=== PATIENT | female | born 1955 | race Caucasian/White ===

== ENCOUNTER 2017-10-05 23:34 | Emergency (ER) | payer MEDICARE ==
[~2017-10-05] VITALS: Ht 157.5 cm; Wt 49.9 kg
[2017-10-06 00:02] LABS: BASOPHILS ABSOLUTE AUTO 0.03 K/mm3 (0.00-0.23); BASOPHILS PERCENT AUTO 0 % (0-2); EOSINOPHILS ABSOLUTE AUTO 0.01 K/mm3 (0.00-0.68); EOSINOPHILS PERCENT AUTO 0 % (0-6); Hematocrit 43.6 % (33.0-51.0); Hemoglobin 14.2 g/dL (11.5-16.0); IMMATURE GRAN ABSOLUTE AUTO 0.04 K/mm3 (0.00-0.10); IMMATURE GRAN PERCENT AUTO 0 % (0-1); LYMPHOCYTES ABSOLUTE AUTO 1.43 K/mm3 (0.84-5.20); LYMPHOCYTES PERCENT AUTO 10 % (21-46); MONOCYTES ABSOLUTE AUTO 0.88 K/mm3 (0.16-1.47); MONOCYTES PERCENT AUTO 6 % (4-13); Mean Corpuscular HGB 29.3 pg (26.0-34.0); Mean Corpuscular HGB Conc 32.6 g/dL (31.5-36.5); Mean Corpuscular Volume 90 fL (80-100); Mean Platelet Volume 14.2 fL (9.1-12.4); NEUTROPHILS ABSOLUTE AUTO 12.51 K/mm3 (1.96-9.15); NEUTROPHILS PERCENT AUTO 84 % (41-73); Platelet Count 207 K/mm3 (150-400); RDW Standard Deviation 42.6 fL (35.1-46.3); Red Blood Cell Count 4.84 M/mm3 (3.80-5.20)
[2017-10-06 00:14] LABS: Alanine Aminotransfer (ALT/SGP 50 U/L (12-78); Albumin, Blood 3.8 g/dL (3.4-5.0); Albumin/Globulin Ratio 0.9 (0.8-1.8); Alk Phos 125 U/L (50-136); Anion Gap 15 mmol/L (6-16); Aspartate Aminotrans (AST/SGOT 76 U/L (12-37); Bilirubin, Total 0.4 mg/dL (0.1-1.0); Blood Urea Nitrogen 11 mg/dL (8-24); Bun/Creatinine Ratio 21.6 (12.0-20.0); CO2, Blood 20 mmol/L (21-32); Calcium, Blood 9.4 mg/dL (8.5-10.1); Chloride, Blood 107 mmol/L (98-108); Creatinine, Blood 0.51 mg/dL (0.40-1.00); Globulin, Blood 4.4 g/dL (2.2-4.0); Glomerular Filtration Rate >60 (60-); Glucose, Blood 95 mg/dL (70-99); Potassium, Blood 3.7 mmol/L (3.5-5.5); Sodium, Blood 142 mmol/L (136-145); Total Protein, Blood 8.2 g/dL (6.4-8.2)
[2017-10-06] MEDS ORDERED: Bactrim Ds Tab1 EACH PO (11:27)
[2017-10-06] MEDS ORDERED: Colace100 MG PO (11:27)
[2017-10-06] MEDS ORDERED: GLYCPS PR (11:27)
== END 2017-10-06 02:25 | disposition home or self-care (01) ==
LOC: ER 23:34
PROVIDERS: Emergency Medicine
DX: K59.00 Constipation, unspecified (principal)
CPT/HCPCS: 80053; 83690; 85025; 99283

== ENCOUNTER 2017-10-06 08:02 | Emergency (ER) | payer MEDICARE ==
[~2017-10-06] VITALS: Ht 152.4 cm; Wt 59.0 kg
[2017-10-06 10:22] LABS: Source, Urine Clean Catch
[2017-10-06 10:26] LABS: Bilirubin, Urine Neg (Neg); Blood, Urine 4+ (Neg); Glucose Qualitative, Urine 2+ (Neg); Ketones, Urine 4+ (Neg); Leukocyte Esterase, Urine 3+ (Neg); Nitrite, Urine Neg (Neg); Protein, Urine 2+ (Neg); Urobilinogen, Urine NORM (Normal)
[2017-10-06 10:37] LABS: Appearance, Urine Hazy (Clear); Color, Urine Yellow (P-Yellow)
[2017-10-06 10:39] LABS: Bacteria Mod /hpf; Mucus Light (0-Heavy); Squamous Epithelial Cells Mod /hpf (Few)
[2017-10-06] MEDS ORDERED: Colace100 MG PO (11:27)
[2017-10-06] MEDS ORDERED: Bactrim Ds Tab1 EACH PO (11:27)
[2017-10-06] MEDS ORDERED: GLYCPS PR (11:27)
== END 2017-10-06 11:48 | disposition home or self-care (01) ==
LOC: ER 08:02
PROVIDERS: Emergency Medicine
DX: K59.00 Constipation, unspecified (principal); N39.0 Urinary tract infection, site not specified; E86.0 Dehydration
CPT/HCPCS: 74018; 81001; 87077; 87086; 87186; 99283

== ENCOUNTER 2017-12-01 05:59 | Inpatient (IN) | payer MEDICARE ==
[~2017-12-01] VITALS: Ht 147.3 cm; Wt 39.3 kg
[~2017-12-01 05:59] MED LIST: Bactrim Ds Tab1 EACH PO; Colace100 MG PO; GLYCPS PR
[2017-12-01] MEDS ORDERED: Ventolin5 MG/1 ML INH (06:21)
[2017-12-01 06:28] LABS: BASOPHILS ABSOLUTE AUTO 0.06 K/mm3 (0.00-0.23); BASOPHILS PERCENT AUTO 0 % (0-2); EOSINOPHILS ABSOLUTE AUTO 1.19 K/mm3 (0.00-0.68); EOSINOPHILS PERCENT AUTO 9 % (0-6); Hematocrit 44.1 % (33.0-51.0); Hemoglobin 14.1 g/dL (11.5-16.0); IMMATURE GRAN ABSOLUTE AUTO 0.03 K/mm3 (0.00-0.10); IMMATURE GRAN PERCENT AUTO 0 % (0-1); LYMPHOCYTES ABSOLUTE AUTO 4.85 K/mm3 (0.84-5.20); LYMPHOCYTES PERCENT AUTO 36 % (21-46); MONOCYTES ABSOLUTE AUTO 0.67 K/mm3 (0.16-1.47); MONOCYTES PERCENT AUTO 5 % (4-13); Mean Corpuscular HGB 28.5 pg (26.0-34.0); Mean Corpuscular Volume 89 fL (80-100); NEUTROPHILS ABSOLUTE AUTO 6.64 K/mm3 (1.96-9.15); NEUTROPHILS PERCENT AUTO 49 % (41-73); Platelet Count 190 K/mm3 (150-400); RDW Coefficient Variation 13.1 % (11.7-14.2); RDW Standard Deviation 43.1 fL (35.1-46.3); Red Blood Cell Count 4.94 M/mm3 (3.80-5.20); White Blood Cell Count 13.44 K/mm3 (4.00-11.30)
[2017-12-01 06:37] LABS: Anion Gap 8 mmol/L (6-16); Blood Urea Nitrogen 10 mg/dL (8-24); CO2, Blood 27 mmol/L (21-32); Calcium, Blood 8.5 mg/dL (8.5-10.1); Chloride, Blood 109 mmol/L (98-108); Creatinine, Blood 0.53 mg/dL (0.40-1.00); Glomerular Filtration Rate >60 (60-); Glucose, Blood 102 mg/dL (70-99); Potassium, Blood 3.3 mmol/L (3.5-5.5); Sodium, Blood 144 mmol/L (136-145)
[2017-12-01 06:39] LABS: Mean Platelet Volume 13.5 fL (9.1-12.4)
[2017-12-01 07:57] LABS: Troponin I <0.015 ng/mL (0.000-0.040)
[2017-12-02 04:58] LABS: BASOPHILS ABSOLUTE AUTO 0.02 K/mm3 (0.00-0.23); BASOPHILS PERCENT AUTO 0 % (0-2); EOSINOPHILS ABSOLUTE AUTO 0.01 K/mm3 (0.00-0.68); EOSINOPHILS PERCENT AUTO 0 % (0-6); Hematocrit 34.2 % (33.0-51.0); Hemoglobin 10.9 g/dL (11.5-16.0); IMMATURE GRAN ABSOLUTE AUTO 0.14 K/mm3 (0.00-0.10); IMMATURE GRAN PERCENT AUTO 1 % (0-1); LYMPHOCYTES ABSOLUTE AUTO 1.36 K/mm3 (0.84-5.20); LYMPHOCYTES PERCENT AUTO 6 % (21-46); MONOCYTES ABSOLUTE AUTO 0.47 K/mm3 (0.16-1.47); MONOCYTES PERCENT AUTO 2 % (4-13); Mean Corpuscular HGB 28.6 pg (26.0-34.0); Mean Corpuscular HGB Conc 31.9 g/dL (31.5-36.5); Mean Corpuscular Volume 90 fL (80-100); NEUTROPHILS ABSOLUTE AUTO 19.17 K/mm3 (1.96-9.15); NEUTROPHILS PERCENT AUTO 91 % (41-73); Platelet Count 158 K/mm3 (150-400); RDW Coefficient Variation 13.2 % (11.7-14.2); RDW Standard Deviation 43.8 fL (35.1-46.3); Red Blood Cell Count 3.81 M/mm3 (3.80-5.20); White Blood Cell Count 21.17 K/mm3 (4.00-11.30)
[2017-12-02 05:01] LABS: Mean Platelet Volume 14.2 fL (9.1-12.4)
[2017-12-02 05:25] LABS: Anion Gap 11 mmol/L (6-16); Blood Urea Nitrogen 6 mg/dL (8-24); Bun/Creatinine Ratio 13.8 (12.0-20.0); CO2, Blood 24 mmol/L (21-32); Calcium, Blood 8.2 mg/dL (8.5-10.1); Chloride, Blood 111 mmol/L (98-108); Creatinine, Blood 0.44 mg/dL (0.40-1.00); Glomerular Filtration Rate >60 (60-); Glucose, Blood 141 mg/dL (70-99); Sodium, Blood 146 mmol/L (136-145)
[2017-12-02 10:08] LABS: Source, Urine Clean Catch
[2017-12-02 10:15] LABS: Bilirubin, Urine Neg (Neg); Blood, Urine Neg (Neg); Glucose Qualitative, Urine Neg (Neg); Ketones, Urine Neg (Neg); Leukocyte Esterase, Urine Neg (Neg); Nitrite, Urine Neg (Neg); Protein, Urine Neg (Neg); Urobilinogen, Urine NORM (Normal)
[2017-12-02 10:19] LABS: Appearance, Urine Clear (Clear); Color, Urine Yellow (P-Yellow)
[2017-12-02 10:43] LABS: U Amphetamine Screen Not Detected; U Barbituate Screen Not Detected; U Benzodiazapine Screen Not Detected; U Buprenorphine Screen Not Detected; U Cannabinoids Screen Not Detected; U Cocaine Screen Not Detected; U Methadone Screen Not Detected; U Methamphetamine Screen Not Detected; U Opiates Screen Not Detected; U Oxycodone Screen Not Detected; U Phencyclidine Screen Not Detected; U Propoxyphene Screen Not Detected
[2017-12-03 04:59] LABS: Hematocrit 34.3 % (33.0-51.0); Hemoglobin 10.8 g/dL (11.5-16.0); Mean Corpuscular HGB 28.1 pg (26.0-34.0); Mean Corpuscular HGB Conc 31.5 g/dL (31.5-36.5); Mean Corpuscular Volume 89 fL (80-100); Platelet Count 157 K/mm3 (150-400); RDW Coefficient Variation 13.9 % (11.7-14.2); RDW Standard Deviation 45.5 fL (35.1-46.3); Red Blood Cell Count 3.84 M/mm3 (3.80-5.20); White Blood Cell Count 29.79 K/mm3 (4.00-11.30)
[2017-12-03 05:05] LABS: Mean Platelet Volume 14.4 fL (9.1-12.4)
[2017-12-03 05:23] LABS: Albumin, Blood 2.6 g/dL (3.4-5.0); Anion Gap 8 mmol/L (6-16); Blood Urea Nitrogen 14 mg/dL (8-24); CO2, Blood 25 mmol/L (21-32); Calcium, Blood 8.3 mg/dL (8.5-10.1); Chloride, Blood 110 mmol/L (98-108); Creatinine, Blood 0.44 mg/dL (0.40-1.00); Glomerular Filtration Rate >60 (60-); Glucose, Blood 139 mg/dL (70-99); Phosphorus, Blood 2.3 mg/dL (2.5-4.9); Sodium, Blood 143 mmol/L (136-145)
[2017-12-03 15:25] LABS: Percent Saturation 30.1 % (15.0-50.0)
[2017-12-04 04:31] LABS: BASOPHILS ABSOLUTE AUTO 0.03 K/mm3 (0.00-0.23); BASOPHILS PERCENT AUTO 0 % (0-2); EOSINOPHILS PERCENT AUTO 0 % (0-6); Hematocrit 33.8 % (33.0-51.0); Hemoglobin 10.7 g/dL (11.5-16.0); IMMATURE GRAN ABSOLUTE AUTO 0.28 K/mm3 (0.00-0.10); IMMATURE GRAN PERCENT AUTO 1 % (0-1); LYMPHOCYTES ABSOLUTE AUTO 1.11 K/mm3 (0.84-5.20); LYMPHOCYTES PERCENT AUTO 5 % (21-46); MONOCYTES ABSOLUTE AUTO 0.47 K/mm3 (0.16-1.47); MONOCYTES PERCENT AUTO 2 % (4-13); Mean Corpuscular HGB 28.6 pg (26.0-34.0); Mean Corpuscular HGB Conc 31.7 g/dL (31.5-36.5); Mean Corpuscular Volume 90 fL (80-100); Mean Platelet Volume 14.2 fL (9.1-12.4); NEUTROPHILS PERCENT AUTO 91 % (41-73); Platelet Count 148 K/mm3 (150-400); RDW Standard Deviation 46.3 fL (35.1-46.3); Red Blood Cell Count 3.74 M/mm3 (3.80-5.20); White Blood Cell Count 20.89 K/mm3 (4.00-11.30)
[2017-12-04 04:52] LABS: Anion Gap 6 mmol/L (6-16); Blood Urea Nitrogen 13 mg/dL (8-24); Bun/Creatinine Ratio 31.7 (12.0-20.0); CO2, Blood 26 mmol/L (21-32); Calcium, Blood 8.2 mg/dL (8.5-10.1); Chloride, Blood 109 mmol/L (98-108); Creatinine, Blood 0.41 mg/dL (0.40-1.00); Glomerular Filtration Rate >60 (60-); Glucose, Blood 139 mg/dL (70-99); Potassium, Blood 3.9 mmol/L (3.5-5.5); Sodium, Blood 141 mmol/L (136-145)
[2017-12-04] MEDS ORDERED: ACET325S PO (15:19)
[2017-12-04] MEDS ORDERED: FOLI1 PO (15:22)
[2017-12-04] MEDS ORDERED: PRED20 PO (15:24)
[2017-12-04] MEDS ORDERED: ALBU90OI INH (15:25)
[2017-12-04] MEDS ORDERED: AZIT500 PO (15:26)
[2017-12-04] MEDS ORDERED: DULERA 100 MCG/13 GM INH (15:27)
== END 2017-12-04 15:50 | disposition home or self-care (01) | DRG 191 ==
LOC: ER 05:59 → MEDS 09:06
PROVIDERS: Emergency Medicine; Family Medicine; Internal Medicine
DX: J44.0 Chronic obstructive pulmonary disease with (acute) lower respiratory infection (principal); J45.901 Unspecified asthma with (acute) exacerbation; E87.2 Acidosis; R65.10 Systemic inflammatory response syndrome (SIRS) of non-infectious origin without acute organ dysfunction; J98.11 Atelectasis; J44.1 Chronic obstructive pulmonary disease with (acute) exacerbation; D52.9 Folate deficiency anemia, unspecified; J20.9 Acute bronchitis, unspecified; E87.6 Hypokalemia; R01.1 Cardiac murmur, unspecified; D72.829 Elevated white blood cell count, unspecified; Z79.899 Other long term (current) drug therapy; Z95.1 Presence of aortocoronary bypass graft
CPT/HCPCS: 36415; 71046; 71260; 80048; 80069; 81003; 82607; 82728; 82746; 82947; 83540; 83550; 83605; 83735; 83880; 84145; 84484; 85025; 85027; 85379; 87040; 87070; 87205; 93005; 93010; 93306; 94640; 94760; 96361; 96374; 96375; 99285-25; J0456; J0696; J1650; J2930; J3370; J3480; J7030; J7050; J7120; Q9967

== ENCOUNTER 2017-12-26 03:09 | Emergency (ER) | payer MEDICARE ==
[~2017-12-26] VITALS: Ht 152.4 cm; Wt 49.9 kg
[~2017-12-26 03:09] MED LIST changes: +ACET325S PO; +ALBU90OI INH; +AZIT500 PO; +DULERA 100 MCG/13 GM INH; +FOLI1 PO; +PRED20 PO; +Ventolin5 MG/1 ML INH
[2017-12-26 03:28] LABS: BASOPHILS ABSOLUTE AUTO 0.07 K/mm3 (0.00-0.23); BASOPHILS PERCENT AUTO 1 % (0-2); EOSINOPHILS ABSOLUTE AUTO 1.26 K/mm3 (0.00-0.68); EOSINOPHILS PERCENT AUTO 13 % (0-6); Hematocrit 41.5 % (33.0-51.0); IMMATURE GRAN ABSOLUTE AUTO 0.01 K/mm3 (0.00-0.10); IMMATURE GRAN PERCENT AUTO 0 % (0-1); LYMPHOCYTES ABSOLUTE AUTO 3.54 K/mm3 (0.84-5.20); LYMPHOCYTES PERCENT AUTO 35 % (21-46); MONOCYTES ABSOLUTE AUTO 0.74 K/mm3 (0.16-1.47); MONOCYTES PERCENT AUTO 7 % (4-13); Mean Corpuscular HGB 27.9 pg (26.0-34.0); Mean Corpuscular HGB Conc 31.3 g/dL (31.5-36.5); Mean Corpuscular Volume 89 fL (80-100); NEUTROPHILS ABSOLUTE AUTO 4.39 K/mm3 (1.96-9.15); NEUTROPHILS PERCENT AUTO 44 % (41-73); Platelet Count 183 K/mm3 (150-400); RDW Coefficient Variation 14.1 % (11.7-14.2); RDW Standard Deviation 45.5 fL (35.1-46.3); Red Blood Cell Count 4.66 M/mm3 (3.80-5.20); White Blood Cell Count 10.01 K/mm3 (4.00-11.30)
[2017-12-26 03:46] LABS: Alanine Aminotransfer (ALT/SGP 25 U/L (12-78); Albumin, Blood 3.8 g/dL (3.4-5.0); Alk Phos 107 U/L (50-136); Anion Gap 9 mmol/L (6-16); Aspartate Aminotrans (AST/SGOT 35 U/L (12-37); Bilirubin, Total 0.6 mg/dL (0.1-1.0); Blood Urea Nitrogen 18 mg/dL (8-24); Bun/Creatinine Ratio 31.3 (12.0-20.0); CO2, Blood 25 mmol/L (21-32); Calcium, Blood 8.9 mg/dL (8.5-10.1); Chloride, Blood 109 mmol/L (98-108); Creatinine, Blood 0.58 mg/dL (0.40-1.00); Glomerular Filtration Rate >60 (60-); Glucose, Blood 92 mg/dL (70-99); Potassium, Blood 3.2 mmol/L (3.5-5.5); Sodium, Blood 143 mmol/L (136-145); Total Protein, Blood 7.8 g/dL (6.4-8.2); Troponin I <0.015 ng/mL (0.000-0.040)
[2017-12-26] MEDS ORDERED: Prednisone20 MG PO (05:10)
== END 2017-12-26 05:23 | disposition home or self-care (01) ==
LOC: ER 03:09
PROVIDERS: Emergency Medicine
DX: R06.02 Shortness of breath (principal); J45.909 Unspecified asthma, uncomplicated; Z79.899 Other long term (current) drug therapy; Z79.51 Long term (current) use of inhaled steroids; Z79.52 Long term (current) use of systemic steroids
CPT/HCPCS: 36415; 71045; 80053; 84484; 85025; 93005; 93010; 94644; 96374; 99285-25; J2930

== ENCOUNTER 2018-01-02 06:26 | Emergency (ER) | payer MEDICARE ==
[~2018-01-02] VITALS: Ht 152.4 cm; Wt 45.4 kg
[~2018-01-02 06:26] MED LIST changes: +Prednisone20 MG PO
[2018-01-02 06:50] LABS: BASOPHILS ABSOLUTE AUTO 0.06 K/mm3 (0.00-0.23); BASOPHILS PERCENT AUTO 1 % (0-2); EOSINOPHILS ABSOLUTE AUTO 0.76 K/mm3 (0.00-0.68); EOSINOPHILS PERCENT AUTO 7 % (0-6); Hematocrit 43.1 % (33.0-51.0); IMMATURE GRAN ABSOLUTE AUTO 0.02 K/mm3 (0.00-0.10); IMMATURE GRAN PERCENT AUTO 0 % (0-1); LYMPHOCYTES ABSOLUTE AUTO 2.45 K/mm3 (0.84-5.20); LYMPHOCYTES PERCENT AUTO 22 % (21-46); MONOCYTES ABSOLUTE AUTO 0.72 K/mm3 (0.16-1.47); MONOCYTES PERCENT AUTO 7 % (4-13); Mean Corpuscular HGB 28.2 pg (26.0-34.0); Mean Corpuscular HGB Conc 32.5 g/dL (31.5-36.5); Mean Corpuscular Volume 87 fL (80-100); NEUTROPHILS ABSOLUTE AUTO 7.09 K/mm3 (1.96-9.15); NEUTROPHILS PERCENT AUTO 64 % (41-73); Platelet Count 198 K/mm3 (150-400); RDW Coefficient Variation 14.1 % (11.7-14.2); RDW Standard Deviation 44.7 fL (35.1-46.3); Red Blood Cell Count 4.96 M/mm3 (3.80-5.20)
[2018-01-02 06:53] LABS: Mean Platelet Volume 13.6 fL (9.1-12.4)
[2018-01-02 07:00] LABS: Anion Gap 9 mmol/L (6-16); Blood Urea Nitrogen 14 mg/dL (8-24); Bun/Creatinine Ratio 31.2 (12.0-20.0); CO2, Blood 28 mmol/L (21-32); Calcium, Blood 8.8 mg/dL (8.5-10.1); Chloride, Blood 108 mmol/L (98-108); Creatinine, Blood 0.45 mg/dL (0.40-1.00); Glomerular Filtration Rate >60 (60-); Glucose, Blood 110 mg/dL (70-99); Sodium, Blood 145 mmol/L (136-145)
[2018-01-02] MEDS ORDERED: COMBIVENT RESPIM4 GM INH (07:54)
[2018-01-02] MEDS ORDERED: Prednisone20 MG PO (07:54)
== END 2018-01-02 08:05 | disposition home or self-care (01) ==
LOC: ER 06:26
PROVIDERS: Emergency Medicine
DX: J44.1 Chronic obstructive pulmonary disease with (acute) exacerbation (principal); Z79.51 Long term (current) use of inhaled steroids
CPT/HCPCS: 36415; 71045; 80048; 85025; 94640; 94644; 96365; 96375; 99285-25; J2930; J3475; J7030

== ENCOUNTER 2018-01-19 03:44 | Emergency (ER) | payer MEDICARE ==
[~2018-01-19] VITALS: Ht 139.7 cm; Wt 45.4 kg
[~2018-01-19 03:44] MED LIST changes: +COMBIVENT RESPIM4 GM INH
[2018-01-19 04:11] LABS: BASOPHILS ABSOLUTE AUTO 0.06 K/mm3 (0.00-0.23); BASOPHILS PERCENT AUTO 0 % (0-2); EOSINOPHILS ABSOLUTE AUTO 1.27 K/mm3 (0.00-0.68); EOSINOPHILS PERCENT AUTO 9 % (0-6); Hematocrit 44.8 % (33.0-51.0); Hemoglobin 14.2 g/dL (11.5-16.0); IMMATURE GRAN ABSOLUTE AUTO 0.02 K/mm3 (0.00-0.10); IMMATURE GRAN PERCENT AUTO 0 % (0-1); LYMPHOCYTES ABSOLUTE AUTO 2.64 K/mm3 (0.84-5.20); LYMPHOCYTES PERCENT AUTO 19 % (21-46); MONOCYTES ABSOLUTE AUTO 0.87 K/mm3 (0.16-1.47); MONOCYTES PERCENT AUTO 6 % (4-13); Mean Corpuscular HGB 28.5 pg (26.0-34.0); Mean Corpuscular HGB Conc 31.7 g/dL (31.5-36.5); Mean Corpuscular Volume 90 fL (80-100); Mean Platelet Volume 12.8 fL (9.1-12.4); NEUTROPHILS ABSOLUTE AUTO 9.03 K/mm3 (1.96-9.15); NEUTROPHILS PERCENT AUTO 65 % (41-73); Platelet Count 215 K/mm3 (150-400); RDW Coefficient Variation 13.8 % (11.7-14.2); RDW Standard Deviation 45.3 fL (35.1-46.3); Red Blood Cell Count 4.99 M/mm3 (3.80-5.20); White Blood Cell Count 13.89 K/mm3 (4.00-11.30)
[2018-01-19 04:31] LABS: Alanine Aminotransfer (ALT/SGP 16 U/L (12-78); Albumin, Blood 3.2 g/dL (3.4-5.0); Albumin/Globulin Ratio 0.7 (0.8-1.8); Alk Phos 111 U/L (50-136); Anion Gap 7 mmol/L (6-16); Aspartate Aminotrans (AST/SGOT 23 U/L (12-37); Bilirubin, Total 0.6 mg/dL (0.1-1.0); Blood Urea Nitrogen 10 mg/dL (8-24); Bun/Creatinine Ratio 19.3 (12.0-20.0); CO2, Blood 27 mmol/L (21-32); Chloride, Blood 105 mmol/L (98-108); Creatinine, Blood 0.52 mg/dL (0.40-1.00); Globulin, Blood 4.3 g/dL (2.2-4.0); Glomerular Filtration Rate >60 (60-); Glucose, Blood 103 mg/dL (70-99); Potassium, Blood 3.7 mmol/L (3.5-5.5); Sodium, Blood 139 mmol/L (136-145); Total Protein, Blood 7.5 g/dL (6.4-8.2); Troponin I <0.015 ng/mL (0.000-0.040)
[2018-01-19] MEDS ORDERED: Zithromax250 MG PO (05:21)
[2018-01-19] MEDS ORDERED: Prednisone20 MG PO (05:21)
== END 2018-01-19 05:59 | disposition home or self-care (01) ==
LOC: ER 03:44
PROVIDERS: Emergency Medicine
DX: J45.901 Unspecified asthma with (acute) exacerbation (principal); Z79.51 Long term (current) use of inhaled steroids
CPT/HCPCS: 71046; 80053; 84484; 85025; 93005; 93010; 94645; 96361; 96374; 99285-25; J2930; J7030

== ENCOUNTER 2018-01-25 00:12 | Emergency (ER) | payer MEDICARE ==
[~2018-01-25] VITALS: Ht 152.4 cm; Wt 45.4 kg
[~2018-01-25 00:12] MED LIST changes: +Zithromax250 MG PO
[2018-01-25 00:42] LABS: BASOPHILS ABSOLUTE AUTO 0.08 K/mm3 (0.00-0.23); BASOPHILS PERCENT AUTO 1 % (0-2); EOSINOPHILS ABSOLUTE AUTO 2.13 K/mm3 (0.00-0.68); EOSINOPHILS PERCENT AUTO 15 % (0-6); Hematocrit 43.3 % (33.0-51.0); Hemoglobin 13.7 g/dL (11.5-16.0); IMMATURE GRAN ABSOLUTE AUTO 0.04 K/mm3 (0.00-0.10); IMMATURE GRAN PERCENT AUTO 0 % (0-1); LYMPHOCYTES ABSOLUTE AUTO 4.35 K/mm3 (0.84-5.20); LYMPHOCYTES PERCENT AUTO 31 % (21-46); MONOCYTES ABSOLUTE AUTO 0.89 K/mm3 (0.16-1.47); MONOCYTES PERCENT AUTO 6 % (4-13); Mean Corpuscular HGB 28.8 pg (26.0-34.0); Mean Corpuscular HGB Conc 31.6 g/dL (31.5-36.5); Mean Corpuscular Volume 91 fL (80-100); Mean Platelet Volume 12.7 fL (9.1-12.4); NEUTROPHILS ABSOLUTE AUTO 6.73 K/mm3 (1.96-9.15); NEUTROPHILS PERCENT AUTO 47 % (41-73); Platelet Count 274 K/mm3 (150-400); RDW Coefficient Variation 13.8 % (11.7-14.2); RDW Standard Deviation 46.4 fL (35.1-46.3); Red Blood Cell Count 4.75 M/mm3 (3.80-5.20); White Blood Cell Count 14.22 K/mm3 (4.00-11.30)
[2018-01-25 00:59] LABS: Anion Gap 8 mmol/L (6-16); Blood Urea Nitrogen 12 mg/dL (8-24); Bun/Creatinine Ratio 22.5 (12.0-20.0); CO2, Blood 27 mmol/L (21-32); Calcium, Blood 8.6 mg/dL (8.5-10.1); Chloride, Blood 106 mmol/L (98-108); Creatinine, Blood 0.53 mg/dL (0.40-1.00); Glomerular Filtration Rate >60 (60-); Glucose, Blood 97 mg/dL (70-99); Potassium, Blood 3.5 mmol/L (3.5-5.5); Sodium, Blood 141 mmol/L (136-145)
== END 2018-01-25 04:15 | disposition home or self-care (01) ==
LOC: ER 00:12
PROVIDERS: Emergency Medicine
DX: J45.901 Unspecified asthma with (acute) exacerbation (principal); Z79.899 Other long term (current) drug therapy; Z79.51 Long term (current) use of inhaled steroids
CPT/HCPCS: 36415; 71046; 80048; 85025; 94644; 96374; 99285-25; J2930

== ENCOUNTER 2018-04-19 11:39 | Observation (INO) | payer MEDICARE, OTHER ==
[~2018-04-19] VITALS: Ht 147.3 cm; Wt 42.4 kg
[~2018-04-19 11:39] MED LIST changes: +ACET325 PO; +ALBU90OI6 INH; +LEVO750 PO; +OLAN2.5 PO; +PRED10 PO; +Q-Tussin100 MG/5 M PO
[2018-04-19 13:17] LABS: BASOPHILS ABSOLUTE AUTO 0.09 K/mm3 (0.00-0.23); BASOPHILS PERCENT AUTO 1 % (0-2); EOSINOPHILS ABSOLUTE AUTO 1.22 K/mm3 (0.00-0.68); EOSINOPHILS PERCENT AUTO 9 % (0-6); Hematocrit 46.9 % (33.0-51.0); IMMATURE GRAN ABSOLUTE AUTO 0.04 K/mm3 (0.00-0.10); IMMATURE GRAN PERCENT AUTO 0 % (0-1); LYMPHOCYTES ABSOLUTE AUTO 3.69 K/mm3 (0.84-5.20); LYMPHOCYTES PERCENT AUTO 27 % (21-46); MONOCYTES ABSOLUTE AUTO 1.08 K/mm3 (0.16-1.47); MONOCYTES PERCENT AUTO 8 % (4-13); Mean Corpuscular HGB 28.6 pg (26.0-34.0); Mean Corpuscular Volume 90 fL (80-100); NEUTROPHILS ABSOLUTE AUTO 7.75 K/mm3 (1.96-9.15); NEUTROPHILS PERCENT AUTO 56 % (41-73); Platelet Count 190 K/mm3 (150-400); RDW Coefficient Variation 12.9 % (11.7-14.2); RDW Standard Deviation 42.5 fL (35.1-46.3); Red Blood Cell Count 5.24 M/mm3 (3.80-5.20); White Blood Cell Count 13.87 K/mm3 (4.00-11.30)
[2018-04-19 13:20] LABS: Alanine Aminotransfer (ALT/SGP 24 U/L (12-78); Albumin, Blood 4.1 g/dL (3.4-5.0); Albumin/Globulin Ratio 0.9 (0.8-1.8); Alk Phos 129 U/L (50-136); Anion Gap 10 mmol/L (6-16); Aspartate Aminotrans (AST/SGOT 23 U/L (12-37); Bilirubin, Total 0.6 mg/dL (0.1-1.0); Blood Urea Nitrogen 26 mg/dL (8-24); Bun/Creatinine Ratio 50.3 (12.0-20.0); CO2, Blood 24 mmol/L (21-32); Calcium, Blood 9.3 mg/dL (8.5-10.1); Chloride, Blood 107 mmol/L (98-108); Creatinine, Blood 0.52 mg/dL (0.40-1.00); Globulin, Blood 4.6 g/dL (2.2-4.0); Glomerular Filtration Rate >60 (60-); Glucose, Blood 86 mg/dL (70-99); Potassium, Blood 3.7 mmol/L (3.5-5.5); Sodium, Blood 141 mmol/L (136-145); Total Protein, Blood 8.7 g/dL (6.4-8.2); Troponin I <0.015 ng/mL (0.000-0.040)
[2018-04-19 13:51] LABS: Influenza A Negative (NEGATIVE); Influenza B Negative (NEGATIVE)
--- NOTE | 2018-04-19 19:32 | NUR ---
ADMIT NOTE/SHIFT SUMMARY- PT ADMITTED THROUGH ED FOR COPD EXACERBATION, NO S&S OF DISTRESS ON ARRIVAL, STARTED IV ABX, IVF AND FLU SHOT WAS GIVEN. PT ALERT AND ORIENTED TO SELF EVENT AND PLACE, POOR HISTORIAN, PT MOTHER KNOWS MEDICATIONS BUT LEFT D/T PT BECOMING UPSET WITH HER IN THE ED (PER REPORT FROM ED RN). PT INDEPENDENT IN THE ROOM, KNOWS HOW TO USE THE CALL LIGHT, AND DOSE SO FREQUENTLY, SOMETIMES JUST AFTER STAFF HAVE LEFT THE ROOM. PT IS COOPERATIVE WITH CARE.
[2018-04-20 05:48] LABS: BASOPHILS ABSOLUTE AUTO 0.01 K/mm3 (0.00-0.23); BASOPHILS PERCENT AUTO 0 % (0-2); EOSINOPHILS PERCENT AUTO 0 % (0-6); Hematocrit 37.4 % (33.0-51.0); Hemoglobin 11.8 g/dL (11.5-16.0); IMMATURE GRAN ABSOLUTE AUTO 0.03 K/mm3 (0.00-0.10); IMMATURE GRAN PERCENT AUTO 0 % (0-1); LYMPHOCYTES PERCENT AUTO 10 % (21-46); MONOCYTES ABSOLUTE AUTO 0.46 K/mm3 (0.16-1.47); MONOCYTES PERCENT AUTO 4 % (4-13); Mean Corpuscular HGB 28.9 pg (26.0-34.0); Mean Corpuscular HGB Conc 31.6 g/dL (31.5-36.5); Mean Corpuscular Volume 91 fL (80-100); Mean Platelet Volume 12.8 fL (9.1-12.4); NEUTROPHILS ABSOLUTE AUTO 8.87 K/mm3 (1.96-9.15); NEUTROPHILS PERCENT AUTO 86 % (41-73); Platelet Count 158 K/mm3 (150-400); RDW Coefficient Variation 13.1 % (11.7-14.2); RDW Standard Deviation 44.2 fL (35.1-46.3); Red Blood Cell Count 4.09 M/mm3 (3.80-5.20); White Blood Cell Count 10.37 K/mm3 (4.00-11.30)
[2018-04-20 06:30] LABS: Magnesium, Blood 2.3 mg/dL (1.6-2.4)
[2018-04-20 06:44] LABS: Alanine Aminotransfer (ALT/SGP 18 U/L (12-78); Albumin/Globulin Ratio 0.8 (0.8-1.8); Alk Phos 93 U/L (50-136); Anion Gap 6 mmol/L (6-16); Aspartate Aminotrans (AST/SGOT 18 U/L (12-37); Bilirubin, Total 0.4 mg/dL (0.1-1.0); Blood Urea Nitrogen 16 mg/dL (8-24); Bun/Creatinine Ratio 35.1 (12.0-20.0); CO2, Blood 23 mmol/L (21-32); Calcium, Blood 8.2 mg/dL (8.5-10.1); Chloride, Blood 114 mmol/L (98-108); Creatinine, Blood 0.46 mg/dL (0.40-1.00); Globulin, Blood 3.6 g/dL (2.2-4.0); Glomerular Filtration Rate >60 (60-); Glucose, Blood 117 mg/dL (70-99); Potassium, Blood 3.8 mmol/L (3.5-5.5); Sodium, Blood 143 mmol/L (136-145); Total Protein, Blood 6.6 g/dL (6.4-8.2)
--- NOTE | 2018-04-20 07:12 | NUR ---
SHIFT SUMMARY: PT A&O TO SELF, ABLE TO FOLLOW COMMANDS + ANSWER Q'S. RECEIVING 2nd LITER OF NS IN 20 G @ 100 ML/HR. PT AMBULATES VIA SBA TO BATHROOM FOR ONE VOID. PLEASANT AND COOPERATIVE c CARE. LS WHEEZE T/O. DENIES ANY PAIN, SOB, OR DISCOMFORT OF ANY SORT THIS SHIFT. WILL CONT TO MONITOR AND PROVIDE CARE UNTIL PRESUMED BY ONCOMING RN.
--- NOTE | 2018-04-20 18:27 | NUR ---
SHIFT SUMMARY- PT HAS SLEPT FREQUENTLY T/O THE SHIFT, NO C/O PAIN, MOST FREQUENTLY ASKED QUESTION IS "WHEN IS ____ (FOOD) GOING TO BE HERE." PT IS SITTING UP IN BED WITH HER CALL LIGHT IN REACH SHE CALLS WHEN SHE WANTS SOMETHING. IV IS SL AT THIS TIME. PT HAS HAD NO C/O SOB T/O THE SHIFT.
--- NOTE | 2018-04-21 06:28 | NUR ---
SHIFT SUMMARY: NO ACUTE CHANGES TO REPORT THIS SHIFT. PT DENIES SOB, CONT TO TOLERATE RA. LS DIM T/O. OCCASIONAL PRODUCTIVE COUGH, YELLOW THICK SPUTUM. SPUTUM SAMPLE SENT TO LAB THIS AM. CONT IV ANTIBIOTICS. EXPECTING TO D/C TODAY OR TOMORROW. NO OTHER ACUTE CHANGES TO REPORT. WILL CONT TO MONITOR AND PROVIDE CARE UNTIL PRESUMED BY ONCOMING RN.
--- NOTE | 2018-04-21 10:26 | NUR ---
Pt was awake and appeared well taken care of. Pt answered questions in brief remarks, not elaborating in any detail. Pt lives in [place] and mentions having a mother that's still alive. Pt did not seem to desire social engagement so I excused this person out of the room. Pt verbalized gratitude for the check-in. I will remain available.
[2018-04-21] MEDS ORDERED: AZIT250 PO (14:14)
--- NOTE | 2018-04-21 15:49 | NUR ---
DISCHARGE NOTE STEPHANIE HAD PIV REMOVED, PAPERWORK GONE OVER WITH HER AND HER BROTHER WHO CAME TO PICK HER UP. SHE HAS BEEN INDEP IN ROOM, DENIES PAIN OR SOB. RX FAXED TO [facility]. DC TIME [id number]
== END 2018-04-21 15:53 | disposition home or self-care (01) ==
LOC: ER 11:39 → MEDS 11:40 → ER 14:47 → MEDS 16:40 → ER 04-20 11:40 → MEDS 04-20 11:41
PROVIDERS: Physician Assistant; ADMIT Internal Medicine
DX: J44.1 Chronic obstructive pulmonary disease with (acute) exacerbation (principal); J96.01 Acute respiratory failure with hypoxia; D64.9 Anemia, unspecified; R62.50 Unspecified lack of expected normal physiological development in childhood; R56.9 Unspecified convulsions; Z23 Encounter for immunization; Z79.2 Long term (current) use of antibiotics
CPT/HCPCS: 36415; 71046; 80053; 83735; 84484; 85025; 87070; 87205; 87804; 90686; 93005; 93010; 94640; 94644; 94760; 96365; 96372; 96375; 96376; 99285-25; G0008; G0378; J0456; J0696; J1650; J2930; J7030; J7050

== ENCOUNTER 2018-04-25 11:11 | Emergency (ER) | payer MEDICARE, OTHER ==
[~2018-04-25] VITALS: Ht 147.3 cm; Wt 48.1 kg
[~2018-04-25 11:11] MED LIST changes: +AZIT250 PO
[2018-04-25 11:36] LABS: BASOPHILS ABSOLUTE AUTO 0.08 K/mm3 (0.00-0.23); BASOPHILS PERCENT AUTO 1 % (0-2); EOSINOPHILS ABSOLUTE AUTO 1.76 K/mm3 (0.00-0.68); EOSINOPHILS PERCENT AUTO 11 % (0-6); Hematocrit 45.8 % (33.0-51.0); Hemoglobin 14.6 g/dL (11.5-16.0); IMMATURE GRAN ABSOLUTE AUTO 0.09 K/mm3 (0.00-0.10); IMMATURE GRAN PERCENT AUTO 1 % (0-1); LYMPHOCYTES ABSOLUTE AUTO 3.61 K/mm3 (0.84-5.20); LYMPHOCYTES PERCENT AUTO 22 % (21-46); MONOCYTES PERCENT AUTO 6 % (4-13); Mean Corpuscular HGB Conc 31.9 g/dL (31.5-36.5); Mean Corpuscular Volume 91 fL (80-100); Mean Platelet Volume 12.3 fL (9.1-12.4); NEUTROPHILS ABSOLUTE AUTO 9.82 K/mm3 (1.96-9.15); NEUTROPHILS PERCENT AUTO 60 % (41-73); Platelet Count 204 K/mm3 (150-400); Red Blood Cell Count 5.03 M/mm3 (3.80-5.20); White Blood Cell Count 16.26 K/mm3 (4.00-11.30)
[2018-04-25 11:51] LABS: Alanine Aminotransfer (ALT/SGP 23 U/L (12-78); Albumin, Blood 3.7 g/dL (3.4-5.0); Albumin/Globulin Ratio 0.9 (0.8-1.8); Alk Phos 111 U/L (50-136); Anion Gap 7 mmol/L (6-16); Aspartate Aminotrans (AST/SGOT 16 U/L (12-37); Bilirubin, Total 0.2 mg/dL (0.1-1.0); Blood Urea Nitrogen 11 mg/dL (8-24); Bun/Creatinine Ratio 22.4 (12.0-20.0); CO2, Blood 26 mmol/L (21-32); Calcium, Blood 9.2 mg/dL (8.5-10.1); Chloride, Blood 108 mmol/L (98-108); Creatinine, Blood 0.49 mg/dL (0.40-1.00); Glomerular Filtration Rate >60 (60-); Glucose, Blood 97 mg/dL (70-99); Sodium, Blood 141 mmol/L (136-145); Total Protein, Blood 7.7 g/dL (6.4-8.2)
[2018-04-25] MEDS ORDERED: Prednisone20 MG PO (13:24)
== END 2018-04-25 13:51 | disposition home or self-care (01) ==
LOC: ER 11:11
PROVIDERS: Emergency Medicine
DX: J44.9 Chronic obstructive pulmonary disease, unspecified (principal)
CPT/HCPCS: 36415; 71046; 80053; 85025; 93005; 93010; 94640; 96374; 99285-25; J2930

== ENCOUNTER 2018-04-29 00:09 | Emergency (ER) | payer MEDICARE, OTHER ==
[~2018-04-29] VITALS: Ht 134.6 cm; Wt 45.4 kg
[2018-04-29 00:27] LABS: BASOPHILS PERCENT AUTO 1 % (0-2); EOSINOPHILS ABSOLUTE AUTO 2.11 K/mm3 (0.00-0.68); EOSINOPHILS PERCENT AUTO 14 % (0-6); Hematocrit 49.3 % (33.0-51.0); Hemoglobin 15.5 g/dL (11.5-16.0); IMMATURE GRAN ABSOLUTE AUTO 0.06 K/mm3 (0.00-0.10); IMMATURE GRAN PERCENT AUTO 0 % (0-1); LYMPHOCYTES ABSOLUTE AUTO 3.91 K/mm3 (0.84-5.20); LYMPHOCYTES PERCENT AUTO 26 % (21-46); MONOCYTES ABSOLUTE AUTO 0.97 K/mm3 (0.16-1.47); MONOCYTES PERCENT AUTO 6 % (4-13); Mean Corpuscular HGB 28.2 pg (26.0-34.0); Mean Corpuscular HGB Conc 31.4 g/dL (31.5-36.5); Mean Corpuscular Volume 90 fL (80-100); Mean Platelet Volume 12.4 fL (9.1-12.4); NEUTROPHILS ABSOLUTE AUTO 8.15 K/mm3 (1.96-9.15); NEUTROPHILS PERCENT AUTO 53 % (41-73); Platelet Count 234 K/mm3 (150-400); RDW Coefficient Variation 12.8 % (11.7-14.2); RDW Standard Deviation 42.2 fL (35.1-46.3)
[2018-04-29 00:32] LABS: PCO2 Arterial 41.1 mmHg (35-45); PO2 Arterial 64.7 mmHg (80-100); pH Blood Arterial 7.39 (7.35-7.45)
[2018-04-29 00:47] LABS: Alanine Aminotransfer (ALT/SGP 25 U/L (12-78); Albumin, Blood 3.8 g/dL (3.4-5.0); Albumin/Globulin Ratio 0.8 (0.8-1.8); Alk Phos 118 U/L (50-136); Anion Gap 5 mmol/L (6-16); Aspartate Aminotrans (AST/SGOT 30 U/L (12-37); Bilirubin, Total 0.4 mg/dL (0.1-1.0); Blood Urea Nitrogen 18 mg/dL (8-24); CO2, Blood 29 mmol/L (21-32); Calcium, Blood 9.8 mg/dL (8.5-10.1); Chloride, Blood 107 mmol/L (98-108); Globulin, Blood 4.6 g/dL (2.2-4.0); Glomerular Filtration Rate >60 (60-); Glucose, Blood 111 mg/dL (70-99); Potassium, Blood 3.9 mmol/L (3.5-5.5); Sodium, Blood 141 mmol/L (136-145); Total Protein, Blood 8.4 g/dL (6.4-8.2); Troponin I <0.015 ng/mL (0.000-0.040)
[2018-04-29 01:36] LABS: Influenza A Negative (NEGATIVE); Influenza B Negative (NEGATIVE)
[2018-04-29] MEDS ORDERED: Prednisone20 MG PO (03:29)
== END 2018-04-29 03:56 | disposition home or self-care (01) ==
LOC: ER 00:09
PROVIDERS: Emergency Medicine
DX: J44.1 Chronic obstructive pulmonary disease with (acute) exacerbation (principal); Z79.52 Long term (current) use of systemic steroids; J45.909 Unspecified asthma, uncomplicated
CPT/HCPCS: 36415; 36600; 71046; 80053; 82803; 83690; 84484; 85025; 87804; 93005; 93010; 94640; 96374; 99285-25; J2930

== ENCOUNTER 2018-05-02 13:31 | Inpatient (IN) | payer MEDICARE, OTHER ==
[~2018-05-02] VITALS: Ht 152.4 cm; Wt 40.6 kg
[2018-05-02 14:00] LABS: Calcium, Ionized (POC) 1.24 mmol/L (1.10-1.46); Chloride (POC) 105 mmol/L (98-108); Creatinine (POC) 0.7 mg/dL (0.6-1.0); Glucose (ISTAT POC) 127 mg/dL (70-99); Hemoglobin (POC) 17.3 g/dL (12.0-16.0); Potassium (POC) 3.8 mmol/L (3.5-5.5); Sodium (POC) 148 mmol/L (135-148); Total CO2 (POC) 27 mmol/L (21-32)
[2018-05-02 14:14] LABS: BASOPHILS ABSOLUTE AUTO 0.12 K/mm3 (0.00-0.23); BASOPHILS PERCENT AUTO 1 % (0-2); EOSINOPHILS ABSOLUTE AUTO 2.27 K/mm3 (0.00-0.68); EOSINOPHILS PERCENT AUTO 10 % (0-6); Hemoglobin 16.1 g/dL (11.5-16.0); Mean Corpuscular HGB 28.8 pg (26.0-34.0); Mean Platelet Volume 12.3 fL (9.1-12.4); Platelet Count 251 K/mm3 (150-400); RDW Coefficient Variation 12.7 % (11.7-14.2); RDW Standard Deviation 43.5 fL (35.1-46.3); Red Blood Cell Count 5.59 M/mm3 (3.80-5.20); White Blood Cell Count 22.86 K/mm3 (4.00-11.30)
[2018-05-02 14:16] LABS: IMMATURE GRAN ABSOLUTE AUTO 0.09 K/mm3 (0.00-0.10); IMMATURE GRAN PERCENT AUTO 0 % (0-1); LYMPHOCYTES ABSOLUTE AUTO 8.76 K/mm3 (0.84-5.20); LYMPHOCYTES PERCENT AUTO 38 % (21-46); MONOCYTES ABSOLUTE AUTO 1.39 K/mm3 (0.16-1.47); MONOCYTES PERCENT AUTO 6 % (4-13); Mean Corpuscular Volume 93 fL (80-100); NEUTROPHILS ABSOLUTE AUTO 10.23 K/mm3 (1.96-9.15); NEUTROPHILS PERCENT AUTO 45 % (41-73)
[2018-05-02 14:24] LABS: Alanine Aminotransfer (ALT/SGP 18 U/L (12-78); Albumin/Globulin Ratio 0.9 (0.8-1.8); Alk Phos 122 U/L (50-136); Anion Gap 11 mmol/L (6-16); Aspartate Aminotrans (AST/SGOT 21 U/L (12-37); Bilirubin, Total 0.7 mg/dL (0.1-1.0); Blood Urea Nitrogen 11 mg/dL (8-24); Bun/Creatinine Ratio 16.4 (12.0-20.0); CO2, Blood 25 mmol/L (21-32); Calcium, Blood 9.3 mg/dL (8.5-10.1); Chloride, Blood 109 mmol/L (98-108); Creatinine, Blood 0.67 mg/dL (0.40-1.00); Globulin, Blood 4.3 g/dL (2.2-4.0); Glomerular Filtration Rate >60 (60-); Glucose, Blood 124 mg/dL (70-99); Potassium, Blood 3.8 mmol/L (3.5-5.5); Sodium, Blood 145 mmol/L (136-145); Total Protein, Blood 8.3 g/dL (6.4-8.2); Troponin I <0.015 ng/mL (0.000-0.040)
[2018-05-02 14:28] LABS: Base Excess Venous -8.3 mmol/L; PCO2 Venous 42.7 mmHg (38-42); PO2 Venous 211 mmHg (38-42); pH Blood Venous 7.25 (7.34-7.37)
[2018-05-02 14:58] LABS: Source, Urine Voided
[2018-05-02 15:10] LABS: Appearance, Urine Clear (Clear); Bilirubin, Urine Neg (Neg); Blood, Urine 3+ (Neg); Color, Urine Yellow (P-Yellow); Glucose Qualitative, Urine 4+ (Neg); Ketones, Urine Neg (Neg); Leukocyte Esterase, Urine Neg (Neg); Nitrite, Urine Neg (Neg); Protein, Urine 4+ (Neg); Specific Gravity, Urine 1.025 (1.003-1.022); Urobilinogen, Urine NORM (Normal)
[2018-05-02 15:52] LABS: Bacteria Few /hpf; Squamous Epithelial Cells Mod /hpf (Few); White Blood Cells, Urine Not Seen /hpf (0-5)
[2018-05-02 16:21] LABS: Troponin I 0.108 ng/mL (0.000-0.040)
[2018-05-02 18:11] LABS: Adenovirus Not Detected (NOT DETECT); Bordetella pertussis Not Detected (NOT DETECT); Chlamydophila pneumoniae Not Detected (NOT DETECT); Coronavirus 229E Not Detected (NOT DETECT); Coronavirus HKU1 Not Detected (NOT DETECT); Coronavirus NL63 Not Detected (NOT DETECT); Coronavirus OC43 Not Detected (NOT DETECT); Human Metapneumovirus Not Detected (NOT DETECT); Human Rhinovirus/Enterovirus Not Detected (NOT DETECT); Influenza A/2009-H1 Not Detected (NOT DETECT); Influenza A/H1 Not Detected (NOT DETECT); Influenza A/H3 Not Detected (NOT DETECT); Influenza B Not Detected (NOT DETECT); Mycoplasma pneumoniae Not Detected (NOT DETECT); Parainfluenza Virus 1 Not Detected (NOT DETECT); Parainfluenza Virus 2 Not Detected (NOT DETECT); Parainfluenza Virus 3 Not Detected (NOT DETECT); Parainfluenza Virus 4 Not Detected (NOT DETECT); Respiratory Syncytial Virus Not Detected (NOT DETECT)
--- NOTE | 2018-05-02 18:11 | NUR ---
INFORMED RT RAHUL THAT ETT NEEDS TO BE RETRACTED 1 CM AND THERE IS A NOW VBG. RESP PANEL, NARES MRSA SWAB, AND SPUTUM SPECIMEN COLLECTED AND SENT TO LAB.
[2018-05-02] MEDS ORDERED: OLAN7.5 PO ×2 (18:34→18:35)
[2018-05-02] MEDS ORDERED: DULERA 100 MCG/13 GM INH (18:38)
[2018-05-02] MEDS ORDERED: ALBU90OI INH (18:39)
[2018-05-02] MEDS ORDERED: ACET325 PO (18:39)
--- NOTE | 2018-05-02 18:42 | NUR ---
ADMISSION: REPORT RECEIVED FROM BRIANNA Vogel RN IN ED. PT ARRIVED TO ICU-14 VIA GURNEY AT APPROX 1655. TX TO BED W/ SLIDER & 5 STAFF ASSIST. RT IN ROOM, VENT SETUP COMPLETE. PT NOT JINNY WELL AT THIS TIME, PULLING AT WRIST RESTRAINTS & VISIBLY RESTLESS. PROPOFOL TITRATION DOC IN FLOWSHEET. NS INFUSING AT 100 ML/HR x1 BAG, ABX INFUSING PER ORDERS. ADMISSION COMPLETED TO [facility] USING MEDICAL RECORDS FROM RECENT ADMISSION PT IS NOT ABLE TO ANSWER QUESTIONS & NO FAMILY IS PRESENT AT THIS TIME. DR. RODRIGUEZ IN TO SEE PT WHO CONTINUES TO BE RESTLESS, ORDER FOR PRN FENTANYL PLACED AT THAT TIME. THE PT IS VISIBLY RELAXED & NO LONGER PULLING AT RESTRAINTS FOLLOWING FENTANYL ADMIN. VENT SETTINGS: AC 20, TV 270, PEEP 5, FiO2 50%. F/U CXR COMPLETE AFTER ETT & OGT ADJUSTED PER ORDERS. OGT NOW HAVING INCREASED OUTPUT TO LIS. TEMP ZIMMERMAN PATENT/DRAINING. WILL CONTINUE TO MONITOR & REPORT OFF TO ONCOMING RN.
[2018-05-02] MEDS ORDERED: AZIT250 PO (18:44)
[2018-05-02 19:06] LABS: Base Excess Venous -3.8 mmol/L; Bicarbonate Venous 21.2 mmol/L (24.0-30.0); PCO2 Venous 39.9 mmHg (38-42); PO2 Venous 50.6 mmHg (38-42); pH Blood Venous 7.35 (7.34-7.37)
--- NOTE | 2018-05-02 19:15 | NUR ---
ASSUMING CARE OF PT AT THIS TIME. PT REPORT RECEIVED AT BEDSIDE WITH OFFGOING NURSES, GAGE RN AND JAN RN. PT LAYING IN BED, INTUBATED, AGITATED, ANXIOUS, PULLING ON RESTRAINTS, RESTLESS UPON ENTERING THE ROOM. VS STABLE - SEE VS FS. PULLED PT UP IN BED AT THIS TIME. TITRATED PROPOFOL TO 55 MCG/KG/MIN AT THIS TIME FOR SEDATION. WILL REVIEW PLAN OF CARE.
--- NOTE | 2018-05-02 19:30 | NUR ---
ASSESSMENT PT AGITATED, ANXIOUS, PULLING ON RESTRAINTS, RESTLESS IN BED. PT RESPONDS TO PAINFUL STIMULI, OPENS EYES TO PRESSURE, DOES NOT FOLLOW COMMANDS, DOES NOT NOD HEAD Y/N TO QUESTIONS. PROPOFOL DRIP 55 MCG/KG/MIN - WILL TITRATE TO EFFECT. JAMARCUS SENSATION. PT REY. WEAKNESS NOTED WITH MOVEMENT. S/SX OF PAIN/DISCOMFORT NOTED. FENT ADMINISTERED PRIOR TO SHIFT CHANGE. WHEEZING T/O. BREATHING TX PER RT. DIMINIHSED LOWER LOBES. VENT SETTINGS: AC 20, TV 270, PEEP 5, FIO2 45%. RR 20'S. OXY SAT >95%. SUCTION VIA ETT: SCANT AMOUNTS OF THIN BLOODY SECRETIONS. AFEBRILE. ST. HR 110'S. BP STABLE - SEE VS FS. STRONG PULSES. WARM, PINK SKIN. HYPOACTIVE BT X4 QUADRANTS. ABD SOFT, NONTENDER. OG TO LIS: MINIMAL OUTPUT, LIQUID LIGHT BROWN SECRETIONS. F/C IN PLACE - CLEAR YELLOW URINE. PIV X2. NS AT 100 ML/HR INFUSING.
[2018-05-02 19:37] LABS: Influenza A Not Detected (NOT DETECT)
--- NOTE | 2018-05-02 20:20 | NUR ---
DR. RODRIGUEZ SBP DECEREASING WITH INCREASING PROPOFOL. PROPOFOL CURRENTLY 50 MCG/KG/MIN. NS AT 100 ML/HR COMPLETED. FENT ADMINSITERED PER PHYSICIAN'S ORDER. INCREASING AGITATION, ANXIETY, PULLING ON RESTRAINTS, AND RESTLESSNESS NOTED WITH DECREASING SEDATION. PT IS AN EXTUBATION RISK. INFORMED DR. RODRIGUEZ OF PT'S CURRENT STATUS AND VS (SEE VS FS). DR. RODRIGUEZ ORDERED PRECEDEX DRIP FOR SEDATOIN - WAITING FOR MEDICATION FROM PHARMACY AT THIS TIME. DR. RODRIGUEZ ALSO ORDERED 1L NS BOLUS FOR HYPOTENSION WITH INCREASING PROPOFOL. DR. RODRIGUEZ ALSO ORDERED ATIVAN PRN, BUT INSTRUCTED TO TITRATE PRECEDEX DRIP PRIOR TO ADMINISTERING ATIVAN.
--- NOTE | 2018-05-02 22:50 | NUR ---
DR. RODRIGUEZ PROPOFOL 35 MCG/KG/MIN. PRECEDEX 0.4 MCG/KG/HR. OCC ANXIETY, AGITATION, RESTLENESSNESS, PULLING AT RESTRAINTS NOTED. DECREASING BP NOTED WITH INCREASING SEDATION. INFORMED DR. RODRIGUEZ OF PT'S STATUS AND VS (SEE VS FS). DR. RODRIGUEZ INSTRUCTED TO ADMINISTER ATIVAN FOR AGITATION AND TO CONT TO TITRATE PRECEDEX AND PROPOFOL TO EFFECT. DR. DIEZ ORDERED ADDITIONAL 1L NS BOLUS STAT FOR HYPOTENSION. DR. RODRIGUEZ ALSO ORDERED DOPAMINE DRIP IF PT REMAINS HYPOTENSIVE.
--- NOTE | 2018-05-03 02:37 | NUR ---
DR. RODRIGUEZ PROPOFOL ON STANDBY. PRECEDEX 0.6 MCG/KG/HR. CONT TO TITRATE PROPOFOL TO MAINTAIN BP. PT REMAINS HYPOTENSIVE - SEE VS FS. INFORMED DR. DIEZ OF PT'S STATUS AND VS (SEE VS FS). DR. DIEZ ORDERED A NURSE NOTIFICATION THAT ALLOWS TITRATION OF DOPAMINE DRIP TO 20 MCG/KG/MIN VIA PIV. WILL CONT TO TITRATE DOPAMINE TO EFFECT.
[2018-05-03 03:10] LABS: Hematocrit 39.4 % (33.0-51.0); Hemoglobin 12.6 g/dL (11.5-16.0); Mean Corpuscular Volume 91 fL (80-100); Mean Platelet Volume 12.2 fL (9.1-12.4); Platelet Count 167 K/mm3 (150-400); RDW Coefficient Variation 12.6 % (11.7-14.2); RDW Standard Deviation 41.7 fL (35.1-46.3); Red Blood Cell Count 4.34 M/mm3 (3.80-5.20); White Blood Cell Count 21.26 K/mm3 (4.00-11.30)
[2018-05-03 03:37] LABS: Troponin I 0.42 ng/mL (0.000-0.040)
[2018-05-03 03:51] LABS: Alanine Aminotransfer (ALT/SGP 17 U/L (12-78); Albumin/Globulin Ratio 0.9 (0.8-1.8); Alk Phos 90 U/L (50-136); Anion Gap 9 mmol/L (6-16); Aspartate Aminotrans (AST/SGOT 31 U/L (12-37); Bilirubin, Total 0.3 mg/dL (0.1-1.0); Blood Urea Nitrogen 7 mg/dL (8-24); Bun/Creatinine Ratio 16.1 (12.0-20.0); CO2, Blood 18 mmol/L (21-32); Calcium, Blood 7.4 mg/dL (8.5-10.1); Chloride, Blood 113 mmol/L (98-108); Creatinine, Blood 0.44 mg/dL (0.40-1.00); Globulin, Blood 3.2 g/dL (2.2-4.0); Glomerular Filtration Rate >60 (60-); Glucose, Blood 198 mg/dL (70-99); Potassium, Blood 3.7 mmol/L (3.5-5.5); Sodium, Blood 140 mmol/L (136-145)
[2018-05-03 03:53] LABS: Total Protein, Blood 6.2 g/dL (6.4-8.2)
[2018-05-03 03:56] LABS: Creatine Kinase MB 14.8 ng/mL (0.0-3.6); Creatine Kinase MB Index 4.4 (0.0-4.0)
--- NOTE | 2018-05-03 04:59 | NUR ---
SHIFT ASSESSMENT PT AGITATED, ANXIOUS, PULLING ON RESTRAINTS, RESTLESS IN BED T/O SHIFT. LESS AGITATION, ANXIETY, PULLING ON RESTRAINTS, RESTLESSNESS NOTED THIS AM. PT RESPONDS TO VERBAL STIMULI, OPENING EYES TO VERBAL STIMULI, FOLLOWING COMMANDS, SLOW TO RESOND, NODDING HEAD Y/N TO MOST QUESTIONS THIS AM. PROPOFOL DRIP ON STANDBY - CONT TO TITRATE TO EFFECT. PRECEDEX DRIP 0.4 MCG/KG/HR - CONT TO TITRATE TO EFFECT. SENSATION INTACT. PT DENIES N/T THIS AM. PT REY. WEAKNESS NTOED WITH MOVEMENT. OCC S/SX OF PAIN/DISCOMFORT NOTED T/O SHIFT. PT DENYING PAIN/DISCOMFORT THIS AM. CONT TO ASSESS FOR PAIN/DISCOMFORT AND MEDICATED WITH FENT PER PHYSICIAN'S ORDER / UTILIZED NONPHARM METHODS. OCC WHEEZING NOTED THAT RESOVLES WITH BREATHING TX. OTHERWISE, LUNGS CLEAR, LOWER LOBES DIMINIHSED. SHALLOW BREATHING. VENT SETTINGS: AC 20, TV 270, PEEP 5, FIO2 30%. RR 20'S TO 30'S WHILE ON AC. SBT COMPLETED THIS AM ON PS 10, PEEP 5, FIO2 30%. RR 10'S DURING SBT. PER JAZMIN, RT "PT DID WELL ON SBT THIS AM, EXCEPT THE PT WAS DROWSY AND QUICKLY FELL BACK ASLEEP". SBT COMPLETED WITH PROPOFOL ON STANDY AND PRECEDEX 0.5 MCG/KG/HR. PT CURRENTLY ON VENT SETTIGNS: AC 20, TV 270, PEEP 5, FIO2 30%. OXY SAT REMAINED >90%. SUCTION VIA ETT: SCANT AMOUNTS OF THIN BLOODY SECRETIONS. TMAX 99.1. NSR TO ST. HR 70'S TO 110'S. 2L NS BOLUS ADMINMISTERED T/O SHIFT FOR HYPOTENSION. DOPAMINE DRIP TITRATE TO 20 MCG/KG/MIN FOR HYPOTENSION. CURRENTLY BP STABLE - SEE VS FS. DECREASING BP NOTED WITH INCREASED SEDATION. SKIN WARM, PINK. STRONG PULSES. HYPOACTIVE BT X4 QUADRANTS. ABD SOFT, NONTENDER. OG TO LIS: MINIMAL OUTPUT, LIQUID BRIGHT YELLOW SECRETIONS NOTED. F/C IN PLACE - YELLOW CLEAR URINE NOTED. PIV X3. WILL CONT TO MONITOR PT AND WILL PROVIDE BEDSIDE REPORT TO ONCOMING NURSE THIS AM.
--- NOTE | 2018-05-03 05:15 | NUR ---
DR. GARDINER COMPLETED REPEAT CHEMBG. INFORMED DR. GARDINER OF AM LABS. DR. GARDINER ORDERED IONIZED CALCIUM STAT AND HUMALOG LSS Q6 HR. LAB INFORMED OF STAT LAB. WAITING FOR VERIFICATION OF MEDICATION FROM PHARMACY AT THIS TIME.
--- NOTE | 2018-05-03 06:30 | NUR ---
DR. JENNIFER RODRIGUEZ CALLED ICU AT THIS TIME. UPDATED DR. RODRIGUEZ OF PT'S STATUS AND VS (SEE VS FS). DR. RODRIGUEZ ORDERED FOR PICC LINE INSERTION THIS AM.
--- NOTE | 2018-05-03 10:10 | NUR ---
ASSUMED CARE: REPORT RECEIVED FROM MIR Maldonado RN. ASSUMED CARE OF THIS PT AT APPROX 0700. ROUNDING COMPLETE, PT IS RESTING QUIETLY AT THIS TIME. SHE DOES AWAKEN TO VERBAL STIMULI & NODS HEAD TO ANSWER YES/NO QUESTIONS APPROPRIATELY. SEDATION MINIMAL W/ PRECEDEX INFUSING AT 0.3 MCG/MIN ON ASSESSMENT. SEDATION VACATION PERFORMED, PT JINNY WELL & WAS RESTING QUIETLY. UPON AWAKENING AFTER APPROX 30 MINS, SHE IS ANXIOUS & GAGGING. SHE APPEARS TO MOVE THE OGT AROUND IN HER MOUTH & THROAT W/ HER TONGUE, CAUSING HER TO GAG. PRECEDEX RESUMED AT 0.4 MCG/MIN FOR INCREASED ANXIETY, AGITATION & GAGGING. THE PT IS ONCE AGAIN RESTING QUIETLY. VENT SETTINGS: AC 20, TV 270, PEEP 5 & FiO2 30%. WILL CONTINUE TO MONITOR & UPDATE NEEDED.
--- NOTE | 2018-05-03 10:23 | NUR ---
DR. CHRISTIAN: DR. CHRISTIAN IN ROOM TO SEE PT. DISCUSSED POC. CARDIO CONSULT WILL BE PLACED FOR INCREASED TROPONIN LEVEL. NO OTHER ORDERS/INSTRUCTIONS AT THIS TIME.
[2018-05-03 11:56] LABS: Troponin I 0.279 ng/mL (0.000-0.040)
--- NOTE | 2018-05-03 12:03 | NUR ---
CALL TO PROVIDER: CALL TO DR. CHRISTIAN TO ASK IF CARDIO CONSULT IS STILL NEEDED AT THIS TIME SINCE IT WAS NOT PLACED BY HIM THIS AM & TROPONIN RESULT IS TRENDING DOWN. HE STS WE WILL HOLD OFF PLACING A CONSULT AT THIS TIME. WILL CONTINUE TO MONITOR & UPDATE NEEDED.
[2018-05-03 12:11] LABS: Creatine Kinase MB 15.6 ng/mL (0.0-3.6); Creatine Kinase MB Index 3.4 (0.0-4.0)
[2018-05-03 17:21] LABS: Troponin I 0.306 ng/mL (0.000-0.040)
[2018-05-03 18:02] LABS: Creatine Kinase MB 10.6 ng/mL (0.0-3.6); Creatine Kinase MB Index 2.1 (0.0-4.0)
--- NOTE | 2018-05-03 18:21 | NUR ---
SHIFT SUMMARY: NO ACUTE CHANGES SINCE INITIAL ASSESSMENT. PT AWAKENS EASILY TO VERBAL STIMULI & IS ANSWERING YES/NO QUESTIONS APPROPRIATELY W/ HEAD NODS. SHE REMAINS IN BILAT SOFT WRIST RESTRAINTS TO PREVENT SELF-EXTUBATION & PROTECT VITAL LINES. PT REMAINS ON VENT, SETTINGS: AC 20, TV 270, PEEP 5 & FiO2 30%. HR HAS BEEN 90s FOR MOST OF SHIFT BUT INCREASED UP TO 120s W/ AGITATION. BP IMPROVED WHILE ON DOPAMINE DRIP. OGT TO LIS, MINIMAL OUTPUT NOTED IN TUBING. TEMP ZIMMERMAN REMAINS PATENT/DRAINING CLEAR YELLOW URINE. CBG CHECKS HAVE BEEN CONSISTENTLY < 200, REQUIRING NO INSULIN. ECHO COMPLETED THIS SHIFT. PT IS RESTING QUIETLY AT THIS TIME. WILL CONTINUE TO MONITOR & REPORT OFF TO ONCOMING RN.
--- NOTE | 2018-05-03 19:15 | NUR ---
ASSUMING CARE OF PT AT THIS TIME. PT REPORT RECEIVED AT BEDSIDE WITH OFFGOING NURSE, GAGE PERALTA. PT LAYING IN BED, INTUBATED, SEDATED (CALM AND COOPERATIVE) AT THIS TIME. VS STABLE - SEE VS FS. PT DOES NOT APPEAR TO BE IN DISTRESS AT THIS TIME. WILL REVIEW PLAN OF CARE.
--- NOTE | 2018-05-03 19:30 | NUR ---
ASSESSMENT PT AGITATED, ANXIOUS (PT NODS HEAD YES TO EXPERIENCING ANXIETY), PULLING ON RESTRAINTS WITH PT CARE. PT RESOPNDS TO VERBAL STIMULI, OCC OPENING EYES SPONT, FOLLOWING COMMANDS (ABLE TO MOVE TOES AND SHEET ROCK APPLICATOR ON COMMAND), SLOW TO RESPOND, NODDING HEAD Y/N TO MOST QUESTIOSN. PRECEDEX DRIP 0.7 MCG/KG/HR - WILL TITRATE TOT EFFECT. SENSATIO ITNACT. PT DNIES N/T. PT REY. WEAKNESS NOTED. INCREASED WEAKNESS NOTED THIS PM. PT DENIES PAIN/DISCOMFORT. NO S/SX OF PAIN/DISCOMFORT NOTED AT THIS TIME. LUNGS CLEAR, LOWER LOBES DIMINIHSED. SHALLOW BREATHING. VENT SETTINGS: AC 20, TV 270, PEEP 5, FIO2 30%. RR 20'S. OXY SAT >95%. SUCTION VIA ETT: SCANT AMOUNTS OF THIN CLEAR SECRETIONS. AFEBRILE. NSR. HR 90'S. BP STABLE - SEE VS FS. DOPAMINE DRIP 10 MCG/KG/MIN - WILL TITRATE TO EFFECT. STRONG PULSES. WARM, PINK SKIN. HYPOACTIVE BT X4 QUADRANTS. ABD SOFT, NONTENDER. OG TO LIS: MINIMAL OUPTUT, LIGHT BROWN SECRETIONS NOTED. F/C IN PLACE - YELLOW URINE NOTED. PIV X1. PICC RICHIE. NS TKO AT 10 ML/HR.
[2018-05-04 00:19] LABS: Troponin I 0.259 ng/mL (0.000-0.040)
[2018-05-04 00:34] LABS: Creatine Kinase MB 8.8 ng/mL (0.0-3.6); Creatine Kinase MB Index 1.3 (0.0-4.0)
[2018-05-04 03:37] LABS: BASOPHILS ABSOLUTE AUTO 0.08 K/mm3 (0.00-0.23); BASOPHILS PERCENT AUTO 0 % (0-2); EOSINOPHILS PERCENT AUTO 0 % (0-6); Hematocrit 37.5 % (33.0-51.0); Hemoglobin 12.6 g/dL (11.5-16.0); IMMATURE GRAN ABSOLUTE AUTO 0.53 K/mm3 (0.00-0.10); IMMATURE GRAN PERCENT AUTO 1 % (0-1); LYMPHOCYTES ABSOLUTE AUTO 0.73 K/mm3 (0.84-5.20); LYMPHOCYTES PERCENT AUTO 2 % (21-46); MONOCYTES ABSOLUTE AUTO 0.78 K/mm3 (0.16-1.47); MONOCYTES PERCENT AUTO 2 % (4-13); Mean Corpuscular HGB 28.6 pg (26.0-34.0); Mean Corpuscular HGB Conc 33.6 g/dL (31.5-36.5); Mean Corpuscular Volume 85 fL (80-100); Mean Platelet Volume 12.6 fL (9.1-12.4); NEUTROPHILS ABSOLUTE AUTO 44.12 K/mm3 (1.96-9.15); NEUTROPHILS PERCENT AUTO 95 % (41-73); Platelet Count 190 K/mm3 (150-400); RDW Coefficient Variation 12.8 % (11.7-14.2); RDW Standard Deviation 39.6 fL (35.1-46.3); Red Blood Cell Count 4.41 M/mm3 (3.80-5.20); White Blood Cell Count 46.24 K/mm3 (4.00-11.30)
[2018-05-04 04:06] LABS: Anion Gap 11 mmol/L (6-16); Blood Urea Nitrogen 9 mg/dL (8-24); Bun/Creatinine Ratio 20.7 (12.0-20.0); CO2, Blood 22 mmol/L (21-32); Calcium, Blood 8.3 mg/dL (8.5-10.1); Chloride, Blood 109 mmol/L (98-108); Creatinine, Blood 0.44 mg/dL (0.40-1.00); Glomerular Filtration Rate >60 (60-); Glucose, Blood 153 mg/dL (70-99); Magnesium, Blood 2.1 mg/dL (1.6-2.4); Phosphorus, Blood 1.8 mg/dL (2.5-4.9); Potassium, Blood 2.9 mmol/L (3.5-5.5); Sodium, Blood 142 mmol/L (136-145)
--- NOTE | 2018-05-04 04:52 | NUR ---
SHIFT ASSESSMENT NO ACUTE CHANGES NOTED T/O SHIFT. AGITATION, ANXIETY, AND PULLING ON RESTRAINTS NOTED WITH PT CARE AND DECREASED SEDATION. PT RESPONDS TO VERBAL STIMULI, OCC OPENING EYES SPONT, FOLLOWING COMMADNS (ABLE TO MOVE TOES AND IN SHOP SERVICE TECHNICIAN ON COMMAND), SLOW TO RESPOND, NODDING HEAD Y/N TO MOST QUESTIOSN. PRECEDEX DRIP ON STANDBY FOR SBT. CONT TO TITRATE PRECEDEX TO EFFECT. SENSATION INTACT. PT DENIES N/T. PT REY. WEAKNESS NOTED. INCREASED WEAKNESS NOTED THIS PM. PT DENIES PAIN/DISCOMFORT T/O SHIFT. NO S/SX OF PAIN/DISCOMFORT NOTED. LUNGS CLEAR, LOWER LOBES DIMINIHSED. SHALLOW BREATHING. CURRENT VENT SETTINGS: AC 20, TV 270, PEEP 5, FI02 25%. RR 20'S TO 30'S T/O SHIFT. OXY SAT >90%. SBT COMPLETED WITH PRECEDEX ON STANDBY. SBT COMPLETED PS 5, PEEP 5, FIO2 25%. DURING SEDATION VACATION, PT QUICKLY FELL BACK ASLEEP AND DECREASED TV <200 NOTED. SEEDALTON RT NOTE. SUCTION VIA ETT: SCANT AMOUTNS OF THIN CLEAR SECRETIONS. AFEBRILE. NSR TO ST. HR 80'S TO 100'S. BP STABLE - SEE VS FS. DOPAMINE DRIP 6 MCG/KG/MIN - CONT TO TITRATE TO EFFECT. STRONG PULSES. WARM, PINK SKIN. HYPOACTIVE BT X4 QUADRANTS. ABD SOFT, NONTENDER. OG TO LIS - MINIMAL OUTPUT, LIGHT BROWN TO YELLOW SECRETIONS NOTED. F/C IN PLACE - YELLOW URINE NOTED. PIV X1. PICC RICHIE. NS TKO AT 10 ML/HR. WILL CONT TO MONITOR PT AND WILL PROVIDE BEDSIDE REPORT TO ONCOMING NURSE THIS AM.
[2018-05-04 04:59] LABS: PCO2 Arterial 21.7 mmHg (35-45); PO2 Arterial 121 mmHg (80-100); pH Blood Arterial 7.55 (7.35-7.45)
--- NOTE | 2018-05-04 05:00 | NUR ---
DR. GARDINER CALLED DR. GARDINER AT THIS TIME. INFORMED DR. GARDINER OF AM LABS. DR. GARDINER ORDERED POTASSIUM PHOS [address] GARDINER DOES NOT WANT REPEAT LABS AFTER ADMINSITERING POTASSIUM PHOS IVPB. WAITING FOR MEDICATION FROM PHARMACY AT THIS TIME.
--- NOTE | 2018-05-04 10:11 | NUR ---
ASSUMED CARE / PROVIDER VISIT: REPORT RECEIVED FROM MIR Maldonado RN. ASSUMED CARE OF THIS PT AT APPROX 0700. ROUNDING COMPLETE, PT IS RESTING QUIETLY. PRECEDEX DRIP CONTINUES DOC IN FLOWSHEET. PT JINNY WELL W/ SOME AGITATION NOTED WHEN CARE PERFORMED, OTHERWISE RELAXED. DOPAMINE DRIP CHARTED IN FLOWSHEET, PT HAS BEEN SLIGHTLY HYPOTENSIVE W/ DOPAMINE TITRATION TO EFFECT. VENT SETTINGS: AC 20, TV 270, PEEP 5 & FiO2 25%. DR. GERMANTRATE IN ROOM THIS MORNING TO SEE PT. UPDATED HIM ON POC. NO NEW ORDERS AT THIS TIME, WILL AWAIT BEAD FORMING MACHINE OPERATOR ROUNDING THIS AM TO SEE IF CARDIO CONSULT IS NECESSARY FOR CONTINUED INCREASED TROP LEVELS. WILL CONTINUE TO MONITOR & UPDATE NEEDED.
--- NOTE | 2018-05-04 11:45 | NUR ---
FAMILY UPDATE: CALL FROM ELIAS, PT's SISTER, WHO STS THAT THEIR MOTHER TOLD HER OF THE PT's HOSPITALIZATION. THIS RN ASKED THE PT, WHO IS ABLE TO ANSWER YES/NO QUESTIONS APPROPRIATELY W/ NODS, IF ELIAS COULD BE UPDATED W/ INFORMATION & SHE NODDED YES.
--- NOTE | 2018-05-04 13:00 | NUR ---
DR. ACEVES: PROVIDER IN ROOM TO SEE PT. DISCUSSED POC & RESULTS OF WEAN TRIAL THIS AM. PT HAVING RAPID RESPIRATIONS IN 30-40s W/ LIGHT SEDATION, BUT BECOMES APNEIC & NEEDS CONSTANT STIMULI & REMINDERS TO BREATHE W/ SLIGHT INCREASE IN SEDATION WHEN WEAN TRIAL ATTEMPTED AGAIN THIS AM. WILL CONTINUE TO MONITOR & UPDATE NEEDED.
--- NOTE | 2018-05-04 18:03 | NUR ---
SHIFT SUMMARY: NO ACUTE CHANGES SINCE INITIAL ASSESSMENT & PRIOR UPDATES. THE PT HAS CONTINUED TO REST WELL W/ MINIMAL SEDATION BUT DOES BECOME TACHYPNEIC & AGITATED WHEN AWAKE. BP REMAINS STABLE W/ DOPAMINE TITRATION CHARTED IN FLOWSHEET. PT CONTINUES TO FOLLOW COMMANDS WELL & ANSWER YES/NO QUESTIONS APPROPRIATELY W/ NODS. BILAT SOFT WRIST RESTRAINTS IN PLACE TO PROTECT ETT & VITAL LINES FROM BEING PULLED. VENT SETTINGS: AC 20, TV 270, PEEP 5 & FiO2 25%. PT TACHYCARDIC AT TIMES W/ AGITATION, OTHERWISE NSR. OGT CLAMPED AT APPROX 1300 FOR SCANT AMNTS OUTPUT TO LIS. TEMP ZIMMERMAN REMAINS PATENT/DRAINING CLEAR YELLOW URINE. PREVENTATIVE MEPILEX TO COCCYX REMAINS CDI. WILL CONTINUE TO MONITOR & REPORT OFF TO ONCOMING RN.
--- NOTE | 2018-05-04 19:15 | NUR ---
ASSUMING CARE OF PT AT THIS TIME. PT REPORT RECEIVED AT [facility] WITH OFFGOING NURSE, GAGE PERALTA. PT LAYING IN BED, INTUBATED AND SEDATED. VS STABLE - SEE VS FS. PT DOES NOT APPEAR TO BE IN DISTRESS AT THIS TIME. WILL REVIEW PLAN OF CARE.
--- NOTE | 2018-05-04 19:45 | NUR ---
ASSESSMENT / DR. ACEVES SLIGHT AGITATION, ANXIETY, AND PULLING ON RESTRAINTS NOTED WITH PT CARE. LESS AGITATION, ANXIETY, AND PULLING ON RESTRAINTS THIS PM. PT RESPONDS TO VERBAL STIMULI, OCC OPENING EYES SPONTANEOUSLY, FOLLOWS COMMANDS, SLOW RESPOND, NODDING HEAD Y/N TO MOST QUESTIONS. PRECEDEX DRIP 0.2 MCG/KG/HR - WILL TITRATE TO EFFECT. SENSATION INTACT. PT DENIES N/T. PT REY. WEAKNESS NOTED. INCREASED WEAKNESS AND LESS MOVEMENT NOTED THIS PM. PT DENIES PAIN/DISCOMFORT. NO S/SX OF PAIN/DISCOMFORT. LUNGS CLEAR, LOWER LOBES DIMINIHSED. SHALLOW BREATHING. UPON ASSUMING CARE OF PT, VENT SETTINGS: AC 20, TV 270, PEEP 5, FIO2 25%. DR. ACEVES AT BEDSIDE AT SI TIME. DYSSYNCHRONY NOTED WITH DECREASED SEDATION WHILE ON AC 20, TV 270, PEEP 5, FIO2 25%. DR. VANN CHANGED VENT SETTINGS TO SIMV 12, TV 270, PS 8, PEEP 5, FIO2 25%. OXY SAT >95%. RR 20'S. SUCTION VIA ETT: SCANT AMOUNTS OF THIN CLEAR SECRETIONS. AFEBRILE. ST. HR 100'S. BP STABLE - SEE VS FS. DOPAMINE DRIP 10 MCG/KG/MIN - WILL TITRATE TO EFFECT. DR. ACEVES D/C DOPAMINE DRIP AND ORDERED LEVOPHED DRIP AT THIS TIME. WAITING FOR LEVOPHED DRIP AT THIS TIME FROM PHARMACY. WILL TITRATE LEVOPHED DRIP TO EFFECT. STRONG PULSES. WARM, PINK SKIN. HYPOACTIVE BT X4 QUADRANTS. ABD SOFT, NONTENDER. OG CLAMPED THIS AM D/T MINIMAL OUTPUT. F/C IN PLACE - YELLOW URINE NOTED. PIV X1. PICC RICHIE. NS TKO AT 10 ML/HR.
--- NOTE | 2018-05-04 21:00 | NUR ---
VENT SETTINGS DYSSYNCHRONY NOTED WHILE ON SIMV 12, TV 270, PS 8, PEEP 5, FIO2 25%. OXY SAT >95%. RR 20'S. DALTON RT NOTIFIED. DALTON RT CHANGED VENT SETTINGS TO SPONTANEOUS WITH PS 8, PEEP 5, FIO2 25%. OXY SAT REMAINS >95%. RR 20'S. PT CALM & COOPERATIVE. PRECEDEX 0.2 MCG/KG/HR - WILL TITRATE TO EFFECT. TV >200.
[2018-05-05 03:28] LABS: BASOPHILS ABSOLUTE AUTO 0.08 K/mm3 (0.00-0.23); BASOPHILS PERCENT AUTO 0 % (0-2); EOSINOPHILS PERCENT AUTO 0 % (0-6); Hematocrit 34.6 % (33.0-51.0); Hemoglobin 11.7 g/dL (11.5-16.0); IMMATURE GRAN PERCENT AUTO 1 % (0-1); LYMPHOCYTES ABSOLUTE AUTO 0.95 K/mm3 (0.84-5.20); LYMPHOCYTES PERCENT AUTO 2 % (21-46); MONOCYTES PERCENT AUTO 2 % (4-13); Mean Corpuscular HGB Conc 33.8 g/dL (31.5-36.5); Mean Corpuscular Volume 86 fL (80-100); Mean Platelet Volume 12.7 fL (9.1-12.4); NEUTROPHILS ABSOLUTE AUTO 38.05 K/mm3 (1.96-9.15); NEUTROPHILS PERCENT AUTO 94 % (41-73); Platelet Count 168 K/mm3 (150-400); RDW Coefficient Variation 13.6 % (11.7-14.2); RDW Standard Deviation 42.5 fL (35.1-46.3); Red Blood Cell Count 4.04 M/mm3 (3.80-5.20); White Blood Cell Count 40.38 K/mm3 (4.00-11.30)
[2018-05-05 03:46] LABS: Alanine Aminotransfer (ALT/SGP 16 U/L (12-78); Albumin, Blood 2.8 g/dL (3.4-5.0); Albumin/Globulin Ratio 0.9 (0.8-1.8); Alk Phos 73 U/L (50-136); Anion Gap 13 mmol/L (6-16); Aspartate Aminotrans (AST/SGOT 21 U/L (12-37); Bilirubin, Total 0.7 mg/dL (0.1-1.0); Blood Urea Nitrogen 12 mg/dL (8-24); Bun/Creatinine Ratio 23.7 (12.0-20.0); CO2, Blood 18 mmol/L (21-32); Calcium, Blood 8.2 mg/dL (8.5-10.1); Chloride, Blood 111 mmol/L (98-108); Creatinine, Blood 0.51 mg/dL (0.40-1.00); Glomerular Filtration Rate >60 (60-); Glucose, Blood 116 mg/dL (70-99); Magnesium, Blood 2.1 mg/dL (1.6-2.4); Phosphorus, Blood 1.4 mg/dL (2.5-4.9); Potassium, Blood 3.4 mmol/L (3.5-5.5); Sodium, Blood 142 mmol/L (136-145); Total Protein, Blood 5.8 g/dL (6.4-8.2)
--- NOTE | 2018-05-05 04:30 | NUR ---
DR. ACEVES CALLED DR. ACEVES AT THIS TIME. INFORMED DR. ACEVES OF AM LABS. DR. ACEVES ORDERED POTASSIUM PHOS 15 MM AT THIS TIME. WAITING FOR MEDICATION FROM PHARMACY AT THIS TIME.
[2018-05-05 05:43] LABS: PCO2 Arterial 19.8 mmHg (35-45); PO2 Arterial 115 mmHg (80-100); pH Blood Arterial 7.55 (7.35-7.45)
--- NOTE | 2018-05-05 06:00 | NUR ---
DR. ACEVES CALLED DR. ACEVES. INFORMED DR. ACEVES OF ABG RESULTS. DR. ACEVES ORDERED TO EXTUBATE PT AT THIS TIME. DALTON RT NOTIFIED OF EXTUBATION. WAITING FOR RT AT THIS TIME FOR EXTUBATION. PRECEDEX ON STANDBY WHILE WAITING FOR RT. DR. ACEVES ORDERED TO D/C PRECEDEX, PROPOFOL, ORAL CARE. DR. ACEVES INSTRUCTED TO ADVANCE DIET TOLERATED TO ICE CHIPS AND SIPS OF WATER. DR. ACEVES ALSO ORDERED TO TITRATE OXYGEN TO MAINTAIN SPO2 90% AND GREATER.
--- NOTE | 2018-05-05 06:22 | NUR ---
SHIFT ASSESSMENT NO ACUTE CHANGES NOTED T/O SHIFT. AGITATION, ANXIETY, PULLING ON RESTRAINTS NOTED WITH PT CARE. PT CONT TO ATTEMPT TO EXTUBATE SELF. INCREASED AGITATION, ANXIETY, AND PULLING ON RESTRAINTS NOTED THIS AM. PT RESPONDS TO VERBAL STIMULI, OCC OPENING EYES SPONTANEOUSLY, FOLLOWS COMMANDS, SLOW TO RESPOND, NODDING EHAD Y/N TO MOST QUESTIONS. PRECEDEX DRIP OFF - CONT TO TITRATE TO EFFECT. SENSATIO INTACT. PT DENIES N/T. PT REY. WEAKNESS NOTED. INCREASED WEAKNESS AND LESS MVOEMENT NOTED THIS PM. PT ASSISTS WITH TURNS. PT DENIED PAIN/DISCOMFORT T/O SHIFT. NO S/SX OF PAIN/DISCOMFORT NOTED T/O SHIFT. LUNGS CLEAR, LOWER LOBES DIMINIHSED. SHALLOW BREATHING. CURRENT VENT SETTINGS ON SPONT MODE: PS 8, PEEP 5, FIO2 25%. WAITING FOR RT FOR EXTUBATION. OXY SAT >90%. RR 16 TO 30'S T/O SHIFT. INCREASED RR NOTED WITH AGITATION. SUCTION VIA ETT: SCANT AMOUTNS OF THIN CLEAR SECRETIONS. TMAX 100.2 - ROOM TEMP TURNED DOWN, BLANKETS OFF. NSR TO ST. HR 80'S TO 130'S. BP STABLE - SEE VS FS. INCREASED HR AND BP NOTED WITH AGITATION. LEVOPHED ON STANDBY - CONT TO TITRATE TO EFFECT. STRONG PUSLES. WARM, PINK SKIN. HYPOACTIVE BT X4 QUADRANTS. ABD SOFT, NONTENDER. OG CLAMPED. F/C IN PLACE - YELLOW URINE NOTED. F/C IN PLACE - YELLOW URINE NOTED. PIV X1. PICC RICHIE - SL. WAITING FOR POTASSIUM PHOS IVPB AT THIS TIME. WILL CONT TO MONITOR PT AND WILL PROVIDE BEDSIDE REPORT TO ONCOMING NURSE.
--- NOTE | 2018-05-05 07:54 | NUR ---
ASSUMED CARE / EXTUBATION: REPORT RECEIVED FROM MIR Maldonado RN. ASSUMED CARE OF THIS PT AT APPROX 0700. ROUNDING COMPLETE, PT IS AWAKE & SITTING UP IN BED. PRECEDEX HAS BEEN ON STANDBY SINCE APPROX 0600 FOR PLANS OF EXTUBATION. THE PT IS ALERT & ANSWERING YES/NO QUESTIONS APPROPRIATELY W/ NODS. TACHYPNEIC W/O SEDATION, BUT RESPONDS WELL TO VERBAL COACHING TO SLOW RESPIRATIONS & STAY CALM. PT EXTUBATED AT 0706 & PLACED ON 4L NC, O2 SATS > 92%. JAYE Calixto RN & RT PAUL AT BEDSIDE FOR EXTUBATION. THE PT IS IMMEDIATELY ASKING FOR FOOD. WILL TRY ICE CHIPS WITHIN A FEW HOURS OF EXTUBATION & ADVANCE JINNY. PT REMAINS A&O AT THIS TIME, SITTING UP IN BED W/ NO C/O PAIN OR DISCOMFORT. WILL CONTINUE TO MONITOR & UPDATE NEEDED.
[2018-05-05 11:15] LABS: Source, Urine Catheter
[2018-05-05 11:20] LABS: Bilirubin, Urine Neg (Neg); Blood, Urine Neg (Neg); Glucose Qualitative, Urine Neg (Neg); Ketones, Urine Neg (Neg); Leukocyte Esterase, Urine Neg (Neg); Nitrite, Urine Neg (Neg); Protein, Urine Neg (Neg); Urobilinogen, Urine NORM (Normal)
[2018-05-05 11:53] LABS: Appearance, Urine Clear (Clear); Color, Urine Yellow (P-Yellow)
--- NOTE | 2018-05-05 18:22 | NUR ---
SHIFT SUMMARY: NO ACUTE CHANGES SINCE EXTUBATION THIS AM. PT REMAINS A&O, PLEASANT & COOPERATIVE. LS CLEAR T/O, PT NOW ON RA & JINNY WELL W/ O2 SATS > 92%. NSR W/ HR 90-100s, PT HYPOTENSIVE AT TIMES & IS ASYMPTOMATIC OF THIS W/ NO DIZZINESS OR LIGHTHEADEDNESS. SHE IS TOLERATING PO INTAKE WELL & HAS ADVANCED TO REGULAR DIET W/ NO ISSUE. NO C/O NAUSEA OR ABD TENDERNESS, PT SWALLOWS FOOD W/O DIFFICULTY. TEMP ZIMMERMAN REMAINS PATENT/DRAINING CLEAR YELLOW URINE. MEPILEX TO COCCYX REMAINS CDI. BLOOD CX DRAWN TODAY ARE PENDING, SPUTUM & URINE SPECIMENS SENT FOR CULTURE WELL. WILL CONTINUE TO MONITOR & REPORT OFF TO ONCOMING RN.
--- NOTE | 2018-05-05 19:20 | NUR ---
ASSUME CARE: REPORT RECIEVED FROM GAGE PERALTA OFF GOING SHIFT. MONITOR INTACT SHOWING SINUS RHYTYM HEART RATE 90'S. LUNG SOUNDS CLEAR WITH DECREASED SOUNDS IN THE BASES. RESPIRATIONS REGULAR AND EASY ON ROOM AIR. SPO2 97-100% ABDOMEN SOFT WITH BOWEL SOUNDS FOUR QUADS. ZIMMERMAN PATENT DRAINING ZULEYKA URINE. REPOSITIONS SELF IN BED. SKIN WARM/DRY NO EDEMA NOTED PEDAL PULSES PRESENT. CONTINUE TO MONITOR AND REPORT CHANGE IN PATIENT CONDITION. REQUEST PEPSI TOLERATES WELL
[2018-05-06 03:55] LABS: BASOPHILS ABSOLUTE AUTO 0.03 K/mm3 (0.00-0.23); BASOPHILS PERCENT AUTO 0 % (0-2); EOSINOPHILS ABSOLUTE AUTO 0.01 K/mm3 (0.00-0.68); EOSINOPHILS PERCENT AUTO 0 % (0-6); Hematocrit 33.6 % (33.0-51.0); IMMATURE GRAN ABSOLUTE AUTO 0.32 K/mm3 (0.00-0.10); IMMATURE GRAN PERCENT AUTO 1 % (0-1); LYMPHOCYTES ABSOLUTE AUTO 0.65 K/mm3 (0.84-5.20); LYMPHOCYTES PERCENT AUTO 3 % (21-46); MONOCYTES ABSOLUTE AUTO 0.46 K/mm3 (0.16-1.47); MONOCYTES PERCENT AUTO 2 % (4-13); Mean Corpuscular HGB 29.4 pg (26.0-34.0); Mean Corpuscular HGB Conc 32.7 g/dL (31.5-36.5); NEUTROPHILS ABSOLUTE AUTO 22.55 K/mm3 (1.96-9.15); NEUTROPHILS PERCENT AUTO 94 % (41-73); Platelet Count 132 K/mm3 (150-400); RDW Coefficient Variation 13.9 % (11.7-14.2); RDW Standard Deviation 45.9 fL (35.1-46.3); Red Blood Cell Count 3.74 M/mm3 (3.80-5.20); White Blood Cell Count 24.02 K/mm3 (4.00-11.30)
[2018-05-06 03:56] LABS: Mean Corpuscular Volume 90 fL (80-100)
[2018-05-06 04:13] LABS: Albumin, Blood 2.7 g/dL (3.4-5.0); Anion Gap 7 mmol/L (6-16); Blood Urea Nitrogen 12 mg/dL (8-24); CO2, Blood 25 mmol/L (21-32); Calcium, Blood 7.9 mg/dL (8.5-10.1); Chloride, Blood 111 mmol/L (98-108); Glomerular Filtration Rate >60 (60-); Glucose, Blood 151 mg/dL (70-99); Magnesium, Blood 2.2 mg/dL (1.6-2.4); Phosphorus, Blood 2.5 mg/dL (2.5-4.9); Potassium, Blood 3.7 mmol/L (3.5-5.5); Sodium, Blood 143 mmol/L (136-145)
--- NOTE | 2018-05-06 06:30 | NUR ---
SHIFTR SUMMARY: RESTS QUIETLY WHEN UNDISTURBED. DOZES FOR INTERVALS HAS BEED AWAKE MUCH OF NOC WATCHING TV. DENIES DISCOMFORT. LUNG SOUNDS CLEAR WITH SLIGHTLY DECREASED SOUNDS IN THE BASES. RESPIRATIONS REGULAR AND EASY WITH O2 IN PLACE AT 2L/MIN. SPO2 90-97% ABDOMEN SOFT WITH BOWEL SOUNDS FOUR QUADS. ZIMMERMAN PATENT DRAINING ZULEYKA URINE. UP TO BSC WITH MODERATE ASSIST. PASSES FLATUS. NO EDEMA NOTED PEDAL PULSES PRESENT. MONITOR INTACT SHOWING SINUS RHYTYHM HEART RATE 70'S-100. CONTINUE TO MONITOR AND REPORT CHANGE IN PATIENT CONDITION
--- NOTE | 2018-05-06 07:20 | NUR ---
START OF SHIFT NOTE: PATIENT IS AWAKE, A+OX3, DENIES PAIN, REPORTS NO CHEST PAIN/DISCOMFORT, AFEBRILE, SLOW TO RESPOND, LS CLEAR, NSR, CALL LIGHT IN REACH, WILL CONTINUE TO MONITOR.
--- NOTE | 2018-05-06 10:35 | NUR ---
PT IN TO WORK WITH PATIENT, UP TO CHAIR, PATIENT WAS ABLE TO STAND AND PIVOT TO CHAIR WITH ONE ASSIST, PT IN ROOM WORKING WITH PATIENT, CALL LIGHT IN REACH, WILL CONTINUE TO MONITOR.
--- NOTE | 2018-05-06 13:29 | NUR ---
PATIENT ATE LUNCH IN CHAIR, VERBALIZED WISH TO RETURN TO BED, BACK TO BED WITH ONE ASSIST AND ONE SBA ASSIST, PATIENT HAS GOOD APPETITE, REPOSITIONED FOR COMFORT, WARM BLANKET PROVIDED, CALL LIGHT IN REACH, WILL CONTINUE TO MONITOR.
--- NOTE | 2018-05-06 14:29 | NUR ---
PATIENT RESTING COMFORTABLY, ASKING FOR LIDIA CRACKERS.
--- NOTE | 2018-05-06 15:49 | NUR ---
PATIENT RESTING COMFORTABLY WITH EYES CLOSED, VSS, CALL LIGHT IN REACH, WILL CONTINUE TO MONITOR.
--- NOTE | 2018-05-06 17:33 | NUR ---
SHIFT SUMMARY NOTE: PATIENT IS A+Ox3, DENIES PAIN, CHEST DISCOMFORT/PAIN, SOB, UP TO CHAIR FOR ABOUT TWO HOURS, PATIENT HAS EXTREMELY GOOD APPETITE, WATCHES TV AND SLEEPS IN BETWEEN, PATIENT IS SLOW TO RESPOND AND APPEARS TO HAVE SOME SPASTIC FACIAL GRIMACING, ZIMMERMAN CATHETER IN PLACE, RECEIVES LEVAQUIN VIA RICHIE PICC, WHICH FLUSHES WELL AND DRAWS BACK, USES CALL LIGHT APPROPRIATELY, FOR DETAILED INFORMATION SEE SHIFT ASSESSMENT DOCUMENTATION, WILL CONTINUE TO MONITOR AND GIVE REPORT TO ONCOMING PUBLIC HEALTH OUTREACH WORKER.
--- NOTE | 2018-05-06 19:30 | NUR ---
ASSUME CARE: REPORT RECIEVED FROM OFF GOING RN CLOVIS. MONITOR INTACT SHOWING SINUS RHYTHM. HEART RATE 80'S DENINES DISCOMFORT. LUNG SOUNDS CLEAR RESPIRATIONS REGULAR AND EASY ON ROOM AIR SPO2 97%. ABDOMEN SOFT WITH BOWEL SOUNDS FOUR QUADS. ZIMMERMAN PATENT DRAINING ZULEYKA URINE. REY AND REPOSITIONS SELF IN BED. REQUEST PEPSI AND TOLERATES WELL. CONTINUE TO MONITOR AND REPORT CHANGE IN PATIENT CONDITION. SKIN W/D/I. PEDAL PULSES PRESENT. INFORMED PATIENT OF PENDING TRANSFER.
[2018-05-07 05:41] LABS: BASOPHILS ABSOLUTE AUTO 0.02 K/mm3 (0.00-0.23); BASOPHILS PERCENT AUTO 0 % (0-2); EOSINOPHILS ABSOLUTE AUTO 0.01 K/mm3 (0.00-0.68); EOSINOPHILS PERCENT AUTO 0 % (0-6); Hematocrit 37.4 % (33.0-51.0); Hemoglobin 12.1 g/dL (11.5-16.0); IMMATURE GRAN ABSOLUTE AUTO 0.21 K/mm3 (0.00-0.10); IMMATURE GRAN PERCENT AUTO 1 % (0-1); LYMPHOCYTES ABSOLUTE AUTO 3.21 K/mm3 (0.84-5.20); LYMPHOCYTES PERCENT AUTO 15 % (21-46); MONOCYTES ABSOLUTE AUTO 1.44 K/mm3 (0.16-1.47); MONOCYTES PERCENT AUTO 7 % (4-13); Mean Corpuscular HGB 28.4 pg (26.0-34.0); Mean Corpuscular HGB Conc 32.4 g/dL (31.5-36.5); Mean Corpuscular Volume 88 fL (80-100); Mean Platelet Volume 12.7 fL (9.1-12.4); NEUTROPHILS ABSOLUTE AUTO 16.29 K/mm3 (1.96-9.15); NEUTROPHILS PERCENT AUTO 77 % (41-73); Platelet Count 148 K/mm3 (150-400); RDW Coefficient Variation 13.8 % (11.7-14.2); RDW Standard Deviation 43.9 fL (35.1-46.3); Red Blood Cell Count 4.26 M/mm3 (3.80-5.20); White Blood Cell Count 21.18 K/mm3 (4.00-11.30)
[2018-05-07 06:05] LABS: Albumin, Blood 2.9 g/dL (3.4-5.0); Anion Gap 5 mmol/L (6-16); Blood Urea Nitrogen 10 mg/dL (8-24); Bun/Creatinine Ratio 20.2 (12.0-20.0); CO2, Blood 29 mmol/L (21-32); Calcium, Blood 8.3 mg/dL (8.5-10.1); Chloride, Blood 108 mmol/L (98-108); Glomerular Filtration Rate >60 (60-); Glucose, Blood 93 mg/dL (70-99); Phosphorus, Blood 1.7 mg/dL (2.5-4.9); Potassium, Blood 3.3 mmol/L (3.5-5.5); Sodium, Blood 142 mmol/L (136-145)
--- NOTE | 2018-05-07 07:24 | NUR ---
a+o, baseline cognative and speech, call light in reach, saline locked, room air, no breathing issues while on floor, walking rounds completed with day staff
[2018-05-07] MEDS ORDERED: DOCU100 PO (12:38)
[2018-05-07] MEDS ORDERED: PRED10 (12:38)
[2018-05-07] MEDS ORDERED: LEVFLO500 (12:39)
[2018-05-07] MEDS ORDERED: PANT20 PO (12:40)
--- NOTE | 2018-05-07 15:46 | NUR ---
TIARRA GARRISON WAS DC'D AT 9215.
--- NOTE | 2018-05-07 16:28 | NUR ---
IV REMOVED BY [employer] [facility], PICC LINE REMOVED BY [employer].
== END 2018-05-07 17:40 | disposition home or self-care (01) | DRG 871 ==
LOC: ER 13:31 → ICUE 14:57 → ICUW 14:57 → MEDS 14:57 → ICUW 17:02 → MEDS 05-06 21:45 → ENPENDDIS 05-07 11:13 → MEDS 05-07 17:40
PROVIDERS: Emergency Medicine; Family Medicine; Internal Medicine Critical Care Medicine; Internal Medicine Pulmonary Disease; ADMIT Internal Medicine
PROC: 0BH17EZ Insertion of Endotracheal Airway into Trachea, Via Natural or Artificial Opening (ICD-10-PCS; principal; 2018-05-02)
PROC: 5A1945Z Respiratory Ventilation, 24-96 Consecutive Hours (ICD-10-PCS; 2018-05-02)
PROC: 3E033XZ Introduction of Vasopressor into Peripheral Vein, Percutaneous Approach (ICD-10-PCS; 2018-05-02)
PROC: 02HV33Z Insertion of Infusion Device into Superior Vena Cava, Percutaneous Approach (ICD-10-PCS; 2018-05-02)
DX: A41.9 Sepsis, unspecified organism (principal); R09.2 Respiratory arrest; J96.21 Acute and chronic respiratory failure with hypoxia; J44.1 Chronic obstructive pulmonary disease with (acute) exacerbation; J45.901 Unspecified asthma with (acute) exacerbation; I50.30 Unspecified diastolic (congestive) heart failure; G93.1 Anoxic brain damage, not elsewhere classified; I95.9 Hypotension, unspecified; I11.0 Hypertensive heart disease with heart failure; E87.6 Hypokalemia; R62.50 Unspecified lack of expected normal physiological development in childhood; G40.909 Epilepsy, unspecified, not intractable, without status epilepticus
CPT/HCPCS: 31500; 31720; 36415; 36569; 36600; 71045; 71046; 80047; 80048; 80053; 80069; 81001; 81003; 82330; 82550; 82553; 82803; 82947; 83605; 83690; 83735; 83880; 84100; 84145; 84484; 85014; 85025; 85027; 87040; 87070; 87205; 87486; 87581; 87633; 87798; 87804; 93005; 93010; 93308; 93321; 94002; 94003; 94640; 94644; 94667; 94760; 96361; 96365; 96374; 96375; 97116; 97162; 97530; 99285-25; 99291-25; 99292; C1751; C9113; J0330; J0461; J1265; J1650; J1956; J2060; J2250; J2920; J2930; J3010; J3480; J7030; J7050; J7060

== ENCOUNTER 2018-05-30 16:11 | Inpatient (IN) | payer MEDICARE, OTHER ==
[~2018-05-30] VITALS: Ht 149.9 cm; Wt 38.3 kg
[~2018-05-30 16:11] MED LIST changes: +DOCU100 PO; +LEVFLO500; +OLAN7.5 PO; +PANT20 PO; +PRED10
[2018-05-30 16:54] LABS: BASOPHILS ABSOLUTE AUTO 0.06 K/mm3 (0.00-0.23); BASOPHILS PERCENT AUTO 1 % (0-2); EOSINOPHILS ABSOLUTE AUTO 0.95 K/mm3 (0.00-0.68); EOSINOPHILS PERCENT AUTO 8 % (0-6); Hematocrit 43.5 % (33.0-51.0); Hemoglobin 13.7 g/dL (11.5-16.0); IMMATURE GRAN ABSOLUTE AUTO 0.05 K/mm3 (0.00-0.10); IMMATURE GRAN PERCENT AUTO 0 % (0-1); LYMPHOCYTES ABSOLUTE AUTO 2.07 K/mm3 (0.84-5.20); LYMPHOCYTES PERCENT AUTO 17 % (21-46); MONOCYTES PERCENT AUTO 6 % (4-13); Mean Corpuscular HGB 28.6 pg (26.0-34.0); Mean Corpuscular HGB Conc 31.5 g/dL (31.5-36.5); Mean Corpuscular Volume 91 fL (80-100); Mean Platelet Volume 11.8 fL (9.1-12.4); NEUTROPHILS ABSOLUTE AUTO 8.71 K/mm3 (1.96-9.15); NEUTROPHILS PERCENT AUTO 69 % (41-73); Platelet Count 288 K/mm3 (150-400); RDW Coefficient Variation 13.8 % (11.7-14.2); RDW Standard Deviation 46.1 fL (35.1-46.3); Red Blood Cell Count 4.79 M/mm3 (3.80-5.20); White Blood Cell Count 12.54 K/mm3 (4.00-11.30)
[2018-05-30 17:12] LABS: Alanine Aminotransfer (ALT/SGP 23 U/L (12-78); Albumin, Blood 3.8 g/dL (3.4-5.0); Albumin/Globulin Ratio 0.9 (0.8-1.8); Alk Phos 102 U/L (50-136); Anion Gap 8 mmol/L (6-16); Aspartate Aminotrans (AST/SGOT 22 U/L (12-37); Bilirubin, Total 0.6 mg/dL (0.1-1.0); Blood Urea Nitrogen 12 mg/dL (8-24); Bun/Creatinine Ratio 20.7 (12.0-20.0); CO2, Blood 26 mmol/L (21-32); Calcium, Blood 8.9 mg/dL (8.5-10.1); Chloride, Blood 106 mmol/L (98-108); Creatinine, Blood 0.58 mg/dL (0.40-1.00); Globulin, Blood 4.1 g/dL (2.2-4.0); Glomerular Filtration Rate >60 (60-); Glucose, Blood 107 mg/dL (70-99); Potassium, Blood 3.4 mmol/L (3.5-5.5); Sodium, Blood 140 mmol/L (136-145); Total Protein, Blood 7.9 g/dL (6.4-8.2)
[2018-05-31 05:32] LABS: Anion Gap 9 mmol/L (6-16); Blood Urea Nitrogen 23 mg/dL (8-24); Bun/Creatinine Ratio 42.6 (12.0-20.0); CO2, Blood 22 mmol/L (21-32); Calcium, Blood 8.5 mg/dL (8.5-10.1); Chloride, Blood 112 mmol/L (98-108); Creatinine, Blood 0.54 mg/dL (0.40-1.00); Glomerular Filtration Rate >60 (60-); Glucose, Blood 169 mg/dL (70-99); Potassium, Blood 3.5 mmol/L (3.5-5.5); Sodium, Blood 143 mmol/L (136-145)
--- NOTE | 2018-05-31 05:41 | NUR ---
SHIFT SUMMARY 2119 RECEIVED PT TO RM 304 FROM ER. PT ADMITTED FOR ACUTE RESPIRATORY FAILURE AND HYPOXIA. RECEIVED REPORT FROM CADY PERALTA. PT HERE FREQUENTLY FOR RESPIRATORY PROBLEMS. LAST HOSPITAL VISIT 05/07/18, WHICH SHE REQUIRED INTUBATION. PT RETURNED YESTERDAY FOR INCREASING SOB AND HER HOME IH'S WERE NOT WORKING. PT GIVEN RT TX'S IN ER AND ADMITTED TO FLOOR. PT HAS BEEN RESTING QUIETLY SINCE ADMISSION. NO S/SX OF DISTRESS NOTED OR REPORTED TO PRESENT. INDEPENDANT TO BTHRM NEEDED. CALL LT IN REACH.
--- NOTE | 2018-06-01 06:15 | NUR ---
NOC SHIFT SUMMARY THIS PT HAS BEEN PLEASANT AND COOPERATIVE WITH CARE THIS NIGHT. HER MOTHER DID CALL THIS NIGHT FOR A STATUS CHECK AND UPDATE. PT GAVE VERBAL PERMISSION FOR ME TO SPEAK WITH HER. PT FELL ASLEEP AROUNT [id number] AND HAS BEEN SLEEPING RESTFULLY SINCE THEN. APPEARS IN NO ACUTE DISTRESS. WILL CONTINUE TO MONITOR.
[2018-06-01] MEDS ORDERED: PRED20 PO (11:54)
[2018-06-01] MEDS ORDERED: GUAI600T33 PO (11:54)
--- NOTE | 2018-06-01 14:24 | NUR ---
DISCHARGE SUMMARY: PT IS A&O X4. DENIES SOB. DYSPNEA NOTED W/EXERTION. PT REPORTS MILD DYSPNEA IS BASELINE. TOLERATED BREAKFAST AND LUNCH WELL. DENIES CP. RX FAXED TO [facility] IN [place]. OUTBOUND CALL CENTER REPRESENTATIVEALEXIS CONTACTED PT MOTHER AND DISCUSSED D/C INSTRUCTIONS. PT WAS ESCORTED VIA W/C WITH HER BELONGINGS ASSISTED BY HOME CARE SCHEDULER. SHE IS BEING TRANSPORTED TO HOME VIA [facility]I.
== END 2018-06-01 14:16 | disposition home or self-care (01) | DRG 189 ==
LOC: ER 16:11 → MEDS 18:42
PROVIDERS: Physician Assistant; ADMIT Internal Medicine
DX: J96.01 Acute respiratory failure with hypoxia (principal); J44.1 Chronic obstructive pulmonary disease with (acute) exacerbation; F79 Unspecified intellectual disabilities; Z77.22 Contact with and (suspected) exposure to environmental tobacco smoke (acute) (chronic)
CPT/HCPCS: 36415; 71045; 80048; 80053; 85025; 93005; 93010; 94640; 94644; 94760; 96365; 96366; 99285-25; J1650; J2920; J2930; J3475; J7030

== ENCOUNTER 2018-06-20 03:17 | Emergency (ER) | payer MEDICARE, OTHER ==
[~2018-06-20] VITALS: Ht 149.9 cm; Wt 45.4 kg
[~2018-06-20 03:17] MED LIST changes: +GUAI600T33 PO
[2018-06-20] MEDS ORDERED: DULERA 100 MCG/13 GM INH (04:56)
[2018-06-20] MEDS ORDERED: DEXA4 PO (04:56)
[2018-06-20] MEDS ORDERED: ALBU90OI INH (04:56)
== END 2018-06-20 05:26 | disposition home or self-care (01) ==
LOC: ER 03:17
DX: J45.901 Unspecified asthma with (acute) exacerbation (principal); D64.9 Anemia, unspecified; Z79.899 Other long term (current) drug therapy; Z79.52 Long term (current) use of systemic steroids
CPT/HCPCS: 71045; 93005; 93010; 94640; J1100

== ENCOUNTER 2018-06-23 15:18 | Inpatient (IN) | payer MEDICARE, OTHER ==
[~2018-06-23] VITALS: Ht 149.9 cm; Wt 35.9 kg
[~2018-06-23 15:18] MED LIST changes: +DEXA4 PO
[2018-06-23 16:07] LABS: BASOPHILS ABSOLUTE AUTO 0.08 K/mm3 (0.00-0.23); BASOPHILS PERCENT AUTO 1 % (0-2); EOSINOPHILS ABSOLUTE AUTO 2.09 K/mm3 (0.00-0.68); EOSINOPHILS PERCENT AUTO 19 % (0-6); Hematocrit 44.9 % (33.0-51.0); Hemoglobin 14.5 g/dL (11.5-16.0); IMMATURE GRAN ABSOLUTE AUTO 0.03 K/mm3 (0.00-0.10); IMMATURE GRAN PERCENT AUTO 0 % (0-1); LYMPHOCYTES PERCENT AUTO 23 % (21-46); MONOCYTES ABSOLUTE AUTO 0.73 K/mm3 (0.16-1.47); MONOCYTES PERCENT AUTO 7 % (4-13); Mean Corpuscular HGB 28.6 pg (26.0-34.0); Mean Corpuscular HGB Conc 32.3 g/dL (31.5-36.5); Mean Corpuscular Volume 89 fL (80-100); NEUTROPHILS ABSOLUTE AUTO 5.36 K/mm3 (1.96-9.15); NEUTROPHILS PERCENT AUTO 50 % (41-73); RDW Coefficient Variation 14.2 % (11.7-14.2); RDW Standard Deviation 45.4 fL (35.1-46.3); Red Blood Cell Count 5.07 M/mm3 (3.80-5.20); White Blood Cell Count 10.79 K/mm3 (4.00-11.30)
[2018-06-23 16:08] LABS: Mean Platelet Volume 13.8 fL (9.1-12.4); Platelet Count 131 K/mm3 (150-400)
[2018-06-23 16:42] LABS: Alanine Aminotransfer (ALT/SGP 32 U/L (12-78); Albumin, Blood 3.8 g/dL (3.4-5.0); Albumin/Globulin Ratio 0.9 (0.8-1.8); Alk Phos 105 U/L (50-136); Anion Gap 8 mmol/L (6-16); Aspartate Aminotrans (AST/SGOT 64 U/L (12-37); Blood Urea Nitrogen 11 mg/dL (8-24); Bun/Creatinine Ratio 26.4 (12.0-20.0); CO2, Blood 24 mmol/L (21-32); Calcium, Blood 9.3 mg/dL (8.5-10.1); Chloride, Blood 109 mmol/L (98-108); Creatinine, Blood 0.42 mg/dL (0.40-1.00); Globulin, Blood 4.2 g/dL (2.2-4.0); Glomerular Filtration Rate >60 (60-); Glucose, Blood 100 mg/dL (70-99); Sodium, Blood 141 mmol/L (136-145)
[2018-06-23 21:05] LABS: PCO2 Arterial 48.4 mmHg (35-45); PO2 Arterial 185 mmHg (80-100); pH Blood Arterial 7.24 (7.35-7.45)
--- NOTE | 2018-06-23 22:45 | NUR ---
PATIENT ARRIVED TO ICU VIA GURNEY FROM ED INTUBATED AND SEDATED WITH PROPOFOL DUE TO RESP FAILURE WITH ASTHMA. PATIENT AWAKENS EASILY TO SLIGHT STIMULI REACHING FOR ETT. NODDING YES AND NO TO QUESTIONS, BUT NOT FOLLOWING DIRECTIONS. LUNG SOUNDS DECREASED T/O. BILAT WRIST RESTRAINTS TO PREVENT ACCIDENTAL EXTUBATION DUE TO UNPREDICTABLE SEDATION AND BEHAVIOR. OG IN PLACE AND CLAMPED.
[2018-06-24 03:26] LABS: Bordetella pertussis Not Detected (NOT DETECT); Chlamydophila pneumoniae Not Detected (NOT DETECT); Coronavirus 229E Not Detected (NOT DETECT); Coronavirus HKU1 Not Detected (NOT DETECT); Coronavirus NL63 Not Detected (NOT DETECT); Coronavirus OC43 Not Detected (NOT DETECT); Human Metapneumovirus Not Detected (NOT DETECT); Human Rhinovirus/Enterovirus Not Detected (NOT DETECT); Influenza A Not Detected (NOT DETECT); Influenza A/2009-H1 Not Detected (NOT DETECT); Influenza A/H1 Not Detected (NOT DETECT); Influenza A/H3 Not Detected (NOT DETECT); Influenza B Not Detected (NOT DETECT); Mycoplasma pneumoniae Not Detected (NOT DETECT); Parainfluenza Virus 1 Not Detected (NOT DETECT); Parainfluenza Virus 2 Not Detected (NOT DETECT); Parainfluenza Virus 3 Not Detected (NOT DETECT); Parainfluenza Virus 4 Not Detected (NOT DETECT); Respiratory Syncytial Virus Not Detected (NOT DETECT)
[2018-06-24 03:32] LABS: Adenovirus Not Detected (NOT DETECT)
[2018-06-24 03:39] LABS: Hematocrit 35.1 % (33.0-51.0); Hemoglobin 11.3 g/dL (11.5-16.0); Mean Corpuscular HGB 28.7 pg (26.0-34.0); Mean Corpuscular HGB Conc 32.2 g/dL (31.5-36.5); Mean Corpuscular Volume 89 fL (80-100); Platelet Count 158 K/mm3 (150-400); RDW Coefficient Variation 13.9 % (11.7-14.2); RDW Standard Deviation 45.1 fL (35.1-46.3); Red Blood Cell Count 3.94 M/mm3 (3.80-5.20); White Blood Cell Count 11.32 K/mm3 (4.00-11.30)
[2018-06-24 04:07] LABS: Alanine Aminotransfer (ALT/SGP 16 U/L (12-78); Albumin, Blood 2.9 g/dL (3.4-5.0); Alk Phos 79 U/L (50-136); Anion Gap 12 mmol/L (6-16); Aspartate Aminotrans (AST/SGOT 20 U/L (12-37); Bilirubin, Total 0.8 mg/dL (0.1-1.0); Blood Urea Nitrogen 7 mg/dL (8-24); CO2, Blood 20 mmol/L (21-32); Calcium, Blood 7.5 mg/dL (8.5-10.1); Chloride, Blood 109 mmol/L (98-108); Creatinine, Blood 0.37 mg/dL (0.40-1.00); Globulin, Blood 2.8 g/dL (2.2-4.0); Glomerular Filtration Rate >60 (60-); Glucose, Blood 162 mg/dL (70-99); Sodium, Blood 141 mmol/L (136-145)
[2018-06-24 04:12] LABS: Potassium, Blood 2.9 mmol/L (3.5-5.5); Total Protein, Blood 5.7 g/dL (6.4-8.2)
--- NOTE | 2018-06-24 07:20 | NUR ---
Recieved report from Deanna PERALTA. Patient intubated with 7.5 ET and 23 at lips, she is on SIMV 14, PS7, FiO2 35% and PEEP 5.8 and stats 91%. Performed oral care and she thrashes around when doing care, she did not open her eyes when communicating or pain.DShe has 20ga LAC,dressing intact and site WNL's and is infusingPropofol at 40mcg/kg/min and NS at TKO. She also has 20ga IV RW dressing intact and site WNL's and is infusing NS at 75ml and she has two 20meq K Riders that will be infusing. She has 16 Fr. Temp Mustafa draining to gravity. She is febrile at 99.9. She has OG in place that I retaped and is clamped currently. She has bilateral soft wrist restraints.
--- NOTE | 2018-06-24 07:21 | NUR ---
SUMMARY PATIENT CONTINUES TO BE INTUBATED AND SEDATED WITH PROPOFOL AT 40MCG. PATIENT AWAKENS TO SLIGHT STIMULI AND CONTINUES TO REACH FOR ETT WHEN AWAKE. BILAT WRIST RESTRAINTS REMAIN IN PLACE TO PREVENT ACCIDENTAL EXTUBATION. VENT SET AT SIMV WITH PS INCREASED TO 7 FIO2 40% PEEP 5. DOCTOR ZAMUDIO NOTIFIED OF AM LABS KCL RIDER ORDER OBTAINED.
--- NOTE | 2018-06-24 09:30 | NUR ---
RT placed patient back on AC 14, TV 300, FiO2 30% and PEEP 5.0 and sats 96%. Potassium riders in and Propofol remains at 40 mcg/kg/min. No other cjanges with patient.
[2018-06-24 10:08] LABS: PCO2 Arterial 34.4 mmHg (35-45); PO2 Arterial 78.1 mmHg (80-100)
--- NOTE | 2018-06-24 11:30 | NUR ---
Dr plata has been by to see patient and wants to try to reduce sedation. Reduced to 30mcg to see how she does and Dr ordered Precedex to transfer to. No further vent setting changes and she dc'd fluids, just TKO infusing with Propofol. VSS
--- NOTE | 2018-06-24 13:30 | NUR ---
Patient did not last on Propofol reduction more than 30 [address] Joseph and she stated to just increase Propofol back to 40mcg/kg/min and patient has been resting well. No other significant changes. Continueing oral care and repositioning.
--- NOTE | 2018-06-24 15:30 | NUR ---
Patient continues to rest and RT changed Ac to 16 no other changes. VSS. Propofol remains at 40mcg/kg/min. Sats remains in the low 90% on current vent setting.
--- NOTE | 2018-06-24 17:30 | NUR ---
Patients sats dropped into the 70% with good pleth and suctioned her and placed on 100% FiO2 briefly and and ended up re suctioning her and sats started to come up. current back to low 90% ion 30% FiO2. VSS
[2018-06-25 04:02] LABS: BASOPHILS ABSOLUTE AUTO 0.04 K/mm3 (0.00-0.23); BASOPHILS PERCENT AUTO 0 % (0-2); EOSINOPHILS PERCENT AUTO 0 % (0-6); Hematocrit 37.3 % (33.0-51.0); Hemoglobin 11.6 g/dL (11.5-16.0); IMMATURE GRAN ABSOLUTE AUTO 0.17 K/mm3 (0.00-0.10); IMMATURE GRAN PERCENT AUTO 1 % (0-1); LYMPHOCYTES ABSOLUTE AUTO 0.59 K/mm3 (0.84-5.20); LYMPHOCYTES PERCENT AUTO 2 % (21-46); MONOCYTES ABSOLUTE AUTO 0.41 K/mm3 (0.16-1.47); MONOCYTES PERCENT AUTO 1 % (4-13); Mean Corpuscular HGB 28.6 pg (26.0-34.0); Mean Corpuscular HGB Conc 31.1 g/dL (31.5-36.5); NEUTROPHILS ABSOLUTE AUTO 29.02 K/mm3 (1.96-9.15); NEUTROPHILS PERCENT AUTO 96 % (41-73); Platelet Count 156 K/mm3 (150-400); RDW Coefficient Variation 14.7 % (11.7-14.2); RDW Standard Deviation 49.4 fL (35.1-46.3); Red Blood Cell Count 4.06 M/mm3 (3.80-5.20); White Blood Cell Count 30.23 K/mm3 (4.00-11.30)
[2018-06-25 04:09] LABS: Mean Corpuscular Volume 92 fL (80-100); Mean Platelet Volume 13.7 fL (9.1-12.4)
[2018-06-25 04:19] LABS: Anion Gap 11 mmol/L (6-16); Blood Urea Nitrogen 8 mg/dL (8-24); Bun/Creatinine Ratio 21.9 (12.0-20.0); CO2, Blood 21 mmol/L (21-32); Calcium, Blood 8.5 mg/dL (8.5-10.1); Chloride, Blood 113 mmol/L (98-108); Creatinine, Blood 0.37 mg/dL (0.40-1.00); Glomerular Filtration Rate >60 (60-); Glucose, Blood 175 mg/dL (70-99); Magnesium, Blood 2.1 mg/dL (1.6-2.4); Phosphorus, Blood 2.4 mg/dL (2.5-4.9); Potassium, Blood 3.5 mmol/L (3.5-5.5); Sodium, Blood 145 mmol/L (136-145)
--- NOTE | 2018-06-25 05:01 | NUR ---
WEAN COMPLETE SEE RT CHARTING. PROPOFOL RESTARTED AT 25 MCG. PATIENT REMAINING CALM T/O WEAN.
--- NOTE | 2018-06-25 05:45 | NUR ---
SUMMARY PATIENT REMAINS INTUBATED AND SEDATED WITH PROPOFOL AT 25 MCG. ATTEMPTED TO START PRECEDEX AND PATIENT BECAME VERY HYPOTENSIVE EVEN WITH PROPOFOL OFF AND PRECEDEX AT 0.2 MCG. PRECEDEX NOW OFF. PATIENT AWAKENS TO VERBAL STIMULI NODDING YES AND NO TO QUESTIONS AND FOLLOWING DIRECTIONS. TUBE FEEDING AT GOAL OF 20/HR AT GOAL, NO RESIDUAL T/O NIGHT.
--- NOTE | 2018-06-25 08:00 | NUR ---
ASSESSMENT- PT. LIGHTLY SEDATED ON 20 MG/KG/MIN OF PROPAFOL. PT. FOLLOWS SIMPLE COMMANDS. RESP EVEN / UNLABORED. TUBE FEEDING INFUSING AT 20 ML/HR. ZIMMERMAN IN PLACE WITH SM AMT U/O. NS INFUSING AT 20 ML/HR.
--- NOTE | 2018-06-25 09:00 | NUR ---
DR. RODRIGUEZ INTO SEE PT. ORDERS NOTED.
--- NOTE | 2018-06-25 09:28 | NUR ---
EXTUBATION- PROPAFOL DC'D. PT. RESPONSIVE AND FOLLOWING COMMANDS. PT. EXTUBATED AND PLACED ON 2L/NC WITH SAO2 > 95%.
[2018-06-25 09:42] LABS: BASOPHILS ABSOLUTE AUTO 0.06 K/mm3 (0.00-0.23); BASOPHILS PERCENT AUTO 0 % (0-2); EOSINOPHILS PERCENT AUTO 0 % (0-6); Hematocrit 35.6 % (33.0-51.0); Hemoglobin 11.3 g/dL (11.5-16.0); IMMATURE GRAN ABSOLUTE AUTO 0.19 K/mm3 (0.00-0.10); IMMATURE GRAN PERCENT AUTO 1 % (0-1); LYMPHOCYTES ABSOLUTE AUTO 0.55 K/mm3 (0.84-5.20); LYMPHOCYTES PERCENT AUTO 2 % (21-46); MONOCYTES ABSOLUTE AUTO 0.62 K/mm3 (0.16-1.47); MONOCYTES PERCENT AUTO 2 % (4-13); Mean Corpuscular HGB Conc 31.7 g/dL (31.5-36.5); Mean Corpuscular Volume 91 fL (80-100); Mean Platelet Volume 12.8 fL (9.1-12.4); NEUTROPHILS ABSOLUTE AUTO 33.99 K/mm3 (1.96-9.15); NEUTROPHILS PERCENT AUTO 96 % (41-73); Platelet Count 184 K/mm3 (150-400); RDW Coefficient Variation 14.9 % (11.7-14.2); RDW Standard Deviation 49.5 fL (35.1-46.3); White Blood Cell Count 35.41 K/mm3 (4.00-11.30)
--- NOTE | 2018-06-25 10:10 | NUR ---
O2- DC'D AT THIS TIME WITH SAO2 AT 98% ON RA.
[2018-06-25] MEDS ORDERED: ALBU2.5V5 NEB (14:55)
[2018-06-25] MEDS ORDERED: PANT20 PO (14:56)
[2018-06-25] MEDS ORDERED: OLAN2.5 PO (14:57)
[2018-06-25] MEDS ORDERED: Tussin100 MG/5 M PO (14:58)
[2018-06-25] MEDS ORDERED: DULERA 200 MCG/13 GM INH (14:59)
[2018-06-25] MEDS ORDERED: GUAI600T33 PO (15:00)
--- NOTE | 2018-06-25 15:00 | NUR ---
Indu is a bit slow to respond. She is non-anabaptism, but appeared open to brief visit. She lives with her mom, "We take care of eachother." She believes she is getting better and tells me she is not fearful or concerned. She was recently extubated, therefore she is weak and tired. I will remain available.
[2018-06-25] MEDS ORDERED: DOCU100 PO (15:01)
--- NOTE | 2018-06-25 18:34 | NUR ---
SUMMARY-PT. JINNY. EXTUBATION WELL. HAS REMAINED LETHARGIC T/O DAY BUT AWAKENS EASILY. TAKING SM AMTS OF FULL LIQ DINNER. NS INFUSING AT 100 ML/HR.
--- NOTE | 2018-06-25 19:48 | NUR ---
ASSUMED CARE BEDSIDE REPORT RECIEVED. PT IS SITTING UP IN BED WITH EYES CLOSED. PT AWAKENS TO VERBAL STIMULI EASILY AND IS ALERT AND ORIENTED. PT DENIES PAIN, SOB, OR NAUSEA. WHEN AWAKE PT IS EATING A FEW BITES FROM DINNER TRAY. PT THEN QUICKLY DRIFTS BACK TO SLEEP. VITAL SIGNS STABLE. PT ON ROOM AIR. NS INFUSING AT 100 ML/HR. ZIMMERMAN IN PLACE WITH YELLOW OUTPUT NOTED. WILL CONTINUE TO MONITOR.
[2018-06-26 04:24] LABS: BASOPHILS ABSOLUTE AUTO 0.02 K/mm3 (0.00-0.23); BASOPHILS PERCENT AUTO 0 % (0-2); EOSINOPHILS PERCENT AUTO 0 % (0-6); Hematocrit 30.1 % (33.0-51.0); Hemoglobin 9.2 g/dL (11.5-16.0); IMMATURE GRAN ABSOLUTE AUTO 0.12 K/mm3 (0.00-0.10); IMMATURE GRAN PERCENT AUTO 1 % (0-1); LYMPHOCYTES ABSOLUTE AUTO 2.36 K/mm3 (0.84-5.20); LYMPHOCYTES PERCENT AUTO 12 % (21-46); MONOCYTES ABSOLUTE AUTO 0.96 K/mm3 (0.16-1.47); MONOCYTES PERCENT AUTO 5 % (4-13); Mean Corpuscular HGB 28.8 pg (26.0-34.0); Mean Corpuscular HGB Conc 30.6 g/dL (31.5-36.5); Mean Corpuscular Volume 94 fL (80-100); Mean Platelet Volume 13.3 fL (9.1-12.4); NEUTROPHILS ABSOLUTE AUTO 15.51 K/mm3 (1.96-9.15); NEUTROPHILS PERCENT AUTO 82 % (41-73); Platelet Count 143 K/mm3 (150-400); RDW Coefficient Variation 15.3 % (11.7-14.2); RDW Standard Deviation 53.1 fL (35.1-46.3); White Blood Cell Count 18.97 K/mm3 (4.00-11.30)
[2018-06-26 04:41] LABS: Albumin, Blood 2.4 g/dL (3.4-5.0); Anion Gap 5 mmol/L (6-16); Blood Urea Nitrogen 6 mg/dL (8-24); Bun/Creatinine Ratio 16.1 (12.0-20.0); CO2, Blood 25 mmol/L (21-32); Calcium, Blood 7.7 mg/dL (8.5-10.1); Chloride, Blood 117 mmol/L (98-108); Creatinine, Blood 0.37 mg/dL (0.40-1.00); Glomerular Filtration Rate >60 (60-); Glucose, Blood 87 mg/dL (70-99); Phosphorus, Blood 2.2 mg/dL (2.5-4.9); Potassium, Blood 3.6 mmol/L (3.5-5.5); Sodium, Blood 147 mmol/L (136-145)
--- NOTE | 2018-06-26 05:24 | NUR ---
SHIFT SUMMARY NO ACUTE CHANGES THIS SHIFT. PT HAS SLEPT WELL THROUGHOUT MOST OF THE SHIFT. PT AWAKENS EASILY TO VERBAL STIMULI AND IS ALERT AND ORIENTED WHEN AWAKE. VITAL SIGNS HAVE REMAINED STABLE. PT ON ROOM AIR. NS INFUSING AT 100 ML/HR. ZIMMERMAN REMAINS IN PLACE WITH GOOD URINE OUTPUT NOTED. PT HAS REPOSITIONED SELF IN BED INDEPENDENTLY. WILL CONTINUE TO MONITOR AND REPORT OFF TO ONCOMING RN.
--- NOTE | 2018-06-26 08:15 | NUR ---
PT SITTING UP IN BED AWAKE. PT GIVES SIMPLE ONE WORD ANSWERS. PT DENIES C/O PAIN, SOB. PT SATS 94% ON RA. PT HAS PRODUCTIVE WET COUGH. DARK, THICK, YELLOW SPUTUM. DR GARDINER IN TO SEE PT. IV FLUIDS DC'D. PT/OT ORDERED. PT NOW MED FLOOR STATUS NO TELE. PLAN: OOB TO CHAIR, RALF GARRISON, ADVANCE DIET ORDERED, PT/OT, CONT PULM TOILET
--- NOTE | 2018-06-26 12:34 | NUR ---
LEVAQUIN HELD FOR PROLONGED QT; DR ACEVES NOTIFIED OF PROLONGED QT. EKG ORDERED AND COMPLETED; SHOWS PROLONGED QT, INVERTED T WAVE, POSSIBLE ISCHEMIA. LEVAQUIN DC'D, CARDIOLOGY CONSULT ORDERED
--- NOTE | 2018-06-26 14:45 | NUR ---
DR MARIANO CALLED FOR UPDATE ON PT; UPDATE GIVEN
--- NOTE | 2018-06-26 15:12 | NUR ---
DR MARIANO IN TO SEE PT. PT TO BE NPO AFTER MIDNIGHT FOR ANGIOGRAM 3/8 AM. CONSENT SIGNED. SPUTUM SAMPLE SENT
--- NOTE | 2018-06-26 20:20 | NUR ---
ASSUMED CARE REPORT RECIEVED. PT IS SITTING UP IN BED WATCHING TV. PT IS ALERT, ORIENTED, AND FOLLOWING COMMANDS APPROPRIATELY. PT DENIES PAIN OR SOB. PT ON ROOM AIR. VITAL SIGNS STABLE. IV'S SALINE LOCKED. PT UP TO TOILET TO VOID WITH SBA. WILL CONTINUE TO MONITOR.
[2018-06-27 05:00] LABS: BASOPHILS ABSOLUTE AUTO 0.02 K/mm3 (0.00-0.23); BASOPHILS PERCENT AUTO 0 % (0-2); EOSINOPHILS ABSOLUTE AUTO 0.05 K/mm3 (0.00-0.68); EOSINOPHILS PERCENT AUTO 0 % (0-6); Hematocrit 40.5 % (33.0-51.0); Hemoglobin 12.4 g/dL (11.5-16.0); IMMATURE GRAN ABSOLUTE AUTO 0.06 K/mm3 (0.00-0.10); IMMATURE GRAN PERCENT AUTO 0 % (0-1); LYMPHOCYTES ABSOLUTE AUTO 3.28 K/mm3 (0.84-5.20); LYMPHOCYTES PERCENT AUTO 22 % (21-46); MONOCYTES PERCENT AUTO 9 % (4-13); Mean Corpuscular HGB 28.3 pg (26.0-34.0); Mean Corpuscular HGB Conc 30.6 g/dL (31.5-36.5); Mean Corpuscular Volume 93 fL (80-100); NEUTROPHILS ABSOLUTE AUTO 10.55 K/mm3 (1.96-9.15); NEUTROPHILS PERCENT AUTO 69 % (41-73); Platelet Count 190 K/mm3 (150-400); RDW Coefficient Variation 15.1 % (11.7-14.2); RDW Standard Deviation 51.9 fL (35.1-46.3); Red Blood Cell Count 4.38 M/mm3 (3.80-5.20); White Blood Cell Count 15.26 K/mm3 (4.00-11.30)
[2018-06-27 05:09] LABS: Mean Platelet Volume 13.3 fL (9.1-12.4)
[2018-06-27 05:19] LABS: Albumin, Blood 3.5 g/dL (3.4-5.0); Anion Gap 7 mmol/L (6-16); Blood Urea Nitrogen 5 mg/dL (8-24); Bun/Creatinine Ratio 13.8 (12.0-20.0); CO2, Blood 27 mmol/L (21-32); Calcium, Blood 8.9 mg/dL (8.5-10.1); Chloride, Blood 109 mmol/L (98-108); Creatinine, Blood 0.36 mg/dL (0.40-1.00); Glomerular Filtration Rate >60 (60-); Glucose, Blood 75 mg/dL (70-99); Phosphorus, Blood 1.5 mg/dL (2.5-4.9); Potassium, Blood 3.2 mmol/L (3.5-5.5); Sodium, Blood 143 mmol/L (136-145); Troponin I 0.105 ng/mL (0.000-0.040)
--- NOTE | 2018-06-27 05:52 | NUR ---
SHIFT SUMMARY PT A&O T/O SHIFT; NO ACUTE CHANGES. HX OF DEVELOPMENTAL DELAY. PLEASENT AND COOPERATIVE. BED ALARM AND SIDE RAILS FOR SAFETY. CALL LIGHT IN REACH; PT . PT DENIES SOB, RA; SATS OVER 90%; LS CLEAR, SLIGHTLY DIM BILAT. PRODUCTIVE COUGH NOTED. PT DENIES CP. TELEMETRY IN PLACE; SR/ST WITH INVERTED T WAVES NOTED BY MANAGER NICU. PT DENIES PAIN. SBA TO TOILET FOR SAFETY. WCTM UNTIL REPORT TO DAY SHIFT RN.
--- NOTE | 2018-06-27 13:25 | NUR ---
PATIENT TO HEART CENTER AT THIS TIME. DENIES CP OR OTHER SX.
--- NOTE | 2018-06-27 13:42 | NUR ---
UPON ARRIVAL TO MERGERS AND ACQUISITIONS BANKER, PT STATED SHE DID NOT WANT TO HAVE THE ANGIOGRAM PERFORMED. PT STATED SHE WAS SCARED. DR MARIANO SPOKE WITH PT. PT WAS RETURNED TO RM 216. REPORT PROVIDED FABIAN ARROYO.
--- NOTE | 2018-06-27 14:25 | NUR ---
PATIENT RETURNED TO ROOM ATER REFUSING ANGIOGRAM.
--- NOTE | 2018-06-27 18:15 | NUR ---
SHIFT SUMMARY PATIENT DENIES PAIN OR NEEDS AT THIS TIME. K PHOS STILL INFUSING TO NEW IV LFA. TAKING PO. DENIES CP OR SOB. TELE IN PLACE. NO ACUTE CHANGES.
--- NOTE | 2018-06-27 21:05 | NUR ---
PHSYICAIN NOTIFIED [address] DR[address] YANEZ NOTIFIED SEVERAL PILLS FOUND IN PT ROOM; PT MEDICATIONS IN PILL FORM ORDERED DURING THE DAY LISTED. NOTIFIED OF PT HX OF DEVELOPMENTAL DELAY; ADMISSION FOR RESPIRATORY FAILURE AND REFUSED ANGIOGRAM THIS AM. INSTRUCTED TO PUT IN INSTUCTION TO CHECK FOR POCKETED PILLS AFTER ADMINISTRATION.
--- NOTE | 2018-06-28 04:53 | NUR ---
SHIFT SUMMARY PT ALERT, ABLE TO ANSWER QUESTIONS. HX DEVELOPEMENTAL DELAY. PT DENIES SOB ON RA, CP, PAIN AND NAUSEA T/O SHIFT. TELEMETRY IN PLACE; ST IN LOW 100'S PER MANAGER MANUFACTURING. SEVERAL PILLS FOUND IN DISH WITH ORAL CARE SUPPLIES ON PT BEDSIDE TABLE; SEE PHYSICIAN NOTIFICATION NOTE. SIDE RAILS X 3 AND NON-SKID SOCKS FOR SAFETY. PT INDEPENDENT IN ROOM; BED MOBILE. CALL LIGHT IN REACH. WCTM UNTIL REPORT TO DAY SHIFT RN.
[2018-06-28 06:15] LABS: Anion Gap 9 mmol/L (6-16); Blood Urea Nitrogen 6 mg/dL (8-24); Bun/Creatinine Ratio 13.3 (12.0-20.0); CO2, Blood 25 mmol/L (21-32); Calcium, Blood 8.6 mg/dL (8.5-10.1); Chloride, Blood 108 mmol/L (98-108); Creatinine, Blood 0.45 mg/dL (0.40-1.00); Glomerular Filtration Rate >60 (60-); Glucose, Blood 104 mg/dL (70-99); Potassium, Blood 3.5 mmol/L (3.5-5.5); Sodium, Blood 142 mmol/L (136-145)
[2018-06-28] MEDS ORDERED: ASPI81CH PO (11:12)
[2018-06-28] MEDS ORDERED: ATOR10 PO (11:13)
[2018-06-28] MEDS ORDERED: NEBI5 PO (11:14)
--- NOTE | 2018-06-28 16:08 | NUR ---
HOME CARE CONCERNS RESPIRATORY THERAPIST (OFELIA) NOTIFIED STAFF THAT SHE UNDERSTOOD FROM PT'S CAREGIVER THAT THE PT WAS UNABLE TO TAKE HER NEBULIZER SINCE SHE DID NOT HAVE A MACHINE AT HOME. CALL PLACED TO PT'S MOTHER AND HER BROTHER WHO ARE HER PRIMARY CARE PROVIDERS. THEY DESCRIBED HOW PT WAS TAKING HER NEBULIZERS AND THAT WAS WITHOUT A NEBULIZER MACHINE. FAMILY REPORTED THAT IS HOW THEY HAD BEEN EDUCATED TO TAKE THE NEBULIZER. IN ADDITION HER BROTHER REPORTED SHE WANDERS OUT OF THE HOUSE AT TIMES AND ARE AFRAID FOR HER SAFETY WHEN SHE LEAVES THE HOME. PT'S FAMILY APPEARS TO NOT UNDERSTAND PT'S DIAGNOSIS OR CARE OF THE PATIENT REGARDING ASTHMA. DR. JIMENEZ WAS NOTIFIED REGARDING THESE CONCERNS. HOME HEALTH WAS ORDERED FOR MEDICATION MANAGEMENT. [facility] CONTACTED AND NOTIFIED OF NEED FOR PT TO BE SEEN. ATTEMPTED TO CONTACT ADULT PROTECTIVE SERVICES REGARDING CONCERN FOR PATIENTS CARE, UNABLE TO REACH OVER THE WEEKEND; WILL NOTIFY RICHARD PILOT PLANT OPERATOR. PT'S FAMILY SOUNDED OVERWHELMED WITH PATIENTS ARE AND BECAME TEARFUL WHEN EDUCATED THAT NEBULIZERS HAD BEEN ADMINISTERED INCORRECTLY.
--- NOTE | 2018-06-28 17:47 | NUR ---
DISCHARGE DISCHARGE INSTRUCTIONS CALLED TO PT'S MOTHER AND BROTHER. THEY REPORTED UNDERSTANDING INSTRUCTIONS. WRITTEN INSTRUCTIONS SENT HOME WITH PT. NEBULIZER MACHINE SENT HOME WITH PT. PRESCRIPTIONS CALLED TO PT'S PHARMACY, FAMILY REPORTED THEY WERE GOING TO PHARMACY TO PICK THEM UP. VSS. WILL CONTINUE TO MONITOR.
--- NOTE | 2018-06-30 11:29 | NUR ---
ADULT PROTECTIVE SERVICE PHOENIX CRYSTAL AT [facility] WAS CONTACTED REGARDING CONCERNS ABOUT PATIENTS HOME SITUATION. SHE WAS NOTIFIED THAT: -THE FAMILY DID NOT APPEAR TO UNDERSTAND MEDICAL CARE FOR THE PATIENTS ASTHMA. THEY DID NOT HAVE A NEBULIZER MACHINE TO ADMINISTER NEBULIZED MEDICATIONS AND WERE UNAWARE THEY NEEDED ONE. -FAMILY/GARDIAN WAS NOT PRESENT DURING HOSPITAL ADMISSION TO HELP PATIENT MAKE DECISIONS. PT WAS UNABLE TO SIGN CONSENT FORMS CORRECTLY, SHE WAS ONLY ABLE TO SIGN HER FIRST NAME. -FAMILY APPEARS TO BE OVERWHELMED WITH CARING FOR THE PATIENT -FAMILY WAS UNABLE TO AFFORD MEDICATIONS FOR THE PATIENT'S ASTHMA; THEY CALLED AND NOTIFIED STAFF AFTER PT WAS DISCHARGED. INFORMATION PROVIDED TO APS WORKER PHOENIX CRYSTAL FOR FOLLOW UP.
--- NOTE | 2018-06-30 13:56 | NUR ---
SPOKE WITH DEEPTHI MALDONADO WITH [facility]. UNSURE IF PATIENT A CLIENT OF [facility]. DEEPTHI WILL RESEARCH AND EITHER OPEN CASE OR FORWARD TO ADULT PROTECTIVE SERVICES.
== END 2018-06-28 17:46 | disposition home or self-care (01) | DRG 208 ==
LOC: ER 15:18 → ICUW 21:17 → ICUE 21:17 → SURS 21:17 → ICUE 22:29 → SURS 06-26 22:13
PROVIDERS: Emergency Medicine; Family Medicine; Hospitalist; Internal Medicine Critical Care Medicine; Internal Medicine Pulmonary Disease; Physician Assistant; ADMIT Internal Medicine
PROC: 0BH17EZ Insertion of Endotracheal Airway into Trachea, Via Natural or Artificial Opening (ICD-10-PCS; principal; 2018-06-23)
PROC: 5A1945Z Respiratory Ventilation, 24-96 Consecutive Hours (ICD-10-PCS; 2018-06-23)
DX: J96.01 Acute respiratory failure with hypoxia (principal); E43 Unspecified severe protein-calorie malnutrition; I21.4 Non-ST elevation (NSTEMI) myocardial infarction; E87.2 Acidosis; E87.0 Hyperosmolality and hypernatremia; R64 Cachexia; Z68.1 Body mass index [BMI] 19.9 or less, adult; Z51.5 Encounter for palliative care; J45.909 Unspecified asthma, uncomplicated; E83.39 Other disorders of phosphorus metabolism; E87.6 Hypokalemia; I95.9 Hypotension, unspecified; J43.2 Centrilobular emphysema; D64.9 Anemia, unspecified; D69.6 Thrombocytopenia, unspecified; I25.10 Atherosclerotic heart disease of native coronary artery without angina pectoris; Q24.9 Congenital malformation of heart, unspecified; R62.50 Unspecified lack of expected normal physiological development in childhood; Z91.19 Patient's noncompliance with other medical treatment and regimen; I45.81 Long QT syndrome; G40.909 Epilepsy, unspecified, not intractable, without status epilepticus; J96.02 Acute respiratory failure with hypercapnia; Z79.52 Long term (current) use of systemic steroids; R73.9 Hyperglycemia, unspecified; T38.0X5A Adverse effect of glucocorticoids and synthetic analogues, initial encounter
CPT/HCPCS: 31500; 31720; 36415; 36600; 51702; 71045; 71046; 80048; 80053; 80069; 82803; 82947; 83735; 84100; 84145; 84484; 85025; 85027; 87070; 87205; 87486; 87581; 87633; 87798; 93005; 93010; 94002; 94003; 94640; 94644; 94668; 94760; 96374-59; 96375-59; 97161; 97165; 99291-25; J0330; J0456; J0696; J1644; J1650; J1956; J2060; J2920; J2930; J3475; J3480; J7030; J7040; J7050; J7060; J7120

== ENCOUNTER 2018-07-11 06:01 | Inpatient (IN) | payer MEDICARE, OTHER ==
[~2018-07-11] VITALS: Ht 157.5 cm; Wt 45.4 kg
[~2018-07-11 06:01] MED LIST changes: +ALBU2.5V5 NEB; +ASPI81CH PO; +ATOR10 PO; +DULERA 200 MCG/13 GM INH; +NEBI5 PO; +Tussin100 MG/5 M PO
[2018-07-11 06:23] LABS: BASOPHILS ABSOLUTE AUTO 0.08 K/mm3 (0.00-0.23); BASOPHILS PERCENT AUTO 1 % (0-2); EOSINOPHILS PERCENT AUTO 11 % (0-6); Hematocrit 43.4 % (33.0-51.0); Hemoglobin 13.6 g/dL (11.5-16.0); IMMATURE GRAN ABSOLUTE AUTO 0.03 K/mm3 (0.00-0.10); IMMATURE GRAN PERCENT AUTO 0 % (0-1); LYMPHOCYTES ABSOLUTE AUTO 4.23 K/mm3 (0.84-5.20); LYMPHOCYTES PERCENT AUTO 30 % (21-46); MONOCYTES ABSOLUTE AUTO 1.18 K/mm3 (0.16-1.47); MONOCYTES PERCENT AUTO 8 % (4-13); Mean Corpuscular HGB 28.8 pg (26.0-34.0); Mean Corpuscular HGB Conc 31.3 g/dL (31.5-36.5); Mean Corpuscular Volume 92 fL (80-100); Mean Platelet Volume 12.8 fL (9.1-12.4); NEUTROPHILS ABSOLUTE AUTO 7.12 K/mm3 (1.96-9.15); NEUTROPHILS PERCENT AUTO 50 % (41-73); Platelet Count 215 K/mm3 (150-400); RDW Coefficient Variation 14.6 % (11.7-14.2); RDW Standard Deviation 48.8 fL (35.1-46.3); Red Blood Cell Count 4.73 M/mm3 (3.80-5.20); White Blood Cell Count 14.14 K/mm3 (4.00-11.30)
[2018-07-11 06:42] LABS: Alanine Aminotransfer (ALT/SGP 26 U/L (12-78); Albumin, Blood 3.8 g/dL (3.4-5.0); Alk Phos 101 U/L (50-136); Anion Gap 7 mmol/L (6-16); Aspartate Aminotrans (AST/SGOT 28 U/L (12-37); Bilirubin, Total 0.6 mg/dL (0.1-1.0); Blood Urea Nitrogen 12 mg/dL (8-24); Bun/Creatinine Ratio 29.9 (12.0-20.0); CO2, Blood 28 mmol/L (21-32); Calcium, Blood 8.8 mg/dL (8.5-10.1); Chloride, Blood 109 mmol/L (98-108); Globulin, Blood 3.8 g/dL (2.2-4.0); Glomerular Filtration Rate >60 (60-); Glucose, Blood 153 mg/dL (70-99); Potassium, Blood 3.1 mmol/L (3.5-5.5); Sodium, Blood 144 mmol/L (136-145); Total Protein, Blood 7.6 g/dL (6.4-8.2)
[2018-07-11 07:42] LABS: Influenza A Negative (NEGATIVE); Influenza B Negative (NEGATIVE)
[2018-07-11 10:35] LABS: PCO2 Arterial 36.5 mmHg (35-45); PO2 Arterial 72.4 mmHg (80-100); pH Blood Arterial 7.42 (7.35-7.45)
[2018-07-11 12:04] LABS: Base Excess Venous -1.5 mmol/L; Bicarbonate Venous 22.8 mmol/L (24.0-30.0); PCO2 Venous 43.9 mmHg (38-42); pH Blood Venous 7.35 (7.34-7.37)
--- NOTE | 2018-07-11 19:24 | NUR ---
END OF SHIFT SUMMARY ASSUMED CARE OF PT AROUND 1730. PTN SUPER COOPERATIVE WITH CARE. NSR, 90'S, LUNGS TIGHT TO AUSCULTATION. PT DENIES PAIN. PT APPEARS TO RESPOND TO QUESTIONS APPROPRIATELY. PT ON 2L NC, SPO2 >95%. PT BREATHING EASILY. M SERIES BIPAP AT BEDSIDE. SMALL FRICTION SPOT ON SACRAL AREA. PHOTO IN CHART. PT PLACED ON PROTONIX PER ORDERS.
[2018-07-12 04:45] LABS: Hematocrit 35.9 % (33.0-51.0); Hemoglobin 11.3 g/dL (11.5-16.0); Mean Corpuscular HGB 28.1 pg (26.0-34.0); Mean Corpuscular HGB Conc 31.5 g/dL (31.5-36.5); Mean Platelet Volume 12.7 fL (9.1-12.4); Platelet Count 161 K/mm3 (150-400); RDW Coefficient Variation 14.9 % (11.7-14.2); RDW Standard Deviation 48.7 fL (35.1-46.3); Red Blood Cell Count 4.02 M/mm3 (3.80-5.20); White Blood Cell Count 20.26 K/mm3 (4.00-11.30)
[2018-07-12 04:48] LABS: Mean Corpuscular Volume 89 fL (80-100)
[2018-07-12 05:08] LABS: Anion Gap 9 mmol/L (6-16); Blood Urea Nitrogen 12 mg/dL (8-24); CO2, Blood 24 mmol/L (21-32); Calcium, Blood 8.6 mg/dL (8.5-10.1); Chloride, Blood 109 mmol/L (98-108); Creatinine, Blood 0.57 mg/dL (0.40-1.00); Glomerular Filtration Rate >60 (60-); Glucose, Blood 144 mg/dL (70-99); Potassium, Blood 3.4 mmol/L (3.5-5.5); Sodium, Blood 142 mmol/L (136-145)
--- NOTE | 2018-07-12 05:18 | NUR ---
PCU NOC SHIFT SUMMARY PATIENT ALERT AND ORIENTED TO SELF - PATIENT DELAYED IN INTERACTIONS, MENTAL DEFICIT FROM CHILDHOOO PER CHARGE. VSS WITH NONSYMNPTOMATIC HYPOTENSION. NO RESPIRTORY ISSUES NOTED T/O SHIFT - PATIENT REMAINED ON 2 LPM NC AND SLEPT WELL. PATIENT SWOLLOWED PILLS WHOLE WITH WATER. PATIENT DENIES ANY NEEDS. WILL CONTINUE TO MONITOR AND GIVE REPORT TO DAYSHIFT RN.
--- NOTE | 2018-07-12 10:34 | NUR ---
REPORT CALLED TO OFELIA ON MEDICAL FLOOR, PT TRANSFERED UP VIA WC ON 2L OXYGEN. DENIES PAIN, HANDED OVER TO OFELIA
--- NOTE | 2018-07-12 10:49 | NUR ---
1000 PT ARRIVED TO MEDICAL FLOOR FROM PCU. ON 2L O2 NC.
--- NOTE | 2018-07-12 18:18 | NUR ---
SHIFT SUMMARY. PCU TRANSFER THIS MORNING. PT ON 2L O2 NC, RA AT BASELINE. PT HAS NO COMPLAINTS. GOOD MEAL INTAKE. NO NEW CONCERNS.
[2018-07-13 04:56] LABS: BASOPHILS ABSOLUTE AUTO 0.02 K/mm3 (0.00-0.23); BASOPHILS PERCENT AUTO 0 % (0-2); EOSINOPHILS PERCENT AUTO 0 % (0-6); Hematocrit 34.5 % (33.0-51.0); Hemoglobin 10.6 g/dL (11.5-16.0); IMMATURE GRAN ABSOLUTE AUTO 0.19 K/mm3 (0.00-0.10); IMMATURE GRAN PERCENT AUTO 1 % (0-1); LYMPHOCYTES ABSOLUTE AUTO 0.76 K/mm3 (0.84-5.20); LYMPHOCYTES PERCENT AUTO 3 % (21-46); MONOCYTES ABSOLUTE AUTO 0.38 K/mm3 (0.16-1.47); MONOCYTES PERCENT AUTO 2 % (4-13); Mean Corpuscular HGB 28.1 pg (26.0-34.0); Mean Corpuscular HGB Conc 30.7 g/dL (31.5-36.5); NEUTROPHILS ABSOLUTE AUTO 22.54 K/mm3 (1.96-9.15); NEUTROPHILS PERCENT AUTO 94 % (41-73); Platelet Count 139 K/mm3 (150-400); RDW Coefficient Variation 15.1 % (11.7-14.2); RDW Standard Deviation 50.5 fL (35.1-46.3); Red Blood Cell Count 3.77 M/mm3 (3.80-5.20); White Blood Cell Count 23.89 K/mm3 (4.00-11.30)
[2018-07-13 04:59] LABS: Mean Corpuscular Volume 92 fL (80-100); Mean Platelet Volume 13.6 fL (9.1-12.4)
[2018-07-13 05:10] LABS: Anion Gap 8 mmol/L (6-16); Blood Urea Nitrogen 16 mg/dL (8-24); Bun/Creatinine Ratio 27.5 (12.0-20.0); CO2, Blood 25 mmol/L (21-32); Calcium, Blood 8.3 mg/dL (8.5-10.1); Chloride, Blood 110 mmol/L (98-108); Creatinine, Blood 0.58 mg/dL (0.40-1.00); Glomerular Filtration Rate >60 (60-); Glucose, Blood 149 mg/dL (70-99); Potassium, Blood 3.6 mmol/L (3.5-5.5); Sodium, Blood 143 mmol/L (136-145)
--- NOTE | 2018-07-13 06:04 | NUR ---
SHIFT SUMMARY PT DEVELOPMENTALLY DELAYED. ON RA 94%. INDEPENDENT TO BA. REFUSED BIPAP/CPAP AT HS. BP LOW AT 91/45 AND HR CAN GO DOWN TO 46 PERIODICALLY WHILE SLEEPING. NOTIFIED DR ADAMSON AND HE SAID IT WAS OK WHILE SHE WAS SLEEPING. CALL LIGHT IN REACH
--- NOTE | 2018-07-13 16:51 | NUR ---
SHIFT SUMMARY. PT HYPOTENSIVE THIS MORNING, WBC CONTINUES TO ELEVATE, PT ASYMPTOMATIC. DR. CLEMENT PLACED ORDERS FOR NS 500ML BOLUS AND STARTED ON IV LEVAQUIN. BP IMPROVED. PT DENIES PAIN, SOB, N/V. ON RA. NO OTHER CHANGES.
[2018-07-14 05:08] LABS: BASOPHILS ABSOLUTE AUTO 0.01 K/mm3 (0.00-0.23); BASOPHILS PERCENT AUTO 0 % (0-2); EOSINOPHILS ABSOLUTE AUTO 0.01 K/mm3 (0.00-0.68); EOSINOPHILS PERCENT AUTO 0 % (0-6); Hematocrit 34.1 % (33.0-51.0); Hemoglobin 10.5 g/dL (11.5-16.0); IMMATURE GRAN ABSOLUTE AUTO 0.05 K/mm3 (0.00-0.10); IMMATURE GRAN PERCENT AUTO 0 % (0-1); LYMPHOCYTES PERCENT AUTO 15 % (21-46); MONOCYTES PERCENT AUTO 5 % (4-13); Mean Corpuscular HGB 28.8 pg (26.0-34.0); Mean Corpuscular HGB Conc 30.8 g/dL (31.5-36.5); Mean Corpuscular Volume 94 fL (80-100); NEUTROPHILS ABSOLUTE AUTO 11.83 K/mm3 (1.96-9.15); NEUTROPHILS PERCENT AUTO 80 % (41-73); Platelet Count 117 K/mm3 (150-400); RDW Coefficient Variation 15.1 % (11.7-14.2); RDW Standard Deviation 52.3 fL (35.1-46.3); Red Blood Cell Count 3.64 M/mm3 (3.80-5.20)
--- NOTE | 2018-07-14 05:18 | NUR ---
SHIFT SUMMARY PT INDEPENDENT IN ROOM. A/O C DEVELOPMENTAL DELAY. SHE WAS ABLE TO SLEEP T/O NIGHT. CALL LIGHT IN REACH
[2018-07-14 05:19] LABS: Mean Platelet Volume 14.3 fL (9.1-12.4)
[2018-07-14 05:31] LABS: Anion Gap 5 mmol/L (6-16); Blood Urea Nitrogen 15 mg/dL (8-24); Bun/Creatinine Ratio 34.6 (12.0-20.0); CO2, Blood 28 mmol/L (21-32); Chloride, Blood 110 mmol/L (98-108); Creatinine, Blood 0.43 mg/dL (0.40-1.00); Glomerular Filtration Rate >60 (60-); Glucose, Blood 94 mg/dL (70-99); Sodium, Blood 143 mmol/L (136-145)
--- NOTE | 2018-07-14 13:14 | NUR ---
Patient was lying in bed and alert when I entered patient's room. Patient shared about her current medical issues and the target date for going home. I explored patient's belief system, provided companionship and prayer. Patient responded well and expressed gratitude for the prayer. I will continue to remain available.
[2018-07-14] MEDS ORDERED: SACC250C PO (13:47)
[2018-07-14] MEDS ORDERED: PRED10 PO (13:47)
[2018-07-14] MEDS ORDERED: LEVFLO500 PO (13:48)
--- NOTE | 2018-07-14 16:23 | NUR ---
PT DISCHARGED, INSTRUCTION GIVEN TO PT, MOM AND BROTHER WHO MANAGES PT'S MEDS. INSTRUCTED ON NEW MEDS. RX FAXED TO PHARM. PT REFUSED TO COMPLETE IV KCL, RECEIVED IV KCL 30 MEQ OF THE 40MEQ ORDERED, DR MALONEY NOTIFIED AND DOESNT WANT TO GIVE ANY ADDITIONAL ORAL AND ALLOW PT TO GO HOME HAVING RECEIVED PARTIAL DOSE. CAR WASHER OUTSIDE TO CAR VIA WHEELCHAIR TRANSPORT.
== END 2018-07-14 15:16 | disposition home or self-care (01) | DRG 189 ==
LOC: ER 06:01 → ERHOLD 06:02 → MEDS 06:02 → PCU 17:57 → MEDS 07-12 10:22 → ENPENDDIS 07-14 12:26 → MEDS 07-14 15:16
PROVIDERS: Emergency Medicine; Hospitalist; Internal Medicine Pulmonary Disease; ADMIT Internal Medicine
DX: J96.01 Acute respiratory failure with hypoxia (principal); J45.901 Unspecified asthma with (acute) exacerbation; I95.9 Hypotension, unspecified; E87.6 Hypokalemia; G40.909 Epilepsy, unspecified, not intractable, without status epilepticus; Z91.19 Patient's noncompliance with other medical treatment and regimen; J43.2 Centrilobular emphysema; G31.84 Mild cognitive impairment of uncertain or unknown etiology; I25.10 Atherosclerotic heart disease of native coronary artery without angina pectoris; I25.2 Old myocardial infarction; K21.9 Gastro-esophageal reflux disease without esophagitis; K59.00 Constipation, unspecified; R62.50 Unspecified lack of expected normal physiological development in childhood; K44.9 Diaphragmatic hernia without obstruction or gangrene
CPT/HCPCS: 36415; 36600; 71045; 80048; 80053; 82803; 84484; 85025; 85027; 87804; 93005; 93010; 94640; 94644; 94660; 94760; 94762; 96365; 96375; 99285-25; C9113; J1650; J1956; J2930; J3475; J3480; J7030; J7040

== ENCOUNTER 2018-07-30 20:14 | Emergency (ER) | payer MEDICARE, OTHER ==
[~2018-07-30] VITALS: Ht 134.6 cm; Wt 45.4 kg
[~2018-07-30 20:14] MED LIST changes: +LEVFLO500 PO; +SACC250C PO
[2018-07-30] MEDS ORDERED: Prednisone20 MG PO (22:36)
== END 2018-07-30 22:51 | disposition home or self-care (01) ==
LOC: ER 20:14
DX: J45.909 Unspecified asthma, uncomplicated (principal); Z79.899 Other long term (current) drug therapy; Z79.82 Long term (current) use of aspirin; Z79.52 Long term (current) use of systemic steroids
CPT/HCPCS: 71046; 94640; 99284-25; J7512

== ENCOUNTER 2018-08-08 22:00 | Emergency (ER) | payer MEDICARE, OTHER ==
[~2018-08-08] VITALS: Ht 134.6 cm; Wt 45.4 kg
== END 2018-08-09 00:59 | disposition home or self-care (01) ==
LOC: ER 22:00
DX: J44.9 Chronic obstructive pulmonary disease, unspecified (principal); Z79.899 Other long term (current) drug therapy; Z79.82 Long term (current) use of aspirin; Z79.52 Long term (current) use of systemic steroids
CPT/HCPCS: 71046; 94640; 99284-25; J1100

== ENCOUNTER 2018-08-11 22:44 | Emergency (ER) | payer MEDICARE, OTHER ==
[~2018-08-11] VITALS: Ht 162.6 cm; Wt 45.4 kg
[2018-08-12 00:48] LABS: BASOPHILS PERCENT AUTO 1 % (0-2); EOSINOPHILS ABSOLUTE AUTO 1.98 K/mm3 (0.00-0.68); EOSINOPHILS PERCENT AUTO 14 % (0-6); Hematocrit 48.5 % (33.0-51.0); Hemoglobin 15.2 g/dL (11.5-16.0); IMMATURE GRAN ABSOLUTE AUTO 0.04 K/mm3 (0.00-0.10); IMMATURE GRAN PERCENT AUTO 0 % (0-1); LYMPHOCYTES ABSOLUTE AUTO 4.87 K/mm3 (0.84-5.20); LYMPHOCYTES PERCENT AUTO 33 % (21-46); MONOCYTES ABSOLUTE AUTO 1.19 K/mm3 (0.16-1.47); MONOCYTES PERCENT AUTO 8 % (4-13); Mean Corpuscular HGB 28.4 pg (26.0-34.0); Mean Corpuscular HGB Conc 31.3 g/dL (31.5-36.5); Mean Corpuscular Volume 91 fL (80-100); Mean Platelet Volume 13.3 fL (9.1-12.4); NEUTROPHILS ABSOLUTE AUTO 6.42 K/mm3 (1.96-9.15); NEUTROPHILS PERCENT AUTO 44 % (41-73); Platelet Count 267 K/mm3 (150-400); RDW Standard Deviation 47.2 fL (35.1-46.3); Red Blood Cell Count 5.35 M/mm3 (3.80-5.20)
[2018-08-12 00:58] LABS: Alanine Aminotransfer (ALT/SGP 19 U/L (12-78); Albumin, Blood 4.2 g/dL (3.4-5.0); Albumin/Globulin Ratio 1.1 (0.8-1.8); Alk Phos 110 U/L (50-136); Anion Gap 7 mmol/L (6-16); Aspartate Aminotrans (AST/SGOT 21 U/L (12-37); Bilirubin, Total 0.6 mg/dL (0.1-1.0); Blood Urea Nitrogen 13 mg/dL (8-24); Bun/Creatinine Ratio 23.8 (12.0-20.0); CO2, Blood 28 mmol/L (21-32); Calcium, Blood 9.8 mg/dL (8.5-10.1); Chloride, Blood 107 mmol/L (98-108); Creatinine, Blood 0.55 mg/dL (0.40-1.00); Globulin, Blood 3.9 g/dL (2.2-4.0); Glomerular Filtration Rate >60 (60-); Glucose, Blood 85 mg/dL (70-99); Potassium, Blood 3.5 mmol/L (3.5-5.5); Sodium, Blood 142 mmol/L (136-145); Total Protein, Blood 8.1 g/dL (6.4-8.2)
[2018-08-12] MEDS ORDERED: Prednisone20 MG PO (02:00)
== END 2018-08-12 02:29 | disposition home or self-care (01) ==
LOC: ER 22:44
PROVIDERS: Emergency Medicine
DX: R06.03 Acute respiratory distress (principal); R09.02 Hypoxemia; J38.3 Other diseases of vocal cords; J45.909 Unspecified asthma, uncomplicated; Z79.82 Long term (current) use of aspirin; Z79.899 Other long term (current) drug therapy; Z79.2 Long term (current) use of antibiotics
CPT/HCPCS: 71046; 80053; 85025; 94640; 94644; 96374; 99284-25; J2930

== ENCOUNTER 2018-08-15 01:28 | Inpatient (IN) | payer MEDICARE, OTHER ==
[~2018-08-15] VITALS: Ht 152.4 cm; Wt 36.8 kg
[2018-08-15 01:49] LABS: PCO2 Arterial 57.4 mmHg (35-45); PO2 Arterial 251 mmHg (80-100)
[2018-08-15 01:50] LABS: pH Blood Arterial 7.07 (7.35-7.45)
[2018-08-15 02:10] LABS: BASOPHILS ABSOLUTE AUTO 0.15 K/mm3 (0.00-0.23); BASOPHILS PERCENT AUTO 1 % (0-2); EOSINOPHILS ABSOLUTE AUTO 2.01 K/mm3 (0.00-0.68); EOSINOPHILS PERCENT AUTO 9 % (0-6); Hematocrit 49.2 % (33.0-51.0); Hemoglobin 14.2 g/dL (11.5-16.0); Mean Corpuscular HGB 28.4 pg (26.0-34.0); Mean Corpuscular HGB Conc 28.9 g/dL (31.5-36.5); Platelet Count 207 K/mm3 (150-400); RDW Coefficient Variation 13.9 % (11.7-14.2); RDW Standard Deviation 50.8 fL (35.1-46.3); White Blood Cell Count 21.69 K/mm3 (4.00-11.30)
[2018-08-15 02:11] LABS: IMMATURE GRAN ABSOLUTE AUTO 0.13 K/mm3 (0.00-0.10); IMMATURE GRAN PERCENT AUTO 1 % (0-1); LYMPHOCYTES ABSOLUTE AUTO 10.38 K/mm3 (0.84-5.20); LYMPHOCYTES PERCENT AUTO 48 % (21-46); MONOCYTES ABSOLUTE AUTO 1.35 K/mm3 (0.16-1.47); MONOCYTES PERCENT AUTO 6 % (4-13); Mean Corpuscular Volume 98 fL (80-100); Mean Platelet Volume 13.3 fL (9.1-12.4); NEUTROPHILS ABSOLUTE AUTO 7.67 K/mm3 (1.96-9.15); NEUTROPHILS PERCENT AUTO 35 % (41-73)
[2018-08-15 02:16] LABS: Alanine Aminotransfer (ALT/SGP 19 U/L (12-78); Albumin, Blood 3.8 g/dL (3.4-5.0); Albumin/Globulin Ratio 1.2 (0.8-1.8); Alk Phos 101 U/L (50-136); Anion Gap 10 mmol/L (6-16); Aspartate Aminotrans (AST/SGOT 22 U/L (12-37); Bilirubin, Total 0.3 mg/dL (0.1-1.0); Blood Urea Nitrogen 10 mg/dL (8-24); Bun/Creatinine Ratio 14.3 (12.0-20.0); CO2, Blood 23 mmol/L (21-32); Calcium, Blood 9.1 mg/dL (8.5-10.1); Chloride, Blood 110 mmol/L (98-108); Globulin, Blood 3.2 g/dL (2.2-4.0); Glomerular Filtration Rate >60 (60-); Glucose, Blood 180 mg/dL (70-99); Potassium, Blood 4.5 mmol/L (3.5-5.5); Sodium, Blood 143 mmol/L (136-145); Troponin I <0.015 ng/mL (0.000-0.040)
[2018-08-15 02:39] LABS: Source, Urine Catheter
[2018-08-15 02:54] LABS: Bilirubin, Urine Neg (Neg); Blood, Urine 1+ (Neg); Glucose Qualitative, Urine 1+ (Neg); Ketones, Urine Neg (Neg); Leukocyte Esterase, Urine 1+ (Neg); Nitrite, Urine Neg (Neg); Protein, Urine 2+ (Neg); Specific Gravity, Urine 1.025 (1.003-1.022); Urobilinogen, Urine NORM (Normal)
[2018-08-15 02:56] LABS: Appearance, Urine Clear (Clear); Color, Urine Yellow (P-Yellow)
[2018-08-15 03:00] LABS: Amorphous Light ({null, 0-Heavy}); Bacteria Few /hpf; Mucus Light ({null, 0-Heavy}); Red Blood Cells, Urine 0-2 /hpf (0-2); Squamous Epithelial Cells Rare /hpf (Few); White Blood Cells, Urine 25-50 /hpf (0-5)
[2018-08-15 05:37] LABS: PCO2 Arterial 37.1 mmHg (35-45); PO2 Arterial 103 mmHg (80-100); pH Blood Arterial 7.39 (7.35-7.45)
[2018-08-15 06:19] LABS: Hematocrit 41.1 % (33.0-51.0); Hemoglobin 12.7 g/dL (11.5-16.0); Mean Corpuscular HGB 28.2 pg (26.0-34.0); Mean Corpuscular HGB Conc 30.9 g/dL (31.5-36.5); RDW Coefficient Variation 13.7 % (11.7-14.2); RDW Standard Deviation 46.9 fL (35.1-46.3)
--- NOTE | 2018-08-15 06:19 | NUR ---
ASSUMING CARE AND SHIFT SUMMARY NOTE RECEIVED PT REPORT FROM FABIAN BALLESTEROS IN THE ER. PT IS INTUBATED AT THIS TIME DUE TO RESPIRATORY ARREST IN THE ER. PT ARRIVED TO THE ICU AT APPROX 0410. PT TRANSPORTED TO ICU ROOM 8 BY RN, AND RT VIA STRETCHER. PT VENT SETTINGS AT THE TIME OF ARRIVAL ARE AC 14, TV 350, FIO2 30%, AND PEEP 5. PT SPO2 IS IN THE HIGH 90'S AT THE TIME OF ARRIVAL TO THE UNIT. PT IS RECEIVING VERSED FOR SEDATION AT 3MG/HR. PT IS ABLE TO FOLLOW COMMANDS AND ANSWER QUESTIONS WITH NODS YES/NO. PT LUNG SOUNDS ARE CLEAR THOUGH DIMINISHED IN THE BASES. PTIS TACHYCARDIC WITH HR IN THE 100-110'S. PT BP IS HYPOTENSIVE WITH SYSTOLIC IN THE 90'S AND OCCASIONALLY IN THE 80'S. PT HAS MAINTAINED MAP GREATER THAN 65. PT HAS ZIMMERMAN TEMP PROBE IN PLACE. PT URINE IS CLEAR AT THIS TIME. PT IS RECEIVING NS AT 100ML/HR AT THIS TIME. ORDER IN PLACE TO CHANGE FLUID RATE TO 50ML FOR 1 BAG AFTER COMPLETION OF CURRENT BAG. PT MED REC AND ADMIT HX INCOMPLETE AT THIS TIME PT IS UNABLE TO ANSWER QUESTIONS, AND FAMILY/CAREGIVER UNAVAILABEL AT THIS TIME. PT ADMIT ASSESSMENT COMPLETED. ASSUMED CARE OF PT AT THE TIME OF ARRIVAL TO UNIT. WILL REPORT OFF TO ONCOMING DAY SHIFT NURSE.
[2018-08-15 06:28] LABS: Mean Corpuscular Volume 91 fL (80-100); Platelet Count 112 K/mm3 (150-400)
[2018-08-15 06:35] LABS: Alanine Aminotransfer (ALT/SGP 28 U/L (12-78); Albumin, Blood 3.3 g/dL (3.4-5.0); Albumin/Globulin Ratio 1.1 (0.8-1.8); Alk Phos 95 U/L (50-136); Anion Gap 10 mmol/L (6-16); Aspartate Aminotrans (AST/SGOT 33 U/L (12-37); Bilirubin, Total 0.3 mg/dL (0.1-1.0); Blood Urea Nitrogen 8 mg/dL (8-24); Bun/Creatinine Ratio 15.8 (12.0-20.0); CO2, Blood 24 mmol/L (21-32); Calcium, Blood 7.8 mg/dL (8.5-10.1); Chloride, Blood 108 mmol/L (98-108); Creatinine, Blood 0.51 mg/dL (0.40-1.00); Glomerular Filtration Rate >60 (60-); Glucose, Blood 227 mg/dL (70-99); Potassium, Blood 3.2 mmol/L (3.5-5.5); Sodium, Blood 142 mmol/L (136-145); Total Protein, Blood 6.3 g/dL (6.4-8.2)
--- NOTE | 2018-08-15 07:15 | NUR ---
START OF SHIFT NOTE: RECEIVED REPORT FROM FABIAN HESTER, ASSUMED CARE, PATIENT IS AWAKE, ALERT AND ORIENTED, STATED "I DID NOT SLEEP ALL NIGHT AND I AM NERVOUS BECAUSE MY MOM IS COMING FROM OUT OF TOWN TO SEE ME", PATIENT WAS ASSURED THAT SHE IS DOING FINE, DENIES PAIN, AFEBRILE, LUNG SOUNDS CLEAR, NSR, SBP'S 130'S TO 140'S, BT'S PRESENT IN ALL FOUR QUADRANTS, PATIENT C/O CONTINUES SLIGHT COUGH AND "SPITTING UP CLEAR SECRETIONS", PATIENT HAS HISTORY OF TRACHEAL STENOSIS, AND DURING THIS STAY WAS BRIEFLY INTUBATED, POSSIBLE TISSUE IRRITATION, DR. CLEMENT IN TO SEE PATIENT, CALL LIGHT IN REACH, WILL CONTINUE TO MONITOR.
--- NOTE | 2018-08-15 08:00 | NUR ---
START OF SHIFT NOTE: RECEIVED REPORT FROM FABIAN STANTON, ASSUMED CARE, PATIENT IS RESTING COMFORTABLY, ON MECHANICAL VENTILATION, VERSED AT 3 MG/HR, PATIENT IS EASILY AROUSEABLE, ABLE TO NOD AND SHAKE HEAD TO SIMPLE QUESTIONS, DENIES PAIN, AFEBRILE, VENT SETTINGS ARE 14/5/350/FiO2 30 %, PATIENT TOLERATES INTUBATION WELL, SBP'S BETWEEN 80'S AND UPPER 90'S WITH MAP GREATER THAN 65, LUNG SOUNDS ARE CLEAR BUT DIMINISHED, SR/ST, BT'S HYPOACTIVE BUT PRESENT IN ALL FOUR QUADRANTS, PEDAL PULSES PRESENT AND PALPABLE, ZIMMERMAN CATHETER WITH TEMP PROBE IN PLACE, CALL LIGHT IN REACH, WILL CONTINUE TO MONITOR.
--- NOTE | 2018-08-15 13:37 | NUR ---
DR. ZAYAS IN TO SEE PATIENT, NO NEW ORDERS RECEIVED.
--- NOTE | 2018-08-15 14:37 | NUR ---
PATIENT'S MOTHER CALLED, UPDATE ON CONDITION PROVIDED VIA TELEPHONE.
--- NOTE | 2018-08-15 17:55 | NUR ---
SHIFT SUMMARY NOTE: PATIENT CONTINUE TO BE INTUBATED, VENT SETTINGS ARE 14/5/350/FiO2 25 %, LUNG SOUNDS ARE CLEAR, PATIENT IS IN RESTRAINTS AND ON A VERSED GTT AT 3 MB/HR, ABLE TO OPEN EYES ON COMMAND, AND FOLLOW SOME SIMPLE COMMANDS, ALSO ABLE TO NOD AND SHAKE HEAD TO SIMPLE QUESTIONS, PATINET DENIES PAIN AND IS AFEBRILE, SR/ST, SBP'S FROM 80'S TO LOW 100'S, PATIENT HAS A PEDIATRIC BLOOD PRESSURE CUFF, BOWEL TONES ARE PRESENT IN ALL FOUR QUADRANTS, NO BM DURING THIS SHIFT, ZIMMERMAN CATHETER WITH TEMP PROBE IN PLACE, DRAINING CLEAR LIGHT YELLOW URINE, POSSIBLE EXTUBATION TOMORROW, FOR DETAILS SEE SHIFT ASSESSMENT DOCUMENTATION AND NURSES NOTES, CALL LIGHT IN REACH, WILL CONTINUE TO MONITOR AND GIVE REPORT TO ONCOMING AUDIO VISUAL COLLECTIONS COORDINATOR.
--- NOTE | 2018-08-15 19:00 | NUR ---
ASSUMED CARE ASSUMED CARE OF PATIENT. REMAINS INTUBATED- AC 14, TV 350, PEEP 5, FIO2 25%. RESP RATE 14-16. SEDATED WITH VERSED GTT AT 3MG/HR. RESTING QUIETLY WHEN UNDISTURBED. ROUSES EASILY TO VERBAL STIMULI. OPENS EYES TO COMMAND AND FOLLOWS OTHER SIMPLE COMMANDS. MOVES ALL EXTREMITES. DENIES C/O PAIN BY SHAKING HEAD 'NO." BILATERAL SOFT WRIST RESTRAINTS IN PLACE TO PREVENT SELF- EXTUBATION. MONITOR SHOWS NSR, RATE 80s. BP STABLE. AFEBRILE. OG CLAMPED AT THIS TIME. ZIMMERMAN PATENT AND DRAINING CLEAR YELLOW URINE. NS INFUSING @ 75CC/HR PER ORDER. SEE SHIFT ASSESSMENT FOR FULL ASSESSMENT.
--- NOTE | 2018-08-16 04:35 | NUR ---
SBT/SEDATION VACATION VERSED OFF AT THIS TIME FOR SEDATION VACATION. RT AT BEDSIDE.
[2018-08-16 04:58] LABS: Magnesium, Blood 2.3 mg/dL (1.6-2.4); Phosphorus, Blood 2.1 mg/dL (2.5-4.9)
[2018-08-16 05:31] LABS: BASOPHILS ABSOLUTE AUTO 0.05 K/mm3 (0.00-0.23); BASOPHILS PERCENT AUTO 0 % (0-2); EOSINOPHILS ABSOLUTE AUTO 0.01 K/mm3 (0.00-0.68); EOSINOPHILS PERCENT AUTO 0 % (0-6); Hematocrit 36.7 % (33.0-51.0); Hemoglobin 12.1 g/dL (11.5-16.0); IMMATURE GRAN ABSOLUTE AUTO 0.31 K/mm3 (0.00-0.10); IMMATURE GRAN PERCENT AUTO 1 % (0-1); LYMPHOCYTES ABSOLUTE AUTO 2.14 K/mm3 (0.84-5.20); LYMPHOCYTES PERCENT AUTO 7 % (21-46); MONOCYTES PERCENT AUTO 5 % (4-13); Mean Corpuscular HGB 28.5 pg (26.0-34.0); NEUTROPHILS ABSOLUTE AUTO 28.49 K/mm3 (1.96-9.15); NEUTROPHILS PERCENT AUTO 87 % (41-73); Platelet Count 144 K/mm3 (150-400); RDW Coefficient Variation 14.3 % (11.7-14.2); RDW Standard Deviation 45.4 fL (35.1-46.3); Red Blood Cell Count 4.24 M/mm3 (3.80-5.20)
[2018-08-16 05:46] LABS: Mean Corpuscular Volume 87 fL (80-100); Mean Platelet Volume 13.4 fL (9.1-12.4)
--- NOTE | 2018-08-16 06:10 | NUR ---
[facility] STILL ON PRESSURE SUPPORT OF 10 AFTER SBT. VENT NOW ALARMING WITH DECREASED RESP RATE AND DECREASED TIDAL VOLUMES. RT AT BEDSIDE. CHANGED BACK TO AC VENTILATION WITH PREVIOUS SETTINGS. SEDATION REMAINS OFF.
--- NOTE | 2018-08-16 06:39 | NUR ---
SHIFT SUMMARY NO ACUTE CHANGES DURING NOC. REMAINS INTUBATED- AC 14, TV 350, PEEP 5, FIO2 25%. RESP RATE 14-20. SEE RT DOCUMENTATION FOR SPONTANEOUS BREATHING TRIAL. SEDATED WITH VERSED GTT 3-4MG/HR T/O MOST OF NOC. VERSED HAS BEEN OFF SINCE 434. PT OPENS EYES TO STIMULI. OCCASIONALLY NODS HEAD YES/NO. FOLLOWS SIMPLE COMMANDS. BILATERAL SOFT WRIST RESTRAINTS REMAIN IN PLACE. OG WITH PIVOT 1.5 INFUSING @ GOAL RATE OF 20CC/HR. 30CC H2O FLUSH Q4H AND PRN. OG RESIDUAL <10CC. ZIMMERMAN PATENT AND DRAINING CLEAR YELLOW URINE. NS TKO. BMP PENDING AT THIS TIME. WILL REPORT TO DAY SHIFT RN WHEN AVAILABLE.
--- NOTE | 2018-08-16 06:58 | NUR ---
SEDATION PT AWAKE AND ALERT, CRYING. BANGING HAND ON SIDE OF BED. SHAKES HEAD "NO" WHEN ASKED IF SHE IS HURTING. NODS HEAD "YES" WHEN ASKED IF SHE IS SCARED. REASSURANCE GIVEN AND EDUCATION GIVEN ON CONTINUED NEED FOR MECHANICAL VENTILATION AT THIS TIME. VERSED GTT RESTARTED @ 2MG/HR.
--- NOTE | 2018-08-16 07:15 | NUR ---
START OF SHIFT NOTE: RECEIVED REPORT FROM FABIAN GHOSH, ASSUMED CARE, PATIENT CONTINUES TO BE ON VENT, SETTINGS ARE 14/5/350/FiO2 25 %, VERSED AT 2 MG/HR AT THIS TIME, PATIENT IS ABLE TO OPEN EYES ON COMMAND AND NOD AND SHAKE HEAD WHEN ASKED SIMPLE QUESTIONS, PATIENT DENIES PAIN, AFEBRILE, LUNG SOUNDS ARE CLEAR AND DIMINISHED IN BASES, NSR/ST, BOWEL TONES HYPERACTIVE IN ALL FOUR QUADRANTS, ON TUBE FEED, PIVOT 1.5 AT 20 CC/HR, WHICH IS GOAL, ZIMMERMAN WITH TEMP PROBE IN PLACE, CLEAR LIGHT YELLOW URINE DRAINING IN ADEQUATE AMOUNTS, PEDAL PULSES PALPABLE, CALL LIGHT IN REACH, WILL CONTINUE TO MONITOR.
[2018-08-16 07:24] LABS: Anion Gap 8 mmol/L (6-16); Blood Urea Nitrogen 9 mg/dL (8-24); Bun/Creatinine Ratio 18.8 (12.0-20.0); CO2, Blood 22 mmol/L (21-32); Calcium, Blood 8.5 mg/dL (8.5-10.1); Chloride, Blood 115 mmol/L (98-108); Creatinine, Blood 0.48 mg/dL (0.40-1.00); Glomerular Filtration Rate >60 (60-); Glucose, Blood 126 mg/dL (70-99); Potassium, Blood 3.9 mmol/L (3.5-5.5); Sodium, Blood 145 mmol/L (136-145)
--- NOTE | 2018-08-16 10:30 | NUR ---
DR. PICKARD IN TO SEE PATIENT, PLACED ON PRESSURE SUPPORT AND VERSED DECREASED FROM 3 MG/HR TO 1 MG/HR, PATIENT UNDERSTANDS TO TAKE OWN BREATHS AND PULL VOLUME, BREATHING TRIAL STARTED AT 1010 HRS. AND STOPPED AT 1030 HRS. D/T PATIENT UNABLE TO PULL VOLUME, WILL CONTINUE TO MONITOR.
--- NOTE | 2018-08-16 11:28 | NUR ---
PATIENT STARTED ON PRECEDEX AT 0.[address] PICKARD, VERSED GTT TAPERED DOWN TO 1 MG/HR, PATIENT RESTING COMFORTABLY AT THIS TIME, CALL LIGHT IN REACH, WILL CONTINUE TO MONITOR.
--- NOTE | 2018-08-16 17:55 | NUR ---
SHIFT SUMMARY NOTE: PATIENT CONTINUES ON VENT, SETTINGS UNCHANGED AT 03/26/35/FiO2 25 %, TOLERATES WELL, SEDATION CHANGED FROM VERSED TO PRECEDEX, INFUSING AT 0.5 MCG, ANOTHER WEANING TRIAL DONE DURING DAY SHIFT, BUT PATIENT UNABLE TO PULL ADEQUATE VOLUME, AFTER 20 MINUTES RETURNED TO A/C FROM PRESSURE SUPPORT, ZIMMERMAN CATHETER IN PLACE DRAINING LIGHT CLEAR YELLOW URINE, NO BM DURING THIS SHIFT, LUNG SOUNDS CLEAR, NSR, BT'S PRESENT, FOR DETAILS SEE SHIFT ASSESSMENT DOCUMENTATION AND NURSES NOTES, CALL LIGHT IN REACH, WILL CONTINUE TO MONITOR AND GIVE REPORT TO ONCOMING MILIEU THERAPIST.
--- NOTE | 2018-08-16 19:00 | NUR ---
ASSUMED CARE ASSUMED CARE OF PATIENT. REMAINS INTUBATED- AC 14, TV 350, PEEP 5, FIO2 35%. SEDATED WITH PRECEDEX @ 0.5MCG/KG/HR. PERIODS OF INCREASED ANXIETY AND AGITATION NOTED. OCCASIONALLY GAGS ON ETT. PT CALMS WITH REASSURANCE. MONITOR SHOWS SB-SR, RATE 50-70s. BP STABLE. OG WITH PIVOT 1.5 INFUSING @ GOAL RATE OF 20CC/HR. ZIMMERMAN PATENT AND DRAINING CLEAR YELLOW URINE. SEE SHIFT ASSESSMENT FOR FULL ASSESSMENT.
--- NOTE | 2018-08-16 20:05 | NUR ---
AGITATION/CALL TO MD PT SITTING UP IN BED, REACHING FOR ETT, AND GAGGING ON TUBE. PRECEDEX CONTINUES @ 0.5MCG/KG/HR, BUT UNABLE TO TITRATE UP D/T PATIENT HAVING PERIODS OF BRADYCARDIA (LOW 50s). DR. RODRIGUEZ NOTIFIED AT THIS TIME AND PLAN IS TO RESUME VERSED GTT IF NEEDED. DR. RODRIGUEZ ALSO NOTIFIED OF HAVING NO AM LABS ORDERED- SHE IS TO PUT IN ORDERS HERSELF FOR LABS. DISCUSSED AM SBT AND DR. RODRIGUEZ WISHES TO HOLD OFF UNTIL SHE IS PRESENT. RT AWARE.
--- NOTE | 2018-08-16 21:20 | NUR ---
SEDATION/EMESIS PT SITTING UP IN BED AND IS GAGGING ON ETT. SMALL AMOUNT OF EMESIS AT THIS TIME. VERSED GTT RESTARTED AT 3MG/HR. WILL TITRATE BOTH VERSED AND PRECEDEX NEEDED.
--- NOTE | 2018-08-17 00:12 | NUR ---
TUBE FEEDING OG RESIDUAL 120CC AT THIS TIME. PT WITH SMALL AMOUNT OF EMESIS AFTER GAGGING WITH ORAL CARE. WILL HOLD TUBE FEEDING FOR NOW AND RECHECK ONCE PT IS CALM.
[2018-08-17 04:10] LABS: Base Excess Venous -0.8 mmol/L; Bicarbonate Venous 24.5 mmol/L (24.0-30.0); PCO2 Venous 26.7 mmHg (38-42); PO2 Venous 49.4 mmHg (38-42)
[2018-08-17 04:11] LABS: BASOPHILS ABSOLUTE AUTO 0.03 K/mm3 (0.00-0.23); BASOPHILS PERCENT AUTO 0 % (0-2); EOSINOPHILS ABSOLUTE AUTO 0.02 K/mm3 (0.00-0.68); EOSINOPHILS PERCENT AUTO 0 % (0-6); Hematocrit 37.1 % (33.0-51.0); Hemoglobin 11.8 g/dL (11.5-16.0); IMMATURE GRAN ABSOLUTE AUTO 0.12 K/mm3 (0.00-0.10); IMMATURE GRAN PERCENT AUTO 1 % (0-1); LYMPHOCYTES ABSOLUTE AUTO 3.07 K/mm3 (0.84-5.20); LYMPHOCYTES PERCENT AUTO 12 % (21-46); MONOCYTES ABSOLUTE AUTO 1.12 K/mm3 (0.16-1.47); MONOCYTES PERCENT AUTO 4 % (4-13); Mean Corpuscular HGB 27.9 pg (26.0-34.0); Mean Corpuscular HGB Conc 31.8 g/dL (31.5-36.5); Mean Corpuscular Volume 88 fL (80-100); Mean Platelet Volume 12.8 fL (9.1-12.4); NEUTROPHILS ABSOLUTE AUTO 21.29 K/mm3 (1.96-9.15); NEUTROPHILS PERCENT AUTO 83 % (41-73); Platelet Count 150 K/mm3 (150-400); RDW Coefficient Variation 14.8 % (11.7-14.2); RDW Standard Deviation 47.8 fL (35.1-46.3); Red Blood Cell Count 4.23 M/mm3 (3.80-5.20); White Blood Cell Count 25.65 K/mm3 (4.00-11.30)
[2018-08-17 04:11] LABS: pH Blood Venous 7.53 (7.34-7.37)
[2018-08-17 04:28] LABS: Anion Gap 7 mmol/L (6-16); Blood Urea Nitrogen 12 mg/dL (8-24); Bun/Creatinine Ratio 29.8 (12.0-20.0); CO2, Blood 22 mmol/L (21-32); Calcium, Blood 8.3 mg/dL (8.5-10.1); Chloride, Blood 117 mmol/L (98-108); Glomerular Filtration Rate >60 (60-); Glucose, Blood 98 mg/dL (70-99); Magnesium, Blood 2.5 mg/dL (1.6-2.4); Phosphorus, Blood 1.9 mg/dL (2.5-4.9); Potassium, Blood 3.5 mmol/L (3.5-5.5); Sodium, Blood 146 mmol/L (136-145)
--- NOTE | 2018-08-17 04:30 | NUR ---
TUBE FEEDING OG RESIDUAL <10CC. TUBE FEEDING RESTARTED AT GOAL RATE OF 20CC/HR AT THIS TIME.
--- NOTE | 2018-08-17 06:41 | NUR ---
SHIFT SUMMARY NO ACUTE CHANGES DURING NOC. REMAINS INTUBATED- AC 14, TV 350, PEEP 5, FIO2 30%. SEDATED WITH PRECEDEX GTT BETWEEN 0.2-0.5MCG/KG/HR WITH PRECEDEX COMPLETELY OFF BETWEEN [id number]. RESTARTED @ 0400 D/T INCREASED RESTLESSNESS AND COUGHING/GAGGING, BUT TURNED OFF @ 0530. VERSED GTT RESTARTED @ 2044- NOW INFUSING @ 3MG/HR. PT ROUSES EASILY TO STIMULI. FOLLOWS COMMANDS AND NODS HEAD YES/NO APPROPRIATELY. DENIED C/O PAIN T/O SHIFT. BILATERAL SOFT WRIST RESTRAINTS IN PLACE. ASSISTS WITH REPOSITIONING. VSS. TUBE FEEDING OFF BETWEEN [id number] D/T INCREASED RESIDUALS AND EMESIS. RESTARTED @ 0430 AT GOAL RATE OF 20CC/HR. ZIMMERMAN PATENT AND DRAINING TO GRAVITY. KPHOS 30MMOL INFUSING PER ORDER. WILL REPORT TO DAY SHIFT RN WHEN AVAILABLE.
--- NOTE | 2018-08-17 07:17 | NUR ---
START OF SHIFT NOTE: RECEIVED REPORT FROM FABIAN GHOSH, ASSUMED CARE, PATIENT CONTINUES TO BE ON MECHANICAL VENTILATION, SETTINGS 14/5/350/FiO2 30 %, PATIENT IS ON VERSED AT 3 MG/HR, ABLE TO FOLLOW COMMANDS, DENIES PAIN, NODS AND SHAKES HEAD TO SIMPLE QUESTIONS, AFEBRILE, LUNG SOUNDS CLEAR BUT DIMINISHED, NSR, BLOOD PRESSURES IN LOW 100'S, BOWEL TONES HYPERACTIVE IN ALL FOUR QUADRANTS, TF AT 20 CC/HR, WAS STOPPED DURING NOC SHIFT D/T PATIENT VOMITING, ZIMMERMAN CATHETER IN PLACE, CALL LIGHT IN REACH, WILL CONTINUE TO MONITOR, POSSIBLE EXTUBATION THIS AM.
--- NOTE | 2018-08-17 09:25 | NUR ---
PATIENT PLACED ON SPONTANEOUS BREATHING TRIAL, VERSED TURNED OFF PER DR. PICKARD, PATIENT TOLERATING WELL AT THIS TIME.
--- NOTE | 2018-08-17 10:12 | NUR ---
PATIENT EXTUBATED WITH RT LINDY AND DR. PICKARD AT BEDSIDE, PATIENT TOLERATED WELL, RECEIVED BREATHING TREATMENT, ON RA, O2 SATS IN MID 90'S, VSS, DENIES PAIN, CALL LIGHT IN REACH, WILL CONTINUE TO MONITOR.
--- NOTE | 2018-08-17 14:03 | NUR ---
CALLED DR. RODRIGUEZ TO PATIENT'S STATUS CHANGE, KEEP PATIENT ICU STATUS UNTIL AFTER SHIFT CHANGE TODAY AND MAKE HER PCU STATUS AFTER 1900 HOURS TODAY.
--- NOTE | 2018-08-17 15:17 | NUR ---
PATIENT RESTING COMFORTABLY, ON RA, NO SOB REPORTED, WATCHING TV, DENIES PAIN, REPOSITIONS SELF FREQUENTLY, CALL LIGHT IN REACH, WILL CONTINUE TO MONITOR.
--- NOTE | 2018-08-17 17:32 | NUR ---
SHIFT SUMMARY NOTE: PATIENT WAS EXTUBATED THIS MORNING AT 10:12 HOURS, TOLERATED WELL, ALERT AND ORIENTED, LUNG SOUNDS CLEAR, NSR, BOWEL TONES HYPERACTIVE THROUGHOUT, PATIENT IS ON A SOFT DIET AND EATS WITH GOOD APPETITE, ALL MEALS 100 %, DRINKS ADEQUATELY, HAS A ZIMMERMAN CATHETER IN, WHICH IS DRAINING LARGE AMOUNTS OF CLEAR LIGHT YELLOW URINE, REPOSITIONS SELF IN BED, WATCHES TV, ASKED FOR BEDPAN ONCE, BUT DID NOT HAVE A BOWEL MOVEMENT, IVF INFUSING AT KVO, RECEIVED KPHOS TWO BAGS THIS AM, PATIENT IS ABLE TO MAKE NEEDS KNOWN, PER DR. RODRIGUEZ, IF PATIENT IS STABLE, MAY BE CHANGED TO PCU STATUS, PATIENT DENIES PAIN, AFEBRILE, VSS, CALL LIGHT IN REACH, WILL CONTINUE TO MONITOR AND GIVE REPORT TO ONCOMING TREE CHIPPER.
--- NOTE | 2018-08-17 19:30 | NUR ---
ASSUMED CARE PT IS RESTING QUIETLY RECLINING IN BED AND WATCHING TV. DENIES N/V, DENIES CP/PRESSURE, STATES THAT BREATHING FEELS IMPROVED AT THIS TIME. LUNGS CLEAR THROUGHOUT, DIM RIGHT BASE, RATE MID 20S, STATES THAT SHE IS COUGHING UP YELLOW SPUTUM OCCASIONALLY, NO INCREASED WORK OF BREATHING IS NOTED AT REST, SATS ARE MAINTAINING ON ROOM AIR. HRR, SINUS ON MONITOR, RATE 70-80S, BP MAINTAINING, NO EDEMA, SKIN IS PWD, BRISK CAP REFILL. NORMOACTIVE BOWEL TONES NOTED, ABD SOFT, NO GRIMACING/GAURDING WITH PALPATION. TEMP PROBE ZIMMERMAN REMAINS IN PLACE DRAINING CLEAR PALE YELLOW URINE TO GRAVITY.
--- NOTE | 2018-08-17 22:33 | NUR ---
TRANSFER TO PCU PT BROUGHT TO PCU RM 05 FROM ICU @ 2150 BY BED. PT A&O. LUNG SOUNDS CLEAR, DIM IN BASES. SPO2 > 92% ON RA. PT CALM & COOPERATIVE. VSS. ZIMMERMAN CATH PATENT AND DRAINING. WILL CONTINUE TO MONITOR AND PROVIDE CARE.
[2018-08-18 04:13] LABS: BASOPHILS ABSOLUTE AUTO 0.02 K/mm3 (0.00-0.23); BASOPHILS PERCENT AUTO 0 % (0-2); EOSINOPHILS ABSOLUTE AUTO 0.03 K/mm3 (0.00-0.68); EOSINOPHILS PERCENT AUTO 0 % (0-6); Hematocrit 43.2 % (33.0-51.0); Hemoglobin 13.3 g/dL (11.5-16.0); IMMATURE GRAN PERCENT AUTO 1 % (0-1); LYMPHOCYTES ABSOLUTE AUTO 3.28 K/mm3 (0.84-5.20); LYMPHOCYTES PERCENT AUTO 17 % (21-46); MONOCYTES ABSOLUTE AUTO 1.19 K/mm3 (0.16-1.47); MONOCYTES PERCENT AUTO 6 % (4-13); Mean Corpuscular HGB 28.2 pg (26.0-34.0); Mean Corpuscular HGB Conc 30.8 g/dL (31.5-36.5); NEUTROPHILS ABSOLUTE AUTO 14.84 K/mm3 (1.96-9.15); NEUTROPHILS PERCENT AUTO 76 % (41-73); Platelet Count 164 K/mm3 (150-400); RDW Coefficient Variation 14.8 % (11.7-14.2); RDW Standard Deviation 50.3 fL (35.1-46.3); Red Blood Cell Count 4.72 M/mm3 (3.80-5.20); White Blood Cell Count 19.46 K/mm3 (4.00-11.30)
[2018-08-18 04:17] LABS: Mean Corpuscular Volume 92 fL (80-100); Mean Platelet Volume 13.3 fL (9.1-12.4)
[2018-08-18 04:29] LABS: Anion Gap 6 mmol/L (6-16); Blood Urea Nitrogen 12 mg/dL (8-24); Bun/Creatinine Ratio 26.1 (12.0-20.0); CO2, Blood 27 mmol/L (21-32); Calcium, Blood 8.6 mg/dL (8.5-10.1); Chloride, Blood 111 mmol/L (98-108); Creatinine, Blood 0.46 mg/dL (0.40-1.00); Glomerular Filtration Rate >60 (60-); Glucose, Blood 79 mg/dL (70-99); Potassium, Blood 3.7 mmol/L (3.5-5.5); Sodium, Blood 144 mmol/L (136-145)
--- NOTE | 2018-08-18 06:15 | NUR ---
SHIFT SUMMARY PT A&O X4, CALM AND COOPERATIVE. LUNG SOUNDS CLEAR, DIM IN BASES. SPO2 > 92% ON RA. MONITOR SHOWS NSR, HR 80'S. HTN, OTHERWISE VSS. PT ABLE TO AMBULATE INTO BATHROOM W/ SBA. ZIMMERMAN CATH PATENT AND DRAINING CLEAR YELLOW URINE. DIME SIZED PRESSURE ULCER ON COCCYX. WILL CONTINUE TO MONITOR AND PROVIDE CARE UNTIL REPORT OFF TO DAY SHIFT RN.
--- NOTE | 2018-08-18 08:15 | NUR ---
RECEIVED REPORT AND ASSUMED CARE OF PATIENT. SHE IS ALERT AND SITTING UP IN BED. PT ON RA, COMFORTABLE AND ABLE TO EXPRESS NEEDS APPROPRIATELY.
--- NOTE | 2018-08-18 11:48 | NUR ---
PT MOTHER MERNA CALLED TO SPEAK ABOUT PATIENT DISCHARGE AND CONCERN ABOUT HER RETURNING HOME. MERNA STATES THAT HER DAUGHTER IS NOT TAKING MEDICATIONS OR TREATMENTS ORDERED AND WHEN SHE TRIES TO INSTRUCT PT TO DO SO PT BECOMES UPSET AND HAS BEEN AGGRESSIVE AND ABUSIVE TOWARD MERNA. MERNA WOULD LIKE TO HAVE PT PLACED AT [facility], TO ENSURE SHE IS RECEIVING CARE, TAKING HER MEDICATIONS AND IS IN A SAFE ENVIRONMENT. PLACED SOCIAL SERVICE CONSULT, AND MADE DR. VALENCIA AWARE OF THE SITUATION STATED ABOVE.
--- NOTE | 2018-08-18 16:10 | NUR ---
PT HAS DONE WELL THROUGHOUT THE SHIFT. ZIMMERMAN CATH REMOVED TODAY, PT TOLERATING WELL, SHE REPORTS ONE BM AND URINATION IN BATHROOM. PT ABLE TO GET UP AND MOVE INDEPENDENTLY. TRANSFER ORDER RECEIVED TO MOVE TO MEDICAL FLOOR ROOM 305.
--- NOTE | 2018-08-18 18:03 | NUR ---
TRANSFER NOTE RECEIVED HANDOFF FROM PCU NURSE TERESO. 62 YR OLD FEMALE TRANSFERED TO MED FLOOR WITHOUT INCIDENT. ORIENTED TO ROOM AND CALL LIGHT. ADMITTED FOR RESPIRATORY ARREST/FAILURE. FULL CODE. SOFT BITE SIZE DIET. TELEMETRY MONITORING VIA PCU CHRONOMETER ASSEMBLER. INDEPENDENT IN ROOM. ROOM AIR. PT COGNITIVELY DELAYED. POSSIBLE PLACEMENT MAY BE NECESSARY FOLLOWING DISCHARGE. TERMINOLOGIST CONSULT HAS BEEN CALLED BY PCU FOR THIS. HX: NSTEMI, ASTHMA, EMPHYSEMA, VOCAL CORD DYSFUNCTION, SEIZURE DISORDER, HIATAL HERNIA, PREVIOUS RESPIRATORY FAILURE REQUIRING INTUBATION. A DIME SIZE PRESSURE ULCER IS PRESENT ON HER COCCYX, MEPILEX IN PLACE. ZIMMERMAN CATHETER WAS DISCONTINUED TODAY IN PCU.
--- NOTE | 2018-08-18 18:35 | NUR ---
PT STATUS ALTHOUGH NO BM HAS BEEN CHARTED SINCE ADMIT, PCU NURSE TERESO INCLUDED IN HER NOTES THAT THE PT DID REPORT A BM TODAY.
[2018-08-19 04:48] LABS: BASOPHILS ABSOLUTE AUTO 0.02 K/mm3 (0.00-0.23); BASOPHILS PERCENT AUTO 0 % (0-2); EOSINOPHILS ABSOLUTE AUTO 0.08 K/mm3 (0.00-0.68); EOSINOPHILS PERCENT AUTO 1 % (0-6); Hematocrit 40.4 % (33.0-51.0); Hemoglobin 12.5 g/dL (11.5-16.0); IMMATURE GRAN ABSOLUTE AUTO 0.11 K/mm3 (0.00-0.10); IMMATURE GRAN PERCENT AUTO 1 % (0-1); LYMPHOCYTES ABSOLUTE AUTO 2.55 K/mm3 (0.84-5.20); LYMPHOCYTES PERCENT AUTO 16 % (21-46); MONOCYTES ABSOLUTE AUTO 1.01 K/mm3 (0.16-1.47); MONOCYTES PERCENT AUTO 6 % (4-13); Mean Corpuscular HGB 27.9 pg (26.0-34.0); Mean Corpuscular HGB Conc 30.9 g/dL (31.5-36.5); Mean Corpuscular Volume 90 fL (80-100); Mean Platelet Volume 12.9 fL (9.1-12.4); NEUTROPHILS ABSOLUTE AUTO 12.52 K/mm3 (1.96-9.15); NEUTROPHILS PERCENT AUTO 77 % (41-73); Platelet Count 160 K/mm3 (150-400); RDW Coefficient Variation 14.5 % (11.7-14.2); RDW Standard Deviation 47.8 fL (35.1-46.3); Red Blood Cell Count 4.48 M/mm3 (3.80-5.20); White Blood Cell Count 16.29 K/mm3 (4.00-11.30)
--- NOTE | 2018-08-19 05:18 | NUR ---
62 Y/O FEMALE RESTED COMFORTABLY ALL NIGHT, ABLE TO AMBULATE BATHROOM AND BACK WITH GAIT SLOW AND STEADY BY SELF. PT DENIES PAIN OR NAUSEA. PTS BED LOW POSITION, CALL LIGHT AT SIDE. PT ABLE TO FOLLOW ALL SIMPLE VERBAL COMMANDS.
--- NOTE | 2018-08-19 15:19 | NUR ---
PATIENT GAVE STUDENT NURSE PERMISSION TO ACCESS CHARTS AND CARE FOR HER 08/20/18
--- NOTE | 2018-08-19 16:02 | NUR ---
Initial Spiritual Care Visit: Indu awakend easily to voice. She appears frail and sleepy. She is non-yarsani and denied need for production planner. Advised I would remain available.
--- NOTE | 2018-08-19 18:00 | NUR ---
SHIFT SUMMARY PT INDEPENDENT IN ROOM AND AMBULATING SHORT DISTANCES IN HALLWAY FOR ACTIVITY. NO VISITORS IN TO SEE HER TODAY.
--- NOTE | 2018-08-19 18:48 | NUR ---
ERASMO DCD IN I AND O BUT WAS NOT PRESENT ON ASSESSMENT THIS MORNING. HAD BEEN REMOVED PRIOR TO THE BEGINNING OF 644 TODAY.
--- NOTE | 2018-08-20 06:06 | NUR ---
62 Y/O SLENDER FEMALE RESTED COMFORTABLY ALL EVENING WITH NO RESPIRATORY DISTRESS NOTED. PT ABLE TO AMBULATE 100 FEET IN HALLWAY AND BACK WITH GAIT STEADY AND EVEN. PT DENIES PAIN OR NAUSEA. PTS BED LOW POSITION, CALL LIGHT AT SIDE. PT ALERT AND ORIENTED X3 AND ABLE TO FOLLOW ALL SIMPLE VERBAL COMMANDS.
[2018-08-20] MEDS ORDERED: ALBU90OI INH (16:25)
[2018-08-20] MEDS ORDERED: PRED20 PO (16:27)
[2018-08-20] MEDS ORDERED: ONDA4ODT MM (16:28)
--- NOTE | 2018-08-20 17:07 | NUR ---
D/C INSTRUCTIONS PROVIDED AND EXPLAINED TO PT AND PT'S MOTHER. IV REMOVED. MEDS FAXED TO [facility]. PT D/C VIA WHEELCHAIR WITH [employer] AND MOTHER.
== END 2018-08-20 16:48 | disposition home health service (06) | DRG 208 ==
LOC: ER 01:28 → ICUW 03:21 → MEDS 03:21 → ICUE 03:21 → PCU 04:10 → ICUE 04:17 → UNDODEPER 04:21 → ICUE 08-17 19:09 → PCU 08-17 22:23 → MEDS 08-18 17:46
PROVIDERS: Emergency Medicine; Internal Medicine; Internal Medicine Pulmonary Disease; ADMIT Internal Medicine
PROC: 0BH17EZ Insertion of Endotracheal Airway into Trachea, Via Natural or Artificial Opening (ICD-10-PCS; principal; 2018-08-15)
PROC: 5A1945Z Respiratory Ventilation, 24-96 Consecutive Hours (ICD-10-PCS; 2018-08-15)
DX: J96.21 Acute and chronic respiratory failure with hypoxia (principal); J45.51 Severe persistent asthma with (acute) exacerbation; E87.4 Mixed disorder of acid-base balance; R09.2 Respiratory arrest; J43.9 Emphysema, unspecified; I25.10 Atherosclerotic heart disease of native coronary artery without angina pectoris; I25.2 Old myocardial infarction; G31.84 Mild cognitive impairment of uncertain or unknown etiology; E87.6 Hypokalemia; D72.829 Elevated white blood cell count, unspecified; G40.909 Epilepsy, unspecified, not intractable, without status epilepticus; Z91.14 Patient's other noncompliance with medication regimen; Z79.82 Long term (current) use of aspirin; Z79.51 Long term (current) use of inhaled steroids; Z79.899 Other long term (current) drug therapy
CPT/HCPCS: 31500; 31720; 36415; 36600; 51702; 71045; 80048; 80053; 81001; 82803; 82947; 83735; 84100; 84145; 84484; 85025; 85027; 87070; 87086; 87205; 93005; 93010; 94002; 94003; 94640; 94644; 94760; 94761; 96365-59; 96366-59; 96368; 96375-59; 99291-25; 99292; A9270-GY; J0171; J0330; J1650; J1956; J2250; J2704; J2920; J2930; J3475; J7030; J7060; J7120

== ENCOUNTER 2018-09-30 09:32 | Emergency (ER) | payer MEDICARE, OTHER ==
[~2018-09-30] VITALS: Ht 142.2 cm; Wt 45.4 kg
[~2018-09-30 09:32] MED LIST changes: +Augmentin 875-1 EACH PO; +ONDA4ODT MM
[2018-09-30 10:35] LABS: BASOPHILS PERCENT AUTO 1 % (0-2); EOSINOPHILS ABSOLUTE AUTO 1.68 K/mm3 (0.00-0.68); EOSINOPHILS PERCENT AUTO 13 % (0-6); Hematocrit 44.9 % (33.0-51.0); Hemoglobin 14.6 g/dL (11.5-16.0); IMMATURE GRAN ABSOLUTE AUTO 0.03 K/mm3 (0.00-0.10); IMMATURE GRAN PERCENT AUTO 0 % (0-1); LYMPHOCYTES ABSOLUTE AUTO 3.72 K/mm3 (0.84-5.20); LYMPHOCYTES PERCENT AUTO 29 % (21-46); MONOCYTES ABSOLUTE AUTO 0.82 K/mm3 (0.16-1.47); MONOCYTES PERCENT AUTO 6 % (4-13); Mean Corpuscular HGB 28.5 pg (26.0-34.0); Mean Corpuscular HGB Conc 32.5 g/dL (31.5-36.5); Mean Corpuscular Volume 88 fL (80-100); NEUTROPHILS ABSOLUTE AUTO 6.71 K/mm3 (1.96-9.15); NEUTROPHILS PERCENT AUTO 51 % (41-73); Platelet Count 172 K/mm3 (150-400); RDW Coefficient Variation 13.6 % (11.7-14.2); RDW Standard Deviation 43.8 fL (35.1-46.3); Red Blood Cell Count 5.13 M/mm3 (3.80-5.20); White Blood Cell Count 13.06 K/mm3 (4.00-11.30)
[2018-09-30 10:48] LABS: Alanine Aminotransfer (ALT/SGP 18 U/L (12-78); Albumin, Blood 3.8 g/dL (3.4-5.0); Albumin/Globulin Ratio 1.1 (0.8-1.8); Alk Phos 130 U/L (50-136); Anion Gap 6 mmol/L (6-16); Aspartate Aminotrans (AST/SGOT 16 U/L (12-37); Bilirubin, Total 0.5 mg/dL (0.1-1.0); Blood Urea Nitrogen 10 mg/dL (8-24); Bun/Creatinine Ratio 18.1 (12.0-20.0); CO2, Blood 28 mmol/L (21-32); Calcium, Blood 9.1 mg/dL (8.5-10.1); Chloride, Blood 108 mmol/L (98-108); Creatinine, Blood 0.55 mg/dL (0.40-1.00); Globulin, Blood 3.5 g/dL (2.2-4.0); Glomerular Filtration Rate >60 (60-); Glucose, Blood 108 mg/dL (70-99); Potassium, Blood 3.2 mmol/L (3.5-5.5); Sodium, Blood 142 mmol/L (136-145); Total Protein, Blood 7.3 g/dL (6.4-8.2); Troponin I <0.015 ng/mL (0.000-0.040)
[2018-09-30 10:49] LABS: PCO2 Arterial 39.4 mmHg (35-45); PO2 Arterial 83.7 mmHg (80-100); pH Blood Arterial 7.44 (7.35-7.45)
[2018-09-30 10:53] LABS: Mean Platelet Volume 13.8 fL (9.1-12.4)
[2018-09-30] MEDS ORDERED: Prednisone20 MG PO (12:03)
[2018-09-30] MEDS ORDERED: ALBU90OI INH (12:03)
[2018-09-30] MEDS ORDERED: ALBU2.5V5 NEB (12:03)
[2018-10-08] MEDS ORDERED: LEVO750 PO (08:04)
== END 2018-09-30 13:07 | disposition home or self-care (01) ==
LOC: ER 09:32
PROVIDERS: Emergency Medicine
DX: J45.901 Unspecified asthma with (acute) exacerbation (principal); Z79.82 Long term (current) use of aspirin; Z79.899 Other long term (current) drug therapy
CPT/HCPCS: 36415; 36600; 71046; 80053; 82803; 84484; 85025; 93005; 93010; 94640; 94644; 96361; 96374; 99285-25; J2930; J7030

== ENCOUNTER 2018-10-07 11:28 | Emergency (ER) | payer MEDICARE, OTHER ==
[~2018-10-07] VITALS: Ht 142.2 cm; Wt 45.4 kg
[2018-10-07 12:57] LABS: BASOPHILS ABSOLUTE AUTO 0.08 K/mm3 (0.00-0.23); BASOPHILS PERCENT AUTO 1 % (0-2); EOSINOPHILS ABSOLUTE AUTO 2.14 K/mm3 (0.00-0.68); EOSINOPHILS PERCENT AUTO 14 % (0-6); Hematocrit 44.2 % (33.0-51.0); Hemoglobin 14.2 g/dL (11.5-16.0); IMMATURE GRAN ABSOLUTE AUTO 0.05 K/mm3 (0.00-0.10); IMMATURE GRAN PERCENT AUTO 0 % (0-1); LYMPHOCYTES PERCENT AUTO 23 % (21-46); MONOCYTES ABSOLUTE AUTO 1.13 K/mm3 (0.16-1.47); MONOCYTES PERCENT AUTO 7 % (4-13); Mean Corpuscular HGB 28.3 pg (26.0-34.0); Mean Corpuscular HGB Conc 32.1 g/dL (31.5-36.5); Mean Corpuscular Volume 88 fL (80-100); Mean Platelet Volume 12.9 fL (9.1-12.4); NEUTROPHILS ABSOLUTE AUTO 8.49 K/mm3 (1.96-9.15); NEUTROPHILS PERCENT AUTO 55 % (41-73); Platelet Count 152 K/mm3 (150-400); RDW Coefficient Variation 13.7 % (11.7-14.2); RDW Standard Deviation 44.4 fL (35.1-46.3); Red Blood Cell Count 5.01 M/mm3 (3.80-5.20); White Blood Cell Count 15.39 K/mm3 (4.00-11.30)
[2018-10-07 13:22] LABS: Alanine Aminotransfer (ALT/SGP 17 U/L (12-78); Albumin, Blood 3.5 g/dL (3.4-5.0); Albumin/Globulin Ratio 0.9 (0.8-1.8); Alk Phos 118 U/L (50-136); Anion Gap 6 mmol/L (6-16); Aspartate Aminotrans (AST/SGOT 17 U/L (12-37); Bilirubin, Total 0.6 mg/dL (0.1-1.0); Blood Urea Nitrogen 17 mg/dL (8-24); Bun/Creatinine Ratio 36.6 (12.0-20.0); CO2, Blood 28 mmol/L (21-32); Calcium, Blood 9.3 mg/dL (8.5-10.1); Chloride, Blood 108 mmol/L (98-108); Creatinine, Blood 0.46 mg/dL (0.40-1.00); Globulin, Blood 3.9 g/dL (2.2-4.0); Glomerular Filtration Rate >60 (60-); Glucose, Blood 114 mg/dL (70-99); Potassium, Blood 2.6 mmol/L (3.5-5.5); Sodium, Blood 142 mmol/L (136-145); Total Protein, Blood 7.4 g/dL (6.4-8.2); Troponin I <0.015 ng/mL (0.000-0.040)
[2018-10-07] MEDS ORDERED: Prednisone20 MG PO (15:38)
[2018-10-08] MEDS ORDERED: LEVO750 PO (08:04)
== END 2018-10-07 16:23 | disposition home or self-care (01) ==
LOC: ER 11:28
PROVIDERS: Physician Assistant
DX: J44.1 Chronic obstructive pulmonary disease with (acute) exacerbation (principal); E87.5 Hyperkalemia; I25.2 Old myocardial infarction; Z79.82 Long term (current) use of aspirin; Z79.899 Other long term (current) drug therapy
CPT/HCPCS: 36415; 71046; 80053; 83735; 83880; 84484; 85025; 93005; 93010; 94644; 96374; 99284-25; G0424; J2930

== ENCOUNTER 2018-10-12 16:33 | Observation (INO) | payer MEDICARE, OTHER ==
[~2018-10-12] VITALS: Ht 142.2 cm; Wt 36.8 kg
[2018-10-12 17:19] LABS: PCO2 Arterial 35.2 mmHg (35-45); PO2 Arterial 59.3 mmHg (80-100); pH Blood Arterial 7.43 (7.35-7.45)
[2018-10-12 17:23] LABS: BASOPHILS ABSOLUTE AUTO 0.08 K/mm3 (0.00-0.23); BASOPHILS PERCENT AUTO 1 % (0-2); EOSINOPHILS ABSOLUTE AUTO 1.61 K/mm3 (0.00-0.68); EOSINOPHILS PERCENT AUTO 11 % (0-6); Hematocrit 44.9 % (33.0-51.0); Hemoglobin 14.5 g/dL (11.5-16.0); IMMATURE GRAN ABSOLUTE AUTO 0.03 K/mm3 (0.00-0.10); IMMATURE GRAN PERCENT AUTO 0 % (0-1); LYMPHOCYTES ABSOLUTE AUTO 3.41 K/mm3 (0.84-5.20); LYMPHOCYTES PERCENT AUTO 23 % (21-46); MONOCYTES ABSOLUTE AUTO 0.89 K/mm3 (0.16-1.47); MONOCYTES PERCENT AUTO 6 % (4-13); Mean Corpuscular HGB 27.9 pg (26.0-34.0); Mean Corpuscular HGB Conc 32.3 g/dL (31.5-36.5); Mean Corpuscular Volume 87 fL (80-100); Mean Platelet Volume 12.9 fL (9.1-12.4); NEUTROPHILS ABSOLUTE AUTO 8.67 K/mm3 (1.96-9.15); NEUTROPHILS PERCENT AUTO 59 % (41-73); Platelet Count 205 K/mm3 (150-400); RDW Standard Deviation 44.7 fL (35.1-46.3); Red Blood Cell Count 5.19 M/mm3 (3.80-5.20); White Blood Cell Count 14.69 K/mm3 (4.00-11.30)
[2018-10-12 17:48] LABS: Alanine Aminotransfer (ALT/SGP 17 U/L (12-78); Albumin, Blood 3.6 g/dL (3.4-5.0); Albumin/Globulin Ratio 0.9 (0.8-1.8); Alk Phos 117 U/L (50-136); Anion Gap 10 mmol/L (6-16); Aspartate Aminotrans (AST/SGOT 21 U/L (12-37); Bilirubin, Total 1.2 mg/dL (0.1-1.0); Blood Urea Nitrogen 18 mg/dL (8-24); Bun/Creatinine Ratio 34.6 (12.0-20.0); CO2, Blood 23 mmol/L (21-32); Calcium, Blood 9.3 mg/dL (8.5-10.1); Chloride, Blood 107 mmol/L (98-108); Creatinine, Blood 0.52 mg/dL (0.40-1.00); Glomerular Filtration Rate >60 (60-); Glucose, Blood 89 mg/dL (70-99); Potassium, Blood 3.5 mmol/L (3.5-5.5); Sodium, Blood 140 mmol/L (136-145); Total Protein, Blood 7.6 g/dL (6.4-8.2)
[2018-10-12] MEDS ORDERED: Budesonide0.5 MG/2 M NEB (18:26)
--- NOTE | 2018-10-12 20:56 | NUR ---
ASSUMED CARE OF PATIENT AT APPROXIMATELY 2000 FROM ED FABIAN [place] PATIENT ARRIVED TO UNIT VIA STRETCHER; TRANSFER INDEPENDENT FROM ED TO PCU STRETCHER. PATIENT ALERT AND ORIENTED; PATIENT ANXIOUS; UNABLE TO STATE DATE; MAKES ODD STATEMENTS; WHEN ASKING ADMISSION QUESTIONS PATIENT WOULD RANDOMLY STATE "CHOCOLATE PUDDING" OR "CAN I GET THE REMOTE" AND WOULD NEED REDIRECTION. PATIENT DENIES PAIN, NUMBNESS, TINGLING, DIZZINESS AND NAUSEA. PATIENT HAS APPETITE. ST ON TELE; OXYGEN SATURATION ABOVE 90% ON 3LPM VIA NC; NO DYSPNEA NOTED. ADMISSION COMPLETE; PIV S/L. PATIENT CURRENTLY RESTING IN BED; CALL LIGHT IN REACH; BED IN LOWEST POSISTION; BED ALARM ON; WILL CONTINUE TO MONITOR AND ASSESS UNTIL END OF SHIFT.
[2018-10-12 23:00] LABS: Adenovirus Not Detected (NOT DETECT); Bordetella pertussis Not Detected (NOT DETECT); Chlamydophila pneumoniae Not Detected (NOT DETECT); Coronavirus 229E Not Detected (NOT DETECT); Coronavirus HKU1 Not Detected (NOT DETECT); Coronavirus NL63 Not Detected (NOT DETECT); Coronavirus OC43 Not Detected (NOT DETECT); Human Metapneumovirus Not Detected (NOT DETECT); Human Rhinovirus/Enterovirus Not Detected (NOT DETECT); Influenza A Not Detected (NOT DETECT); Influenza A/2009-H1 Not Detected (NOT DETECT); Influenza A/H1 Not Detected (NOT DETECT); Influenza A/H3 Not Detected (NOT DETECT); Influenza B Not Detected (NOT DETECT); Mycoplasma pneumoniae Not Detected (NOT DETECT); Parainfluenza Virus 1 Not Detected (NOT DETECT); Parainfluenza Virus 2 Not Detected (NOT DETECT); Parainfluenza Virus 3 Not Detected (NOT DETECT); Parainfluenza Virus 4 Not Detected (NOT DETECT); Respiratory Syncytial Virus Not Detected (NOT DETECT)
[2018-10-13 04:16] LABS: BASOPHILS PERCENT AUTO 0 % (0-2); EOSINOPHILS PERCENT AUTO 0 % (0-6); Hematocrit 40.4 % (33.0-51.0); Hemoglobin 12.7 g/dL (11.5-16.0); IMMATURE GRAN ABSOLUTE AUTO 0.02 K/mm3 (0.00-0.10); IMMATURE GRAN PERCENT AUTO 0 % (0-1); LYMPHOCYTES ABSOLUTE AUTO 0.38 K/mm3 (0.84-5.20); LYMPHOCYTES PERCENT AUTO 5 % (21-46); MONOCYTES ABSOLUTE AUTO 0.06 K/mm3 (0.16-1.47); MONOCYTES PERCENT AUTO 1 % (4-13); Mean Corpuscular HGB 28.1 pg (26.0-34.0); Mean Corpuscular HGB Conc 31.4 g/dL (31.5-36.5); Mean Corpuscular Volume 89 fL (80-100); Mean Platelet Volume 13.5 fL (9.1-12.4); NEUTROPHILS ABSOLUTE AUTO 6.87 K/mm3 (1.96-9.15); NEUTROPHILS PERCENT AUTO 94 % (41-73); Platelet Count 180 K/mm3 (150-400); RDW Coefficient Variation 13.9 % (11.7-14.2); RDW Standard Deviation 45.3 fL (35.1-46.3); Red Blood Cell Count 4.52 M/mm3 (3.80-5.20); White Blood Cell Count 7.33 K/mm3 (4.00-11.30)
[2018-10-13 04:32] LABS: Anion Gap 11 mmol/L (6-16); Blood Urea Nitrogen 16 mg/dL (8-24); Bun/Creatinine Ratio 33.3 (12.0-20.0); CO2, Blood 22 mmol/L (21-32); Calcium, Blood 8.5 mg/dL (8.5-10.1); Chloride, Blood 107 mmol/L (98-108); Creatinine, Blood 0.48 mg/dL (0.40-1.00); Glomerular Filtration Rate >60 (60-); Glucose, Blood 252 mg/dL (70-99); Potassium, Blood 3.4 mmol/L (3.5-5.5); Sodium, Blood 140 mmol/L (136-145)
--- NOTE | 2018-10-13 07:53 | NUR ---
AM NOTE. ASSUMED CARE OF PT APROX 0700, PT IS A&Ox3, PT UNABLE TO STATE THE DATE, PT APPEARES TO BE DEVELOPMENTALLY DELAYED. PT WAS ADMITTED FOR RESP FAILURE. PT IS CURRENTLY ON RA WITH O2 SATS >92%. RR IS 18 EVEN AND UNLABORED. TELE INTACT, NSR IN THE 80'S, PT'S BP 109/54. NO EDEMA NOTED ON ASSESSMENT. L/S SCATTERED EXP WHEEZES T/O. BT PRESENT AND HYPERACTIVE, ABD IS SOFT AND NONTENDER TO PALP. CALL LIGHT IN REACH, BED IS LOCKED AND LOW WILL CONTINUE TO MONITOR.
[2018-10-13] MEDS ORDERED: ASPI81CH PO (11:05)
[2018-10-13] MEDS ORDERED: ATOR10 PO (11:06)
[2018-10-13] MEDS ORDERED: FLUTICASONE-SA1 EAC1 INH (11:07)
[2018-10-13] MEDS ORDERED: PRED20 PO (11:08)
--- NOTE | 2018-10-13 14:28 | NUR ---
Advance Directive Education attempted. Patient not interested in advance directive education but took an advance directive to go over on her own. Spiritual care visit completed. I talked with patient about her jose angel and found that her [facility] jose angel is a place of inspiration and strength. Patient affirmed that she would like prayer. I gladly provided prayer and patient responded well to it and showed signs of an elevated mood.
== END 2018-10-13 15:02 | disposition home or self-care (01) ==
LOC: ER 16:33 → PCU 16:34 → ER 20:00 → PCU 20:00
PROVIDERS: Emergency Medicine; Nurse Practitioner Acute Care; ADMIT Internal Medicine
DX: J45.901 Unspecified asthma with (acute) exacerbation (principal); R65.11 Systemic inflammatory response syndrome (SIRS) of non-infectious origin with acute organ dysfunction; J96.01 Acute respiratory failure with hypoxia; D72.829 Elevated white blood cell count, unspecified; G40.909 Epilepsy, unspecified, not intractable, without status epilepticus; R62.50 Unspecified lack of expected normal physiological development in childhood; Z79.899 Other long term (current) drug therapy; Z79.82 Long term (current) use of aspirin; Z79.52 Long term (current) use of systemic steroids
CPT/HCPCS: 36415; 36600; 71045; 80048; 80053; 82803; 84145; 84484; 85025; 87070; 87205; 87486; 87581; 87633; 87798; 94640; 94644; 94760; 96374; 96375; 96376; 99285-25; A9270; G0378; J1650; J2930; J3480; J7030

== ENCOUNTER 2018-12-12 14:21 | Emergency (ER) | payer MEDICARE, OTHER ==
[~2018-12-12] VITALS: Ht 142.2 cm; Wt 45.4 kg
[~2018-12-12 14:21] MED LIST changes: +Budesonide0.5 MG/2 M NEB; +FLUTICASONE-SA1 EAC1 INH
[2018-12-12 15:00] LABS: BASOPHILS ABSOLUTE AUTO 0.04 K/mm3 (0.00-0.23); BASOPHILS PERCENT AUTO 1 % (0-2); EOSINOPHILS ABSOLUTE AUTO 0.67 K/mm3 (0.00-0.68); EOSINOPHILS PERCENT AUTO 8 % (0-6); Hematocrit 41.2 % (33.0-51.0); Hemoglobin 13.1 g/dL (11.5-16.0); IMMATURE GRAN ABSOLUTE AUTO 0.02 K/mm3 (0.00-0.10); IMMATURE GRAN PERCENT AUTO 0 % (0-1); LYMPHOCYTES ABSOLUTE AUTO 2.55 K/mm3 (0.84-5.20); LYMPHOCYTES PERCENT AUTO 31 % (21-46); MONOCYTES ABSOLUTE AUTO 0.52 K/mm3 (0.16-1.47); MONOCYTES PERCENT AUTO 6 % (4-13); Mean Corpuscular HGB 27.9 pg (26.0-34.0); Mean Corpuscular HGB Conc 31.8 g/dL (31.5-36.5); Mean Corpuscular Volume 88 fL (80-100); Mean Platelet Volume 12.7 fL (9.1-12.4); NEUTROPHILS ABSOLUTE AUTO 4.47 K/mm3 (1.96-9.15); NEUTROPHILS PERCENT AUTO 54 % (41-73); Platelet Count 198 K/mm3 (150-400); RDW Coefficient Variation 13.5 % (11.7-14.2); RDW Standard Deviation 43.4 fL (35.1-46.3); White Blood Cell Count 8.27 K/mm3 (4.00-11.30)
[2018-12-12 15:21] LABS: Alanine Aminotransfer (ALT/SGP 16 U/L (12-78); Albumin, Blood 3.4 g/dL (3.4-5.0); Albumin/Globulin Ratio 0.8 (0.8-1.8); Alk Phos 113 U/L (50-136); Anion Gap 9 mmol/L (6-16); Aspartate Aminotrans (AST/SGOT 21 U/L (12-37); Bilirubin, Total 0.5 mg/dL (0.1-1.0); Blood Urea Nitrogen 8 mg/dL (8-24); Bun/Creatinine Ratio 16.8 (12.0-20.0); CO2, Blood 25 mmol/L (21-32); Calcium, Blood 9.1 mg/dL (8.5-10.1); Chloride, Blood 109 mmol/L (98-108); Creatinine, Blood 0.48 mg/dL (0.40-1.00); Globulin, Blood 4.1 g/dL (2.2-4.0); Glomerular Filtration Rate >60 (60-); Glucose, Blood 80 mg/dL (70-99); Potassium, Blood 3.3 mmol/L (3.5-5.5); Sodium, Blood 143 mmol/L (136-145); Total Protein, Blood 7.5 g/dL (6.4-8.2)
[2018-12-12] MEDS ORDERED: Prednisone20 MG PO (15:22)
[2018-12-12] MEDS ORDERED: ALBU90OI INH (15:22)
== END 2018-12-12 16:15 | disposition home or self-care (01) ==
LOC: ER 14:21
PROVIDERS: Emergency Medicine
DX: J45.901 Unspecified asthma with (acute) exacerbation (principal); Z79.899 Other long term (current) drug therapy; Z79.82 Long term (current) use of aspirin; Z79.52 Long term (current) use of systemic steroids
CPT/HCPCS: 71046; 80053; 85025; 93005; 93010; 94640; 96374; 99284-25; J2920

== ENCOUNTER 2018-12-22 22:32 | Observation (INO) | payer MEDICARE, OTHER ==
[~2018-12-22] VITALS: Ht 134.6 cm; Wt 36.1 kg
[2018-12-22 22:50] LABS: BASOPHILS PERCENT AUTO 1 % (0-2); EOSINOPHILS ABSOLUTE AUTO 1.52 K/mm3 (0.00-0.68); EOSINOPHILS PERCENT AUTO 13 % (0-6); Hematocrit 40.1 % (33.0-51.0); Hemoglobin 12.9 g/dL (11.5-16.0); IMMATURE GRAN ABSOLUTE AUTO 0.02 K/mm3 (0.00-0.10); IMMATURE GRAN PERCENT AUTO 0 % (0-1); LYMPHOCYTES ABSOLUTE AUTO 2.92 K/mm3 (0.84-5.20); LYMPHOCYTES PERCENT AUTO 25 % (21-46); MONOCYTES ABSOLUTE AUTO 0.82 K/mm3 (0.16-1.47); MONOCYTES PERCENT AUTO 7 % (4-13); Mean Corpuscular HGB 27.9 pg (26.0-34.0); Mean Corpuscular HGB Conc 32.2 g/dL (31.5-36.5); Mean Corpuscular Volume 87 fL (80-100); Mean Platelet Volume 12.8 fL (9.1-12.4); NEUTROPHILS ABSOLUTE AUTO 6.11 K/mm3 (1.96-9.15); NEUTROPHILS PERCENT AUTO 53 % (41-73); Platelet Count 172 K/mm3 (150-400); RDW Standard Deviation 44.6 fL (35.1-46.3); Red Blood Cell Count 4.62 M/mm3 (3.80-5.20); White Blood Cell Count 11.49 K/mm3 (4.00-11.30)
[2018-12-22 23:10] LABS: Alanine Aminotransfer (ALT/SGP 17 U/L (12-78); Albumin, Blood 3.5 g/dL (3.4-5.0); Albumin/Globulin Ratio 0.9 (0.8-1.8); Alk Phos 121 U/L (50-136); Anion Gap 8 mmol/L (6-16); Aspartate Aminotrans (AST/SGOT 31 U/L (12-37); Bilirubin, Total 0.6 mg/dL (0.1-1.0); Blood Urea Nitrogen 7 mg/dL (8-24); Bun/Creatinine Ratio 14.8 (12.0-20.0); CO2, Blood 23 mmol/L (21-32); Calcium, Blood 8.9 mg/dL (8.5-10.1); Chloride, Blood 111 mmol/L (98-108); Creatinine, Blood 0.47 mg/dL (0.40-1.00); Globulin, Blood 3.8 g/dL (2.2-4.0); Glomerular Filtration Rate >60 (60-); Glucose, Blood 123 mg/dL (70-99); Sodium, Blood 142 mmol/L (136-145); Total Protein, Blood 7.3 g/dL (6.4-8.2); Troponin I <0.015 ng/mL (0.000-0.040)
[2018-12-23 00:43] LABS: PCO2 Arterial 34.4 mmHg (35-45); PO2 Arterial 71.4 mmHg (80-100); pH Blood Arterial 7.43 (7.35-7.45)
--- NOTE | 2018-12-23 01:30 | NUR ---
ADMIT PT ARRIVES TO PCU 5 FROM ER VIA GURNEY. PT IS AOX4 AT THIS TIME, BUT RESPONDS INAPPROPRIATELY TO SOME QUESTIONS ASKED. SUCH NOT RESPONDING TO QUESTIONS, BUT INSTEAD ASKING "WHEN IS BREAKFAST". PT HAS A HX OF HEAD INJURY AND DEVELOPMENTAL DELAY PER MED RECORD. O2 SATS ARE 95% ON RA. PT STATES THAT SHE IS SLIGHTLY DYSPNEIC, BUT REPORTS THAT HER BREATHING IS "MUCH BETTER THAN IT WAS" PRIOR TO ARRIVAL. LUNG SOUNDS ARE CLEAR IN THE UPPER LOBES, DIMINISHED IN THE BASES. NO NOTED WHEEZING. RESPIRATIONS ARE EVEN AND UNLABORED AT THIS TIME. CARDIAC RHYTH IS NORMAL SINUS WITH A RATE OF 77 PER TELEMETRY. SOME GENERALIZED WEAKNESS NOTED. PT EDUCATED SAP FUNCTIONAL ANALYST LIGHT SYSTEM AND ENCOURAGED TO CALL FOR ASSISTANCE WITH NEEDS. WILL CONTINUE WITH ADMISSION AND MONITORING. BED IN LOW POSITION, CALL LIGHT IN REACH. BED ALARM SET FOR SAFETY.
[2018-12-23 03:41] LABS: Hematocrit 39.2 % (33.0-51.0); Hemoglobin 12.6 g/dL (11.5-16.0); Mean Corpuscular HGB 27.7 pg (26.0-34.0); Mean Corpuscular HGB Conc 32.1 g/dL (31.5-36.5); Mean Corpuscular Volume 86 fL (80-100); Platelet Count 160 K/mm3 (150-400); RDW Coefficient Variation 14.1 % (11.7-14.2); RDW Standard Deviation 44.2 fL (35.1-46.3); Red Blood Cell Count 4.55 M/mm3 (3.80-5.20); White Blood Cell Count 8.36 K/mm3 (4.00-11.30)
[2018-12-23 03:57] LABS: Anion Gap 10 mmol/L (6-16); Blood Urea Nitrogen 9 mg/dL (8-24); Bun/Creatinine Ratio 19.9 (12.0-20.0); CO2, Blood 24 mmol/L (21-32); Calcium, Blood 8.6 mg/dL (8.5-10.1); Chloride, Blood 109 mmol/L (98-108); Creatinine, Blood 0.45 mg/dL (0.40-1.00); Glomerular Filtration Rate >60 (60-); Glucose, Blood 235 mg/dL (70-99); Magnesium, Blood 2.2 mg/dL (1.6-2.4); Potassium, Blood 3.5 mmol/L (3.5-5.5); Sodium, Blood 143 mmol/L (136-145)
--- NOTE | 2018-12-23 06:26 | NUR ---
SHIFT SUMMARY PT HAS REMAINED ORIENTED TO SELF/SURROUNDINGS/AND TIME THROUGHOUT THE NIGHT. CONTINUES TO HAVE INAPPROPRIATE RESPONSES AT TIMES TO QUESTIONS, BUT DOES ASK APPROPRIATE QUESTIONS ABOUT CARE. HAS BEEN VERY PLEASANT AND COOPERATIVE WITH CARE. VSS. PT HAS RESTED THROUGHOUT MUCH OF THE NIGHT AND REPOSITIONS SELF IN BED. O2 SATS HAVE REMAINED >90% ON RA THROUGHOUT THE NIGHT. RESPIRATIONS HAVE REMAINED EVEN AND UNLABORED. AMBULATES WITH STANDBY ASSIST TO RESTROOM. ATTENDS IN PLACE FOR OCCASIONAL INCONTINENCE. NO OTHER CHANGES FROM INITIAL ASSESSMENT. WILL CONTINUE TO MONITOR AND REPORT TO ONCOMING SHIFT RN. BED IN LOW POSITION, CALL LIGHT IN REACH. BED ALARM SET FOR SAFETY.
--- NOTE | 2018-12-23 11:03 | NUR ---
NOON ASSESSMENT NO SIGNIFICANT CHANGES SINCE AM ASSESSMENT. SBP REMAINS <100, PT DENIES DIZZINESS. WILL CONTINUE TO MONITOR, IF BP REMAINS LOW WILL NOTIFY DR. BOYER PRIOR TO DISCHARGE. LUNG SOUND WHEEZY T/O.
--- NOTE | 2018-12-23 12:44 | NUR ---
ATTEMPTED TO CALL PT'S MOTHER TO ARRANGE TRANSPORT BACK HOME MESSAGE LEFT X2, AWAITING RETURN CALL. PRESCRIPTIONS CALLED TO PT'S PHARMACY [facility]. FLUTICASONE/SOLUMETEROL INHALER CALLED TO [facility] SINCE THIS MEDICATION WAS UNAVALIABLE AT [facility]. WILL CONTINUE TO MONITOR.
--- NOTE | 2018-12-23 13:00 | NUR ---
DR. BOYER NOTIFIED THAT SBP HAS BEEN < 100 AT WITH VS MOST OF THE DAY BUT WAS >100 AFTER NOON RE-ASSESSMENT. PT REMAINED ASYMPTOMATIC WITH BLOOD PRESSURES. HE WAS ALSO NOTIFIED THAT AM GLUCOSE WAS 235. NO NEW ORDERS AT THIS TIME. WILL CONTINUE WITH DISCHARGE ORDERED.
[2018-12-23] MEDS ORDERED: ALBU90OI INH (13:14)
[2018-12-23] MEDS ORDERED: FLUTICASONE-SA1 EAC1 INH (13:15)
[2018-12-23] MEDS ORDERED: PRED20 PO (13:16)
--- NOTE | 2018-12-23 14:22 | NUR ---
PT DISCHARGED AT APPROXIMATELY 1410. PT ALERT AND ORIENTED AT TIME OF DISCHARGE. DISCHARGE INSTRUCTIONS WERE PROVIDED TO PT'S MOTHER OVER THE PHONE. WRITTEN INSTRUCTIONS SENT WITH PT. SUSY ARRAGED WITH [facility] TO TAKE PT HOME.
== END 2018-12-23 14:08 | disposition home or self-care (01) ==
LOC: ER 22:32 → PCU 22:33 → ER 12-23 00:11 → PCU 12-23 01:20
PROVIDERS: Emergency Medicine; Nurse Practitioner Acute Care; ADMIT Family Medicine
DX: J45.901 Unspecified asthma with (acute) exacerbation (principal); R65.10 Systemic inflammatory response syndrome (SIRS) of non-infectious origin without acute organ dysfunction; K21.9 Gastro-esophageal reflux disease without esophagitis; I10 Essential (primary) hypertension; G40.909 Epilepsy, unspecified, not intractable, without status epilepticus; R62.50 Unspecified lack of expected normal physiological development in childhood; Z79.51 Long term (current) use of inhaled steroids; Z79.82 Long term (current) use of aspirin; Z79.899 Other long term (current) drug therapy
CPT/HCPCS: 36415; 36600; 71046; 80048; 80053; 82803; 83735; 84145; 84484; 85025; 85027; 93005; 93010; 94640; 94760; 96372; 96374; 96376; 99285-25; G0378; J1650; J2930; J7030

== ENCOUNTER 2019-02-01 15:09 | Inpatient (IN) | payer MEDICARE, OTHER ==
[~2019-02-01] VITALS: Ht 157.5 cm; Wt 28.7 kg
[2019-02-01 15:47] LABS: BASOPHILS ABSOLUTE AUTO 0.13 K/mm3 (0.00-0.23); BASOPHILS PERCENT AUTO 1 % (0-2); EOSINOPHILS ABSOLUTE AUTO 3.33 K/mm3 (0.00-0.68); EOSINOPHILS PERCENT AUTO 23 % (0-6); Hematocrit 43.1 % (33.0-51.0); Hemoglobin 13.2 g/dL (11.5-16.0); IMMATURE GRAN ABSOLUTE AUTO 0.03 K/mm3 (0.00-0.10); IMMATURE GRAN PERCENT AUTO 0 % (0-1); LYMPHOCYTES ABSOLUTE AUTO 3.41 K/mm3 (0.84-5.20); LYMPHOCYTES PERCENT AUTO 24 % (21-46); MONOCYTES ABSOLUTE AUTO 0.95 K/mm3 (0.16-1.47); MONOCYTES PERCENT AUTO 7 % (4-13); Mean Corpuscular HGB 27.3 pg (26.0-34.0); Mean Corpuscular HGB Conc 30.6 g/dL (31.5-36.5); Mean Corpuscular Volume 89 fL (80-100); Mean Platelet Volume 12.1 fL (9.1-12.4); NEUTROPHILS ABSOLUTE AUTO 6.63 K/mm3 (1.96-9.15); NEUTROPHILS PERCENT AUTO 46 % (41-73); Platelet Count 231 K/mm3 (150-400); RDW Coefficient Variation 13.9 % (11.7-14.2); RDW Standard Deviation 45.4 fL (35.1-46.3); Red Blood Cell Count 4.83 M/mm3 (3.80-5.20); White Blood Cell Count 14.48 K/mm3 (4.00-11.30)
[2019-02-01 16:07] LABS: Alanine Aminotransfer (ALT/SGP 18 U/L (12-78); Albumin, Blood 3.5 g/dL (3.4-5.0); Albumin/Globulin Ratio 0.7 (0.8-1.8); Alk Phos 153 U/L (50-136); Anion Gap 6 mmol/L (6-16); Aspartate Aminotrans (AST/SGOT 25 U/L (12-37); Bilirubin, Total 0.2 mg/dL (0.1-1.0); Blood Urea Nitrogen 14 mg/dL (8-24); Bun/Creatinine Ratio 25.7 (12.0-20.0); CO2, Blood 26 mmol/L (21-32); Calcium, Blood 8.9 mg/dL (8.5-10.1); Chloride, Blood 110 mmol/L (98-108); Creatinine, Blood 0.54 mg/dL (0.40-1.00); Globulin, Blood 4.7 g/dL (2.2-4.0); Glomerular Filtration Rate >60 (60-); Glucose, Blood 99 mg/dL (70-99); Potassium, Blood 3.8 mmol/L (3.5-5.5); Sodium, Blood 142 mmol/L (136-145); Total Protein, Blood 8.2 g/dL (6.4-8.2); Troponin I <0.015 ng/mL (0.000-0.040)
[2019-02-01] MEDS ORDERED: OLAN2.5 PO (16:27)
[2019-02-01] MEDS ORDERED: BUDE6HFA INH (16:28)
--- NOTE | 2019-02-02 03:52 | NUR ---
SHIFT SUMMARY: PT IS ALERT AND ORIENTED. PT IS CALM AND COOPERATIVE WITH CARE. PT CALLS APPROPRIATELY. PT IS INDEPENDENT IN THE ROOM. PT REPORTS INTERMITTENT SOB, O2 @ 2 L VIA NC, SATS > 90%. PT DENIES PAIN, NAUSEA, AND VOMITING. PT SLEPT MUCH OF THE NIGHT WHEN NOT DISTURBED. NO ACUTE CHANGES OR COMPLICATIONS THIS SHIFT. WILL CONTINUE TO MONITOR.
[2019-02-02 05:13] LABS: BASOPHILS ABSOLUTE AUTO 0.01 K/mm3 (0.00-0.23); BASOPHILS PERCENT AUTO 0 % (0-2); EOSINOPHILS ABSOLUTE AUTO 0.01 K/mm3 (0.00-0.68); EOSINOPHILS PERCENT AUTO 0 % (0-6); Hematocrit 36.5 % (33.0-51.0); Hemoglobin 11.5 g/dL (11.5-16.0); IMMATURE GRAN ABSOLUTE AUTO 0.02 K/mm3 (0.00-0.10); IMMATURE GRAN PERCENT AUTO 0 % (0-1); LYMPHOCYTES ABSOLUTE AUTO 0.87 K/mm3 (0.84-5.20); LYMPHOCYTES PERCENT AUTO 9 % (21-46); MONOCYTES ABSOLUTE AUTO 0.12 K/mm3 (0.16-1.47); MONOCYTES PERCENT AUTO 1 % (4-13); Mean Corpuscular HGB Conc 31.5 g/dL (31.5-36.5); Mean Corpuscular Volume 86 fL (80-100); Mean Platelet Volume 12.6 fL (9.1-12.4); NEUTROPHILS PERCENT AUTO 89 % (41-73); Platelet Count 192 K/mm3 (150-400); RDW Standard Deviation 43.3 fL (35.1-46.3); Red Blood Cell Count 4.26 M/mm3 (3.80-5.20); White Blood Cell Count 9.23 K/mm3 (4.00-11.30)
[2019-02-02 05:33] LABS: Alanine Aminotransfer (ALT/SGP 16 U/L (12-78); Albumin/Globulin Ratio 0.7 (0.8-1.8); Alk Phos 127 U/L (50-136); Anion Gap 8 mmol/L (6-16); Aspartate Aminotrans (AST/SGOT 18 U/L (12-37); Bilirubin, Total 0.1 mg/dL (0.1-1.0); Blood Urea Nitrogen 16 mg/dL (8-24); Bun/Creatinine Ratio 30.8 (12.0-20.0); CO2, Blood 23 mmol/L (21-32); Calcium, Blood 8.9 mg/dL (8.5-10.1); Chloride, Blood 109 mmol/L (98-108); Creatinine, Blood 0.52 mg/dL (0.40-1.00); Globulin, Blood 4.1 g/dL (2.2-4.0); Glomerular Filtration Rate >60 (60-); Glucose, Blood 225 mg/dL (70-99); Magnesium, Blood 2.1 mg/dL (1.6-2.4); Potassium, Blood 3.9 mmol/L (3.5-5.5); Sodium, Blood 140 mmol/L (136-145); Total Protein, Blood 7.1 g/dL (6.4-8.2)
--- NOTE | 2019-02-02 18:41 | NUR ---
SHIFT SUMMARY FLUID BOLLUS OF 500 ML NS DUE TO MILD HYPOTENSION. IV DID INFILTRATE. NEW IV PLACED, FLUID BOLUS COMPLETED. PT INDEPENDENT IN ROOM. PT A&O X4, BUT SOME DEVELOPMENTAL DELAY IS EVIDENT. SHE CAN CALL APPROPRIATELY. PT DOES COOPERATE WITH CARE. PT RECEIVING RESPIRATORY TREATMENTS. SHE IS RELIANT ON O2 HER AT 2 LPM, ROOM AIR AT HOME.
--- NOTE | 2019-02-03 06:32 | NUR ---
SHIFT SUMMARY A/O, ABLE TO MAKE NEEDS KNOWN. COOPERATIVE WITH CARE. ANSWERS QUESTIONS APPROPRIATELY. NO C/O PAIN/DISCOMFORT. APPEARED TO REST MUCH OF SHIFT. NO ACUTE CHANGES NOTED OVERNIGHT. REMAINS INDEPENDENT IN ROOM. ON 1.5L NC. RESPIRATIONS EVEN. BASELINE ROOM AIR. LS REMAIN TIGHT/DIMINISHED. EXPERIENCES OCCASIONAL PRODUCTIVE COUGH. REMAINS HYPOTENSIVE; ALL OTHER VS WNL. AFEBRILE. BED IN LOWEST POSITION. CALL LIGHT AND BELONGINGS WITHIN REACH. WCTM. REPORT TO ONCOMING RN.
--- NOTE | 2019-02-03 18:40 | NUR ---
PT. SITTING ON EDGE OF BED EATING DINNER, NO NOTEABLE CHANGES THIS SHIFT. HAD A SHOWER TODAY. PT'S APPETITE IS VERY GOOD EATS MEALS AND SNACKS IN BETWEEN.
--- NOTE | 2019-02-04 05:32 | NUR ---
SHIFT SUMMARY: 63 Y/O FEMALE QUITLY PLEASANT AND COOPERATIVE IN HER ROOM. DID NOT COMPLAIN OF ANY THING, OR EVEN NEEDS. SHE HAS BEEN INDEPENDENT IN THE ROOM, WHICH SHE HAS NOT CALLED FOR ANY ASSISTANCE THIS SHIFT. WILL REPORT TO DAY SHIFT RN.
--- NOTE | 2019-02-04 18:27 | NUR ---
PT.LYING IN BED WATCHING TV. NO NOTEABLE CHANGES THIS SHIFT, STILL RUNNING A LOW GRADE TEMP OF 99.4. DENIES PAIN BUT IS STILL SOB WITH ACTIVITY, ASKS FOR BREATHING TREATMENTS QUITE FREQUENTLY.
--- NOTE | 2019-02-05 05:42 | NUR ---
SHIFT SUMMARY PT HAD UNEVENTFUL NIGHT. BREATHING EVEN AND UNLABORED. PT REMAINED ON RA WITH O2 SATS IN THE LOW TO MID 90'S. LUNG SOUNDS DIM, MILDLY TIGHT. PT REQUESTED BREATHING TX'S NEEDED. NO RESPIRATORY DISTRESS NOTED. AFEBRILE THIS EVENING. NO COMPLAINTS OF PAIN. PT DEVELOPMENTALLY DELAYED. VITAL SIGNS STABLE. NO ACUTE CHANGES. WILL CONTINUE TO MONITOR.
[2019-02-05] MEDS ORDERED: ALBU2.5V5 INH (14:05)
[2019-02-05] MEDS ORDERED: PRED20 PO (14:08)
--- NOTE | 2019-02-05 14:49 | NUR ---
DISCHARGE DISCAHRGE MEDICATIONS AND INSTRUCTIONS EXPLAINED TO PATIENT. PATIENT STATED UNDERSTANDING. PATIENT'S MOTHER CALLED AT HOME AND DISCHARGE INSTRUCTIONS EXPLAINED TO HER. [facility] MEDICAL LOGISTICS SPECIALIST GARRETT TO CALL PATIENT AT HOME WITH FOLLOW UP APPOINTMENT. IV REMOVED WITHOUT DIFFICULTY. PATIENT AMBULATED TO [facility] WITH STAFF MEMBER.
== END 2019-02-05 14:49 | disposition home or self-care (01) | DRG 203 ==
LOC: ER 15:09 → MEDS 18:19 → ENPENDDIS 02-05 10:59 → MEDS 02-05 14:49
PROVIDERS: Physician Assistant; ADMIT Internal Medicine
DX: J45.901 Unspecified asthma with (acute) exacerbation (principal); Z79.82 Long term (current) use of aspirin; E78.5 Hyperlipidemia, unspecified; K21.9 Gastro-esophageal reflux disease without esophagitis; R62.50 Unspecified lack of expected normal physiological development in childhood; D72.829 Elevated white blood cell count, unspecified; J38.3 Other diseases of vocal cords
CPT/HCPCS: 36415; 71046; 80053; 83735; 84484; 85025; 93005; 93010; 94640; 94644; 94760; 96374; 99285-25; J1650; J2920; J2930; J7040

== ENCOUNTER 2019-03-20 13:33 | Inpatient (IN) | payer MEDICARE, OTHER ==
[~2019-03-20] VITALS: Ht 142.2 cm; Wt 45.4 kg
[~2019-03-20 13:33] MED LIST changes: +Aspir 8181 MG PO
[2019-03-20 14:45] LABS: BASOPHILS ABSOLUTE AUTO 0.13 K/mm3 (0.00-0.23); BASOPHILS PERCENT AUTO 1 % (0-2); EOSINOPHILS ABSOLUTE AUTO 1.24 K/mm3 (0.00-0.68); EOSINOPHILS PERCENT AUTO 5 % (0-6); Hematocrit 40.4 % (33.0-51.0); Hemoglobin 13.2 g/dL (11.5-16.0); IMMATURE GRAN ABSOLUTE AUTO 0.12 K/mm3 (0.00-0.10); IMMATURE GRAN PERCENT AUTO 1 % (0-1); LYMPHOCYTES ABSOLUTE AUTO 1.26 K/mm3 (0.84-5.20); LYMPHOCYTES PERCENT AUTO 5 % (21-46); MONOCYTES ABSOLUTE AUTO 1.16 K/mm3 (0.16-1.47); MONOCYTES PERCENT AUTO 4 % (4-13); Mean Corpuscular HGB 27.4 pg (26.0-34.0); Mean Corpuscular HGB Conc 32.7 g/dL (31.5-36.5); Mean Corpuscular Volume 84 fL (80-100); Mean Platelet Volume 12.2 fL (9.1-12.4); NEUTROPHILS ABSOLUTE AUTO 22.52 K/mm3 (1.96-9.15); NEUTROPHILS PERCENT AUTO 85 % (41-73); Platelet Count 194 K/mm3 (150-400); RDW Coefficient Variation 14.6 % (11.7-14.2); Red Blood Cell Count 4.82 M/mm3 (3.80-5.20); White Blood Cell Count 26.43 K/mm3 (4.00-11.30)
[2019-03-20 15:09] LABS: Alanine Aminotransfer (ALT/SGP 17 U/L (12-78); Albumin, Blood 3.6 g/dL (3.4-5.0); Albumin/Globulin Ratio 0.9 (0.8-1.8); Alk Phos 143 U/L (50-136); Anion Gap 8 mmol/L (6-16); Aspartate Aminotrans (AST/SGOT 26 U/L (12-37); Bilirubin, Total 1.2 mg/dL (0.1-1.0); Blood Urea Nitrogen 9 mg/dL (8-24); Bun/Creatinine Ratio 16.6 (12.0-20.0); CO2, Blood 24 mmol/L (21-32); Calcium, Blood 9.1 mg/dL (8.5-10.1); Chloride, Blood 109 mmol/L (98-108); Creatinine, Blood 0.54 mg/dL (0.40-1.00); Globulin, Blood 4.1 g/dL (2.2-4.0); Glomerular Filtration Rate >60 (60-); Glucose, Blood 103 mg/dL (70-99); Potassium, Blood 3.7 mmol/L (3.5-5.5); Sodium, Blood 141 mmol/L (136-145); Total Protein, Blood 7.7 g/dL (6.4-8.2); Troponin I <0.015 ng/mL (0.000-0.040)
[2019-03-20] MEDS ORDERED: MONTELUKAST SOD10 MG PO (16:33)
[2019-03-20] MEDS ORDERED: OMEP20ER PO (16:34)
[2019-03-20] MEDS ORDERED: Ventolin/Prove6.7 GM INH (16:56)
[2019-03-20] MEDS ORDERED: BUDE6HFA INH (16:56)
[2019-03-20 17:55] LABS: Influenza A Negative (NEGATIVE); Influenza B Negative (NEGATIVE)
--- NOTE | 2019-03-20 18:09 | NUR ---
PT ARRIVED TO THE UNIT VIA WHEELCHAIR. PT ORIENTATED TO ROOM. DENIES ANY PAIN AT THIS TIME
[2019-03-21 05:19] LABS: BASOPHILS ABSOLUTE AUTO 0.06 K/mm3 (0.00-0.23); BASOPHILS PERCENT AUTO 0 % (0-2); EOSINOPHILS PERCENT AUTO 0 % (0-6); Hematocrit 39.4 % (33.0-51.0); Hemoglobin 12.1 g/dL (11.5-16.0); IMMATURE GRAN ABSOLUTE AUTO 0.34 K/mm3 (0.00-0.10); IMMATURE GRAN PERCENT AUTO 1 % (0-1); LYMPHOCYTES PERCENT AUTO 3 % (21-46); MONOCYTES ABSOLUTE AUTO 0.33 K/mm3 (0.16-1.47); MONOCYTES PERCENT AUTO 1 % (4-13); Mean Corpuscular HGB 26.9 pg (26.0-34.0); Mean Corpuscular HGB Conc 30.7 g/dL (31.5-36.5); Mean Platelet Volume 12.9 fL (9.1-12.4); NEUTROPHILS ABSOLUTE AUTO 27.82 K/mm3 (1.96-9.15); NEUTROPHILS PERCENT AUTO 94 % (41-73); Platelet Count 170 K/mm3 (150-400); RDW Standard Deviation 48.5 fL (35.1-46.3); Red Blood Cell Count 4.49 M/mm3 (3.80-5.20); White Blood Cell Count 29.45 K/mm3 (4.00-11.30)
[2019-03-21 05:21] LABS: Mean Corpuscular Volume 88 fL (80-100)
[2019-03-21 05:45] LABS: Anion Gap 8 mmol/L (6-16); Blood Urea Nitrogen 12 mg/dL (8-24); Bun/Creatinine Ratio 21.6 (12.0-20.0); CO2, Blood 23 mmol/L (21-32); Calcium, Blood 8.9 mg/dL (8.5-10.1); Chloride, Blood 107 mmol/L (98-108); Creatinine, Blood 0.56 mg/dL (0.40-1.00); Glomerular Filtration Rate >60 (60-); Glucose, Blood 137 mg/dL (70-99); Potassium, Blood 3.5 mmol/L (3.5-5.5); Sodium, Blood 138 mmol/L (136-145)
--- NOTE | 2019-03-21 06:30 | NUR ---
SHIFT SUMMARY PATIENT SLEPT ALL NIGHT. UNABLE TO COLLECT UA AT THIS TIME DUE TO NO URINE OUTPUT. PATIENT'S BP HAS BEEN TRENDING DOWN OVER NIGHT GOING FROM AN SBP OF 139 TO 88. CALLED THE [facility]ING CENTER DIRECTOR PHYSICIAN AT 0614 TO ALERT THEM OF THE SITUATION. DR ZAMUDIO ORDERED A 500 ML BOLUS FOR THE PATIENT WHICH IS CURRENTLY INFUSING. BED IN LOWEST POSITION WITH WHEELS LOCKED. CALL LIGHT AND BELONGINGS WITHIN REACH. REPORT GIVEN TO ONCOMING RN.
[2019-03-21 10:43] LABS: Source, Urine Clean Catch
[2019-03-21 10:55] LABS: Bilirubin, Urine Neg (Neg); Blood, Urine Neg (Neg); Glucose Qualitative, Urine 1+ (Neg); Ketones, Urine 3+ (Neg); Leukocyte Esterase, Urine 1+ (Neg); Nitrite, Urine Neg (Neg); Protein, Urine 2+ (Neg); Specific Gravity, Urine 1.025 (1.003-1.022); Urobilinogen, Urine NORM (Normal)
[2019-03-21 11:11] LABS: Appearance, Urine Clear (Clear); Color, Urine Yellow (P-Yellow)
[2019-03-21 11:13] LABS: Bacteria Few /hpf; Mucus Light (0-Heavy); Red Blood Cells, Urine 0-2 /hpf (0-2); Squamous Epithelial Cells Few /hpf (Few)
[2019-03-21 14:08] LABS: Adenovirus Not Detected (NOT DETECT); Bordetella pertussis Not Detected (NOT DETECT); Chlamydophila pneumoniae Not Detected (NOT DETECT); Coronavirus 229E Not Detected (NOT DETECT); Coronavirus HKU1 Not Detected (NOT DETECT); Coronavirus NL63 Not Detected (NOT DETECT); Coronavirus OC43 Not Detected (NOT DETECT); Human Metapneumovirus Not Detected (NOT DETECT); Human Rhinovirus/Enterovirus Not Detected (NOT DETECT); Influenza A Not Detected (NOT DETECT); Influenza A/2009-H1 Not Detected (NOT DETECT); Influenza A/H1 Not Detected (NOT DETECT); Influenza A/H3 Not Detected (NOT DETECT); Influenza B Not Detected (NOT DETECT); Mycoplasma pneumoniae Not Detected (NOT DETECT); Parainfluenza Virus 1 Not Detected (NOT DETECT); Parainfluenza Virus 2 Not Detected (NOT DETECT); Parainfluenza Virus 3 Not Detected (NOT DETECT); Parainfluenza Virus 4 Not Detected (NOT DETECT); Respiratory Syncytial Virus Not Detected (NOT DETECT)
--- NOTE | 2019-03-21 19:00 | NUR ---
PT. SLEEPING, HAS EATEN VERY WELL TODAY. THE PT'S PCR TEST CAME BACK NEGATIVE. HAS SAT IN BED MOST OF THE DAY WATCHING TV, NO NOTEABLE CHANGES THIS SHIFT.
--- NOTE | 2019-03-21 19:34 | NUR ---
RECEIVED BEDSIDE REPORT FROM DMITRY STRONG RN. PT RESTING COMFORTABLY AT THIS TIME. RESP E/U ON RA. WILL MONITOR AND PROVIDE CARE T/O SHIFT. CALL LT IN REACH.
--- NOTE | 2019-03-21 20:13 | NUR ---
PLACED PT ON 1L 02 VIA NC FOR O2 SATS OF 89-90. SATS NOW 91-92. WILL MONITOR.
--- NOTE | 2019-03-21 21:33 | NUR ---
PT RESTING QUIETLY. CALL LT IN REACH.
--- NOTE | 2019-03-22 04:35 | NUR ---
SHIFT SUMMARY: PT RESTED WELL T/O SHIFT. NO COMPLAINTS OF SOB, NAUSEA, PAIN OR DIZZINESS. RESPIRATIONS EVEN ON 1L VIA NC. PT PLACED ON 1L FOR 02 SATS OF 89-90%, SATS HAVE BEEN MAINTAINED AT 91-92%. PRODUCTIVE LOOSE COUGH. LS COARSE T/O. AMBULATES INDEP TO BATHROOM, NEEDS SBA TO HELP MANAGE IV POLE AND LINES. WILL CONTINUE TO MONITOR AND PROVIDE CARE UNTIL SHIFT REPORT TO ONCOMING NURSE.
[2019-03-22 05:04] LABS: BASOPHILS ABSOLUTE AUTO 0.05 K/mm3 (0.00-0.23); BASOPHILS PERCENT AUTO 0 % (0-2); EOSINOPHILS PERCENT AUTO 0 % (0-6); Hematocrit 31.1 % (33.0-51.0); Hemoglobin 9.8 g/dL (11.5-16.0); IMMATURE GRAN ABSOLUTE AUTO 0.45 K/mm3 (0.00-0.10); IMMATURE GRAN PERCENT AUTO 1 % (0-1); LYMPHOCYTES ABSOLUTE AUTO 0.82 K/mm3 (0.84-5.20); LYMPHOCYTES PERCENT AUTO 2 % (21-46); MONOCYTES ABSOLUTE AUTO 0.73 K/mm3 (0.16-1.47); MONOCYTES PERCENT AUTO 2 % (4-13); Mean Corpuscular HGB 27.5 pg (26.0-34.0); Mean Corpuscular HGB Conc 31.5 g/dL (31.5-36.5); Mean Corpuscular Volume 87 fL (80-100); NEUTROPHILS ABSOLUTE AUTO 31.85 K/mm3 (1.96-9.15); NEUTROPHILS PERCENT AUTO 94 % (41-73); Platelet Count 145 K/mm3 (150-400); RDW Standard Deviation 48.3 fL (35.1-46.3); Red Blood Cell Count 3.56 M/mm3 (3.80-5.20)
[2019-03-22 05:05] LABS: Mean Platelet Volume 13.6 fL (9.1-12.4)
[2019-03-22 05:24] LABS: Albumin, Blood 2.5 g/dL (3.4-5.0); Anion Gap 6 mmol/L (6-16); Blood Urea Nitrogen 15 mg/dL (8-24); Bun/Creatinine Ratio 33.7 (12.0-20.0); CO2, Blood 25 mmol/L (21-32); Calcium, Blood 8.4 mg/dL (8.5-10.1); Chloride, Blood 113 mmol/L (98-108); Creatinine, Blood 0.45 mg/dL (0.40-1.00); Glomerular Filtration Rate >60 (60-); Glucose, Blood 152 mg/dL (70-99); Phosphorus, Blood 1.7 mg/dL (2.5-4.9); Potassium, Blood 3.7 mmol/L (3.5-5.5); Sodium, Blood 144 mmol/L (136-145)
--- NOTE | 2019-03-22 19:04 | NUR ---
PT. UP IN CHAIR FOR MEALS DUE TO ASP. PRECAUTIONS AND A LARGE HIATAL HERNIA. PT. ALSO PLACED ON GERD DIET. PT. A&O PLEASANT AND COOPERATIVE. STANDBY ASSIST TO BATHRROM BECAUSE OF IV POLE.
--- NOTE | 2019-03-23 04:10 | NUR ---
SHIFT SUMMARY PATIENT CONTINUES TO HAVE BLOOD PRESSURES IN THE LOW RANGE. SBP IN THE 90'S TO LOW 100'S. PATIENT DENIES FEELING DIZZY OR IN PAIN. DENIES ANY SHORTNESS OF BREATH. SHE GOT UP TO URINATE SEVERAL TIMES AND HAS OTHERWISE BEEN IN BED ASLEEP. IV IN LEFT AC PATENT AND INFUSING WITH LR AT 125 ML/HR. BED IN LOWEST POSITION WITH WHEELS LOCKED. CALL LIGHT WITHIN REACH. REPORT GIVEN TO ONCOMING RN.
[2019-03-23 04:54] LABS: BASOPHILS ABSOLUTE AUTO 0.04 K/mm3 (0.00-0.23); BASOPHILS PERCENT AUTO 0 % (0-2); EOSINOPHILS PERCENT AUTO 0 % (0-6); Hematocrit 29.3 % (33.0-51.0); Hemoglobin 9.3 g/dL (11.5-16.0); IMMATURE GRAN ABSOLUTE AUTO 0.32 K/mm3 (0.00-0.10); IMMATURE GRAN PERCENT AUTO 1 % (0-1); LYMPHOCYTES ABSOLUTE AUTO 1.29 K/mm3 (0.84-5.20); LYMPHOCYTES PERCENT AUTO 4 % (21-46); MONOCYTES ABSOLUTE AUTO 1.46 K/mm3 (0.16-1.47); MONOCYTES PERCENT AUTO 5 % (4-13); Mean Corpuscular HGB 27.4 pg (26.0-34.0); Mean Corpuscular HGB Conc 31.7 g/dL (31.5-36.5); Mean Corpuscular Volume 86 fL (80-100); NEUTROPHILS ABSOLUTE AUTO 26.53 K/mm3 (1.96-9.15); NEUTROPHILS PERCENT AUTO 90 % (41-73); Platelet Count 147 K/mm3 (150-400); RDW Coefficient Variation 15.5 % (11.7-14.2); RDW Standard Deviation 48.7 fL (35.1-46.3); White Blood Cell Count 29.64 K/mm3 (4.00-11.30)
[2019-03-23] MEDS ORDERED: AZIT250 PO (11:40)
[2019-03-23] MEDS ORDERED: PRED20 PO (11:40)
--- NOTE | 2019-03-23 14:23 | NUR ---
PT DISCHARGED THE PT VERBALIZED UNDERSTANDING OF THE DC INSTRUCTIONS, THE PT APPEAREDEATHING EASILY ON ROOM AIR, [facility] UI UX ENGINEER TO THE FRONT TO MEET HER RIDE WITH [facility]
== END 2019-03-23 12:42 | disposition home or self-care (01) | DRG 189 ==
LOC: ER 13:33 → MEDS 13:34 → ENPENDDIS 03-23 10:32 → MEDS 03-23 12:42
PROVIDERS: Emergency Medicine; Internal Medicine; Physician Assistant; ADMIT Family Medicine
DX: J96.01 Acute respiratory failure with hypoxia (principal); E43 Unspecified severe protein-calorie malnutrition; J44.1 Chronic obstructive pulmonary disease with (acute) exacerbation; J45.901 Unspecified asthma with (acute) exacerbation; R65.10 Systemic inflammatory response syndrome (SIRS) of non-infectious origin without acute organ dysfunction; K44.9 Diaphragmatic hernia without obstruction or gangrene; D63.8 Anemia in other chronic diseases classified elsewhere; I95.9 Hypotension, unspecified; E78.5 Hyperlipidemia, unspecified; Z79.82 Long term (current) use of aspirin; Z68.22 Body mass index [BMI] 22.0-22.9, adult
CPT/HCPCS: 0099U; 36415; 71046; 80048; 80053; 80069; 81001; 83605; 83880; 84145; 84484; 85025; 87040; 87070; 87086; 87186; 87205; 87804; 92610; 93005; 93010; 94640; 94760; 96361; 96365; 96372; 96374; 96375; 96376; 99285-25; G0378; J0696; J1650; J2405; J2930; J7040; J7120; J7512

== ENCOUNTER 2019-04-11 10:10 | Emergency (ER) | payer MEDICARE, OTHER ==
[~2019-04-11] VITALS: Ht 134.6 cm; Wt 45.4 kg
[~2019-04-11 10:10] MED LIST changes: +BUDE6HFA INH; +MONTELUKAST SOD10 MG PO; +OMEP20ER PO; +Ventolin/Prove6.7 GM INH
[2019-04-11 10:48] LABS: BASOPHILS ABSOLUTE AUTO 0.09 K/mm3 (0.00-0.23); BASOPHILS PERCENT AUTO 1 % (0-2); EOSINOPHILS ABSOLUTE AUTO 1.38 K/mm3 (0.00-0.68); EOSINOPHILS PERCENT AUTO 13 % (0-6); Hematocrit 37.4 % (33.0-51.0); Hemoglobin 11.6 g/dL (11.5-16.0); IMMATURE GRAN ABSOLUTE AUTO 0.02 K/mm3 (0.00-0.10); IMMATURE GRAN PERCENT AUTO 0 % (0-1); LYMPHOCYTES ABSOLUTE AUTO 1.73 K/mm3 (0.84-5.20); LYMPHOCYTES PERCENT AUTO 16 % (21-46); MONOCYTES ABSOLUTE AUTO 0.81 K/mm3 (0.16-1.47); MONOCYTES PERCENT AUTO 7 % (4-13); Mean Corpuscular HGB 26.9 pg (26.0-34.0); Mean Corpuscular Volume 87 fL (80-100); Mean Platelet Volume 12.1 fL (9.1-12.4); NEUTROPHILS ABSOLUTE AUTO 6.86 K/mm3 (1.96-9.15); NEUTROPHILS PERCENT AUTO 63 % (41-73); Platelet Count 201 K/mm3 (150-400); RDW Coefficient Variation 15.2 % (11.7-14.2); RDW Standard Deviation 47.9 fL (35.1-46.3); Red Blood Cell Count 4.31 M/mm3 (3.80-5.20); White Blood Cell Count 10.89 K/mm3 (4.00-11.30)
[2019-04-11 11:07] LABS: Alanine Aminotransfer (ALT/SGP 24 U/L (12-78); Albumin, Blood 3.6 g/dL (3.4-5.0); Albumin/Globulin Ratio 0.9 (0.8-1.8); Alk Phos 120 U/L (50-136); Anion Gap 8 mmol/L (6-16); Aspartate Aminotrans (AST/SGOT 25 U/L (12-37); Bilirubin, Total 0.7 mg/dL (0.1-1.0); Blood Urea Nitrogen 20 mg/dL (8-24); Bun/Creatinine Ratio 33.2 (12.0-20.0); CO2, Blood 22 mmol/L (21-32); Calcium, Blood 8.9 mg/dL (8.5-10.1); Chloride, Blood 112 mmol/L (98-108); Globulin, Blood 4.1 g/dL (2.2-4.0); Glomerular Filtration Rate >60 (60-); Glucose, Blood 90 mg/dL (70-99); Potassium, Blood 3.6 mmol/L (3.5-5.5); Sodium, Blood 142 mmol/L (136-145); Total Protein, Blood 7.7 g/dL (6.4-8.2)
== END 2019-04-11 14:24 | disposition home or self-care (01) ==
LOC: ER 10:10
PROVIDERS: Emergency Medicine
DX: J44.1 Chronic obstructive pulmonary disease with (acute) exacerbation (principal); Z79.82 Long term (current) use of aspirin; Z79.51 Long term (current) use of inhaled steroids
CPT/HCPCS: 36415; 71046; 80053; 85025; 93005; 93010; 94640; 94644; 99284-25

== ENCOUNTER 2019-04-13 16:16 | Inpatient (IN) | payer MEDICARE, OTHER ==
[~2019-04-13] VITALS: Ht 147.3 cm; Wt 39.7 kg
[2019-04-13 18:11] LABS: BASOPHILS ABSOLUTE AUTO 0.11 K/mm3 (0.00-0.23); BASOPHILS PERCENT AUTO 1 % (0-2); EOSINOPHILS ABSOLUTE AUTO 1.83 K/mm3 (0.00-0.68); EOSINOPHILS PERCENT AUTO 13 % (0-6); Hematocrit 37.7 % (33.0-51.0); IMMATURE GRAN ABSOLUTE AUTO 0.03 K/mm3 (0.00-0.10); IMMATURE GRAN PERCENT AUTO 0 % (0-1); LYMPHOCYTES ABSOLUTE AUTO 1.82 K/mm3 (0.84-5.20); LYMPHOCYTES PERCENT AUTO 13 % (21-46); MONOCYTES PERCENT AUTO 7 % (4-13); Mean Corpuscular HGB Conc 31.8 g/dL (31.5-36.5); Mean Corpuscular Volume 85 fL (80-100); Mean Platelet Volume 12.1 fL (9.1-12.4); NEUTROPHILS PERCENT AUTO 67 % (41-73); Platelet Count 216 K/mm3 (150-400); RDW Coefficient Variation 15.4 % (11.7-14.2); RDW Standard Deviation 46.1 fL (35.1-46.3); Red Blood Cell Count 4.45 M/mm3 (3.80-5.20); White Blood Cell Count 14.29 K/mm3 (4.00-11.30)
[2019-04-13 18:31] LABS: Alanine Aminotransfer (ALT/SGP 26 U/L (12-78); Albumin, Blood 3.8 g/dL (3.4-5.0); Albumin/Globulin Ratio 0.9 (0.8-1.8); Alk Phos 127 U/L (50-136); Anion Gap 7 mmol/L (6-16); Aspartate Aminotrans (AST/SGOT 28 U/L (12-37); Bilirubin, Total 0.8 mg/dL (0.1-1.0); Blood Urea Nitrogen 27 mg/dL (8-24); Bun/Creatinine Ratio 50.1 (12.0-20.0); CO2, Blood 22 mmol/L (21-32); Calcium, Blood 9.1 mg/dL (8.5-10.1); Chloride, Blood 109 mmol/L (98-108); Creatinine, Blood 0.54 mg/dL (0.40-1.00); Globulin, Blood 4.3 g/dL (2.2-4.0); Glomerular Filtration Rate >60 (60-); Glucose, Blood 87 mg/dL (70-99); Potassium, Blood 3.4 mmol/L (3.5-5.5); Sodium, Blood 138 mmol/L (136-145); Total Protein, Blood 8.1 g/dL (6.4-8.2)
[2019-04-13 20:12] LABS: Influenza A Negative (NEGATIVE); Influenza B Negative (NEGATIVE)
[2019-04-13] MEDS ORDERED: MONTELUKAST SOD10 MG PO (21:01)
[2019-04-14 02:12] LABS: Hematocrit 33.9 % (33.0-51.0); Hemoglobin 10.8 g/dL (11.5-16.0); Mean Corpuscular HGB 27.6 pg (26.0-34.0); Mean Corpuscular HGB Conc 31.9 g/dL (31.5-36.5); Mean Corpuscular Volume 87 fL (80-100); Platelet Count 196 K/mm3 (150-400); RDW Coefficient Variation 15.5 % (11.7-14.2); RDW Standard Deviation 48.7 fL (35.1-46.3); Red Blood Cell Count 3.92 M/mm3 (3.80-5.20); White Blood Cell Count 8.95 K/mm3 (4.00-11.30)
[2019-04-14 02:31] LABS: Alanine Aminotransfer (ALT/SGP 30 U/L (12-78); Albumin, Blood 3.3 g/dL (3.4-5.0); Albumin/Globulin Ratio 0.8 (0.8-1.8); Alk Phos 113 U/L (50-136); Anion Gap 9 mmol/L (6-16); Aspartate Aminotrans (AST/SGOT 27 U/L (12-37); Bilirubin, Total 0.6 mg/dL (0.1-1.0); Blood Urea Nitrogen 24 mg/dL (8-24); Bun/Creatinine Ratio 49.4 (12.0-20.0); CO2, Blood 21 mmol/L (21-32); Calcium, Blood 8.3 mg/dL (8.5-10.1); Chloride, Blood 112 mmol/L (98-108); Creatinine, Blood 0.49 mg/dL (0.40-1.00); Glomerular Filtration Rate >60 (60-); Glucose, Blood 141 mg/dL (70-99); Potassium, Blood 3.5 mmol/L (3.5-5.5); Sodium, Blood 142 mmol/L (136-145); Total Protein, Blood 7.3 g/dL (6.4-8.2)
[2019-04-14 02:33] LABS: CPK Creatine Kinase 304 U/L (26-193); Troponin I <0.015 ng/mL (0.000-0.040)
[2019-04-14 02:46] LABS: Creatine Kinase MB 13.5 ng/mL (0.0-3.6); Creatine Kinase MB Index 4.4 (0.0-4.0)
[2019-04-14 06:37] LABS: Adenovirus Not Detected (NOT DETECT); Bordetella pertussis Not Detected (NOT DETECT); Chlamydophila pneumoniae Not Detected (NOT DETECT); Coronavirus 229E Not Detected (NOT DETECT); Coronavirus HKU1 Not Detected (NOT DETECT); Coronavirus NL63 Not Detected (NOT DETECT); Coronavirus OC43 Not Detected (NOT DETECT); Human Metapneumovirus Not Detected (NOT DETECT); Human Rhinovirus/Enterovirus Not Detected (NOT DETECT); Influenza A Not Detected (NOT DETECT); Influenza A/2009-H1 Not Detected (NOT DETECT); Influenza A/H1 Not Detected (NOT DETECT); Influenza A/H3 Not Detected (NOT DETECT); Influenza B Not Detected (NOT DETECT); Mycoplasma pneumoniae Not Detected (NOT DETECT); Parainfluenza Virus 1 Not Detected (NOT DETECT); Parainfluenza Virus 2 Not Detected (NOT DETECT); Parainfluenza Virus 3 Not Detected (NOT DETECT); Parainfluenza Virus 4 Not Detected (NOT DETECT); Respiratory Syncytial Virus Not Detected (NOT DETECT)
--- NOTE | 2019-04-14 07:41 | NUR ---
SHIFT SUMMARY PT ARRIVED TO ROOM IN NO DISTRESS. PT HAD NO COMPLAINTS AND SLEPT FOR REMAINDER OF SHIFT. PT REPORTED GETTING SOB WHILE WALKING TO RESTROOM. PT STATES SOB RESOLVED LAYING IN BED. PT CURRENTLY AWAKE AND IN NO DISTRESS. CALL LIGHT IN REACH.
[2019-04-14 10:02] LABS: CPK Creatine Kinase 239 U/L (26-193); Troponin I <0.015 ng/mL (0.000-0.040)
[2019-04-14 10:16] LABS: Creatine Kinase MB 11.6 ng/mL (0.0-3.6); Creatine Kinase MB Index 4.9 (0.0-4.0)
--- NOTE | 2019-04-14 18:14 | NUR ---
PT SLEPT OFF AND ON T/O THE SHIFT, REPORTS SOB WITH ACTIVITY, UP TO BATHROOM. REQUESTS BREATHING TX PRN. USES CALL LIGHT APPROPRIATELY. IV ABX DISCONTINUED AND PO ABX TO BE STARTED AT BEDTIME TONIGHT. IV SOLUMEDROL FREQUENCY CHANGED FROM EVERY 6 HOURS TO EVERY 8 HOURS. NO ACUTE CHANGES NOTED THIS SHIFT, WILL CONTINUE TO MONITOR AND REPORT TO ONCOMING RN
--- NOTE | 2019-04-15 04:45 | NUR ---
SHIFT SUMMARY PATIENT HAD NO ACUTE CHANGES OBSERVED THIS SHIFT. AXOX 3 AND INDEPENDENT IN ROOM. PIV REMAINS INTACT. IV SOLU-MEDROL AND PO ABX GIVEN PER EMAR. DIAGNOSTIC IMAGING MANAGER REPORTS SR 87. VSS/AFEBRILE. DENIES PAIN AND N/V. SOB WITH ACTIVITY. CALL LIGHT IN REACH. BED IN LOWEST POSITION. WILL CONTINUE TO MONITOR UNTIL DAY SHIFT NURSE ASSUMES CARE.
--- NOTE | 2019-04-15 17:44 | NUR ---
NO ACUTE CHANGES. IMPROVMENT IN PATIENTS COUGH WHICH HAS BECOME LESS THROUGHOUT THE DAY . SHE HAS HAD NO COMPLAINTS OF PAIN. SHE IS ALERT AND ORIENTED THOUGH IS MENTALLY DELAYED. SHE IS PLEASANT AND COOPERATIVE WITH ALL CARES. CALL LIGHT WITH IN REACH.
--- NOTE | 2019-04-16 04:26 | NUR ---
SHIFT SUMMARY PT HAS BEEN SLEEPING WELL T/O SHIFT. PT HAD NO ISSUES NOTED. PT CURRENTLY SLEEPING AND BREATHING EASY. CALL LIGHT IN REACH.
[2019-04-16 04:43] LABS: Hematocrit 31.5 % (33.0-51.0); Hemoglobin 9.8 g/dL (11.5-16.0); Mean Corpuscular HGB 26.8 pg (26.0-34.0); Mean Corpuscular HGB Conc 31.1 g/dL (31.5-36.5); Mean Corpuscular Volume 86 fL (80-100); Mean Platelet Volume 12.9 fL (9.1-12.4); Platelet Count 209 K/mm3 (150-400); RDW Coefficient Variation 16.5 % (11.7-14.2); RDW Standard Deviation 51.2 fL (35.1-46.3); Red Blood Cell Count 3.65 M/mm3 (3.80-5.20); White Blood Cell Count 16.95 K/mm3 (4.00-11.30)
[2019-04-16 05:04] LABS: Anion Gap 7 mmol/L (6-16); Blood Urea Nitrogen 18 mg/dL (8-24); Bun/Creatinine Ratio 41.9 (12.0-20.0); CO2, Blood 24 mmol/L (21-32); Calcium, Blood 8.5 mg/dL (8.5-10.1); Chloride, Blood 112 mmol/L (98-108); Creatinine, Blood 0.43 mg/dL (0.40-1.00); Glomerular Filtration Rate >60 (60-); Glucose, Blood 160 mg/dL (70-99); Potassium, Blood 3.5 mmol/L (3.5-5.5); Sodium, Blood 143 mmol/L (136-145)
[2019-04-16] MEDS ORDERED: ACET325 PO (11:54)
[2019-04-16] MEDS ORDERED: ROBITUSSIN COU237 ML PO (11:54)
[2019-04-16] MEDS ORDERED: DOXY100 PO (11:56)
[2019-04-16] MEDS ORDERED: DELTASONE20 MG PO (11:58)
--- NOTE | 2019-04-16 13:36 | NUR ---
PATIENT DISCHARGED TO [facility]. IV WAS REMOVED. ESCORTED OUT VIA W/C BY CNA. [facility] AWARE OF DISCHARGE, MED LIST AND PACKET FAXED TO [facility].
== END 2019-04-16 13:18 | disposition home or self-care (01) | DRG 189 ==
LOC: ER 16:16 → MEDS 16:17 → ENPENDDIS 04-16 11:27 → MEDS 04-16 13:18
PROVIDERS: Internal Medicine; Physician Assistant; ADMIT Internal Medicine
DX: J96.01 Acute respiratory failure with hypoxia (principal); J45.901 Unspecified asthma with (acute) exacerbation; R65.10 Systemic inflammatory response syndrome (SIRS) of non-infectious origin without acute organ dysfunction; Z79.82 Long term (current) use of aspirin; E78.5 Hyperlipidemia, unspecified; J38.3 Other diseases of vocal cords; K21.9 Gastro-esophageal reflux disease without esophagitis; F89 Unspecified disorder of psychological development; J20.9 Acute bronchitis, unspecified; Z23 Encounter for immunization
CPT/HCPCS: 0099U; 36415; 71046; 80048; 80053; 82550; 82553; 83605; 84484; 85025; 85027; 87804; 90686; 93005; 93010; 94640; 94644; 94760; 96361; 96372; 96374; 96375; 96376; 99285-25; G0008; G0378; J1650; J1956; J2930; J7030

== ENCOUNTER → 2019-06-16 | Outpatient (CLI) | payer MEDICARE, OTHER ==
[~2019-06-16] MED LIST changes: +DELTASONE20 MG PO; +DOXY100 PO; +ROBITUSSIN COU237 ML PO
[2019-06-16 20:01] LABS: Bilirubin, Urine Neg (Neg); Blood, Urine Neg (Neg); Glucose Qualitative, Urine Neg (Neg); Ketones, Urine Neg (Neg); Leukocyte Esterase, Urine Neg (Neg); Nitrite, Urine Neg (Neg); Protein, Urine Neg (Neg); Specific Gravity, Urine 1.015 (1.003-1.022); Urobilinogen, Urine NORM (Normal); pH, Urine 6.5 (5.0-8.0)
[2019-06-16 20:09] LABS: Appearance, Urine Clear (Clear); Color, Urine Yellow (P-Yellow)
== END ==
LOC: LAB 19:33 → LAB SHORT 19:33
PROVIDERS: Family Medicine
DX: N39.0 Urinary tract infection, site not specified (principal)
CPT/HCPCS: 81003

== ENCOUNTER → 2019-06-25 | Outpatient (CLI) | payer MEDICARE, OTHER ==
[~2019-06-25] MED LIST changes: +ATOR40TA PO; +BENZ100A PO; +Duoneb 2.5-0.5 M3 ML NEB; +FERSU300 PO; +GUAIFENESIN-DM 15 ML PO; -ROBITUSSIN COU237 ML PO
[2019-06-26 11:33] LABS: Stool Occult Bld Immuno 1 Negative (NEGATIVE)
== END ==
LOC: LAB 19:31 → LAB SHORT 19:31
PROVIDERS: Family Medicine
DX: D50.9 Iron deficiency anemia, unspecified (principal)
CPT/HCPCS: 82274

== ENCOUNTER 2019-06-27 14:56 | Inpatient (IN) | payer MEDICARE, OTHER ==
[~2019-06-27] VITALS: Ht 147.3 cm; Wt 42.7 kg
[~2019-06-27 14:56] MED LIST changes: -ATOR40TA PO; -Aspir 8181 MG PO; -BENZ100A PO; -Duoneb 2.5-0.5 M3 ML NEB; -FERSU300 PO; -GUAIFENESIN-DM 15 ML PO; -Ventolin/Prove6.7 GM INH
[2019-06-27 15:31] LABS: BASOPHILS ABSOLUTE AUTO 0.14 K/mm3 (0.00-0.23); BASOPHILS PERCENT AUTO 1 % (0-2); EOSINOPHILS ABSOLUTE AUTO 3.23 K/mm3 (0.00-0.68); EOSINOPHILS PERCENT AUTO 22 % (0-6); Hematocrit 37.9 % (33.0-51.0); Hemoglobin 11.2 g/dL (11.5-16.0); IMMATURE GRAN ABSOLUTE AUTO 0.03 K/mm3 (0.00-0.10); IMMATURE GRAN PERCENT AUTO 0 % (0-1); LYMPHOCYTES ABSOLUTE AUTO 3.15 K/mm3 (0.84-5.20); LYMPHOCYTES PERCENT AUTO 21 % (21-46); MONOCYTES ABSOLUTE AUTO 1.01 K/mm3 (0.16-1.47); MONOCYTES PERCENT AUTO 7 % (4-13); Mean Corpuscular HGB 24.7 pg (26.0-34.0); Mean Corpuscular HGB Conc 29.6 g/dL (31.5-36.5); Mean Corpuscular Volume 84 fL (80-100); Mean Platelet Volume 12.8 fL (9.1-12.4); NEUTROPHILS ABSOLUTE AUTO 7.34 K/mm3 (1.96-9.15); NEUTROPHILS PERCENT AUTO 49 % (41-73); Platelet Count 226 K/mm3 (150-400); RDW Coefficient Variation 17.9 % (11.7-14.2); RDW Standard Deviation 54.7 fL (35.1-46.3); Red Blood Cell Count 4.53 M/mm3 (3.80-5.20)
[2019-06-27 15:46] LABS: Alanine Aminotransfer (ALT/SGP 17 U/L (12-78); Albumin, Blood 3.3 g/dL (3.4-5.0); Albumin/Globulin Ratio 0.7 (0.8-1.8); Alk Phos 147 U/L (50-136); Anion Gap 5 mmol/L (6-16); Aspartate Aminotrans (AST/SGOT 24 U/L (12-37); Bilirubin, Total 0.2 mg/dL (0.1-1.0); Blood Urea Nitrogen 6 mg/dL (8-24); Bun/Creatinine Ratio 10.2 (12.0-20.0); CO2, Blood 28 mmol/L (21-32); Chloride, Blood 109 mmol/L (98-108); Creatinine, Blood 0.59 mg/dL (0.40-1.00); Globulin, Blood 4.5 g/dL (2.2-4.0); Glomerular Filtration Rate >60 (60-); Glucose, Blood 88 mg/dL (70-99); Potassium, Blood 3.9 mmol/L (3.5-5.5); Sodium, Blood 142 mmol/L (136-145); Total Protein, Blood 7.8 g/dL (6.4-8.2); Troponin I <0.015 ng/mL (0.000-0.040)
[2019-06-27 16:56] LABS: Influenza A Negative (NEGATIVE); Influenza B Negative (NEGATIVE)
[2019-06-27] MEDS ORDERED: Aspir 8181 MG PO (19:50)
[2019-06-27] MEDS ORDERED: Duoneb 2.5-0.5 M3 ML NEB ×2 (19:51→19:57)
[2019-06-27] MEDS ORDERED: MONTELUKAST SOD10 MG PO (19:52)
[2019-06-27] MEDS ORDERED: Ventolin/Prove6.7 GM INH (19:52)
[2019-06-27] MEDS ORDERED: ACET325 PO (19:53)
[2019-06-27] MEDS ORDERED: ATOR40TA PO (19:54)
[2019-06-27] MEDS ORDERED: GUAIFENESIN-DM 15 ML PO (19:54)
[2019-06-27] MEDS ORDERED: Budesonide0.5 MG/2 M NEB (19:55)
[2019-06-27] MEDS ORDERED: FERSU300 PO (19:56)
[2019-06-27] MEDS ORDERED: OLAN2.5 PO (19:57)
[2019-06-27] MEDS ORDERED: BENZ100A PO (19:58)
[2019-06-27] MEDS ORDERED: DOCU100 PO (19:58)
[2019-06-27 20:57] LABS: Adenovirus Not Detected (NOT DETECT); Bordetella pertussis Not Detected (NOT DETECT); Chlamydophila pneumoniae Not Detected (NOT DETECT); Coronavirus 229E Not Detected (NOT DETECT); Coronavirus HKU1 Not Detected (NOT DETECT); Coronavirus NL63 Not Detected (NOT DETECT); Coronavirus OC43 Not Detected (NOT DETECT); Human Metapneumovirus Not Detected (NOT DETECT); Human Rhinovirus/Enterovirus Not Detected (NOT DETECT); Influenza A/2009-H1 Not Detected (NOT DETECT); Influenza A/H1 Not Detected (NOT DETECT); Influenza A/H3 Not Detected (NOT DETECT); Influenza B Not Detected (NOT DETECT); Mycoplasma pneumoniae Not Detected (NOT DETECT); Parainfluenza Virus 1 Not Detected (NOT DETECT); Parainfluenza Virus 2 Not Detected (NOT DETECT); Parainfluenza Virus 3 Not Detected (NOT DETECT); Parainfluenza Virus 4 Not Detected (NOT DETECT); Respiratory Syncytial Virus Not Detected (NOT DETECT)
[2019-06-28 05:46] LABS: Hematocrit 34.8 % (33.0-51.0); Hemoglobin 10.2 g/dL (11.5-16.0); Mean Corpuscular HGB 24.5 pg (26.0-34.0); Mean Corpuscular HGB Conc 29.3 g/dL (31.5-36.5); Mean Corpuscular Volume 84 fL (80-100); Platelet Count 203 K/mm3 (150-400); RDW Standard Deviation 55.3 fL (35.1-46.3); Red Blood Cell Count 4.16 M/mm3 (3.80-5.20); White Blood Cell Count 7.48 K/mm3 (4.00-11.30)
[2019-06-28 05:47] LABS: Mean Platelet Volume 13.5 fL (9.1-12.4)
[2019-06-28 06:15] LABS: Alanine Aminotransfer (ALT/SGP 16 U/L (12-78); Albumin, Blood 3.2 g/dL (3.4-5.0); Albumin/Globulin Ratio 0.8 (0.8-1.8); Alk Phos 131 U/L (50-136); Anion Gap 6 mmol/L (6-16); Aspartate Aminotrans (AST/SGOT 19 U/L (12-37); Bilirubin, Total 0.1 mg/dL (0.1-1.0); Blood Urea Nitrogen 14 mg/dL (8-24); Bun/Creatinine Ratio 31.3 (12.0-20.0); CO2, Blood 26 mmol/L (21-32); Calcium, Blood 9.1 mg/dL (8.5-10.1); Chloride, Blood 108 mmol/L (98-108); Creatinine, Blood 0.45 mg/dL (0.40-1.00); Globulin, Blood 4.2 g/dL (2.2-4.0); Glomerular Filtration Rate >60 (60-); Glucose, Blood 179 mg/dL (70-99); Potassium, Blood 3.5 mmol/L (3.5-5.5); Sodium, Blood 140 mmol/L (136-145); Total Protein, Blood 7.4 g/dL (6.4-8.2)
--- NOTE | 2019-06-28 07:27 | NUR ---
SHIFT SUMMARY PT ADMITTED THIS NIGHT. SHE IS PLEASANT AND COOPERATIVE WITH CARE. HX DEVELOPMENTAL DELAY BUT APPEARS HIGH FUNCTIONING. ON TELE NSR ON LAST CHECK. VSS. LIVES AT [place]. SLEPT MOST OF NIGHT AFTER INTAKE FINISHED. NO ACUTE CHANGES. REPORT TO ONCOMING RN.
--- NOTE | 2019-06-28 19:45 | NUR ---
SHIFT SUMMARY- PT HAS HAD NO ACUTE CHANGES T/O THE DAY, BEDSIDE REPORT COMPLETED WITH NIGHT RN. POSSIBLE DISCHARGE EARLY TOMORROW IF PT CONTINUES TO IMPROVE.
[2019-06-29 05:19] LABS: Albumin, Blood 2.8 g/dL (3.4-5.0); Anion Gap 7 mmol/L (6-16); Blood Urea Nitrogen 11 mg/dL (8-24); CO2, Blood 23 mmol/L (21-32); Calcium, Blood 8.7 mg/dL (8.5-10.1); Chloride, Blood 112 mmol/L (98-108); Creatinine, Blood 0.52 mg/dL (0.40-1.00); Glomerular Filtration Rate >60 (60-); Glucose, Blood 151 mg/dL (70-99); Phosphorus, Blood 2.1 mg/dL (2.5-4.9); Potassium, Blood 3.9 mmol/L (3.5-5.5); Sodium, Blood 142 mmol/L (136-145)
--- NOTE | 2019-06-29 08:06 | NUR ---
SHIFT SUMMARY PT PLEASANT AND COOPERATIVE WITH CARE. AAOX4. RESP HAVE BEEN ULABORED ON ROOM AIR. NO ACUTE CHANGES NOTED THIS NIGHT. VSS. REPORT TO ONCOMING RN.
--- NOTE | 2019-06-29 14:35 | NUR ---
Patient is sitting up in bed and eating lunch. Patient answers in short sentences but tells me about her medical issue, her family and her jose angel. Patient says, "I believe in Bradly." I listen empathically, [facility] and provide prayer. Patient responds well and shows signs improved peace. I will continue to remain available to patient and family.
--- NOTE | 2019-06-29 15:10 | NUR ---
Gayle Schafer, an [facility] nursing unit coordinator, was given permission my Indu Llanes to provide care for her on 06/30/2019.
--- NOTE | 2019-06-29 17:17 | NUR ---
SHIFT SUMMARY- PT IS A/O, PLESANT AND COOPERATIVE. HER LUNG SOUNDS ARE CORSE. SHE HAS A HARSH PRODUCTIVE COUGH. SHE IS RECIEVING TREATMENT WITH RT. SHE IS EAING AND DRINKIG WELL. SHE TOOK A SHOWER DURING THIS SHIFT. TELEMETRY WAS DISCONTINUED. SHE IS RECIEVING IV ANTIBIOTICS AND IV STEROIDS.
--- NOTE | 2019-06-30 06:25 | NUR ---
SHIFT SUMMARY: VSS. AFEB. 02 92-94% ON RA. WHEEZES AUSCULTATED IN L MID LOBE AND BLL. OCC. HARSH, PRODUCTIVE COUGH. PT STATES SPUTUM IS YELLOW. UP INDEPENDENTLY IN ROOM. NO EXERTIONAL SOB WITNESSED FROM BED TO TOILET AND BACK. SLEPT THROUGH MUCH OF THE NIGHT. NO ACUTE CHANGES. WILL CONT TO MONITOR.
[2019-06-30] MEDS ORDERED: PANT20 PO (11:20)
[2019-06-30] MEDS ORDERED: LEVO750 PO (11:21)
[2019-06-30] MEDS ORDERED: PRED20 PO (11:22)
--- NOTE | 2019-06-30 16:47 | NUR ---
DISCHARGE SUMMARY PT ALERT AND ORIENTED THROUGHOUT THIS SHIFT. PT DISCHARGED TO HOME AT [facility]. PT INDEPENDENT IN THE ROOM PRIOR TO DISCHARGE. IV REMOVED PRIOR TO DISCHARGE. PT MEDICATION LIST FAXED TO [facility] PRIOR TO DISCHARGE. PT TRANSPORTED VIA MEDICAL TRANSPORT. PT INDEPENDENT TO WHEELCHAIR AND FROM WHEELCHAIR TO VEHICLE UPON DISCHARGE.
== END 2019-06-30 12:45 | disposition home or self-care (01) | DRG 193 ==
LOC: ER 14:56 → MEDS 19:57 → ENPENDDIS 06-30 10:37 → MEDS 06-30 12:45
PROVIDERS: Internal Medicine; Physician Assistant; ADMIT Internal Medicine
DX: J18.9 Pneumonia, unspecified organism (principal); J96.01 Acute respiratory failure with hypoxia; J44.1 Chronic obstructive pulmonary disease with (acute) exacerbation; J44.0 Chronic obstructive pulmonary disease with (acute) lower respiratory infection; J45.901 Unspecified asthma with (acute) exacerbation; K44.9 Diaphragmatic hernia without obstruction or gangrene; E78.5 Hyperlipidemia, unspecified; F89 Unspecified disorder of psychological development; K21.9 Gastro-esophageal reflux disease without esophagitis; D63.8 Anemia in other chronic diseases classified elsewhere
CPT/HCPCS: 0099U; 36415; 71046; 71250; 80053; 80069; 82274; 83880; 84484; 85025; 85027; 87070; 87205; 87804; 92610; 93005; 93010; 94640; 94644; 94760; 96360; 96361; 99285-25; A9270-GY; C9113; J1650; J1956; J2930; J7120; J7512

== ENCOUNTER 2019-08-21 13:09 | Inpatient (IN) | payer MEDICARE, OTHER ==
[~2019-08-21] VITALS: Ht 152.4 cm; Wt 43.3 kg
[~2019-08-21 13:09] MED LIST changes: +ATOR40TA PO; +Aspir 8181 MG PO; +BENZ100A PO; +Duoneb 2.5-0.5 M3 ML NEB; +FERSU300 PO; +GUAIFENESIN-DM 15 ML PO; +Ventolin/Prove6.7 GM INH
[2019-08-21 13:56] LABS: Hematocrit 35.7 % (33.0-51.0); Hemoglobin 10.4 g/dL (11.5-16.0); Mean Corpuscular HGB 22.9 pg (26.0-34.0); Mean Corpuscular HGB Conc 29.1 g/dL (31.5-36.5); Mean Corpuscular Volume 79 fL (80-100); Platelet Count 208 K/mm3 (150-400); RDW Coefficient Variation 17.3 % (11.7-14.2); RDW Standard Deviation 49.8 fL (35.1-46.3); Red Blood Cell Count 4.54 M/mm3 (3.80-5.20); White Blood Cell Count 16.38 K/mm3 (4.00-11.30)
[2019-08-21 13:58] LABS: Mean Platelet Volume 12.2 fL (9.1-12.4)
[2019-08-21 14:14] LABS: Alanine Aminotransfer (ALT/SGP 18 U/L (12-78); Albumin, Blood 3.1 g/dL (3.4-5.0); Albumin/Globulin Ratio 0.7 (0.8-1.8); Alk Phos 106 U/L (50-136); Anion Gap 6 mmol/L (6-16); Aspartate Aminotrans (AST/SGOT 22 U/L (12-37); Bilirubin, Total 0.7 mg/dL (0.1-1.0); Blood Urea Nitrogen 12 mg/dL (8-24); CO2, Blood 26 mmol/L (21-32); Calcium, Blood 8.9 mg/dL (8.5-10.1); Chloride, Blood 108 mmol/L (98-108); Creatinine, Blood 0.55 mg/dL (0.40-1.00); Globulin, Blood 4.4 g/dL (2.2-4.0); Glomerular Filtration Rate >60 (60-); Glucose, Blood 113 mg/dL (70-99); Potassium, Blood 3.7 mmol/L (3.5-5.5); Sodium, Blood 140 mmol/L (136-145); Total Protein, Blood 7.5 g/dL (6.4-8.2); Troponin I <0.015 ng/mL (0.000-0.040)
[2019-08-21 14:27] LABS: BASOPHILS ABSOLUTE MAN 0.16 K/mm3 (0.00-0.23); BASOPHILS PERCENT MAN 1 % (0-2); EOSINOPHILS ABSOLUTE MAN 3.43 K/mm3 (0.00-0.68); EOSINOPHILS PERCENT MAN 21 % (0-6); LYMPHOCYTES ABSOLUTE MAN 3.76 K/mm3 (0.84-5.20); LYMPHOCYTES PERCENT MAN 23 % (21-46); MONOCYTES PERCENT MAN 0 % (4-13); SEG NEUTROPHILS PERCENT MAN 55 % (41-73); TOTAL CELLS COUNTED 100
[2019-08-21 14:43] LABS: Base Excess Venous 1.3 mmol/L; Bicarbonate Venous 24.6 mmol/L (24.0-30.0); PCO2 Venous 50.8 mmHg (38-42); pH Blood Venous 7.34 (7.34-7.37)
[2019-08-21] MEDS ORDERED: PRED20 PO (15:19)
[2019-08-21] MEDS ORDERED: AZIT500 PO (15:19)
[2019-08-21] MEDS ORDERED: ALBU90OI INH (15:20)
[2019-08-21 16:14] LABS: Adenovirus Not Detected (NOT DETECT); Bordetella pertussis Not Detected (NOT DETECT); Chlamydophila pneumoniae Not Detected (NOT DETECT); Coronavirus 229E Not Detected (NOT DETECT); Coronavirus HKU1 Not Detected (NOT DETECT); Coronavirus NL63 Not Detected (NOT DETECT); Coronavirus OC43 Not Detected (NOT DETECT); Human Metapneumovirus Not Detected (NOT DETECT); Human Rhinovirus/Enterovirus Not Detected (NOT DETECT); Influenza A/2009-H1 Not Detected (NOT DETECT); Influenza A/H1 Not Detected (NOT DETECT); Influenza A/H3 Not Detected (NOT DETECT); Influenza B Not Detected (NOT DETECT); Mycoplasma pneumoniae Not Detected (NOT DETECT); Parainfluenza Virus 1 Not Detected (NOT DETECT); Parainfluenza Virus 2 Not Detected (NOT DETECT); Parainfluenza Virus 3 Not Detected (NOT DETECT); Parainfluenza Virus 4 Not Detected (NOT DETECT); Respiratory Syncytial Virus Not Detected (NOT DETECT)
--- NOTE | 2019-08-21 19:28 | NUR ---
new er admit RECIEVED REPORT FROM STEWARD/STEWARDESS BATH, NOTED THAT LACTIC ACID CH 6.5, RADIO REPAIR TEACHER NOTIFIED, RECHECK W NURS SUPVR WHO STATE PT IS APPROP FOR MED FLOOR. DR NOVA NOTIFIED OF CH LACTIC ACID ORDER NS BOLUS, STARTED BY STEWARD/STEWARDESS BATH & INFUSING ON ARRIVAL TO FLOOR. PT IS A/O X3, HX DEVELOPMENTAL DELAY, SOMEWHAT CHILDLIKE. SHE STATE "NOT FEELING WELL". STATE SOB. SHE SPEAKS IN FULL SENTENCES, BIOX 93% RA. LUNGS COARSE. NOC RN WILL CALL FOR NEB TX NEEDED. SHE STATE HUNGER, SNACK & FLUIDS PROVIDED. REPORT TO NOC RN, NOC CHARGE WHO WILL COMPLETE ADMISSION & CLARIFY ORDERS.
--- NOTE | 2019-08-21 21:48 | NUR ---
Roberta PARHAM, MICROGRAPHICS SERVICES SUPERVISOR AWARE LACTIC ACID 5.7; MICROGRAPHICS SERVICES SUPERVISOR DESIRES DAY SHIFT MD TO REORDER ANOTHER LACTIC ACID IF DESIRED IN AM (Roberta PARHAM DECLINED TO ORDER ANOTHER TEST).
[2019-08-22 04:55] LABS: BASOPHILS PERCENT AUTO 0 % (0-2); EOSINOPHILS PERCENT AUTO 0 % (0-6); Hematocrit 28.2 % (33.0-51.0); Hemoglobin 8.4 g/dL (11.5-16.0); IMMATURE GRAN ABSOLUTE AUTO 0.04 K/mm3 (0.00-0.10); IMMATURE GRAN PERCENT AUTO 0 % (0-1); LYMPHOCYTES ABSOLUTE AUTO 0.71 K/mm3 (0.84-5.20); LYMPHOCYTES PERCENT AUTO 8 % (21-46); MONOCYTES ABSOLUTE AUTO 0.14 K/mm3 (0.16-1.47); MONOCYTES PERCENT AUTO 2 % (4-13); Mean Corpuscular HGB 23.3 pg (26.0-34.0); Mean Corpuscular HGB Conc 29.8 g/dL (31.5-36.5); Mean Corpuscular Volume 78 fL (80-100); Mean Platelet Volume 12.4 fL (9.1-12.4); NEUTROPHILS ABSOLUTE AUTO 8.31 K/mm3 (1.96-9.15); NEUTROPHILS PERCENT AUTO 90 % (41-73); Platelet Count 181 K/mm3 (150-400); RDW Coefficient Variation 17.2 % (11.7-14.2); RDW Standard Deviation 49.1 fL (35.1-46.3); Red Blood Cell Count 3.61 M/mm3 (3.80-5.20)
[2019-08-22 05:12] LABS: Anion Gap 8 mmol/L (6-16); Blood Urea Nitrogen 7 mg/dL (8-24); Bun/Creatinine Ratio 17.5 (12.0-20.0); CO2, Blood 21 mmol/L (21-32); Calcium, Blood 8.1 mg/dL (8.5-10.1); Chloride, Blood 115 mmol/L (98-108); Glomerular Filtration Rate >60 (60-); Glucose, Blood 187 mg/dL (70-99); Potassium, Blood 3.3 mmol/L (3.5-5.5); Sodium, Blood 144 mmol/L (136-145)
--- NOTE | 2019-08-22 06:17 | NUR ---
SHIFT SUMMARY: 63 Y/O FEMALE RESTED COMFORTABLY ALL SHIFT WITH NO RESPIRATORY DISTRESS NOTED; PT ALERT AND ORIENTED X 4; TELEMETRY REFLECTS NSR WITH HEART RATE 72 PER MEGHAN--STITCHER HAND; ALERT AND ORIENTED X 2; ABLE TO FOLLOW ALL SIMPLE VERBAL COMMANDS; BED ALARM APPLIED, BED LOW POSITION WITH CALL LIGHT AT SIDE.
[2019-08-22 09:25] LABS: Magnesium, Blood 2.1 mg/dL (1.6-2.4)
[2019-08-22 09:26] LABS: Phosphorus, Blood 2.3 mg/dL (2.5-4.9)
--- NOTE | 2019-08-22 18:18 | NUR ---
PT HAS BEEN COOPERATIVE WITH CARE T/O THE SHIFT, SHE IS R/O OUT COVID AND RECEIVING RESP TX. SHE HAS BEEN QUITE HUNGRY TODAY, ASKING FREQ FOR JELLO AND PUDDING. NO ACUTE CHANGES NOTED THIS SHIFT, WILL CONTINUE TO MONITOR AND REPORT TO ONCOMING RN
--- NOTE | 2019-08-22 21:53 | NUR ---
PT RESTING COMFORTABLY IN BED; DENIES PAIN OR NAUSEA
--- NOTE | 2019-08-23 04:41 | NUR ---
SHIFT SUMMARY: 63 Y/O FEMALE RESTED COMFORTABLY ALL SHIFT; DENIES PAIN OR NAUSEA; TELEMETRY REFLECTS NSR WITH HEART RATE 68 PER MEGHAN--WORK ORDER SORTING CLERK; ABLE TO PIVOT AND TRANSFER TO VOID ONTO BSC; LUNG SOUNDS ARE COARSE THROUGHOUT WITH NO COUGH NOTED; PT TAKING NEBULIZER TREATMENTS PRN VIA RT; BED LOW POSITION WITH CALL LIGHT AT SIDE.
[2019-08-23 05:07] LABS: BASOPHILS ABSOLUTE AUTO 0.03 K/mm3 (0.00-0.23); BASOPHILS PERCENT AUTO 0 % (0-2); EOSINOPHILS PERCENT AUTO 0 % (0-6); Hematocrit 27.1 % (33.0-51.0); Hemoglobin 8.1 g/dL (11.5-16.0); IMMATURE GRAN ABSOLUTE AUTO 0.27 K/mm3 (0.00-0.10); IMMATURE GRAN PERCENT AUTO 1 % (0-1); LYMPHOCYTES ABSOLUTE AUTO 0.74 K/mm3 (0.84-5.20); LYMPHOCYTES PERCENT AUTO 2 % (21-46); MONOCYTES ABSOLUTE AUTO 0.71 K/mm3 (0.16-1.47); MONOCYTES PERCENT AUTO 2 % (4-13); Mean Corpuscular HGB 23.5 pg (26.0-34.0); Mean Corpuscular HGB Conc 29.9 g/dL (31.5-36.5); Mean Corpuscular Volume 79 fL (80-100); NEUTROPHILS ABSOLUTE AUTO 29.92 K/mm3 (1.96-9.15); NEUTROPHILS PERCENT AUTO 95 % (41-73); Platelet Count 196 K/mm3 (150-400); RDW Coefficient Variation 17.6 % (11.7-14.2); RDW Standard Deviation 49.8 fL (35.1-46.3); Red Blood Cell Count 3.45 M/mm3 (3.80-5.20); White Blood Cell Count 31.67 K/mm3 (4.00-11.30)
[2019-08-23 05:19] LABS: Mean Platelet Volume 12.3 fL (9.1-12.4)
[2019-08-23 05:27] LABS: Albumin, Blood 2.4 g/dL (3.4-5.0); Anion Gap 7 mmol/L (6-16); Blood Urea Nitrogen 12 mg/dL (8-24); CO2, Blood 24 mmol/L (21-32); Calcium, Blood 8.2 mg/dL (8.5-10.1); Chloride, Blood 114 mmol/L (98-108); Creatinine, Blood 0.46 mg/dL (0.40-1.00); Glomerular Filtration Rate >60 (60-); Glucose, Blood 195 mg/dL (70-99); Phosphorus, Blood 1.5 mg/dL (2.5-4.9); Potassium, Blood 3.2 mmol/L (3.5-5.5); Sodium, Blood 145 mmol/L (136-145)
[2019-08-24 05:40] LABS: BASOPHILS ABSOLUTE AUTO 0.03 K/mm3 (0.00-0.23); BASOPHILS PERCENT AUTO 0 % (0-2); EOSINOPHILS PERCENT AUTO 0 % (0-6); Hematocrit 27.1 % (33.0-51.0); Hemoglobin 8.1 g/dL (11.5-16.0); IMMATURE GRAN ABSOLUTE AUTO 0.21 K/mm3 (0.00-0.10); IMMATURE GRAN PERCENT AUTO 1 % (0-1); LYMPHOCYTES ABSOLUTE AUTO 1.41 K/mm3 (0.84-5.20); LYMPHOCYTES PERCENT AUTO 5 % (21-46); MONOCYTES ABSOLUTE AUTO 1.14 K/mm3 (0.16-1.47); MONOCYTES PERCENT AUTO 4 % (4-13); Mean Corpuscular HGB 23.6 pg (26.0-34.0); Mean Corpuscular HGB Conc 29.9 g/dL (31.5-36.5); Mean Corpuscular Volume 79 fL (80-100); NEUTROPHILS ABSOLUTE AUTO 26.12 K/mm3 (1.96-9.15); NEUTROPHILS PERCENT AUTO 90 % (41-73); Platelet Count 200 K/mm3 (150-400); RDW Standard Deviation 51.2 fL (35.1-46.3); Red Blood Cell Count 3.43 M/mm3 (3.80-5.20); White Blood Cell Count 28.91 K/mm3 (4.00-11.30)
[2019-08-24 05:41] LABS: Mean Platelet Volume 12.9 fL (9.1-12.4)
[2019-08-24 05:53] LABS: Percent Saturation 13.3 % (15.0-50.0)
[2019-08-24 06:05] LABS: Alanine Aminotransfer (ALT/SGP 16 U/L (12-78); Albumin, Blood 2.4 g/dL (3.4-5.0); Albumin/Globulin Ratio 0.7 (0.8-1.8); Alk Phos 81 U/L (50-136); Anion Gap 6 mmol/L (6-16); Aspartate Aminotrans (AST/SGOT 13 U/L (12-37); Bilirubin, Total <0.1 mg/dL (0.1-1.0); Blood Urea Nitrogen 19 mg/dL (8-24); Bun/Creatinine Ratio 38.5 (12.0-20.0); CO2, Blood 27 mmol/L (21-32); Calcium, Blood 8.4 mg/dL (8.5-10.1); Chloride, Blood 112 mmol/L (98-108); Creatinine, Blood 0.49 mg/dL (0.40-1.00); Globulin, Blood 3.4 g/dL (2.2-4.0); Glomerular Filtration Rate >60 (60-); Glucose, Blood 119 mg/dL (70-99); Potassium, Blood 3.7 mmol/L (3.5-5.5); Sodium, Blood 145 mmol/L (136-145); Total Protein, Blood 5.8 g/dL (6.4-8.2)
--- NOTE | 2019-08-24 06:27 | NUR ---
08/24/19 0630 AWAKENED FOR AM MED. STATES SHE SLEPT WELL. ASSISTED TO BSC PRN FOR VOIDINGS. VITALS STABLE. NO C/O PAIN OR OTHER S/S.
--- NOTE | 2019-08-24 15:16 | NUR ---
SHIFT SUMMARY PT IS A/O X 4 WITH NO C/O PAIN OR DISCOMFORT. SHE CONTINUES TO WORK WITH RT AND HAS NO S/S OF RESP DISTRESS. SHE IS A STAND BY ASSIST TO THE BSC FOR VOIDING. CARE MANAGEMENT CONTINUES TO WORK ON DC PLACEMENT FOR PT. SHE IS ABLE TO MAKE HER NEEDS KNOWN AND CALLS FOR HELP WHEN NEEDED.
--- NOTE | 2019-08-24 20:53 | NUR ---
ASSUMED CARE. STEPHANIE IS AOX3, COOPERATIVE, WATCHING TV. STATES SHE IS DOING OK. REPORTS PRODUCTIVE COUGH OF THIN YELLOW SPUTUM. NO OXYGEN, OR SOB NOTED. IS ABLE TO GET UP WITH SBA TO THE BATHROOM. GOOD APPETITE. REGULAR BM AND URINE OUTPUT. NO SKIN ISSUES. LUNG SOUNDS DIMINISHED BUT CLEAR. SATS GOOD ON RA. DENIES PAIN OR DISCOMFORT. MEDS GIVEN. ICE WATER GIVEN. DENIES ANY OTHER NEEDS. CALL LIGHT IN REACH.
--- NOTE | 2019-08-24 22:04 | NUR ---
GAVE PUDDING. SHE IS WATCHING TV. DENIES ANY OTHER NEEDS. ENCOURAGED HER TO CALL IF SHE DOES. CALL LIGHT IN REACH.
--- NOTE | 2019-08-25 04:51 | NUR ---
SHIFT SUMMARY: 63 Y/O FEMALE ADMITTED FOR ASTHMA EXACERBATION ON 08/21/19. LUNGS ARE CLEAR WITH DIMINISHED IN BASES. COUGH IS PRODUCTIVE WITH SMALL THIN YELLOW SPUTUM. SATS REMAIN IN 90'S ON RA. SHE CONTINUES TO WORK WITH RT WITH GOOD IMPROVEMENT. SBA TO THE BATHROOM. SLEPT GOOD THROUGHOUT THE NIGHT. DENIED ANY PAIN OR DISCOMFORT. ABLE TO MAKE HER NEEDS KNOWN, USES CALL LIGHT APPROPRIATLY. VS WNL, AFEBRILE. NO ACUTE CHANGES THIS SHIFT. WILL REPORT TO DAY SHIFT.
[2019-08-25 05:13] LABS: BASOPHILS ABSOLUTE AUTO 0.01 K/mm3 (0.00-0.23); BASOPHILS PERCENT AUTO 0 % (0-2); EOSINOPHILS ABSOLUTE AUTO 0.01 K/mm3 (0.00-0.68); EOSINOPHILS PERCENT AUTO 0 % (0-6); Hematocrit 28.4 % (33.0-51.0); Hemoglobin 8.4 g/dL (11.5-16.0); IMMATURE GRAN ABSOLUTE AUTO 0.11 K/mm3 (0.00-0.10); IMMATURE GRAN PERCENT AUTO 1 % (0-1); LYMPHOCYTES ABSOLUTE AUTO 2.48 K/mm3 (0.84-5.20); LYMPHOCYTES PERCENT AUTO 14 % (21-46); MONOCYTES ABSOLUTE AUTO 1.13 K/mm3 (0.16-1.47); MONOCYTES PERCENT AUTO 7 % (4-13); Mean Corpuscular HGB 23.3 pg (26.0-34.0); Mean Corpuscular HGB Conc 29.6 g/dL (31.5-36.5); Mean Corpuscular Volume 79 fL (80-100); Mean Platelet Volume 12.5 fL (9.1-12.4); NEUTROPHILS ABSOLUTE AUTO 13.61 K/mm3 (1.96-9.15); NEUTROPHILS PERCENT AUTO 78 % (41-73); Platelet Count 210 K/mm3 (150-400); RDW Coefficient Variation 17.9 % (11.7-14.2); RDW Standard Deviation 50.8 fL (35.1-46.3); Red Blood Cell Count 3.61 M/mm3 (3.80-5.20); White Blood Cell Count 17.35 K/mm3 (4.00-11.30)
[2019-08-25 05:31] LABS: Anion Gap 4 mmol/L (6-16); Blood Urea Nitrogen 13 mg/dL (8-24); Bun/Creatinine Ratio 26.7 (12.0-20.0); CO2, Blood 30 mmol/L (21-32); Calcium, Blood 8.4 mg/dL (8.5-10.1); Chloride, Blood 112 mmol/L (98-108); Creatinine, Blood 0.49 mg/dL (0.40-1.00); Glomerular Filtration Rate >60 (60-); Glucose, Blood 91 mg/dL (70-99); Potassium, Blood 3.7 mmol/L (3.5-5.5); Sodium, Blood 146 mmol/L (136-145)
[2019-08-25] MEDS ORDERED: PULMICORT0.5 MG/2 M INH (13:11)
[2019-08-25] MEDS ORDERED: PRED20 PO (13:14)
--- NOTE | 2019-08-25 13:33 | NUR ---
PT WAS DCD BACK TO [facility] WHERE SHE LIVES. SPOKE WITH [facility] NURSE THIS MORNING AND GAVE REPORT AND FAXED OVER ORDERS/LABS REQUESTED. CARE MANAGAGER SET UP [facility]AXI FOR HER TO GET BACK HOME. MED REC WAS FAXED TO PHARMACY ON FILE. ALL INSTRUCTIONS WERE REVIEWED WITH THE PT WHO VERBALIZED AN UNDERSTANDING. ALL QUESTIONS ANSWERED. MESSAGE WAS LEFT ON SCEDULING LINE FOR PCP FOLLOW UP AND A NOTE WAS MADE IN DC PACKET WELL NOTIFIED THE SENIOR COMMUNICATIONS SPECIALIST. IV WAS REMOVED WITH NO ISSUE. ALL PERSONAL BELONGINGS SENT WITH PT. PT STABLE UPON DC.
== END 2019-08-25 13:29 | disposition home or self-care (01) | DRG 202 ==
LOC: ER 13:09 → PCU 18:02 → ER 18:02 → MEDS 18:10
PROVIDERS: Emergency Medicine; Internal Medicine; ADMIT Internal Medicine
PROC: 8E0ZXY6 Isolation (ICD-10-PCS; principal; 2019-08-21)
DX: J45.901 Unspecified asthma with (acute) exacerbation (principal); J96.01 Acute respiratory failure with hypoxia; J44.1 Chronic obstructive pulmonary disease with (acute) exacerbation; K21.9 Gastro-esophageal reflux disease without esophagitis; E78.5 Hyperlipidemia, unspecified; Z79.82 Long term (current) use of aspirin; R62.50 Unspecified lack of expected normal physiological development in childhood; E87.6 Hypokalemia; R73.9 Hyperglycemia, unspecified; D64.9 Anemia, unspecified; Z20.828 Contact with and (suspected) exposure to other viral communicable diseases
CPT/HCPCS: 0099U; 36415; 71045; 80048; 80053; 80069; 82728; 82803; 83036; 83540; 83550; 83605; 83735; 83880; 84100; 84145; 84484; 85025; 87040; 93005; 93010; 94640; 94644; 94760; 96361; 96365; 96366; 99285-25; A9270-GY; C9113; J0696; J1650; J2930; J7030; J7512; U0003

== ENCOUNTER 2019-09-08 10:53 | Emergency (ER) | payer MEDICARE, OTHER ==
[~2019-09-08] VITALS: Ht 149.9 cm; Wt 40.8 kg
[~2019-09-08 10:53] MED LIST changes: +PULMICORT0.5 MG/2 M INH
[2019-09-08] MEDS ORDERED: METPRE4DP PO (11:58)
== END 2019-09-08 12:08 | disposition home or self-care (01) ==
LOC: ER 10:53
DX: J45.901 Unspecified asthma with (acute) exacerbation (principal); K21.9 Gastro-esophageal reflux disease without esophagitis; E78.5 Hyperlipidemia, unspecified; Z79.2 Long term (current) use of antibiotics; Z79.52 Long term (current) use of systemic steroids; Z79.899 Other long term (current) drug therapy; Z79.82 Long term (current) use of aspirin
CPT/HCPCS: 94640; 99284

== ENCOUNTER 2019-09-11 08:54 | Emergency (ER) | payer MEDICARE, OTHER ==
[~2019-09-11] VITALS: Ht 149.9 cm; Wt 40.8 kg
[~2019-09-11 08:54] MED LIST changes: +METPRE4DP PO
[2019-09-11] MEDS ORDERED: Prednisone20 MG PO (10:07)
== END 2019-09-11 10:24 | disposition home or self-care (01) ==
LOC: ER 08:54
DX: J45.909 Unspecified asthma, uncomplicated (principal); K21.9 Gastro-esophageal reflux disease without esophagitis; G40.909 Epilepsy, unspecified, not intractable, without status epilepticus; E78.5 Hyperlipidemia, unspecified; Z79.899 Other long term (current) drug therapy; Z79.82 Long term (current) use of aspirin
CPT/HCPCS: 94640; 99283-25; J7512

== ENCOUNTER 2019-09-24 03:45 | Observation (INO) | payer MEDICARE, OTHER ==
[~2019-09-24] VITALS: Ht 149.9 cm; Wt 40.8 kg
[~2019-09-24 03:45] MED LIST changes: +MONT10T PO
[2019-09-24 04:09] LABS: PCO2 Arterial 34.8 mmHg (35-45); PO2 Arterial 68.4 mmHg (80-100); pH Blood Arterial 7.46 (7.35-7.45)
[2019-09-24 04:13] LABS: BASOPHILS ABSOLUTE AUTO 0.09 K/mm3 (0.00-0.23); BASOPHILS PERCENT AUTO 1 % (0-2); EOSINOPHILS ABSOLUTE AUTO 1.49 K/mm3 (0.00-0.68); EOSINOPHILS PERCENT AUTO 14 % (0-6); Hematocrit 39.4 % (33.0-51.0); Hemoglobin 11.8 g/dL (11.5-16.0); IMMATURE GRAN ABSOLUTE AUTO 0.03 K/mm3 (0.00-0.10); IMMATURE GRAN PERCENT AUTO 0 % (0-1); LYMPHOCYTES ABSOLUTE AUTO 2.35 K/mm3 (0.84-5.20); LYMPHOCYTES PERCENT AUTO 22 % (21-46); MONOCYTES ABSOLUTE AUTO 0.79 K/mm3 (0.16-1.47); MONOCYTES PERCENT AUTO 7 % (4-13); Mean Corpuscular HGB 24.9 pg (26.0-34.0); Mean Corpuscular HGB Conc 29.9 g/dL (31.5-36.5); Mean Corpuscular Volume 83 fL (80-100); Mean Platelet Volume 11.9 fL (9.1-12.4); NEUTROPHILS ABSOLUTE AUTO 6.16 K/mm3 (1.96-9.15); NEUTROPHILS PERCENT AUTO 57 % (41-73); Platelet Count 261 K/mm3 (150-400); RDW Coefficient Variation 21.6 % (11.7-14.2); RDW Standard Deviation 64.4 fL (35.1-46.3); Red Blood Cell Count 4.74 M/mm3 (3.80-5.20); White Blood Cell Count 10.91 K/mm3 (4.00-11.30)
[2019-09-24 04:34] LABS: Alanine Aminotransfer (ALT/SGP 18 U/L (12-78); Albumin, Blood 3.2 g/dL (3.4-5.0); Albumin/Globulin Ratio 0.8 (0.8-1.8); Alk Phos 118 U/L (50-136); Anion Gap 5 mmol/L (6-16); Aspartate Aminotrans (AST/SGOT 16 U/L (12-37); Bilirubin, Total 0.3 mg/dL (0.1-1.0); Blood Urea Nitrogen 14 mg/dL (8-24); Bun/Creatinine Ratio 24.4 (12.0-20.0); CO2, Blood 26 mmol/L (21-32); Calcium, Blood 8.7 mg/dL (8.5-10.1); Chloride, Blood 111 mmol/L (98-108); Creatinine, Blood 0.57 mg/dL (0.40-1.00); Globulin, Blood 4.1 g/dL (2.2-4.0); Glomerular Filtration Rate >60 (60-); Glucose, Blood 118 mg/dL (70-99); Potassium, Blood 3.5 mmol/L (3.5-5.5); Sodium, Blood 142 mmol/L (136-145); Total Protein, Blood 7.3 g/dL (6.4-8.2); Troponin I <0.015 ng/mL (0.000-0.040)
--- NOTE | 2019-09-24 06:46 | NUR ---
0625 REPORT RECEIVED FROM LUAN RN, ER NURSE; TO PCU12 PER CART; PT STOOD AND TRANSFERRED FROM CART TO BED; NEBULIZER TREATMENT APPLIED TO FINISH UP THAT WAS STARTED IN ER; LEVAQUIN 750MG IVPB STARTED; ALERT AND ORIENTED X 4; TELEMETRY APPLIED AND REFLECTS NSR PER MEGHAN--AGING BOX HAND; DROPLET ISOLATION STARTED; PT STILL NEEDS COVID 19 TEST.
--- NOTE | 2019-09-24 07:37 | NUR ---
ASSUMED CARE: PT RESTING QUIETLY IN BED. SPEAKING WITH STAFF. ASKING IF SHE CAN EAT. NO FURTHER NEEDS OR CONCERNS AT THIS TIME.
--- NOTE | 2019-09-24 17:22 | NUR ---
Geraldine was welcoming of prayer and encouragement. She is hopeful she will recover. She smiles easily but said very little. I will remain available.
--- NOTE | 2019-09-24 18:51 | NUR ---
SHIFT SUMMARY: PT RESTING IN BED WITH MINIMAL ASSISTANCE NEEDED FOR AMBULATION. FORGETFUL AT TIMES BY ASKING SAME QUESTIONS WHILE NURSE IS IN ROOM. NO ACUTE DISTRESS OR CONCERNS. ON ROOM AIR.
--- NOTE | 2019-09-25 00:15 | NUR ---
PATIENT REPORTS DONE WATCHING TV AND WANTS LIGHTS TURNED OUT. IV SOLU-MEDROL GIVEN PER EMAR. COOPERATIVE WITH CARE. LR INFUSING AT 100 mL/HR. WILL CONTINUE TO MONITOR.
--- NOTE | 2019-09-25 04:42 | NUR ---
SHIFT SUMMARY PATIENT HAD NO ACUTE CHANGES OBSERVED. AXOX 2 WITH SHORT TERM MEMORY DEFICIT AT TIMES. ONE ASSIST TO BR. PIV REPLACED AFTER BEING PULLED OUT. LR INFUSING AT 100 mL/HR. DENIES PAIN, SOB, AND N/V. VSS/AFEBRILE. DROPLET PRECAUTIONS FOR COVID R/O. TAKES MEDICAITON WHOLE WITH WATER. COOPERATIVE WITH CARE. CALL LIGHT IN REACH. BED IN LOWEST POSITION. WILL CONTINUE TO MONITOR UNTIL DAY SHIFT NURSE ASSUMES CARE.
--- NOTE | 2019-09-25 08:54 | NUR ---
ASSUMED CARE AT 0700, RESTING SUPINE IN HIGH FOWLERS IN BED, NO O2 AT THIS TIME, MAININTAING SATS OF 98%. A/A/0X3, WITH COGNITIVE DEVELOPMENTAL DELAY. IV PULLED BY PT PRIOR TO SHIFT CHANGE. 20G IV RIGHT WRIST ESTABLISHED. RL INFUSING AT 100ML/HR. PLAN OF CARE REVIEWED, DENIES NEEDS.
--- NOTE | 2019-09-25 11:53 | NUR ---
PATIENT ARRIVED ON THIS UNIT AT 1130. RT CALLED FOR PRN BREATHING TREATMENT. WILL MONITOR
--- NOTE | 2019-09-25 17:58 | NUR ---
PATIENT IS ALERT AND ORIENTED AND COOPERATIVE WITH CARE. SHE CALLS APPROPRIATELY TO USE THE BATHROOM AND FOR BREATHING TREATMENTS. NO COMPLAINTS OF PAIN. ON RA WHICH IS HER BASELINE. WILL CONTINUE TO MONITOR
--- NOTE | 2019-09-26 07:36 | NUR ---
63 year old famale with developmental delay who lives at [facility] came bach lat this shift as covid 19 neg. Continues on room air & asks for nebs several times PRN. She did pretend to take some HS meds & was watched closely this am to assure compliance with rx. She has large amt of thin sputum, pink yellow tinge.
--- NOTE | 2019-09-26 18:02 | NUR ---
SUMMARY PT SITTING UP IN BED EATING DINNER, PT HAS BEEN PLEASANT AND COOPERATIVE WITH CARE T/O THE DAY, PLAN TO DC TO [facility] SATURDAY, VSS, NO ACUTE CHANGES, WILL CONT TO MONITOR
--- NOTE | 2019-09-27 05:00 | NUR ---
SHIFT SUMMARY NO ACUTE CHANGES TO REPORT THIS SHIFT. PT HAS RESTED WELL, RESP E/U ON RA. SATS MAINTAIEND ABOVE 95%. SHE REPORTS SOME MILD SOB, BUT DENIES ANY NEEDS FOR OXYGEN. A/OX4, CALLS APPROPRIATELY. POSSIBLE DC TODAY. BED IN LOWEST POSITION, CALL LIGHT WITHIN REACH. WILL CONTINUE TO MONITOR AND REPORT TO ONCOMING RN.
--- NOTE | 2019-09-27 18:07 | NUR ---
SHIFT SUMMARY- NO ACUTE CHANGES T/O SHIFT. INDEPENDENT WITH BATHROOM PRIVLEDGES. BREATHING TREATMENT X2 TODAY. PT IS ON RA. COMPLAINED OF SOB ONCE AND RT WAS CALLED FOR BREATHING TREATMENT. NO COMPLAINTS OF PAIN. COOPERATIVE AND PLEASANT T/O DAY.
--- NOTE | 2019-09-27 18:25 | NUR ---
I CONCUR WITH THIS ACCORDION REPAIRER DOCUMENTATION
--- NOTE | 2019-09-28 05:20 | NUR ---
SHIFT SUMMARY NO ACUTE CHANGES TO REPORT THIS SHIFT. PT HAS RESTED MOST OF THE NIGHT AND HAS DENIED NEEDS WHEN ASKED. ASSESSMENT HAS REMAINED UNCHANGED. PLAN IS FOR DC TO [facility] TODAY.
[2019-09-28] MEDS ORDERED: ALBU90OI INH (10:50)
[2019-09-28] MEDS ORDERED: LEVOFLOXACIN750 MG PO (11:12)
[2019-09-28] MEDS ORDERED: DELTASONE20 M1 PO (11:13)
[2019-09-28] MEDS ORDERED: HIGH POTENCY P1 EAC1 PO (11:15)
--- NOTE | 2019-09-28 13:17 | NUR ---
DISCHARGE NOTE PT DISCHARGE TO HOME AT [facility]. [facility] CALLED TO PROVIDE TRANSPORTATION. PT ALERT THROUGHOUT THIS SHIFT, WITHOUT DIFFICULTY BREATHING. PT INDEPENDENT IN THE ROOM THIS SHIFT. IV REMOVED PRIOR TO DISCHARGE. DISCHARGE INSTRUCTIONS AND EDUCATION PROVIDED, PT STATES NO QUESTIONS AT THIS TIME. PT TO [facility] IN WHEELCHAIR.
== END 2019-09-28 13:20 | disposition home or self-care (01) ==
LOC: ER 03:45 → PCU 03:46 → MEDS 09-25 11:30 → ENPENDDIS 09-28 12:49 → MEDS 09-28 13:20
PROVIDERS: Emergency Medicine; ADMIT Family Medicine
DX: J96.01 Acute respiratory failure with hypoxia (principal); A41.9 Sepsis, unspecified organism; J20.9 Acute bronchitis, unspecified; J45.901 Unspecified asthma with (acute) exacerbation; I95.9 Hypotension, unspecified; K21.9 Gastro-esophageal reflux disease without esophagitis; D64.9 Anemia, unspecified; E78.5 Hyperlipidemia, unspecified; Z79.82 Long term (current) use of aspirin; Z79.899 Other long term (current) drug therapy
CPT/HCPCS: 36415; 36600; 71046; 80053; 82803; 83605; 84484; 85025; 87040; 87070; 87077; 87186; 87205; 93005; 93010; 94640; 94644; 94760; 96365; 96366; 96372; 96374; 96375; 96376; 99285-25; A9270-GY; C9113; G0378; J1650; J1956; J2543; J2930; J7120; U0003

== ENCOUNTER 2019-11-15 15:36 | Emergency (ER) | payer MEDICARE, OTHER ==
[~2019-11-15] VITALS: Ht 144.8 cm; Wt 52.2 kg
[~2019-11-15 15:36] MED LIST changes: -ATOR40TA PO; -Aspir 8181 MG PO; -BENZ100A PO; +DELTASONE20 M1 PO; -FERSU300 PO; -GUAIFENESIN-DM 15 ML PO; +HIGH POTENCY P1 EAC1 PO; +LEVOFLOXACIN750 MG PO; -MONT10T PO; -PULMICORT0.5 MG/2 M INH
[2019-11-15 16:03] LABS: BASOPHILS ABSOLUTE AUTO 0.11 K/mm3 (0.00-0.23); BASOPHILS PERCENT AUTO 1 % (0-2); EOSINOPHILS ABSOLUTE AUTO 5.71 K/mm3 (0.00-0.68); EOSINOPHILS PERCENT AUTO 32 % (0-6); Hematocrit 41.5 % (33.0-51.0); Hemoglobin 12.9 g/dL (11.5-16.0); IMMATURE GRAN ABSOLUTE AUTO 0.04 K/mm3 (0.00-0.10); IMMATURE GRAN PERCENT AUTO 0 % (0-1); LYMPHOCYTES ABSOLUTE AUTO 3.45 K/mm3 (0.84-5.20); LYMPHOCYTES PERCENT AUTO 19 % (21-46); MONOCYTES ABSOLUTE AUTO 0.89 K/mm3 (0.16-1.47); MONOCYTES PERCENT AUTO 5 % (4-13); Mean Corpuscular HGB 26.4 pg (26.0-34.0); Mean Corpuscular HGB Conc 31.1 g/dL (31.5-36.5); Mean Corpuscular Volume 85 fL (80-100); Mean Platelet Volume 11.8 fL (9.1-12.4); NEUTROPHILS ABSOLUTE AUTO 7.91 K/mm3 (1.96-9.15); NEUTROPHILS PERCENT AUTO 44 % (41-73); Platelet Count 198 K/mm3 (150-400); RDW Coefficient Variation 19.4 % (11.7-14.2); RDW Standard Deviation 59.9 fL (35.1-46.3); Red Blood Cell Count 4.89 M/mm3 (3.80-5.20); White Blood Cell Count 18.11 K/mm3 (4.00-11.30)
[2019-11-15] MEDS ORDERED: PURE & GENTLE133 ML PR (16:05)
[2019-11-15 16:26] LABS: Alanine Aminotransfer (ALT/SGP 25 U/L (12-78); Albumin, Blood 3.3 g/dL (3.4-5.0); Albumin/Globulin Ratio 0.8 (0.8-1.8); Alk Phos 226 U/L (50-136); Anion Gap 6 mmol/L (6-16); Aspartate Aminotrans (AST/SGOT 36 U/L (12-37); Bilirubin, Total 0.5 mg/dL (0.1-1.0); Blood Urea Nitrogen 8 mg/dL (8-24); Bun/Creatinine Ratio 13.2 (12.0-20.0); CO2, Blood 27 mmol/L (21-32); Calcium, Blood 9.1 mg/dL (8.5-10.1); Chloride, Blood 111 mmol/L (98-108); Creatinine, Blood 0.61 mg/dL (0.40-1.00); Globulin, Blood 4.4 g/dL (2.2-4.0); Glomerular Filtration Rate >60 (60-); Glucose, Blood 110 mg/dL (70-99); Potassium, Blood 3.8 mmol/L (3.5-5.5); Sodium, Blood 144 mmol/L (136-145); Total Protein, Blood 7.7 g/dL (6.4-8.2); Troponin I <0.015 ng/mL (0.000-0.040)
[2019-11-15] MEDS ORDERED: DELTASONE20 MG PO (17:32)
[2019-12-07] MEDS ORDERED: AZIT250 PO (11:17)
[2019-12-07] MEDS ORDERED: Prednisone10 MG PO (11:18)
[2019-12-10] MEDS ORDERED: IPRAT-ALBUT 0.5-3 ML NEB (21:26)
[2019-12-10] MEDS ORDERED: Aspir 8181 MG PO (21:26)
[2019-12-10] MEDS ORDERED: ACET325 PO (21:27)
[2019-12-10] MEDS ORDERED: MONT10T PO (21:27)
[2019-12-10] MEDS ORDERED: MAXI-TUSS G LI473 ML PO (21:28)
[2019-12-10] MEDS ORDERED: FERROUS SULFAT325 M3 PO (21:28)
[2019-12-10] MEDS ORDERED: OLAN2.5 PO (21:28)
[2019-12-10] MEDS ORDERED: ATOR40TA PO (21:28)
[2019-12-10] MEDS ORDERED: DOCU100 PO (21:29)
[2019-12-10] MEDS ORDERED: BENZ100A PO (21:30)
[2019-12-10] MEDS ORDERED: PULMICORT0.5 MG/21 NEB (21:30)
[2019-12-10] MEDS ORDERED: PANT20 PO (21:30)
[2019-12-10] MEDS ORDERED: ALBU90OI INH (21:31)
[2019-12-10] MEDS ORDERED: TUMS500 MG PO (21:31)
[2019-12-10] MEDS ORDERED: BISA10S PR (21:31)
[2019-12-10] MEDS ORDERED: Milk Of Ma400 MG/5 M PO (21:32)
[2019-12-10] MEDS ORDERED: LOPE2C PO (21:32)
[2019-12-10] MEDS ORDERED: calmoseptine oint TOP (21:32)
[2019-12-10] MEDS ORDERED: Acidophilus1 EAC1 PO (21:33)
[2019-12-12] MEDS ORDERED: PRED20 PO (11:14)
== END 2019-11-15 18:10 | disposition home or self-care (01) ==
LOC: ER 15:36
PROVIDERS: Student in an Organized Health Care Education/Training Program
DX: J45.901 Unspecified asthma with (acute) exacerbation (principal); Z79.899 Other long term (current) drug therapy; K21.9 Gastro-esophageal reflux disease without esophagitis; G40.909 Epilepsy, unspecified, not intractable, without status epilepticus; E78.5 Hyperlipidemia, unspecified
CPT/HCPCS: 36415; 71046; 80053; 84484; 85025; 93005; 93010; 99285-25; J7512

== ENCOUNTER 2019-12-12 17:01 | Emergency (ER) | payer MEDICARE, OTHER ==
[~2019-12-12] VITALS: Ht 142.2 cm; Wt 45.4 kg
[~2019-12-12 17:01] MED LIST changes: +ATOR40TA PO; +Acidophilus1 EAC1 PO; +Aspir 8181 MG PO; +BENZ100A PO; +BISA10S PR; +FERROUS SULFAT325 M3 PO; +IPRAT-ALBUT 0.5-3 ML NEB; +LOPE2C PO; +MAXI-TUSS G LI473 ML PO; +MONT10T PO; +Milk Of Ma400 MG/5 M PO; +PULMICORT0.5 MG/21 NEB; +PURE & GENTLE133 ML PR; +Prednisone10 MG PO; +TUMS500 MG PO; +calmoseptine oint TOP
== END 2019-12-12 17:50 | disposition home or self-care (01) ==
LOC: ER 17:01
DX: Z20.828 Contact with and (suspected) exposure to other viral communicable diseases (principal); J44.9 Chronic obstructive pulmonary disease, unspecified; I25.10 Atherosclerotic heart disease of native coronary artery without angina pectoris; Z79.899 Other long term (current) drug therapy; Z79.52 Long term (current) use of systemic steroids
CPT/HCPCS: 99283; U0002

== ENCOUNTER → 2020-02-22 | Outpatient (CLI) | payer MEDICARE ==
[~2020-02-22] MED LIST changes: +ACET500 PO; +BISMATROL262 MG/15 PO; +CHEST CONGESTI473 ML PO; +ERGO50000 PO; -MAXI-TUSS G LI473 ML PO; +OLAN5 PO; +TRIPLE ANTIBIOT28 GM TOP
[2020-02-22 20:03] LABS: Percent Saturation 19.4 % (15.0-50.0)
[2020-02-22 20:05] LABS: BASOPHILS ABSOLUTE AUTO 0.09 K/mm3 (0.00-0.23); BASOPHILS PERCENT AUTO 1 % (0-2); EOSINOPHILS ABSOLUTE AUTO 1.99 K/mm3 (0.00-0.68); EOSINOPHILS PERCENT AUTO 18 % (0-6); Hematocrit 41.7 % (33.0-51.0); Hemoglobin 13.3 g/dL (11.5-16.0); IMMATURE GRAN ABSOLUTE AUTO 0.02 K/mm3 (0.00-0.10); IMMATURE GRAN PERCENT AUTO 0 % (0-1); LYMPHOCYTES PERCENT AUTO 18 % (21-46); MONOCYTES PERCENT AUTO 6 % (4-13); Mean Corpuscular HGB Conc 31.9 g/dL (31.5-36.5); Mean Corpuscular Volume 88 fL (80-100); NEUTROPHILS ABSOLUTE AUTO 6.26 K/mm3 (1.96-9.15); NEUTROPHILS PERCENT AUTO 57 % (41-73); Platelet Count 201 K/mm3 (150-400); RDW Coefficient Variation 14.2 % (11.7-14.2); RDW Standard Deviation 45.4 fL (35.1-46.3); Red Blood Cell Count 4.75 M/mm3 (3.80-5.20); White Blood Cell Count 11.06 K/mm3 (4.00-11.30)
[2020-02-22 20:06] LABS: Mean Platelet Volume 13.2 fL (9.1-12.4)
== END ==
LOC: LAB 19:08 → LAB SHORT 19:08
PROVIDERS: Registered Nurse Oncology
DX: D51.0 Vitamin B12 deficiency anemia due to intrinsic factor deficiency (principal); E55.9 Vitamin D deficiency, unspecified
CPT/HCPCS: 82306; 82607; 83540; 83550; 85025

== ENCOUNTER 2020-03-16 17:15 | Emergency (ER) | payer MEDICARE ==
[~2020-03-16] VITALS: Ht 167.6 cm; Wt 63.5 kg
[2020-03-16] MEDS ORDERED: Prednisone20 MG PO (21:09)
== END 2020-03-16 21:38 | disposition home or self-care (01) ==
LOC: ER 17:15
DX: J45.901 Unspecified asthma with (acute) exacerbation (principal); J44.9 Chronic obstructive pulmonary disease, unspecified; I25.10 Atherosclerotic heart disease of native coronary artery without angina pectoris; Z79.82 Long term (current) use of aspirin; Z79.52 Long term (current) use of systemic steroids; Z79.899 Other long term (current) drug therapy
CPT/HCPCS: 71046; 99283-25; J7512

== ENCOUNTER 2020-04-02 15:09 | Inpatient (IN) | payer MEDICARE ==
[~2020-04-02] VITALS: Ht 157.5 cm; Wt 45.9 kg
[~2020-04-02 15:09] MED LIST changes: -ERGO50000 PO; +Vitamin D2000 UNIT PO
[2020-04-02] MEDS ORDERED: BUDE.25 INH (15:33)
[2020-04-02 16:13] LABS: BASOPHILS ABSOLUTE AUTO 0.07 K/mm3 (0.00-0.23); BASOPHILS PERCENT AUTO 1 % (0-2); EOSINOPHILS ABSOLUTE AUTO 0.23 K/mm3 (0.00-0.68); EOSINOPHILS PERCENT AUTO 2 % (0-6); Hematocrit 42.5 % (33.0-51.0); Hemoglobin 13.5 g/dL (11.5-16.0); IMMATURE GRAN ABSOLUTE AUTO 0.03 K/mm3 (0.00-0.10); IMMATURE GRAN PERCENT AUTO 0 % (0-1); LYMPHOCYTES ABSOLUTE AUTO 0.71 K/mm3 (0.84-5.20); LYMPHOCYTES PERCENT AUTO 7 % (21-46); MONOCYTES ABSOLUTE AUTO 0.66 K/mm3 (0.16-1.47); MONOCYTES PERCENT AUTO 6 % (4-13); Mean Corpuscular HGB 27.8 pg (26.0-34.0); Mean Corpuscular HGB Conc 31.8 g/dL (31.5-36.5); Mean Corpuscular Volume 87 fL (80-100); Mean Platelet Volume 12.3 fL (9.1-12.4); NEUTROPHILS PERCENT AUTO 84 % (41-73); Platelet Count 197 K/mm3 (150-400); RDW Coefficient Variation 14.3 % (11.7-14.2); RDW Standard Deviation 46.3 fL (35.1-46.3); Red Blood Cell Count 4.86 M/mm3 (3.80-5.20)
[2020-04-02 16:37] LABS: Alanine Aminotransfer (ALT/SGP 27 U/L (12-78); Albumin, Blood 3.4 g/dL (3.4-5.0); Albumin/Globulin Ratio 0.9 (0.8-1.8); Alk Phos 151 U/L (50-136); Anion Gap 5 mmol/L (6-16); Aspartate Aminotrans (AST/SGOT 30 U/L (12-37); Bilirubin, Total 0.6 mg/dL (0.1-1.0); Blood Urea Nitrogen 11 mg/dL (8-24); Bun/Creatinine Ratio 17.5 (12.0-20.0); CO2, Blood 25 mmol/L (21-32); Chloride, Blood 109 mmol/L (98-108); Creatinine, Blood 0.63 mg/dL (0.40-1.00); Globulin, Blood 3.9 g/dL (2.2-4.0); Glomerular Filtration Rate >60 (60-); Glucose, Blood 101 mg/dL (70-99); Sodium, Blood 139 mmol/L (136-145); Total Protein, Blood 7.3 g/dL (6.4-8.2); Troponin I <0.015 ng/mL (0.000-0.040)
[2020-04-02 16:47] LABS: PCO2 Arterial 34.3 mmHg (35-45); PO2 Arterial 60.3 mmHg (80-100); pH Blood Arterial 7.43 (7.35-7.45)
[2020-04-02 16:57] LABS: Influenza A, PCR Negative (NEGATIVE); Influenza B, PCR Negative (NEGATIVE); Resp Syncytial Virus, PCR Negative (NEGATIVE); SARS-Cov-2 (COVID-19) PCR, MMC Negative (NEGATIVE)
--- NOTE | 2020-04-02 20:15 | NUR ---
ASSUMED CARE RECEIVED REPORT FROM JULIOED RN. ASSUMED CARE OF PT. PT TRANSPORTED TO MEDICAL FLOOR VIA GURNEY, AMBULATED SELF TO BED. ORIENTED TO ROOM/UNIT AND USE OF CALL LIGHT. TACHYPNEIC, REPORTING SOB. 2L O2 APPLIED, O2 SATS STABLE IN MID 90'S. PT SETTLED INTO ROOM, REQUESTING TX PER RT, NOTIFIED RT OF PT REQUEST. BROUGHT PT A SNACK. DENIES OTHER NEEDS AT THIS TIME. CALL LIGHT, POSSESSIONS IN REACH, BED IN LOW POSITION WITH ALARMS ON. WCTM.
[2020-04-02] MEDS ORDERED: ERGO50000 PO ×2 (22:13→22:15)
[2020-04-02] MEDS ORDERED: BENZ100A PO (22:17)
[2020-04-02] MEDS ORDERED: BISA10S PR (22:19)
[2020-04-03] MEDS ORDERED: Calcium Carbon500 MG PO (00:30)
[2020-04-03] MEDS ORDERED: BISMATROL262 MG/15 PO (00:33)
[2020-04-03] MEDS ORDERED: Q-Tussin100 MG/5 M PO (01:16)
--- NOTE | 2020-04-03 05:08 | NUR ---
SPOKE TO DR. YANEZ REGARDING PT'S LOW BP'S. ORDERS RECEIVED. CONTINUE TO MONITOR.
[2020-04-03 05:10] LABS: BASOPHILS ABSOLUTE AUTO 0.02 K/mm3 (0.00-0.23); BASOPHILS PERCENT AUTO 0 % (0-2); EOSINOPHILS ABSOLUTE AUTO 0.01 K/mm3 (0.00-0.68); EOSINOPHILS PERCENT AUTO 0 % (0-6); Hematocrit 39.1 % (33.0-51.0); Hemoglobin 12.6 g/dL (11.5-16.0); IMMATURE GRAN ABSOLUTE AUTO 0.01 K/mm3 (0.00-0.10); IMMATURE GRAN PERCENT AUTO 0 % (0-1); LYMPHOCYTES PERCENT AUTO 9 % (21-46); MONOCYTES ABSOLUTE AUTO 0.11 K/mm3 (0.16-1.47); MONOCYTES PERCENT AUTO 2 % (4-13); Mean Corpuscular HGB 28.4 pg (26.0-34.0); Mean Corpuscular HGB Conc 32.2 g/dL (31.5-36.5); Mean Corpuscular Volume 88 fL (80-100); Mean Platelet Volume 11.9 fL (9.1-12.4); NEUTROPHILS ABSOLUTE AUTO 4.68 K/mm3 (1.96-9.15); NEUTROPHILS PERCENT AUTO 88 % (41-73); Platelet Count 172 K/mm3 (150-400); RDW Coefficient Variation 14.4 % (11.7-14.2); RDW Standard Deviation 46.5 fL (35.1-46.3); Red Blood Cell Count 4.43 M/mm3 (3.80-5.20); White Blood Cell Count 5.33 K/mm3 (4.00-11.30)
--- NOTE | 2020-04-03 06:32 | NUR ---
SHIFT SUMMARY PT RESTING COMFORTABLY, NO S/S ACUTE DISTRESS NOTED. WAS MONITORED EVERY 1-2 HOURS WITH NEEDS MET. DENIES NEEDS AT THIS TIME. VS REVIEWED, BP HOLDING IN THE LOW 90'S SYSTOLIC, IVF BOLUS ONGOING. O2 SATS STABLE ON 2L/NC. PT ALERT, ABLE TO MAKE NEEDS KNOWN. DENIES PAIN OR NEEDS AT THIS TIME. CALL LIGHT, POSSESSIONS IN REACH, BED IN LOW POSITION. WCTM, REPORT OFF TO ONCOMING RN.
--- NOTE | 2020-04-03 07:19 | NUR ---
ADVISED OF BLD PRESSURES. HAS ABOUT 50 ML LEFT OF 500 ML BOLUS OVER 2 HOURS. ORDERED 1 L BOLUS NS.
--- NOTE | 2020-04-03 13:57 | NUR ---
ALERT. ORIENTED. DOES NOT KNOW EXACT DATE. AWARE IN THE HOSPITAL. APPEARS DEVELOPMENTALLY DELAYED. LIVES AT [facility] IN [place]. COOPERATIVE. NO C/O ; DIZZINESS , LIGHTHEADEDNESS OR SOB. IV RT FA PATENT. TOOK SHOWER WITHOUT ANY SOB OR DIFFICULTY. ON 2 LPM WITH BASELINE NO OXYGEN. HAS NOT BEEN COUGHING. WCTM
--- NOTE | 2020-04-03 15:02 | NUR ---
[facility] IN [place] UPDATED TO CONDITION. WAS DIZZY W/SOB AT CARE FACILITY.
--- NOTE | 2020-04-04 04:41 | NUR ---
64 year old Female with bilat pneumonia COPD on oxygen 2 l NC & on IV steroids continues to be awake most of night watching TV. She is from [facility] & has developmental delays. Very poor dentationwith multiple decayed teeth. Oral intake poor. drinks mostly apple juice. Continues to have low BP around 3 AM encouraged more oral fluids, set up with ensure & snack. Up with standby assist to bathroom with steady gait. Recheck BP after some oral fluids taken.
--- NOTE | 2020-04-04 06:12 | NUR ---
DR Dunbar updated PT hypotensive with some improvement with pushing oral fluids. IV fluid bolus 250 ml ordered.
--- NOTE | 2020-04-04 08:30 | NUR ---
PT PLEASANT SOFT SPOKEN, A/O X2-3, CONCRETE. DENIES PAIN. DENTITION QUITE POOR. H/R REG, NO MURMER NOTED. O TELE. NO PACER NOTED. LUNGS WHEEZY T/O. RESP EASY, UNLABORED. STATES IS SOB WITH EXERTION. ON 2L O2. BT X4 LAST BM TODAY. VOIDS SBA TO BATHROOM. BED IN LOW POSITION, CALL LITE IN REACH, BED ALARM ON FOR SAFETY
[2020-04-04 08:53] LABS: Albumin, Blood 2.7 g/dL (3.4-5.0); Anion Gap 8 mmol/L (6-16); Blood Urea Nitrogen 10 mg/dL (8-24); Bun/Creatinine Ratio 19.8 (12.0-20.0); CO2, Blood 22 mmol/L (21-32); Calcium, Blood 8.6 mg/dL (8.5-10.1); Chloride, Blood 113 mmol/L (98-108); Creatinine, Blood 0.51 mg/dL (0.40-1.00); Glomerular Filtration Rate >60 (60-); Glucose, Blood 178 mg/dL (70-99); Phosphorus, Blood 1.8 mg/dL (2.5-4.9); Potassium, Blood 3.9 mmol/L (3.5-5.5); Sodium, Blood 143 mmol/L (136-145)
--- NOTE | 2020-04-04 14:15 | NUR ---
PT TRANSFERRING TO FLOOR. REPORT TO SO Maldonado RN. PT TX TO FLOOR 364
--- NOTE | 2020-04-04 15:30 | NUR ---
REPORT RECEIVED FROM BOOKER. PT TRANSFERRED TO ROOM 364 VIA BED. ORIENTED TO ROOM. SETTLED AND FELL ASLEEP.
--- NOTE | 2020-04-04 18:36 | NUR ---
SHIFT SUMMARY NO CHANGE SINCE ARRIVAL TO ROOM. HAS BEEN NAPPING MOST OF THE AFTERNOON. NO REPORTS OF PAIN OR SOB. KPHOS RIDER STARTED AFTER ANTIBIOTIC. WILL REPORT CONDITION TO ONCOMING SHIFT.
--- NOTE | 2020-04-05 04:35 | NUR ---
SHIFT SUMMARY: O2 HAS REMAINED AT 94% ON 2LO2 VIA NC. PT DENIES SOB AT REST. LUNGS DIMINISHED THROUGHOUT. OCC WHEEZING NOTED TO RIGHT LUNG DELGADO. SBA TO BATHROOM PRN. VOIDING WELL. PT JINNY PO AND DENIES N/V. TOLERATING MEDS WHOLE WITH APPLE SAUCE. PT RESTING MOST OF SHIFT.
[2020-04-05 05:08] LABS: Albumin, Blood 2.8 g/dL (3.4-5.0); Anion Gap 5 mmol/L (6-16); Blood Urea Nitrogen 14 mg/dL (8-24); Bun/Creatinine Ratio 32.1 (12.0-20.0); CO2, Blood 28 mmol/L (21-32); Calcium, Blood 8.6 mg/dL (8.5-10.1); Chloride, Blood 110 mmol/L (98-108); Creatinine, Blood 0.44 mg/dL (0.40-1.00); Glomerular Filtration Rate >60 (60-); Glucose, Blood 189 mg/dL (70-99); Phosphorus, Blood 2.6 mg/dL (2.5-4.9); Potassium, Blood 3.9 mmol/L (3.5-5.5); Sodium, Blood 143 mmol/L (136-145)
--- NOTE | 2020-04-05 19:52 | NUR ---
SHIFT SUMMARY UP TO CHAIR FOR MEALS. FOLLOWING FEEDING PLAN LENS AND FRAMES PRESCRIPTION CLERK ASSESSED FOR. ENCOURAGED TO USE FWW WITH AMBULATION. TO BATHROOM WITH 1 PERSON ASSIST. USING CALL BUTTON APPROPRIATELY. SOB WITH ACTIVITY BUT APPEARS IMPROVED FROM YESTERDAY.
--- NOTE | 2020-04-06 04:50 | NUR ---
SHIFT SUMMARY NO ACUTE CHANGES TO REPORT THIS SHIFT. PT HAS RESTED MOST OF THE NIGHT. SHE DENIES PAIN OR NEEDS. TAKES HER MEDS CRUSHED WITH APPLESAUCE AND TOLERATES WELL. IV SOLUMEDROL CONTINUED ORDERED. RESP E/U ON RA. NASAL CANNULA IN PLACE, SATS WNL. ASSESSMENT UNCHANGED. BED IN LOWEST POSITION, CALL LIGHT WITHIN REACH.
[2020-04-06] MEDS ORDERED: AZIT500 PO (09:39)
[2020-04-06] MEDS ORDERED: Prednisone10 MG PO (09:40)
[2020-04-06] MEDS ORDERED: Acidophilus1 EAC1 PO (09:41)
[2020-04-06] MEDS ORDERED: CEFU500T30 PO (09:41)
[2020-04-06 12:04] LABS: Influenza A, PCR Negative (NEGATIVE); Influenza B, PCR Negative (NEGATIVE); Resp Syncytial Virus, PCR Negative (NEGATIVE); SARS-Cov-2 (COVID-19) PCR, MMC Negative (NEGATIVE)
--- NOTE | 2020-04-06 14:16 | NUR ---
DISCHARGE NOTE- PT WAS GIVEN VERBAL AND WRITTEN DISCHARGE INSTRUCTIONS AND ACKNOWLEDGED UNDERSTANDING OF THEM. PT IV DC'D PRIOR TO DISCHARGE, TYES[facility] CALLED [facility] TO COME GET HER TRANSPORT TO PICK HER UP AT THE ED AT 1500.
== END 2020-04-06 14:50 | disposition home or self-care (01) | DRG 193 ==
LOC: ER 15:09 → MEDS 19:03
PROVIDERS: Emergency Medicine; Internal Medicine; ADMIT Hospitalist
DX: J12.9 Viral pneumonia, unspecified (principal); J96.01 Acute respiratory failure with hypoxia; J45.901 Unspecified asthma with (acute) exacerbation; F84.9 Pervasive developmental disorder, unspecified; J44.0 Chronic obstructive pulmonary disease with (acute) lower respiratory infection; J82.83 Eosinophilic asthma; Z20.828 Contact with and (suspected) exposure to other viral communicable diseases; D63.8 Anemia in other chronic diseases classified elsewhere; E83.39 Other disorders of phosphorus metabolism; F25.9 Schizoaffective disorder, unspecified; I25.10 Atherosclerotic heart disease of native coronary artery without angina pectoris; K21.9 Gastro-esophageal reflux disease without esophagitis; R13.10 Dysphagia, unspecified; K44.9 Diaphragmatic hernia without obstruction or gangrene
CPT/HCPCS: 0241U; 36415; 36600; 71045; 71046; 80053; 80069; 82803; 83605; 83880; 84145; 84484; 85025; 87040; 92526; 92610; 93005; 93010; 94640; 94644; 94760; 94761; 96365; 97116; 97162; 97165; 97530; 99285-25; A9270-GY; C9113; J0456; J0696; J1650; J2930; J7030; J7040; J7050; J7060; J7512

== ENCOUNTER 2020-04-28 17:17 | Emergency (ER) | payer MEDICARE, OTHER ==
[~2020-04-28] VITALS: Ht 162.6 cm; Wt 45.4 kg
[~2020-04-28 17:17] MED LIST changes: +BUDE.25 INH; +CEFU500T30 PO; +Calcium Carbon500 MG PO; +ERGO50000 PO
[2020-04-28 18:10] LABS: BASOPHILS ABSOLUTE AUTO 0.07 K/mm3 (0.00-0.23); BASOPHILS PERCENT AUTO 1 % (0-2); EOSINOPHILS ABSOLUTE AUTO 1.88 K/mm3 (0.00-0.68); EOSINOPHILS PERCENT AUTO 18 % (0-6); Hemoglobin 13.9 g/dL (11.5-16.0); IMMATURE GRAN ABSOLUTE AUTO 0.04 K/mm3 (0.00-0.10); IMMATURE GRAN PERCENT AUTO 0 % (0-1); LYMPHOCYTES ABSOLUTE AUTO 2.29 K/mm3 (0.84-5.20); LYMPHOCYTES PERCENT AUTO 22 % (21-46); MONOCYTES ABSOLUTE AUTO 0.67 K/mm3 (0.16-1.47); MONOCYTES PERCENT AUTO 6 % (4-13); Mean Corpuscular HGB 27.9 pg (26.0-34.0); Mean Corpuscular HGB Conc 30.9 g/dL (31.5-36.5); Mean Corpuscular Volume 90 fL (80-100); Mean Platelet Volume 11.3 fL (9.1-12.4); NEUTROPHILS ABSOLUTE AUTO 5.46 K/mm3 (1.96-9.15); NEUTROPHILS PERCENT AUTO 52 % (41-73); Platelet Count 218 K/mm3 (150-400); RDW Coefficient Variation 14.7 % (11.7-14.2); RDW Standard Deviation 48.9 fL (35.1-46.3); Red Blood Cell Count 4.98 M/mm3 (3.80-5.20); White Blood Cell Count 10.41 K/mm3 (4.00-11.30)
[2020-04-28 18:29] LABS: Alanine Aminotransfer (ALT/SGP 43 U/L (12-78); Albumin, Blood 3.8 g/dL (3.4-5.0); Albumin/Globulin Ratio 0.9 (0.8-1.8); Alk Phos 127 U/L (50-136); Anion Gap 7 mmol/L (6-16); Aspartate Aminotrans (AST/SGOT 34 U/L (12-37); Bilirubin, Total 0.5 mg/dL (0.1-1.0); Blood Urea Nitrogen 10 mg/dL (8-24); Bun/Creatinine Ratio 16.8 (12.0-20.0); CO2, Blood 27 mmol/L (21-32); Calcium, Blood 9.4 mg/dL (8.5-10.1); Chloride, Blood 110 mmol/L (98-108); Globulin, Blood 4.3 g/dL (2.2-4.0); Glomerular Filtration Rate >60 (60-); Glucose, Blood 104 mg/dL (70-99); Potassium, Blood 4.1 mmol/L (3.5-5.5); Sodium, Blood 144 mmol/L (136-145); Total Protein, Blood 8.1 g/dL (6.4-8.2)
[2020-04-28] MEDS ORDERED: PRED20 PO (18:34)
[2020-08-16] MEDS ORDERED: Prednisone20 MG PO (23:49)
== END 2020-04-28 22:25 | disposition home or self-care (01) ==
LOC: ER 17:17
PROVIDERS: Emergency Medicine
DX: J45.901 Unspecified asthma with (acute) exacerbation (principal); Z79.899 Other long term (current) drug therapy; Z79.82 Long term (current) use of aspirin; Z79.51 Long term (current) use of inhaled steroids
CPT/HCPCS: 36415; 71045; 80053; 85025; 93005; 93010; 94640; 94644; 96374; 99285-25; J2930

== ENCOUNTER 2020-05-05 14:13 | Emergency (ER) | payer MEDICARE, OTHER ==
[~2020-05-05] VITALS: Ht 152.4 cm; Wt 55.3 kg
[2020-05-05] MEDS ORDERED: VITAMIN D325 MC3 PO (15:58)
[2020-05-05] MEDS ORDERED: ACET500 PO (16:00)
[2020-05-05] MEDS ORDERED: BENZ100A PO (16:00)
[2020-05-05] MEDS ORDERED: BISA10S PR (16:04)
[2020-05-05] MEDS ORDERED: Prednisone50 MG PO (16:34)
[2020-05-05] MEDS ORDERED: Zithromax250 MG PO (16:34)
[2020-08-16] MEDS ORDERED: Prednisone20 MG PO (23:49)
== END 2020-05-05 17:28 | disposition home or self-care (01) ==
LOC: ER 14:13
DX: J44.1 Chronic obstructive pulmonary disease with (acute) exacerbation (principal); I25.10 Atherosclerotic heart disease of native coronary artery without angina pectoris; Z79.82 Long term (current) use of aspirin; Z79.52 Long term (current) use of systemic steroids; Z79.899 Other long term (current) drug therapy
CPT/HCPCS: 71045; 94640; 94644; 99285-25; A9270

== ENCOUNTER 2020-05-29 19:17 | Emergency (ER) | payer MEDICARE, OTHER ==
[~2020-05-29] VITALS: Ht 149.9 cm; Wt 56.2 kg
[~2020-05-29 19:17] MED LIST changes: +Prednisone50 MG PO; +VITAMIN D325 MC3 PO
[2020-05-29 20:06] LABS: BASOPHILS ABSOLUTE AUTO 0.09 K/mm3 (0.00-0.23); BASOPHILS PERCENT AUTO 1 % (0-2); EOSINOPHILS ABSOLUTE AUTO 3.58 K/mm3 (0.00-0.68); EOSINOPHILS PERCENT AUTO 27 % (0-6); Hematocrit 41.7 % (33.0-51.0); Hemoglobin 12.9 g/dL (11.5-16.0); IMMATURE GRAN ABSOLUTE AUTO 0.03 K/mm3 (0.00-0.10); IMMATURE GRAN PERCENT AUTO 0 % (0-1); LYMPHOCYTES ABSOLUTE AUTO 2.82 K/mm3 (0.84-5.20); LYMPHOCYTES PERCENT AUTO 21 % (21-46); MONOCYTES ABSOLUTE AUTO 0.76 K/mm3 (0.16-1.47); MONOCYTES PERCENT AUTO 6 % (4-13); Mean Corpuscular HGB 27.9 pg (26.0-34.0); Mean Corpuscular HGB Conc 30.9 g/dL (31.5-36.5); Mean Corpuscular Volume 90 fL (80-100); Mean Platelet Volume 11.2 fL (9.1-12.4); NEUTROPHILS PERCENT AUTO 46 % (41-73); Platelet Count 245 K/mm3 (150-400); RDW Coefficient Variation 14.1 % (11.7-14.2); Red Blood Cell Count 4.62 M/mm3 (3.80-5.20); White Blood Cell Count 13.48 K/mm3 (4.00-11.30)
[2020-05-29 20:24] LABS: Alanine Aminotransfer (ALT/SGP 31 U/L (12-78); Albumin, Blood 3.3 g/dL (3.4-5.0); Albumin/Globulin Ratio 0.8 (0.8-1.8); Alk Phos 152 U/L (50-136); Anion Gap 4 mmol/L (6-16); Aspartate Aminotrans (AST/SGOT 25 U/L (12-37); Bilirubin, Total 0.3 mg/dL (0.1-1.0); Blood Urea Nitrogen 10 mg/dL (8-24); Bun/Creatinine Ratio 20.5 (12.0-20.0); CO2, Blood 27 mmol/L (21-32); Calcium, Blood 8.7 mg/dL (8.5-10.1); Chloride, Blood 112 mmol/L (98-108); Creatinine, Blood 0.49 mg/dL (0.40-1.00); Globulin, Blood 4.1 g/dL (2.2-4.0); Glomerular Filtration Rate >60 (60-); Glucose, Blood 101 mg/dL (70-99); Potassium, Blood 3.5 mmol/L (3.5-5.5); Sodium, Blood 143 mmol/L (136-145); Total Protein, Blood 7.4 g/dL (6.4-8.2)
[2020-05-29] MEDS ORDERED: Prednisone50 MG PO (20:51)
[2020-08-16] MEDS ORDERED: Prednisone20 MG PO (23:49)
== END 2020-05-29 21:19 | disposition home or self-care (01) ==
LOC: ER 19:17
PROVIDERS: Emergency Medicine
DX: J45.901 Unspecified asthma with (acute) exacerbation (principal); I25.10 Atherosclerotic heart disease of native coronary artery without angina pectoris; Z79.899 Other long term (current) drug therapy; Z79.82 Long term (current) use of aspirin; Z79.51 Long term (current) use of inhaled steroids
CPT/HCPCS: 71045; 80053; 85025; 93005; 93010; 94640; 99285-25

== ENCOUNTER 2021-03-14 17:38 | Inpatient (IN) | payer MEDICARE, OTHER ==
[~2021-03-14] VITALS: Ht 162.6 cm; Wt 56.6 kg
[~2021-03-14 17:38] MED LIST changes: +APAP500 MG PO
[2021-03-14 18:06] LABS: BASOPHILS ABSOLUTE AUTO 0.11 K/mm3 (0.00-0.23); BASOPHILS PERCENT AUTO 1 % (0-2); EOSINOPHILS ABSOLUTE AUTO 1.84 K/mm3 (0.00-0.68); EOSINOPHILS PERCENT AUTO 13 % (0-6); Hematocrit 43.5 % (33.0-51.0); Hemoglobin 14.3 g/dL (11.5-16.0); IMMATURE GRAN ABSOLUTE AUTO 0.05 K/mm3 (0.00-0.10); IMMATURE GRAN PERCENT AUTO 0 % (0-1); LYMPHOCYTES ABSOLUTE AUTO 3.07 K/mm3 (0.84-5.20); LYMPHOCYTES PERCENT AUTO 22 % (21-46); MONOCYTES PERCENT AUTO 8 % (4-13); Mean Corpuscular HGB 28.6 pg (26.0-34.0); Mean Corpuscular HGB Conc 32.9 g/dL (31.5-36.5); Mean Corpuscular Volume 87 fL (80-100); Mean Platelet Volume 12.4 fL (9.1-12.4); NEUTROPHILS ABSOLUTE AUTO 7.88 K/mm3 (1.96-9.15); NEUTROPHILS PERCENT AUTO 56 % (41-73); Platelet Count 199 K/mm3 (150-400); RDW Coefficient Variation 14.6 % (11.7-14.2); RDW Standard Deviation 46.8 fL (35.1-46.3); White Blood Cell Count 14.05 K/mm3 (4.00-11.30)
[2021-03-14 18:27] LABS: Troponin I <0.015 ng/mL (0.000-0.040)
[2021-03-14 18:38] LABS: Alanine Aminotransfer (ALT/SGP 58 U/L (12-78); Albumin, Blood 3.3 g/dL (3.4-5.0); Albumin/Globulin Ratio 0.7 (0.8-1.8); Alk Phos 148 U/L (50-136); Anion Gap 6 mmol/L (6-16); Aspartate Aminotrans (AST/SGOT 50 U/L (12-37); Bilirubin, Total 0.6 mg/dL (0.1-1.0); Blood Urea Nitrogen 8 mg/dL (8-24); Bun/Creatinine Ratio 13.4 (12.0-20.0); CO2, Blood 26 mmol/L (21-32); Calcium, Blood 9.6 mg/dL (8.5-10.1); Chloride, Blood 108 mmol/L (98-108); Globulin, Blood 4.7 g/dL (2.2-4.0); Glomerular Filtration Rate >60 (60-); Glucose, Blood 103 mg/dL (70-99); Potassium, Blood 3.9 mmol/L (3.5-5.5); Sodium, Blood 140 mmol/L (136-145)
[2021-03-14 20:44] LABS: Influenza A, PCR NEGATIVE (NEGATIVE); Influenza B, PCR NEGATIVE (NEGATIVE); Resp Syncytial Virus, PCR NEGATIVE (NEGATIVE); SARS-Cov-2 (COVID-19) PCR, MMC NEGATIVE (NEGATIVE)
[2021-03-14] MEDS ORDERED: FAMO20 PO (21:49)
[2021-03-14] MEDS ORDERED: OMEP20ER PO (21:51)
--- NOTE | 2021-03-15 17:23 | NUR ---
PT ARRIVED TO THE MEDICAL FLOOR FROM THE ED VIA BED A/OX3, PLEASANT AND COOPERATIVE. THE PT WAS ORIENTED TO THE ROOM LAYOUT AND CALL SYSTEM. THE PT APPEARS TO BE BREATHING EASILY ON O2 @ 2L/MIN AT THIS TIME. PT DENIES ANY PAIN. PT IS UP WITH ASSIST TO THE BSC. CALL LIGHT IN REACH WILL CONTINUE TO MONITOR AND ASSESS FOR CHANGES
[2021-03-15] MEDS ORDERED: ALBU2.5V5 INH (18:02)
[2021-03-15] MEDS ORDERED: LOPERAMIDE1 MG/7.10 PO (18:04)
[2021-03-15] MEDS ORDERED: Fleet Enema132 ML PR (18:04)
[2021-03-15] MEDS ORDERED: DULCOLAX400 MG/5 M PO (18:04)
[2021-03-15] MEDS ORDERED: PRED5 PO (18:06)
[2021-03-15] MEDS ORDERED: Calcium Carbon500 MG PO (18:11)
[2021-03-15] MEDS ORDERED: [UNRECOGNIZED DRUG - OTHER] PO (18:12)
[2021-03-15] MEDS ORDERED: ASPI81CH PO (18:45)
[2021-03-15] MEDS ORDERED: FAMO20 PO (18:45)
[2021-03-15] MEDS ORDERED: ATOR40TA PO (18:45)
[2021-03-15] MEDS ORDERED: FERSU300 PO (18:45)
[2021-03-15] MEDS ORDERED: BUDESONIDE0.5 MG/2 M INH (18:45)
[2021-03-15] MEDS ORDERED: IPRAT-ALBUT 0.5-3 ML INH (18:46)
[2021-03-16 06:06] LABS: BASOPHILS ABSOLUTE AUTO 0.04 K/mm3 (0.00-0.23); BASOPHILS PERCENT AUTO 0 % (0-2); EOSINOPHILS PERCENT AUTO 0 % (0-6); Hematocrit 40.9 % (33.0-51.0); Hemoglobin 12.9 g/dL (11.5-16.0); IMMATURE GRAN ABSOLUTE AUTO 0.33 K/mm3 (0.00-0.10); IMMATURE GRAN PERCENT AUTO 1 % (0-1); LYMPHOCYTES ABSOLUTE AUTO 0.78 K/mm3 (0.84-5.20); LYMPHOCYTES PERCENT AUTO 3 % (21-46); MONOCYTES ABSOLUTE AUTO 0.55 K/mm3 (0.16-1.47); MONOCYTES PERCENT AUTO 2 % (4-13); Mean Corpuscular HGB 28.2 pg (26.0-34.0); Mean Corpuscular HGB Conc 31.5 g/dL (31.5-36.5); Mean Corpuscular Volume 89 fL (80-100); NEUTROPHILS ABSOLUTE AUTO 27.45 K/mm3 (1.96-9.15); NEUTROPHILS PERCENT AUTO 94 % (41-73); Platelet Count 189 K/mm3 (150-400); RDW Coefficient Variation 14.6 % (11.7-14.2); RDW Standard Deviation 48.3 fL (35.1-46.3); Red Blood Cell Count 4.58 M/mm3 (3.80-5.20); White Blood Cell Count 29.15 K/mm3 (4.00-11.30)
[2021-03-16 07:09] LABS: Anion Gap 10 mmol/L (6-16); Blood Urea Nitrogen 17 mg/dL (8-24); Bun/Creatinine Ratio 29.4 (12.0-20.0); CO2, Blood 24 mmol/L (21-32); Calcium, Blood 9.1 mg/dL (8.5-10.1); Chloride, Blood 106 mmol/L (98-108); Creatinine, Blood 0.58 mg/dL (0.40-1.00); Glomerular Filtration Rate >60 (60-); Glucose, Blood 198 mg/dL (70-99); Potassium, Blood 3.6 mmol/L (3.5-5.5); Sodium, Blood 140 mmol/L (136-145)
--- NOTE | 2021-03-16 16:59 | NUR ---
pt is a/ox3, pleasant and cooperative, the pt is up with minimal assist to the bathroom. pt appears to be breathing easily at rest on 2l/min o2. the pt becomes sob with activity. pt has reciceived breathing tx's t/o the day. call light in reach. will continue to monitor and assess for changes
--- NOTE | 2021-03-17 07:15 | NUR ---
PATIENT WAS VERY PLEASNT AND COOPERATIVE. PATIENT USED BEDSIDE COMMODE AND HAD 8 LOOSE STOOLS. PATIENT DID NOT SLEEP DURNING THE NIGHT. PATIENT DENIES ANY PAIN OF SOB
[2021-03-17 08:37] LABS: Hematocrit 38.2 % (33.0-51.0); Hemoglobin 12.3 g/dL (11.5-16.0); Mean Corpuscular HGB 28.8 pg (26.0-34.0); Mean Corpuscular HGB Conc 32.2 g/dL (31.5-36.5); Mean Corpuscular Volume 90 fL (80-100); Platelet Count 212 K/mm3 (150-400); RDW Coefficient Variation 14.9 % (11.7-14.2); RDW Standard Deviation 48.6 fL (35.1-46.3); Red Blood Cell Count 4.27 M/mm3 (3.80-5.20)
[2021-03-17 08:38] LABS: Mean Platelet Volume 12.9 fL (9.1-12.4)
[2021-03-17 08:52] LABS: BASOPHILS PERCENT MAN 0 % (0-2); EOSINOPHILS PERCENT MAN 0 % (0-6); LYMPHOCYTES PERCENT MAN 3 % (21-46); MONOCYTES PERCENT MAN 1 % (4-13); SEG NEUTROPHILS PERCENT MAN 96 % (41-73); TOTAL CELLS COUNTED 100
[2021-03-17 08:55] LABS: BASOPHILS ABSOLUTE AUTO 0.05 K/mm3 (0.00-0.23); BASOPHILS PERCENT AUTO 0 % (0-2); EOSINOPHILS PERCENT AUTO 16 % (0-6); IMMATURE GRAN ABSOLUTE AUTO 0.45 K/mm3 (0.00-0.10); IMMATURE GRAN PERCENT AUTO 2 % (0-1); LYMPHOCYTES ABSOLUTE AUTO 0.75 K/mm3 (0.84-5.20); LYMPHOCYTES PERCENT AUTO 2 % (21-46); MONOCYTES ABSOLUTE AUTO 0.87 K/mm3 (0.16-1.47); MONOCYTES PERCENT AUTO 3 % (4-13); NEUTROPHILS ABSOLUTE AUTO 23.86 K/mm3 (1.96-9.15); NEUTROPHILS ABSOLUTE MAN 29.74 K/mm3 (1.96-9.15); NEUTROPHILS PERCENT AUTO 77 % (41-73); White Blood Cell Count 30.98 K/mm3 (4.00-11.30)
[2021-03-17] MEDS ORDERED: Deltasone 10 mg10 MG (13:29)
--- NOTE | 2021-03-17 18:08 | NUR ---
PT IS A/OX3, PLEASANT AND COOPERATIVE, THE PT IS UP WITH MINIMAL STAND BY ASSIST TO THE BATHROOM. THE PT IS MILDLY SOB WITH ACTIVITY. THE PT DENIED PAIN T/O THE DAY. PT REPORTS THAT SHE FEELS SHE IS BREATHING EASIER SINCE ADMISSION. PT WAS TO BE DISCHARGED TODAY HOWEVER, [facility] ASSISTED LIVING WAS UNABLE TO ACEPT HER BACK DUE NOT BEING ABLE TO FILL HER PRESCRIPTIONS OVER THE WEEKEND. PLAN FOR DISCHARGE ON SATURDAY. CALL LIGHT IN REACH. WILL CONTINUE TO MONITOR AND ASSESS FOR CHANGES
--- NOTE | 2021-03-18 04:34 | NUR ---
PATIENT WAS ALERT AND ORIENTED X3, PATIENT WAS PLEASANT AND COOPERATIVE. PATIENT DENIES ANY PAIN OR SOB. PATIENT TOLERANTED NIGHT MEDS AND SLEPT THROUGH THE NIGHT
[2021-03-18 08:31] LABS: BASOPHILS ABSOLUTE AUTO 0.05 K/mm3 (0.00-0.23); BASOPHILS PERCENT AUTO 0 % (0-2); EOSINOPHILS ABSOLUTE AUTO 0.02 K/mm3 (0.00-0.68); EOSINOPHILS PERCENT AUTO 0 % (0-6); Hemoglobin 12.2 g/dL (11.5-16.0); IMMATURE GRAN ABSOLUTE AUTO 0.44 K/mm3 (0.00-0.10); IMMATURE GRAN PERCENT AUTO 2 % (0-1); LYMPHOCYTES ABSOLUTE AUTO 2.12 K/mm3 (0.84-5.20); LYMPHOCYTES PERCENT AUTO 11 % (21-46); MONOCYTES ABSOLUTE AUTO 1.45 K/mm3 (0.16-1.47); MONOCYTES PERCENT AUTO 7 % (4-13); Mean Corpuscular HGB 28.7 pg (26.0-34.0); Mean Corpuscular HGB Conc 32.1 g/dL (31.5-36.5); Mean Corpuscular Volume 89 fL (80-100); Mean Platelet Volume 12.4 fL (9.1-12.4); NEUTROPHILS ABSOLUTE AUTO 15.85 K/mm3 (1.96-9.15); NEUTROPHILS PERCENT AUTO 80 % (41-73); Platelet Count 182 K/mm3 (150-400); RDW Coefficient Variation 14.7 % (11.7-14.2); RDW Standard Deviation 48.6 fL (35.1-46.3); Red Blood Cell Count 4.25 M/mm3 (3.80-5.20); White Blood Cell Count 19.93 K/mm3 (4.00-11.30)
--- NOTE | 2021-03-18 10:00 | NUR ---
PT KEYANA COLONNY A/O X2-3, DEV DELAY. STATES FROM [place], PARENT MOVED HERE LONG TIME AGO. DENIES PAIN. DENIES SOB IN BED. H/R REG, NO MURMER NOTED. NO TELE. OLD SCAR ON MIDLINE CHEST. CDI. LUNGS CLEAR UPPER, DIM BASES. ON 2L O2. PT STATES THIS IS BASELINE. BT X4 LAST BM NOT KNOWN BY PT. VOIDS SBA/1 ASST TO BATHROOM FWW. BED IN LOW POSITION,, CALL LITE IN REACH, BED ALARM ON FOR SAFETY
--- NOTE | 2021-03-18 14:29 | NUR ---
PT STATES LAST BM YEST, 03/17
--- NOTE | 2021-03-18 18:38 | NUR ---
PT HAS BEEN WATCHING TV ALL DAY. SOME NAPPING. NO C/O PAIN. HAS BEEN QUITE PLEASANT TODAY. TALKATIVE. NO NEW CONCNERNS NOTED TODAY. BED IN LOW POSITION, CALL LITE IN REACH, BED ALARM ON FOR SAFETY
--- NOTE | 2021-03-19 10:00 | NUR ---
PT PLEASANT COOP A/O C2-3 SOME DETAILS DIFFICULT. DEV DELAY. H/R REG, NO MURMER NOTED. NO TELE. LUNGS CLEAR, DIM BASES. ON 2L O2. RESP EASY, UNLABORED, BT X3 LAST BM YEST PER PT. VOIDS 1 LITE ASST BATHROOM. BED IN LOW POSITION, CALL LITE IN REACH, BED ALARM ON FOR SAFETY. PENDING PLACEMENT TOMORROW
--- NOTE | 2021-03-19 18:30 | NUR ---
PT QUITE PLEASNT TODAY. HAS BEEN WATCHING TV ALL DAY. DENIES PAIN. NO NEW CONCERNS NOTED TODAY. IS PLANNING DISCHARGE TOMORROW .[facility]. BED IN LOW POSITION, CALL LITE IN REACH, BED ALARM ON FOR SAFETY
[2021-03-20] MEDS ORDERED: ERGO50000 PO (10:31)
--- NOTE | 2021-03-20 11:49 | NUR ---
DISCHARGE NOTE PATIENT DISCHARGED TO [facility]. PATIENT TAKEN VIA MEDICAL TRANSPORTATION WITH 2L NC. WENT OVER DISCHARGE PAPERWORK WITH PATIENT AND MEDICATIONS LIST SENT TO CARE FACILITY. ROOM CHECKED AND ALL BELONGINGS SENT WITH PATIENT. REPORT CALLED AND GIVEN TO [facility] STAFF MEMBER.
--- NOTE | 2021-03-20 14:51 | NUR ---
Patient is not very talkative but is pleasant and is easily encouraged. She tells me that she has good support from her mother and sister and that she has jose angel in [place]. Patient states that she would like a prayer said for her and so I gladly provide prayer. Patient voices appreciation for the visit. Patient's trasport was coming into patient's rm while I was leaving.
== END 2021-03-20 11:43 | disposition home or self-care (01) | DRG 189 ==
LOC: ER 17:38 → ERHOLD 17:39 → MEDS 03-15 15:40 → ENPENDDIS 03-20 07:32 → MEDS 03-20 11:43
PROVIDERS: Internal Medicine; Student in an Organized Health Care Education/Training Program; ADMIT Internal Medicine
DX: J96.21 Acute and chronic respiratory failure with hypoxia (principal); J44.1 Chronic obstructive pulmonary disease with (acute) exacerbation; J45.901 Unspecified asthma with (acute) exacerbation; I25.10 Atherosclerotic heart disease of native coronary artery without angina pectoris; D63.8 Anemia in other chronic diseases classified elsewhere; Z20.822 Contact with and (suspected) exposure to COVID-19; R62.50 Unspecified lack of expected normal physiological development in childhood; R13.12 Dysphagia, oropharyngeal phase; K44.9 Diaphragmatic hernia without obstruction or gangrene; D72.829 Elevated white blood cell count, unspecified; T38.0X5A Adverse effect of glucocorticoids and synthetic analogues, initial encounter; K21.9 Gastro-esophageal reflux disease without esophagitis; F25.9 Schizoaffective disorder, unspecified; Z99.81 Dependence on supplemental oxygen; Z98.890 Other specified postprocedural states; Z79.82 Long term (current) use of aspirin; Z79.899 Other long term (current) drug therapy; Z79.52 Long term (current) use of systemic steroids
CPT/HCPCS: 0241U; 36415; 71046; 80048; 80053; 84145; 84484; 85025; 93005; 93010; 94640; 94644; 94760; 94762; 96365; 96372; 96375; 99285-25; A9270; J1650; J2920; J2930; J7512

== ENCOUNTER 2021-04-16 18:44 | Inpatient (IN) | payer MEDICARE, OTHER ==
[~2021-04-16] VITALS: Ht 157.5 cm; Wt 54.2 kg
[~2021-04-16 18:44] MED LIST changes: +ALBU2.5V5 INH; +BUDESONIDE0.5 MG/2 M INH; +DULCOLAX400 MG/5 M PO; +Deltasone 10 mg10 MG; +FAMO20 PO; +FERSU300 PO; +Fleet Enema132 ML PR; +IPRAT-ALBUT 0.5-3 ML INH; +LOPERAMIDE1 MG/7.10 PO; +PRED5 PO; +[UNRECOGNIZED DRUG - OTHER] PO
[2021-04-16 18:58] LABS: Source, Urine Clean Catch
[2021-04-16 19:00] LABS: Appearance, Urine Hazy (Clear); Bilirubin, Urine Neg (Neg); Blood, Urine 2+ (Neg); Color, Urine Yellow (P-Yellow); Glucose Qualitative, Urine Neg (Neg); Ketones, Urine 3+ (Neg); Leukocyte Esterase, Urine 3+ (Neg); Nitrite, Urine Pos (Neg); Protein, Urine 1+ (Neg); Urobilinogen, Urine NORM (Normal)
[2021-04-16 19:07] LABS: Bacteria Many /hpf; Squamous Epithelial Cells Rare /hpf (Few); White Blood Cells, Urine 25-50 /hpf (0-5)
[2021-04-16 19:43] LABS: BASOPHILS ABSOLUTE AUTO 0.05 K/mm3 (0.00-0.23); BASOPHILS PERCENT AUTO 1 % (0-2); EOSINOPHILS ABSOLUTE AUTO 0.04 K/mm3 (0.00-0.68); EOSINOPHILS PERCENT AUTO 0 % (0-6); IMMATURE GRAN ABSOLUTE AUTO 0.08 K/mm3 (0.00-0.10); IMMATURE GRAN PERCENT AUTO 1 % (0-1); LYMPHOCYTES ABSOLUTE AUTO 0.99 K/mm3 (0.84-5.20); LYMPHOCYTES PERCENT AUTO 9 % (21-46); MONOCYTES ABSOLUTE AUTO 0.62 K/mm3 (0.16-1.47); MONOCYTES PERCENT AUTO 6 % (4-13); Mean Corpuscular HGB 28.2 pg (26.0-34.0); Mean Corpuscular HGB Conc 31.8 g/dL (31.5-36.5); Mean Corpuscular Volume 89 fL (80-100); NEUTROPHILS ABSOLUTE AUTO 8.96 K/mm3 (1.96-9.15); NEUTROPHILS PERCENT AUTO 83 % (41-73); Platelet Count 273 K/mm3 (150-400); RDW Coefficient Variation 14.3 % (11.7-14.2); RDW Standard Deviation 46.2 fL (35.1-46.3); Red Blood Cell Count 4.97 M/mm3 (3.80-5.20); White Blood Cell Count 10.74 K/mm3 (4.00-11.30)
[2021-04-16 20:01] LABS: Alanine Aminotransfer (ALT/SGP 41 U/L (12-78); Albumin, Blood 3.5 g/dL (3.4-5.0); Albumin/Globulin Ratio 0.9 (0.8-1.8); Alk Phos 133 U/L (50-136); Anion Gap 9 mmol/L (6-16); Aspartate Aminotrans (AST/SGOT 35 U/L (12-37); Bilirubin, Total 0.5 mg/dL (0.1-1.0); Blood Urea Nitrogen 9 mg/dL (8-24); Bun/Creatinine Ratio 13.4 (12.0-20.0); CO2, Blood 22 mmol/L (21-32); Calcium, Blood 8.9 mg/dL (8.5-10.1); Chloride, Blood 105 mmol/L (98-108); Creatinine, Blood 0.67 mg/dL (0.40-1.00); Globulin, Blood 3.9 g/dL (2.2-4.0); Glomerular Filtration Rate >60 (60-); Glucose, Blood 130 mg/dL (70-99); Potassium, Blood 4.2 mmol/L (3.5-5.5); Sodium, Blood 136 mmol/L (136-145); Total Protein, Blood 7.4 g/dL (6.4-8.2)
[2021-04-16 21:44] LABS: Troponin I <0.015 ng/mL (0.000-0.040)
[2021-04-16 23:48] LABS: Influenza A, PCR NEGATIVE (NEGATIVE); Influenza B, PCR NEGATIVE (NEGATIVE); Resp Syncytial Virus, PCR NEGATIVE (NEGATIVE); SARS-Cov-2 (COVID-19) PCR, MMC NEGATIVE (NEGATIVE)
--- NOTE | 2021-04-17 02:10 | NUR ---
ADMIT PT ARRIVED TO 310 @0159. SBY TRANSFER TO BED. ADMITTED FOR ASTHMA EXACERBATION. PT ASKING FOR BREATHING TX UPON ARRIVAL TO . ORIENTED TO & CALL LIGHT. WILL MONITOR.
--- NOTE | 2021-04-17 04:53 | NUR ---
SHIFT SUMMARY AOX3-SELF, PLACE, SITUATION. FORGETFUL OF DATE. HX DEVELOPMENTAL DELAY, LIVES @[employer] [facility]. FOLLOWS DIRECTIONS. POOR HISTORIAN. VSS. TELE NSR @95. DYSPNIC c EXERTION, SPO2 >90% ON 2L O2 (BASELINE), RECIEVED BREATHING TX, LS DIM c SCATTERED EXP WHEEZES. COVID TEST NEG. HAS OCCASIONAL PRODUCTIVE COUGH c THICK SPUTUM. RECIEVED SOLUMEDROL & ROCEPHIN IN ER PER REPORT. CALL LIGHT & BED ALARM IN PLACE FOR SAFETY. WCTM.
--- NOTE | 2021-04-17 18:25 | NUR ---
SHIFT SUMMARY PATIENT IS ALERT AND ORIENTED X3, UNSURE OF DATE. PATIENT WILL REPEAT SELF AT TIMES. PATIENT IS ON 2 LPM VIA NASAL CANNULA SATTTING ABOVE 90% PATIENT WAS UP TO THE SHOWER THIS SHIFT. HAD BREATHING TREATMENTS THIS SHIFT ORDERED. PATIENT STATES THEY FEEL BETTER. PATIENT IS CONTINENT. WILL CALL TO MAKE NEEDS KNOWN. VSS. NO ACUTE CHANGES. BED IN LOWEST POSITION. WILL CONTINUE TO CARE FOR THE PATIENT UNTIL SHIFT REPORT IS GIVEN TO ONCOMING NURSE.
--- NOTE | 2021-04-18 03:09 | NUR ---
SHIFT SUMMARY: PATIENT A7OX3, TELE =NSR, LUNGS WITH EXP WHEEZE, 2L VIA NC (BASELINE). NO COMPLIANTS SOB, NO DYSPNEA NOTED. WCTM.
[2021-04-18] MEDS ORDERED: Prednisone10 MG PO (11:45)
--- NOTE | 2021-04-18 16:14 | NUR ---
DISCHARGE NOTE PATIENT WAS DISCHARGED THIS SHIFT AT 1430 THIS SHIFT VIA WHEELCHAIR WITH [facility]. PATIENT RECEIVED DISCHARGE PACKET AND BELONGINGS WERE WITH THE PATIENT. [facility] WAS NOTIFIED OF PATIENT DEPARTURE.
== END 2021-04-18 14:42 | disposition home or self-care (01) | DRG 189 ==
LOC: ER 18:44 → MEDS 18:45
PROVIDERS: Physician Assistant; ADMIT Internal Medicine
DX: J96.21 Acute and chronic respiratory failure with hypoxia (principal); A41.9 Sepsis, unspecified organism; J45.901 Unspecified asthma with (acute) exacerbation; J44.1 Chronic obstructive pulmonary disease with (acute) exacerbation; N30.00 Acute cystitis without hematuria; J96.11 Chronic respiratory failure with hypoxia; I25.10 Atherosclerotic heart disease of native coronary artery without angina pectoris; Z20.822 Contact with and (suspected) exposure to COVID-19; B96.1 Klebsiella pneumoniae [K. pneumoniae] as the cause of diseases classified elsewhere; K21.9 Gastro-esophageal reflux disease without esophagitis; R62.50 Unspecified lack of expected normal physiological development in childhood; F41.9 Anxiety disorder, unspecified; F25.9 Schizoaffective disorder, unspecified; Z98.890 Other specified postprocedural states; Z79.82 Long term (current) use of aspirin; Z79.899 Other long term (current) drug therapy; Z79.51 Long term (current) use of inhaled steroids; Z79.52 Long term (current) use of systemic steroids
CPT/HCPCS: 0241U; 36415; 71046; 80053; 81001; 83605; 83880; 84484; 85025; 87040; 87077; 87086; 87186; 94640; 94644; 94760; 96365; 96372; 96375; 96376; 99285-25; A9270; G0378; J0696; J1650; J2930; J7030

== ENCOUNTER 2021-05-18 20:27 | Emergency (ER) | payer MEDICARE, OTHER ==
[~2021-05-18] VITALS: Ht 157.5 cm; Wt 45.4 kg
[2021-05-18 21:05] LABS: BASOPHILS ABSOLUTE AUTO 0.07 K/mm3 (0.00-0.23); BASOPHILS PERCENT AUTO 1 % (0-2); EOSINOPHILS ABSOLUTE AUTO 1.19 K/mm3 (0.00-0.68); EOSINOPHILS PERCENT AUTO 10 % (0-6); Hematocrit 44.1 % (33.0-51.0); Hemoglobin 14.2 g/dL (11.5-16.0); IMMATURE GRAN ABSOLUTE AUTO 0.03 K/mm3 (0.00-0.10); IMMATURE GRAN PERCENT AUTO 0 % (0-1); LYMPHOCYTES ABSOLUTE AUTO 2.02 K/mm3 (0.84-5.20); LYMPHOCYTES PERCENT AUTO 17 % (21-46); MONOCYTES PERCENT AUTO 6 % (4-13); Mean Corpuscular HGB 28.5 pg (26.0-34.0); Mean Corpuscular HGB Conc 32.2 g/dL (31.5-36.5); Mean Corpuscular Volume 89 fL (80-100); Mean Platelet Volume 11.6 fL (9.1-12.4); NEUTROPHILS ABSOLUTE AUTO 7.97 K/mm3 (1.96-9.15); NEUTROPHILS PERCENT AUTO 67 % (41-73); Platelet Count 257 K/mm3 (150-400); RDW Coefficient Variation 13.9 % (11.7-14.2); RDW Standard Deviation 44.6 fL (35.1-46.3); Red Blood Cell Count 4.98 M/mm3 (3.80-5.20); White Blood Cell Count 11.98 K/mm3 (4.00-11.30)
[2021-05-18 21:27] LABS: Alanine Aminotransfer (ALT/SGP 66 U/L (12-78); Albumin, Blood 3.5 g/dL (3.4-5.0); Albumin/Globulin Ratio 0.8 (0.8-1.8); Alk Phos 151 U/L (50-136); Anion Gap 8 mmol/L (6-16); Aspartate Aminotrans (AST/SGOT 51 U/L (12-37); Bilirubin, Total 0.5 mg/dL (0.1-1.0); Blood Urea Nitrogen 14 mg/dL (8-24); Bun/Creatinine Ratio 23.1 (12.0-20.0); CO2, Blood 26 mmol/L (21-32); Calcium, Blood 9.1 mg/dL (8.5-10.1); Chloride, Blood 109 mmol/L (98-108); Creatinine, Blood 0.61 mg/dL (0.40-1.00); Globulin, Blood 4.2 g/dL (2.2-4.0); Glomerular Filtration Rate >60 (60-); Glucose, Blood 126 mg/dL (70-99); Potassium, Blood 3.7 mmol/L (3.5-5.5); Sodium, Blood 143 mmol/L (136-145); Total Protein, Blood 7.7 g/dL (6.4-8.2)
[2021-05-18 21:34] LABS: Influenza A, PCR NEGATIVE (NEGATIVE); Influenza B, PCR NEGATIVE (NEGATIVE); Resp Syncytial Virus, PCR NEGATIVE (NEGATIVE); SARS-Cov-2 (COVID-19) PCR, MMC NEGATIVE (NEGATIVE)
== END 2021-05-19 00:47 | disposition home or self-care (01) ==
LOC: ER 20:27
PROVIDERS: Emergency Medicine
DX: J96.21 Acute and chronic respiratory failure with hypoxia (principal); Z79.899 Other long term (current) drug therapy; Z79.82 Long term (current) use of aspirin; Z79.52 Long term (current) use of systemic steroids; I25.10 Atherosclerotic heart disease of native coronary artery without angina pectoris; Z20.822 Contact with and (suspected) exposure to COVID-19
CPT/HCPCS: 0241U; 71045; 80053; 85025; 93005; 93010; 94644; 96374; 99285-25; J2930

== ENCOUNTER 2021-05-24 21:13 | Emergency (ER) | payer MEDICARE, OTHER ==
[~2021-05-24] VITALS: Ht 160 cm; Wt 63.5 kg
[~2021-05-24 21:13] MED LIST changes: +DEXA2 PO
[2021-05-24 22:04] LABS: BASOPHILS ABSOLUTE AUTO 0.05 K/mm3 (0.00-0.23); BASOPHILS PERCENT AUTO 0 % (0-2); EOSINOPHILS ABSOLUTE AUTO 0.03 K/mm3 (0.00-0.68); EOSINOPHILS PERCENT AUTO 0 % (0-6); Hematocrit 44.4 % (33.0-51.0); Hemoglobin 14.6 g/dL (11.5-16.0); IMMATURE GRAN ABSOLUTE AUTO 0.18 K/mm3 (0.00-0.10); IMMATURE GRAN PERCENT AUTO 1 % (0-1); LYMPHOCYTES ABSOLUTE AUTO 1.35 K/mm3 (0.84-5.20); LYMPHOCYTES PERCENT AUTO 9 % (21-46); MONOCYTES ABSOLUTE AUTO 2.01 K/mm3 (0.16-1.47); MONOCYTES PERCENT AUTO 13 % (4-13); Mean Corpuscular HGB 28.2 pg (26.0-34.0); Mean Corpuscular HGB Conc 32.9 g/dL (31.5-36.5); Mean Corpuscular Volume 86 fL (80-100); Mean Platelet Volume 12.5 fL (9.1-12.4); NEUTROPHILS ABSOLUTE AUTO 12.13 K/mm3 (1.96-9.15); NEUTROPHILS PERCENT AUTO 77 % (41-73); Platelet Count 197 K/mm3 (150-400); RDW Coefficient Variation 13.9 % (11.7-14.2); RDW Standard Deviation 44.2 fL (35.1-46.3); Red Blood Cell Count 5.17 M/mm3 (3.80-5.20); White Blood Cell Count 15.75 K/mm3 (4.00-11.30)
[2021-05-24 22:22] LABS: Alanine Aminotransfer (ALT/SGP 32 U/L (12-78); Albumin, Blood 3.3 g/dL (3.4-5.0); Albumin/Globulin Ratio 0.7 (0.8-1.8); Alk Phos 132 U/L (50-136); Anion Gap 8 mmol/L (6-16); Aspartate Aminotrans (AST/SGOT 26 U/L (12-37); Bilirubin, Total 0.6 mg/dL (0.1-1.0); Blood Urea Nitrogen 17 mg/dL (8-24); Bun/Creatinine Ratio 22.5 (12.0-20.0); CO2, Blood 23 mmol/L (21-32); Calcium, Blood 8.9 mg/dL (8.5-10.1); Chloride, Blood 105 mmol/L (98-108); Creatinine, Blood 0.76 mg/dL (0.40-1.00); Globulin, Blood 4.9 g/dL (2.2-4.0); Glomerular Filtration Rate >60 (60-); Glucose, Blood 141 mg/dL (70-99); Potassium, Blood 3.6 mmol/L (3.5-5.5); Sodium, Blood 136 mmol/L (136-145); Total Protein, Blood 8.2 g/dL (6.4-8.2)
== END 2021-05-25 | disposition home or self-care (01) ==
LOC: ER 21:13
PROVIDERS: Emergency Medicine
DX: U07.1 COVID-19 (principal); J44.9 Chronic obstructive pulmonary disease, unspecified; I25.10 Atherosclerotic heart disease of native coronary artery without angina pectoris
CPT/HCPCS: 36415; 71045; 80053; 85025

== ENCOUNTER 2021-07-30 07:05 | Emergency (ER) | payer MEDICARE, OTHER ==
[~2021-07-30] VITALS: Ht 157.5 cm; Wt 45.4 kg
[2021-07-30] MEDS ORDERED: PRED20 PO (12:57)
[2021-07-30] MEDS ORDERED: DOXY100 PO (12:57)
== END 2021-07-30 14:12 | disposition home or self-care (01) ==
LOC: ER 07:05
DX: J44.1 Chronic obstructive pulmonary disease with (acute) exacerbation (principal); G40.909 Epilepsy, unspecified, not intractable, without status epilepticus; I25.10 Atherosclerotic heart disease of native coronary artery without angina pectoris; Z79.82 Long term (current) use of aspirin; Z79.899 Other long term (current) drug therapy
CPT/HCPCS: 36415; 71046; 93005; 93010; 94640; 94644; 94664; 99285-25; A9270; J7030; J7512

== ENCOUNTER 2021-09-12 20:59 | Emergency (ER) | payer MEDICARE, OTHER ==
[~2021-09-12] VITALS: Ht 157.5 cm; Wt 45.4 kg
[~2021-09-12 20:59] MED LIST changes: +VITAMIN D31000 UNI1 PO
[2021-09-13] MEDS ORDERED: PRED20 PO (00:52)
== END 2021-09-13 03:14 | disposition home or self-care (01) ==
LOC: ER 20:59
DX: J45.901 Unspecified asthma with (acute) exacerbation (principal); I25.10 Atherosclerotic heart disease of native coronary artery without angina pectoris; Z79.899 Other long term (current) drug therapy; Z79.52 Long term (current) use of systemic steroids
CPT/HCPCS: 36415; 93005; 93010; 94644; 94645; 94664; 96365; 96366; 96375; 99285-25; J2930; J3475

== ENCOUNTER 2021-10-27 17:58 | Emergency (ER) | payer MEDICARE, OTHER ==
[~2021-10-27] VITALS: Ht 165.1 cm; Wt 63.5 kg
[2021-10-27 18:36] LABS: BASOPHILS ABSOLUTE AUTO 0.09 K/mm3 (0.00-0.23); BASOPHILS PERCENT AUTO 1 % (0-2); EOSINOPHILS ABSOLUTE AUTO 1.71 K/mm3 (0.00-0.68); EOSINOPHILS PERCENT AUTO 15 % (0-6); Hematocrit 36.5 % (33.0-51.0); Hemoglobin 11.5 g/dL (11.5-16.0); IMMATURE GRAN ABSOLUTE AUTO 0.03 K/mm3 (0.00-0.10); IMMATURE GRAN PERCENT AUTO 0 % (0-1); LYMPHOCYTES ABSOLUTE AUTO 2.51 K/mm3 (0.84-5.20); LYMPHOCYTES PERCENT AUTO 22 % (21-46); MONOCYTES ABSOLUTE AUTO 0.95 K/mm3 (0.16-1.47); MONOCYTES PERCENT AUTO 8 % (4-13); Mean Corpuscular HGB 26.4 pg (26.0-34.0); Mean Corpuscular HGB Conc 31.5 g/dL (31.5-36.5); Mean Corpuscular Volume 84 fL (80-100); Mean Platelet Volume 12.7 fL (9.1-12.4); NEUTROPHILS ABSOLUTE AUTO 6.12 K/mm3 (1.96-9.15); NEUTROPHILS PERCENT AUTO 54 % (41-73); Platelet Count 215 K/mm3 (150-400); RDW Coefficient Variation 13.2 % (11.7-14.2); RDW Standard Deviation 40.6 fL (35.1-46.3); Red Blood Cell Count 4.35 M/mm3 (3.80-5.20); White Blood Cell Count 11.41 K/mm3 (4.00-11.30)
[2021-10-27 18:39] LABS: Base Excess Venous 2.1 mmol/L; Bicarbonate Venous 25.9 mmol/L (24.0-30.0); PCO2 Venous 46.3 mmHg (38-42); pH Blood Venous 7.38 (7.34-7.37)
[2021-10-27 18:45] LABS: Albumin, Blood 3.1 g/dL (3.4-5.0); Albumin/Globulin Ratio 0.8 (0.8-1.8); Bilirubin, Total 0.1 mg/dL (0.1-1.0); Bun/Creatinine Ratio 21.9 (12.0-20.0); Calcium, Blood 8.8 mg/dL (8.5-10.1); Creatinine, Blood 0.55 mg/dL (0.40-1.00); Potassium, Blood 3.5 mmol/L (3.5-5.5); Total Protein, Blood 7.1 g/dL (6.4-8.2)
[2021-10-27 18:58] LABS: Influenza A, PCR NEGATIVE (NEGATIVE); Influenza B, PCR NEGATIVE (NEGATIVE); Resp Syncytial Virus, PCR NEGATIVE (NEGATIVE); SARS-Cov-2 (COVID-19) PCR, MMC NEGATIVE (NEGATIVE)
[2021-10-27] MEDS ORDERED: Ventolin/Prove6.7 GM INH (21:10)
== END 2021-10-27 21:48 | disposition home or self-care (01) ==
LOC: ER 17:58
PROVIDERS: Emergency Medicine
DX: R06.00 Dyspnea, unspecified (principal); J44.9 Chronic obstructive pulmonary disease, unspecified; R41.89 Other symptoms and signs involving cognitive functions and awareness; I25.10 Atherosclerotic heart disease of native coronary artery without angina pectoris; Z79.899 Other long term (current) drug therapy; Z20.822 Contact with and (suspected) exposure to COVID-19; Z99.81 Dependence on supplemental oxygen
CPT/HCPCS: 0241U; 36415; 71045; 71260; 80053; 82803; 83880; 84484; 85025; 85379; 93005; 93010; 94640; 94664; J2405; J3475; J7030; Q9967

== ENCOUNTER 2021-11-30 13:02 | Emergency (ER) | payer MEDICARE, OTHER ==
[~2021-11-30] VITALS: Ht 157.5 cm; Wt 45.4 kg
[2021-11-30 14:19] LABS: Hematocrit 38.8 % (33.0-51.0); Hemoglobin 12.1 g/dL (11.5-16.0); Mean Corpuscular HGB 25.9 pg (26.0-34.0); Mean Corpuscular HGB Conc 31.2 g/dL (31.5-36.5); Mean Corpuscular Volume 83 fL (80-100); Mean Platelet Volume 12.8 fL (9.1-12.4); Platelet Count 228 K/mm3 (150-400); RDW Coefficient Variation 14.8 % (11.7-14.2); RDW Standard Deviation 44.4 fL (35.1-46.3); Red Blood Cell Count 4.68 M/mm3 (3.80-5.20)
[2021-11-30 14:36] LABS: Albumin, Blood 3.6 g/dL (3.4-5.0); Albumin/Globulin Ratio 0.9 (0.8-1.8); Bilirubin, Total 0.3 mg/dL (0.1-1.0); Bun/Creatinine Ratio 22.4 (12.0-20.0); Calcium, Blood 9.7 mg/dL (8.5-10.1); Creatinine, Blood 0.62 mg/dL (0.40-1.00); Globulin, Blood 4.2 g/dL (2.2-4.0); Potassium, Blood 3.6 mmol/L (3.5-5.5); Total Protein, Blood 7.8 g/dL (6.4-8.2)
[2021-11-30 15:10] LABS: BASOPHILS PERCENT MAN 0 % (0-2); EOSINOPHILS PERCENT MAN 0 % (0-6); LYMPHOCYTES ABSOLUTE MAN 1.79 K/mm3 (0.84-5.20); LYMPHOCYTES PERCENT MAN 14 % (21-46); MONOCYTES ABSOLUTE MAN 0.38 K/mm3 (0.16-1.47); MONOCYTES PERCENT MAN 3 % (4-13); NEUTROPHILS ABSOLUTE MAN 10.62 K/mm3 (1.96-9.15); SEG NEUTROPHILS PERCENT MAN 83 % (41-73); TOTAL CELLS COUNTED 100
[2021-11-30] MEDS ORDERED: AZIT250 PO (19:10)
[2021-11-30] MEDS ORDERED: ALBU90OI INH (19:10)
[2021-11-30] MEDS ORDERED: PRED20 PO (19:10)
== END 2021-11-30 19:41 | disposition home or self-care (01) ==
LOC: ER 13:02
PROVIDERS: Physician Assistant
DX: J44.1 Chronic obstructive pulmonary disease with (acute) exacerbation (principal); I25.10 Atherosclerotic heart disease of native coronary artery without angina pectoris; Z79.899 Other long term (current) drug therapy; Z79.52 Long term (current) use of systemic steroids
CPT/HCPCS: 36415; 71046; 80053; 83880; 84484; 85025; 93005; 93010; 94640; 94664; A9270; J7512

== ENCOUNTER 2021-12-22 17:41 | Emergency (ER) | payer MEDICARE, OTHER ==
[~2021-12-22] VITALS: Ht 160 cm; Wt 45.4 kg
[2021-12-22 18:07] LABS: BASOPHILS ABSOLUTE AUTO 0.09 K/mm3 (0.00-0.23); BASOPHILS PERCENT AUTO 1 % (0-2); EOSINOPHILS ABSOLUTE AUTO 1.36 K/mm3 (0.00-0.68); EOSINOPHILS PERCENT AUTO 13 % (0-6); Hematocrit 36.9 % (33.0-51.0); Hemoglobin 11.4 g/dL (11.5-16.0); IMMATURE GRAN ABSOLUTE AUTO 0.02 K/mm3 (0.00-0.10); IMMATURE GRAN PERCENT AUTO 0 % (0-1); LYMPHOCYTES PERCENT AUTO 21 % (21-46); MONOCYTES ABSOLUTE AUTO 0.87 K/mm3 (0.16-1.47); MONOCYTES PERCENT AUTO 8 % (4-13); Mean Corpuscular HGB 24.9 pg (26.0-34.0); Mean Corpuscular HGB Conc 30.9 g/dL (31.5-36.5); Mean Corpuscular Volume 81 fL (80-100); NEUTROPHILS ABSOLUTE AUTO 5.81 K/mm3 (1.96-9.15); NEUTROPHILS PERCENT AUTO 56 % (41-73); Platelet Count 212 K/mm3 (150-400); RDW Coefficient Variation 15.8 % (11.7-14.2); RDW Standard Deviation 46.3 fL (35.1-46.3); Red Blood Cell Count 4.57 M/mm3 (3.80-5.20); White Blood Cell Count 10.35 K/mm3 (4.00-11.30)
[2021-12-22 18:26] LABS: Albumin, Blood 3.4 g/dL (3.4-5.0); Albumin/Globulin Ratio 0.9 (0.8-1.8); Bilirubin, Total 0.3 mg/dL (0.1-1.0); Bun/Creatinine Ratio 13.4 (12.0-20.0); Calcium, Blood 9.3 mg/dL (8.5-10.1); Creatinine, Blood 0.67 mg/dL (0.40-1.00); Globulin, Blood 3.9 g/dL (2.2-4.0); Potassium, Blood 3.6 mmol/L (3.5-5.5); Total Protein, Blood 7.3 g/dL (6.4-8.2)
== END 2021-12-22 22:58 | disposition home or self-care (01) ==
LOC: ER 17:41
PROVIDERS: Emergency Medicine
DX: J44.9 Chronic obstructive pulmonary disease, unspecified (principal)
CPT/HCPCS: 36415; 71045; 80053; 84484; 85025; 93005; 93010; 94640; 94664

== ENCOUNTER 2022-01-18 08:27 | Day surgery (SDC) | payer MEDICARE, OTHER ==
[~2022-01-18] VITALS: Ht 147.3 cm; Wt 51.0 kg
[~2022-01-18 08:27] MED LIST changes: +ACIDOPHILUS1 EAC3 PO; +Bystolic2.5 MG PO; +METAMUCIL POWD798 GM PO; +Mucus Relief400 MG PO
--- NOTE | 2022-01-18 09:11 | NUR ---
01/18/22 0911 Mary Sidhu TETRACAINE TO RIGHT EYE @ 0906 PLEDGET TO RIGHT EYE @ 0907 BY [facility].TOMAG
== END 2022-01-18 10:36 | disposition home or self-care (01) ==
LOC: ORSCSDS 08:27
PROVIDERS: Ophthalmology
PROC: 08RJ3JZ Replacement of Right Lens with Synthetic Substitute, Percutaneous Approach (ICD-10-PCS; principal; 2022-01-18 10:00)
DX: H25.11 Age-related nuclear cataract, right eye (principal); I10 Essential (primary) hypertension; J45.909 Unspecified asthma, uncomplicated; F32.A Depression, unspecified; Z79.899 Other long term (current) drug therapy
CPT/HCPCS: J2001; J2250; J3010; J3301; J7040; V2632

== ENCOUNTER 2022-02-04 14:36 | Emergency (ER) | payer MEDICARE, OTHER ==
[~2022-02-04] VITALS: Ht 152.4 cm; Wt 45.4 kg
[2022-02-04] MEDS ORDERED: [UNRECOGNIZED DRUG - CODE] (15:26)
[2022-02-04] MEDS ORDERED: ACET325 (15:28)
== END 2022-02-04 16:09 | disposition home or self-care (01) ==
LOC: ER 14:36
DX: S20.211A Contusion of right front wall of thorax, initial encounter (principal); W01.0XXA Fall on same level from slipping, tripping and stumbling without subsequent striking against object, initial encounter; I25.10 Atherosclerotic heart disease of native coronary artery without angina pectoris; J82.83 Eosinophilic asthma; Z79.899 Other long term (current) drug therapy; Z79.82 Long term (current) use of aspirin
CPT/HCPCS: 71101; 99283-25

== ENCOUNTER 2022-02-08 08:33 | Day surgery (SDC) | payer MEDICARE, OTHER ==
[~2022-02-08] VITALS: Ht 152.4 cm; Wt 52.5 kg
[~2022-02-08 08:33] MED LIST changes: +ACET325; +[UNRECOGNIZED DRUG - CODE]
--- NOTE | 2022-02-08 09:57 | NUR ---
02/08/22 0957 Laura Mathis TETRACAINE INTO LEFT EYE AT 0943 PLEDGET INTO LEFT EYE AT 0944 BY [facility].FLL
== END 2022-02-08 11:04 | disposition home or self-care (01) ==
LOC: ORSCSDS 08:33
PROVIDERS: Ophthalmology
PROC: 08DK3ZZ Extraction of Left Lens, Percutaneous Approach (ICD-10-PCS; principal; 2022-02-08 10:30)
DX: H25.12 Age-related nuclear cataract, left eye (principal); Z96.1 Presence of intraocular lens; I10 Essential (primary) hypertension; K21.9 Gastro-esophageal reflux disease without esophagitis; Z79.82 Long term (current) use of aspirin; Z79.899 Other long term (current) drug therapy
CPT/HCPCS: J2001; J2250; J3010; J3301; J7040; V2632

== ENCOUNTER 2022-02-18 12:41 | Emergency (ER) | payer MEDICARE, OTHER ==
[~2022-02-18] VITALS: Ht 152.4 cm; Wt 65.8 kg
[2022-02-18 13:44] LABS: BASOPHILS ABSOLUTE AUTO 0.07 K/mm3 (0.00-0.23); BASOPHILS PERCENT AUTO 1 % (0-2); EOSINOPHILS PERCENT AUTO 9 % (0-6); Hematocrit 37.1 % (33.0-51.0); IMMATURE GRAN ABSOLUTE AUTO 0.02 K/mm3 (0.00-0.10); IMMATURE GRAN PERCENT AUTO 0 % (0-1); LYMPHOCYTES ABSOLUTE AUTO 1.73 K/mm3 (0.84-5.20); LYMPHOCYTES PERCENT AUTO 19 % (21-46); MONOCYTES ABSOLUTE AUTO 0.46 K/mm3 (0.16-1.47); MONOCYTES PERCENT AUTO 5 % (4-13); Mean Corpuscular HGB 24.1 pg (26.0-34.0); Mean Corpuscular HGB Conc 29.6 g/dL (31.5-36.5); Mean Corpuscular Volume 81 fL (80-100); Mean Platelet Volume 12.8 fL (9.1-12.4); NEUTROPHILS ABSOLUTE AUTO 6.14 K/mm3 (1.96-9.15); NEUTROPHILS PERCENT AUTO 67 % (41-73); Platelet Count 210 K/mm3 (150-400); RDW Coefficient Variation 18.2 % (11.7-14.2); RDW Standard Deviation 53.8 fL (35.1-46.3); Red Blood Cell Count 4.56 M/mm3 (3.80-5.20); White Blood Cell Count 9.22 K/mm3 (4.00-11.30)
[2022-02-18 15:43] LABS: Influenza A, PCR NEGATIVE (NEGATIVE); Influenza B, PCR NEGATIVE (NEGATIVE); Resp Syncytial Virus, PCR NEGATIVE (NEGATIVE); SARS-Cov-2 (COVID-19) PCR, MMC NEGATIVE (NEGATIVE)
[2022-02-18 16:21] LABS: Albumin, Blood 3.5 g/dL (3.4-5.0); Albumin/Globulin Ratio 0.9 (0.8-1.8); Bilirubin, Total 0.3 mg/dL (0.1-1.0); Bun/Creatinine Ratio 14.1 (12.0-20.0); Calcium, Blood 9.3 mg/dL (8.5-10.1); Creatinine, Blood 0.64 mg/dL (0.40-1.00); Globulin, Blood 4.1 g/dL (2.2-4.0); Potassium, Blood 3.5 mmol/L (3.5-5.5); Total Protein, Blood 7.6 g/dL (6.4-8.2)
[2022-02-18] MEDS ORDERED: PRED20 PO (16:30)
== END 2022-02-18 16:56 | disposition home or self-care (01) ==
LOC: ER 12:41
PROVIDERS: Student in an Organized Health Care Education/Training Program
DX: R06.02 Shortness of breath (principal); R07.81 Pleurodynia; I25.10 Atherosclerotic heart disease of native coronary artery without angina pectoris; Z20.822 Contact with and (suspected) exposure to COVID-19
CPT/HCPCS: 0241U; 36415; 71046; 80053; 84484; 85025; 93005; 93010; 94640; 94664; 96374; 99285-25; J1885; J7512

== ENCOUNTER 2022-03-22 14:32 | Emergency (ER) | payer MEDICARE, OTHER ==
[~2022-03-22] VITALS: Ht 160 cm; Wt 45.4 kg
[2022-03-22 16:00] LABS: Albumin, Blood 3.6 g/dL (3.4-5.0); Albumin/Globulin Ratio 0.8 (0.8-1.8); Bilirubin, Total 0.3 mg/dL (0.1-1.0); Bun/Creatinine Ratio 18.9 (12.0-20.0); Calcium, Blood 9.2 mg/dL (8.5-10.1); Creatinine, Blood 0.69 mg/dL (0.40-1.00); Globulin, Blood 4.6 g/dL (2.2-4.0); Potassium, Blood 3.9 mmol/L (3.5-5.5); Total Protein, Blood 8.2 g/dL (6.4-8.2)
[2022-03-22 16:12] LABS: Influenza B, PCR NEGATIVE (NEGATIVE); Resp Syncytial Virus, PCR NEGATIVE (NEGATIVE); SARS-Cov-2 (COVID-19) PCR, MMC NEGATIVE (NEGATIVE)
[2022-03-22 16:13] LABS: BASOPHILS ABSOLUTE AUTO 0.04 K/mm3 (0.00-0.23); BASOPHILS PERCENT AUTO 0 % (0-2); EOSINOPHILS PERCENT AUTO 4 % (0-6); Hematocrit 39.8 % (33.0-51.0); Hemoglobin 12.4 g/dL (11.5-16.0); IMMATURE GRAN ABSOLUTE AUTO 0.12 K/mm3 (0.00-0.10); IMMATURE GRAN PERCENT AUTO 1 % (0-1); LYMPHOCYTES ABSOLUTE AUTO 1.56 K/mm3 (0.84-5.20); LYMPHOCYTES PERCENT AUTO 10 % (21-46); MONOCYTES ABSOLUTE AUTO 0.58 K/mm3 (0.16-1.47); MONOCYTES PERCENT AUTO 4 % (4-13); Mean Corpuscular HGB Conc 31.2 g/dL (31.5-36.5); Mean Corpuscular Volume 80 fL (80-100); NEUTROPHILS ABSOLUTE AUTO 12.77 K/mm3 (1.96-9.15); NEUTROPHILS PERCENT AUTO 81 % (41-73); RDW Coefficient Variation 18.6 % (11.7-14.2); Red Blood Cell Count 4.96 M/mm3 (3.80-5.20); White Blood Cell Count 15.77 K/mm3 (4.00-11.30)
[2022-03-22 16:14] LABS: Influenza A, PCR POSITIVE (NEGATIVE)
[2022-03-22 16:39] LABS: Mean Platelet Volume 11.9 fL (9.1-12.4); Platelet Count 197 K/mm3 (150-400)
[2022-03-22] MEDS ORDERED: Prednisone20 MG PO (16:39)
[2022-03-22] MEDS ORDERED: Tamiflu75 MG PO (16:39)
[2022-03-22] MEDS ORDERED: ONDA4ODT MM (16:39)
== END 2022-03-22 18:10 | disposition home or self-care (01) ==
LOC: ER 14:32
PROVIDERS: Emergency Medicine
DX: J10.1 Influenza due to other identified influenza virus with other respiratory manifestations (principal); J44.1 Chronic obstructive pulmonary disease with (acute) exacerbation; I25.10 Atherosclerotic heart disease of native coronary artery without angina pectoris; Z20.822 Contact with and (suspected) exposure to COVID-19; Z79.899 Other long term (current) drug therapy
CPT/HCPCS: 0241U; 36415; 71045; 80053; 83880; 84484; 85025; 93005; 93010; 94640; 94664; J2405; J2930

== ENCOUNTER 2022-03-30 19:24 | Inpatient (IN) | payer MEDICARE, OTHER ==
[~2022-03-30] VITALS: Ht 157.5 cm; Wt 53.7 kg
[~2022-03-30 19:24] MED LIST changes: -ACET325; +Tamiflu75 MG PO
[2022-03-30 21:38] LABS: BASOPHILS ABSOLUTE AUTO 0.04 K/mm3 (0.00-0.23); BASOPHILS PERCENT AUTO 0 % (0-2); EOSINOPHILS ABSOLUTE AUTO 0.01 K/mm3 (0.00-0.68); EOSINOPHILS PERCENT AUTO 0 % (0-6); Hematocrit 39.2 % (33.0-51.0); Hemoglobin 12.4 g/dL (11.5-16.0); IMMATURE GRAN ABSOLUTE AUTO 0.31 K/mm3 (0.00-0.10); IMMATURE GRAN PERCENT AUTO 2 % (0-1); LYMPHOCYTES ABSOLUTE AUTO 1.24 K/mm3 (0.84-5.20); LYMPHOCYTES PERCENT AUTO 6 % (21-46); MONOCYTES ABSOLUTE AUTO 1.15 K/mm3 (0.16-1.47); MONOCYTES PERCENT AUTO 5 % (4-13); Mean Corpuscular HGB 24.7 pg (26.0-34.0); Mean Corpuscular HGB Conc 31.6 g/dL (31.5-36.5); Mean Corpuscular Volume 78 fL (80-100); NEUTROPHILS ABSOLUTE AUTO 18.55 K/mm3 (1.96-9.15); NEUTROPHILS PERCENT AUTO 87 % (41-73); NRBC ABSOLUTE 0.02 K/mm3 (0.00-0.02); NRBC Auto 0.1 /100 WBC (0.0-0.2); Platelet Count 204 K/mm3 (150-400); RDW Coefficient Variation 18.7 % (11.7-14.2); RDW Standard Deviation 53.2 fL (35.1-46.3); Red Blood Cell Count 5.03 M/mm3 (3.80-5.20)
[2022-03-30 21:48] LABS: Mean Platelet Volume 12.5 fL (9.1-12.4)
[2022-03-30 21:58] LABS: Albumin, Blood 3.4 g/dL (3.4-5.0); Albumin/Globulin Ratio 0.7 (0.8-1.8); Bilirubin, Total 0.7 mg/dL (0.1-1.0); Bun/Creatinine Ratio 12.7 (12.0-20.0); Creatinine, Blood 0.71 mg/dL (0.40-1.00); Globulin, Blood 4.7 g/dL (2.2-4.0); Total Protein, Blood 8.1 g/dL (6.4-8.2)
[2022-03-30 23:40] LABS: Influenza B, PCR NEGATIVE (NEGATIVE); Resp Syncytial Virus, PCR NEGATIVE (NEGATIVE); SARS-Cov-2 (COVID-19) PCR, MMC NEGATIVE (NEGATIVE)
[2022-03-31 00:04] LABS: Influenza A, PCR POSITIVE (NEGATIVE)
[2022-03-31 03:09] LABS: Hematocrit 34.5 % (33.0-51.0); Hemoglobin 10.8 g/dL (11.5-16.0); Mean Corpuscular HGB 24.8 pg (26.0-34.0); Mean Corpuscular HGB Conc 31.3 g/dL (31.5-36.5); Mean Corpuscular Volume 79 fL (80-100); Mean Platelet Volume 11.5 fL (9.1-12.4); Platelet Count 177 K/mm3 (150-400); RDW Coefficient Variation 18.6 % (11.7-14.2); RDW Standard Deviation 53.8 fL (35.1-46.3); Red Blood Cell Count 4.35 M/mm3 (3.80-5.20); White Blood Cell Count 20.08 K/mm3 (4.00-11.30)
[2022-03-31 03:25] LABS: Bun/Creatinine Ratio 15.2 (12.0-20.0); Calcium, Blood 7.4 mg/dL (8.5-10.1); Creatinine, Blood 0.59 mg/dL (0.40-1.00); Potassium, Blood 3.6 mmol/L (3.5-5.5)
--- NOTE | 2022-03-31 05:25 | NUR ---
SUMMARY: PATIENT ADMITTED OVERNIGHT FROM ER. FLU + ON 03/22. PATIENT ON HER BASELINE O2 OF 2L NC. ASSISTED PATIENT TO BEDSIDE COMMODE SBA. LACTIC ELEVATED 5.0, NOTIFIED MD, RECIEVED ORDERS FOR 2L BOLUS AND CONT FLUIDS AT 150 ML/HR AFTER. PATIENT REPORTS SOB WHEN UP MOVING. VSS. TELE IN PLACE PATIENT TACHY IN 110S. PATIENT AOX3 NOT TO TIME. PATIENT HAS A HISTORY OF A DEVELOPMENTAL DISORDER. PATIENT ALSO HAS A PRODUCTIVE COUGH. RESP TREATMENTS GIVEN PRN.
--- NOTE | 2022-03-31 17:46 | NUR ---
SHIFT SUMMARY NO ACUTE CHANGES DURING SHIFT. PT ALERT AND ORIENTED, CALLS APPROPRIATELY. PT REMAINS ON 2L NC, SPO2 > 92%. NO C/O PAIN. PT ON IV STEROIDS AND ABX. PT SBA TO BATHROOM. WILL CONTINUE TO MONITOR. CALL LIGHT WITHIN REACH.
--- NOTE | 2022-04-01 04:50 | NUR ---
SHIFT SUMMARY ADMITTED FOR FLU+. FULL CODE. PLAN IS FOR IV STEROIDS AND ANTIB RX. LABS APPEAR TO BE IMPROVING. SHE IS STANDBY ASSIST W/BRP. 2 LPM O2 IS BASELINE. HX OF DEVELOPMENTAL DELAY AND ASTHMA. [facility], THE FACILITY WHERE SHE RESIDES, CALLED FOR AN UPDATE. THEY INFORM ME THAT MOST OF THEIR RESIDENTS AND STAFF CURRENTLY HAVE THE FLU. THEY INFORM ME THAT THEY DO NOT ALLOW RE-ADMITS TO THEIR FACILITY OVER THE WEEKENDS. NO NEW CONCERNS THIS SHIFT.
[2022-04-01 06:05] LABS: BASOPHILS ABSOLUTE AUTO 0.04 K/mm3 (0.00-0.23); BASOPHILS PERCENT AUTO 0 % (0-2); EOSINOPHILS PERCENT AUTO 0 % (0-6); Hematocrit 31.3 % (33.0-51.0); Hemoglobin 9.7 g/dL (11.5-16.0); IMMATURE GRAN ABSOLUTE AUTO 0.46 K/mm3 (0.00-0.10); IMMATURE GRAN PERCENT AUTO 2 % (0-1); LYMPHOCYTES ABSOLUTE AUTO 0.87 K/mm3 (0.84-5.20); LYMPHOCYTES PERCENT AUTO 3 % (21-46); MONOCYTES ABSOLUTE AUTO 0.74 K/mm3 (0.16-1.47); MONOCYTES PERCENT AUTO 3 % (4-13); Mean Corpuscular HGB 24.6 pg (26.0-34.0); Mean Corpuscular Volume 79 fL (80-100); Mean Platelet Volume 11.8 fL (9.1-12.4); NEUTROPHILS ABSOLUTE AUTO 26.22 K/mm3 (1.96-9.15); NEUTROPHILS PERCENT AUTO 93 % (41-73); Platelet Count 175 K/mm3 (150-400); RDW Coefficient Variation 18.8 % (11.7-14.2); RDW Standard Deviation 54.9 fL (35.1-46.3); Red Blood Cell Count 3.94 M/mm3 (3.80-5.20); White Blood Cell Count 28.33 K/mm3 (4.00-11.30)
[2022-04-01 06:31] LABS: Bun/Creatinine Ratio 18.7 (12.0-20.0); Calcium, Blood 7.5 mg/dL (8.5-10.1); Creatinine, Blood 0.53 mg/dL (0.40-1.00); Potassium, Blood 2.9 mmol/L (3.5-5.5)
--- NOTE | 2022-04-01 17:53 | NUR ---
SHIFT SUMMARY NO ACUTE CHANGES DURING SHIFT. PT ALERT AND ORIENTED, CALLS APPROPRIATELY. PT REMAINS ON 2L NC, BASELINE, SPO2 REMAINS > 92%. STEROIDS TRANSITIONED TO ORAL TODAY. NO C/O PAIN. PT RECEIVED K REPLACEMENT TODAY D/T K-2.9. WILL CONTINUE TO MONITOR. CALL LIGHT WITHIN REACH.
--- NOTE | 2022-04-02 04:36 | NUR ---
FUNERAL DIRECTOR/EMBALMER SUMMARY: A&Ox4. PLEASANT AND COOPERATIVE WITH CARE. CALLS APPROPRIATELY AND ADVOCATES OWN NEEDS. BED ALARM IS SET BECAUSE SHE DOES TRY TO GET UP TO GO TO BATHROOM WITHOUT WAITING FOR ASSISTANCE BUT IS EASILY REDIRECTED AND REMINDED TO CALL TO WHICH SHE RESPONDS SHE DOES NOT LIKE TO BOTHER STAFF. GLUCOSE CHECKS AC/HS. NEBULIZER Tx BY RT Q4H WHILE AWAKE; SHE IS KNOWN TO CALL AND REQUEST THESE SHE HAS A Hx EOSINOPHILLIC ASTHMA. VSS T/O THE NIGHT. MAINTAINING SPO2 >92% ON 2L/min VIA NC. VOIDING AND STOOLING WITHOUT DIFFICULTY. REQUESTED SNACKS OF ICE CREAM AND PUDDING PRIOR TO BED LAST NIGHT. PLAN FOR DC HOME TO [facility] TODAY. WILL REPORT TO ONCOMING RN.
[2022-04-02 06:24] LABS: Hematocrit 28.5 % (33.0-51.0); Hemoglobin 8.7 g/dL (11.5-16.0); Mean Corpuscular HGB 24.5 pg (26.0-34.0); Mean Corpuscular HGB Conc 30.5 g/dL (31.5-36.5); Mean Corpuscular Volume 80 fL (80-100); Mean Platelet Volume 11.7 fL (9.1-12.4); NRBC ABSOLUTE 0.02 K/mm3 (0.00-0.02); NRBC Auto 0.1 /100 WBC (0.0-0.2); Platelet Count 181 K/mm3 (150-400); RDW Coefficient Variation 19.4 % (11.7-14.2); RDW Standard Deviation 57.1 fL (35.1-46.3); Red Blood Cell Count 3.55 M/mm3 (3.80-5.20); White Blood Cell Count 28.24 K/mm3 (4.00-11.30)
[2022-04-02 06:35] LABS: Albumin, Blood 2.3 g/dL (3.4-5.0); Albumin/Globulin Ratio 0.7 (0.8-1.8); Bilirubin, Total 0.2 mg/dL (0.1-1.0); Bun/Creatinine Ratio 16.1 (12.0-20.0); Calcium, Blood 7.3 mg/dL (8.5-10.1); Creatinine, Blood 0.56 mg/dL (0.40-1.00); Globulin, Blood 3.4 g/dL (2.2-4.0); Potassium, Blood 3.7 mmol/L (3.5-5.5); Total Protein, Blood 5.7 g/dL (6.4-8.2)
[2022-04-02] MEDS ORDERED: IPRAT-ALBUT 0.5-3 ML INH (12:15)
[2022-04-02] MEDS ORDERED: PRED20 PO (12:15)
--- NOTE | 2022-04-02 13:06 | NUR ---
DISCHARGE SUMMARY PT DISCHARGED TO HOME, [facility]. PT LEFT ROOM VIA WHEELCHAIR AT 13 WITH [facility] PRESENT. IV DC'D AND BELONGINGS RETURNED. PT EDUCATED ON ALL DISCHAGE INSTRUCTIONS AND AGRESS TO FOLLOW UP WIT PCP WITHIN 1 WEEK. DISCHARGE PACKET AND DISCHARGE MED LIST FAXED TO [facility] PRIOR TO DC.
== END 2022-04-02 13:06 | disposition home or self-care (01) | DRG 871 ==
LOC: ER 19:24 → MEDS 19:25
PROVIDERS: Family Medicine; Student in an Organized Health Care Education/Training Program; ADMIT Internal Medicine
DX: A41.89 Other specified sepsis (principal); J10.00 Influenza due to other identified influenza virus with unspecified type of pneumonia; J96.21 Acute and chronic respiratory failure with hypoxia; J45.901 Unspecified asthma with (acute) exacerbation; J82.83 Eosinophilic asthma; F84.9 Pervasive developmental disorder, unspecified; J44.1 Chronic obstructive pulmonary disease with (acute) exacerbation; J44.0 Chronic obstructive pulmonary disease with (acute) lower respiratory infection; R65.20 Severe sepsis without septic shock; I25.10 Atherosclerotic heart disease of native coronary artery without angina pectoris; K21.9 Gastro-esophageal reflux disease without esophagitis; R13.12 Dysphagia, oropharyngeal phase; F25.9 Schizoaffective disorder, unspecified; Z20.822 Contact with and (suspected) exposure to COVID-19; Z79.52 Long term (current) use of systemic steroids; Z79.899 Other long term (current) drug therapy; Z79.51 Long term (current) use of inhaled steroids; Z98.890 Other specified postprocedural states; Z99.81 Dependence on supplemental oxygen
CPT/HCPCS: 0241U; 36415; 71045; 80048; 80053; 82947; 83036; 83605; 85025; 85027; 87040; 93005; 93010; 94640; 94644; 94664; 94760; 96365; 96367; 96375; 99285-25; A9270; G0378; J0456; J0696; J1650; J2405; J2930; J3480; J7030; J7040; J7050; J7120; J7512

== ENCOUNTER 2022-05-15 16:20 | Inpatient (IN) | payer MEDICARE, OTHER ==
[~2022-05-15] VITALS: Ht 162.6 cm; Wt 45.4 kg
[2022-05-15 17:21] LABS: BASOPHILS ABSOLUTE AUTO 0.07 K/mm3 (0.00-0.23); BASOPHILS PERCENT AUTO 1 % (0-2); EOSINOPHILS ABSOLUTE AUTO 1.56 K/mm3 (0.00-0.68); EOSINOPHILS PERCENT AUTO 15 % (0-6); Hematocrit 35.5 % (33.0-51.0); Hemoglobin 10.9 g/dL (11.5-16.0); IMMATURE GRAN ABSOLUTE AUTO 0.04 K/mm3 (0.00-0.10); IMMATURE GRAN PERCENT AUTO 0 % (0-1); LYMPHOCYTES ABSOLUTE AUTO 2.46 K/mm3 (0.84-5.20); LYMPHOCYTES PERCENT AUTO 23 % (21-46); MONOCYTES ABSOLUTE AUTO 0.81 K/mm3 (0.16-1.47); MONOCYTES PERCENT AUTO 8 % (4-13); Mean Corpuscular HGB 25.4 pg (26.0-34.0); Mean Corpuscular HGB Conc 30.7 g/dL (31.5-36.5); Mean Corpuscular Volume 83 fL (80-100); Mean Platelet Volume 12.9 fL (9.1-12.4); NEUTROPHILS ABSOLUTE AUTO 5.82 K/mm3 (1.96-9.15); NEUTROPHILS PERCENT AUTO 54 % (41-73); Platelet Count 197 K/mm3 (150-400); RDW Coefficient Variation 17.2 % (11.7-14.2); RDW Standard Deviation 51.8 fL (35.1-46.3); Red Blood Cell Count 4.29 M/mm3 (3.80-5.20); White Blood Cell Count 10.76 K/mm3 (4.00-11.30)
[2022-05-15 17:28] LABS: Bun/Creatinine Ratio 14.3 (12.0-20.0); Calcium, Blood 9.6 mg/dL (8.5-10.1); Creatinine, Blood 0.77 mg/dL (0.40-1.00); Potassium, Blood 3.5 mmol/L (3.5-5.5)
[2022-05-15 18:46] LABS: Influenza A, PCR NEGATIVE (NEGATIVE); Influenza B, PCR NEGATIVE (NEGATIVE); Resp Syncytial Virus, PCR NEGATIVE (NEGATIVE); SARS-Cov-2 (COVID-19) PCR, MMC NEGATIVE (NEGATIVE)
[2022-05-15] MEDS ORDERED: DEXA2 PO (21:23)
--- NOTE | 2022-05-16 01:41 | NUR ---
NEW ADMIT NOTE PT ARRIVED T/ROOM AT 2200. PT ON 2L O2 NC AT BASELINE. PT AMBULATES INDEPENDENTLY WITHOUT ASSISTIVE DEVICES. FULL CODE. A/OX3; PT ABLE TO ANSWER ORIENTATION QUESTIONS BUT UNSURE ABOUT THE DATE. PT HX OF DEVELOPMENTAL DISORDER AND COGNITIVE DELAY; PT WILL ANSWER QUESTIONS "MATTER OF FACT" BUT WILL HAVE ANSWERED INCORRECTLY. MAY NOT BE GOOD HISTORIAN. 20G LEFT AC IV FLUSHED, PATENT, SALINE LOCKED. PT SOB ON ARRIVAL. LUNG SOUNDS; WHEEZE/RHONCHI. RT NOTIFIED WHEN PT ARRIVED; CAME TO GIVE BREATHING TREATMENTS. ORIENTED PT TO ROOM, CALL LIGHT, PHONE. SECOND RN SKIN ASSESSMENT DONE WITH AL GERMAN R.N. PT HAS REDDENED AREAS UNDER LEFT BREAST AND IN GROIN. LIPS ARE DRY/CRACKED WITH HEALING SCABS. BILATTERAL BUTTOCK RED, DRY, AND SCALING WITH SMALL HEALING SCABS. CENTER OF COCCYX PT HAS SMALL DIME SIZED OPENING WITHOUT REDNESS OR DRAINAGE. CONSENT TO PHOTOGRAPH FROM PT. PICS IN CHART. PT IS FROM [facility]. SHE IS ABLE TO MAKE NEEDS KNOWN. CALL LIGHT IN REACH. BED LOCKED/LOW. WILL CONT TO MONITOR.
--- NOTE | 2022-05-16 04:51 | NUR ---
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 NO ACUTE EVENTS. PT REMAINS ON 2L O2. DENIES SOB. PT RELAXED AND NO SIGNS OF DISTRESS; VITALS REVIEWED; RESPIRATIONS IN LOW 20'S. ABLE TO MAKE NEEDS KNOWN. CALL LIGHT ACCESSIBLE. BED LOCKED/LOW.
--- NOTE | 2022-05-16 12:14 | NUR ---
Upon receiving a referral for spiritual care, I visited the patient. The patient is quiet and answers very sparingly. SHe states that she is breathing better, that she does not find the care at the facility she lives at to be excellent and that she welcomes prayer. I gladly provide prayer, a calming presence and gentle encouragement. Patient responds well and shows signs of an elevated mood.
--- NOTE | 2022-05-16 17:18 | NUR ---
SUMMARY- PT A/O X3-4, MILD DEV DELAY BUT MANAGES INDEPENDANT IN ROOM. PT ON 2L 02 NC. AMBULATES INDEP TO BATHROOM. HAD SHOWER TODAY. LUNGS WITH FREQ EXP WHEEZE, ROUTINE NEBS Q4 WA HELPFUL. PT STATES BREATHING MUCH IMPROVED SINCE ADMISSION. LIKELY DC BACK TO [facility] TOMORROW.
--- NOTE | 2022-05-17 04:12 | NUR ---
SHIFT SUMMARY; NO ACUTE CHANGES OVERNIGHT. THE PT RESTED IN BED T/O THE NIGHT. THE PT IS AXO X3, THE PT ALSO HAS A DEVELOPMENTAL DELAY. THE PT IS INDEPENDENT TO THE BATHROOM. THE PT HAS 2L NC ON WHICH IS HER BASELINE AT HOME, O2 SATS ARE GREATER THAN 92%. THE PT DENIES ANY PAIN, OR CHEST PAIN/PRESSURE THIS SHIFT. THE PT DOES HAVE SOME EXERTIONAL DYSPNEA BUT THE PTS STATES SHE FEELS LIKES ITS GOTTEN BETTER SINCE ADMIT. CURRENTLY THE PT IS RESTING IN BED WITH THE BED IN THE LOWEST POSITION AND THE CALL LIGHT AT BEDSIDE. PT WILL LIKELY BE D/C'ING BACK TO [facility] TODAY.
[2022-05-17] MEDS ORDERED: PANT20 PO (08:36)
[2022-05-17] MEDS ORDERED: PRED20 PO (08:36)
--- NOTE | 2022-05-17 18:04 | NUR ---
DISCHARGE SUMMARY PT AXO, PLEASANT AND COOPERATIVE WITH CARE. DENIES PAIN. DISCHARGED TO HOME VIA [facility] IN WHEELCHAIR. PT LEFT ROOM AT 1753. IV DC'D AND BELONGINGS RETURNED. MED REC FAXED TO [facility] AT START OF DAY. PT EDUCATED ON ALL DISCHARGE INSTRUCTIONS AND ALL QUESTIONS ANSWERED. PT AGREES TO SPEAK WITH [facility] ABOUT SCHEDULING FOLLOW UP APPOINTMENT WITH PCP WITHIN ONE WEEK.
== END 2022-05-17 17:55 | disposition home or self-care (01) | DRG 189 ==
LOC: ER 16:20 → MEDS 22:41
PROVIDERS: Student in an Organized Health Care Education/Training Program; ADMIT Internal Medicine
DX: J96.21 Acute and chronic respiratory failure with hypoxia (principal); J44.1 Chronic obstructive pulmonary disease with (acute) exacerbation; J45.901 Unspecified asthma with (acute) exacerbation; R65.10 Systemic inflammatory response syndrome (SIRS) of non-infectious origin without acute organ dysfunction; J98.11 Atelectasis; J82.83 Eosinophilic asthma; F84.9 Pervasive developmental disorder, unspecified; K44.9 Diaphragmatic hernia without obstruction or gangrene; R13.12 Dysphagia, oropharyngeal phase; G31.84 Mild cognitive impairment of uncertain or unknown etiology; K21.9 Gastro-esophageal reflux disease without esophagitis; I25.10 Atherosclerotic heart disease of native coronary artery without angina pectoris; F25.9 Schizoaffective disorder, unspecified; Z20.822 Contact with and (suspected) exposure to COVID-19; Z98.890 Other specified postprocedural states; Z23 Encounter for immunization; Z79.899 Other long term (current) drug therapy; Z79.51 Long term (current) use of inhaled steroids; Z79.52 Long term (current) use of systemic steroids
CPT/HCPCS: 0241U; 36415; 71046; 80048; 83880; 85025; 90686; 93005; 93010; 94640; 94644; 94664; 94760; 96372; 96374; 96376; 99285-25; A9270; C9113; G0008; G0378; J1650; J2930; J7512

== ENCOUNTER 2022-06-18 18:51 | Observation (INO) | payer MEDICARE, OTHER ==
[~2022-06-18] VITALS: Ht 154.9 cm; Wt 57.2 kg
[2022-06-18 20:18] LABS: BASOPHILS ABSOLUTE AUTO 0.08 K/mm3 (0.00-0.23); BASOPHILS PERCENT AUTO 1 % (0-2); EOSINOPHILS PERCENT AUTO 12 % (0-6); Hematocrit 35.2 % (33.0-51.0); Hemoglobin 10.7 g/dL (11.5-16.0); IMMATURE GRAN ABSOLUTE AUTO 0.05 K/mm3 (0.00-0.10); IMMATURE GRAN PERCENT AUTO 0 % (0-1); LYMPHOCYTES ABSOLUTE AUTO 2.83 K/mm3 (0.84-5.20); LYMPHOCYTES PERCENT AUTO 23 % (21-46); MONOCYTES ABSOLUTE AUTO 1.17 K/mm3 (0.16-1.47); MONOCYTES PERCENT AUTO 10 % (4-13); Mean Corpuscular HGB 24.8 pg (26.0-34.0); Mean Corpuscular HGB Conc 30.4 g/dL (31.5-36.5); Mean Corpuscular Volume 82 fL (80-100); Mean Platelet Volume 12.6 fL (9.1-12.4); NEUTROPHILS ABSOLUTE AUTO 6.52 K/mm3 (1.96-9.15); NEUTROPHILS PERCENT AUTO 54 % (41-73); Platelet Count 241 K/mm3 (150-400); RDW Coefficient Variation 16.7 % (11.7-14.2); RDW Standard Deviation 48.9 fL (35.1-46.3); Red Blood Cell Count 4.32 M/mm3 (3.80-5.20); White Blood Cell Count 12.15 K/mm3 (4.00-11.30)
[2022-06-18 20:36] LABS: Albumin, Blood 3.2 g/dL (3.4-5.0); Albumin/Globulin Ratio 0.8 (0.8-1.8); Bilirubin, Total 0.2 mg/dL (0.1-1.0); Bun/Creatinine Ratio 20.8 (12.0-20.0); Calcium, Blood 9.4 mg/dL (8.5-10.1); Creatinine, Blood 0.53 mg/dL (0.40-1.00); Potassium, Blood 3.6 mmol/L (3.5-5.5); Total Protein, Blood 7.2 g/dL (6.4-8.2)
[2022-06-19 07:08] LABS: Influenza A, PCR NEGATIVE (NEGATIVE); Influenza B, PCR NEGATIVE (NEGATIVE); Resp Syncytial Virus, PCR NEGATIVE (NEGATIVE); SARS-Cov-2 (COVID-19) PCR, MMC NEGATIVE (NEGATIVE)
[2022-06-19 09:45] VITALS: BP 118/59
[2022-06-19] MEDS ORDERED: OLANZAPINE ODT512 SL (13:22)
[2022-06-19] MEDS ORDERED: DEXA4 PO (13:22)
[2022-06-19 15:18] VITALS: BP 108/54
[2022-06-19 19:43] VITALS: BP 122/61
--- NOTE | 2022-06-20 04:33 | NUR ---
SHIFT SUMMARY PATIENT HAD NO ACUTE CHANGES. AXOX 3 WITH HX OF DEVELOPMENTAL DISORDER. INDEPENDENT TO BR. ON 2L O2 NC AND FORGETS TO PUT OXYGEN BACK ON IF FALLS OFF OR TAKES OFF. PIV REMAINS INTACT. ON TELEMETRY NSR @ 93. VSS/AFEBRILE. DENIES CHEST PAIN, SOB, AND N/V. RT IN FOR BREATHING TX. SCHEDULE IV SOLU-MEDROL. CALL LIGHT IN REACH. BED IN LOWEST POSITION. WILL CONTINUE TO MONITOR UNTIL DAY SHIFT NURSE ASSUMES CARE.
[2022-06-20 05:30] VITALS: BP 138/74
[2022-06-20 06:18] LABS: BASOPHILS ABSOLUTE AUTO 0.03 K/mm3 (0.00-0.23); BASOPHILS PERCENT AUTO 0 % (0-2); EOSINOPHILS PERCENT AUTO 0 % (0-6); Hematocrit 32.1 % (33.0-51.0); Hemoglobin 9.9 g/dL (11.5-16.0); IMMATURE GRAN ABSOLUTE AUTO 0.25 K/mm3 (0.00-0.10); IMMATURE GRAN PERCENT AUTO 1 % (0-1); LYMPHOCYTES ABSOLUTE AUTO 1.24 K/mm3 (0.84-5.20); LYMPHOCYTES PERCENT AUTO 5 % (21-46); MONOCYTES ABSOLUTE AUTO 0.67 K/mm3 (0.16-1.47); MONOCYTES PERCENT AUTO 3 % (4-13); Mean Corpuscular HGB 24.9 pg (26.0-34.0); Mean Corpuscular HGB Conc 30.8 g/dL (31.5-36.5); Mean Corpuscular Volume 81 fL (80-100); NEUTROPHILS ABSOLUTE AUTO 24.11 K/mm3 (1.96-9.15); NEUTROPHILS PERCENT AUTO 92 % (41-73); Platelet Count 201 K/mm3 (150-400); RDW Standard Deviation 48.8 fL (35.1-46.3); Red Blood Cell Count 3.98 M/mm3 (3.80-5.20)
[2022-06-20 06:48] LABS: Albumin, Blood 2.9 g/dL (3.4-5.0); Albumin/Globulin Ratio 0.7 (0.8-1.8); Bilirubin, Total 0.3 mg/dL (0.1-1.0); Bun/Creatinine Ratio 27.4 (12.0-20.0); Calcium, Blood 9.8 mg/dL (8.5-10.1); Creatinine, Blood 0.59 mg/dL (0.40-1.00); Globulin, Blood 4.2 g/dL (2.2-4.0); Potassium, Blood 3.6 mmol/L (3.5-5.5); Total Protein, Blood 7.1 g/dL (6.4-8.2)
[2022-06-20 07:37] VITALS: BP 114/69
--- NOTE | 2022-06-20 12:15 | NUR ---
Went to visit Geraldine in her room. She was talking on the phone when this underwriter solicitation director entered her room. No family present in room. Pt voiced no requests at the time this underwriter solicitation director attempted to visit. PC to Geraldine's mom, Deisy. Updated Deisy that Geraldine is going to be discharged back home to [place] this afternoon. Verified that the full code documentation we have on file is accurate. Deisy states that Geraldine wishes to be a full code which she supports. Spoke with bedside nurse and verified full code wishes. PC to continue to do advanced care planning prn.
[2022-06-20] MEDS ORDERED: BUDESONIDE0.5 MG/2 M INH (15:27)
[2022-06-20] MEDS ORDERED: ROBITUSSIN DM PO (15:27)
[2022-06-20] MEDS ORDERED: Prednisone10 MG (15:29)
[2022-07-04] MEDS ORDERED: AZIT250 PO (21:40)
[2022-07-04] MEDS ORDERED: PRED20 PO (21:40)
[2022-07-12] MEDS ORDERED: Prednisone20 MG PO (21:31)
== END 2022-06-20 16:07 | disposition home or self-care (01) ==
LOC: ER 18:51 → ERHOLD 18:52 → MEDS 06-19 09:10
PROVIDERS: Student in an Organized Health Care Education/Training Program; ADMIT Internal Medicine
DX: J44.1 Chronic obstructive pulmonary disease with (acute) exacerbation (principal); J96.11 Chronic respiratory failure with hypoxia; I25.10 Atherosclerotic heart disease of native coronary artery without angina pectoris; J45.901 Unspecified asthma with (acute) exacerbation; F25.9 Schizoaffective disorder, unspecified; Z20.822 Contact with and (suspected) exposure to COVID-19
CPT/HCPCS: 0241U; 36415; 71046; 80053; 83880; 85025; 93005; 93010; 94640; 94644; 94664; 94760; 96372; 96374; 96376; 99285-25; G0378; J1650; J2930; J7512

== ENCOUNTER 2022-07-08 19:48 | Emergency (ER) | payer MEDICARE, OTHER ==
[~2022-07-08] VITALS: Ht 157.5 cm; Wt 77.1 kg
[~2022-07-08 19:48] MED LIST changes: +OLANZAPINE ODT512 SL; +Prednisone10 MG; +ROBITUSSIN DM PO
== END 2022-07-08 22:46 | disposition home or self-care (01) ==
LOC: ER 19:48
DX: J82.83 Eosinophilic asthma (principal); J44.9 Chronic obstructive pulmonary disease, unspecified; I25.10 Atherosclerotic heart disease of native coronary artery without angina pectoris; Z79.899 Other long term (current) drug therapy
CPT/HCPCS: 71046; 93005; 93010; 94644; 94664

== ENCOUNTER 2022-07-17 18:16 | Emergency (ER) | payer MEDICARE, OTHER ==
[~2022-07-17] VITALS: Ht 157.5 cm; Wt 45.4 kg
== END 2022-07-17 22:36 | disposition home or self-care (01) ==
LOC: ER 18:16
DX: J45.901 Unspecified asthma with (acute) exacerbation (principal); I25.10 Atherosclerotic heart disease of native coronary artery without angina pectoris; Z79.899 Other long term (current) drug therapy; Z79.52 Long term (current) use of systemic steroids
CPT/HCPCS: 99283

== ENCOUNTER 2022-07-22 23:47 | Emergency (ER) | payer MEDICARE, OTHER ==
[~2022-07-22] VITALS: Ht 154.9 cm; Wt 45.4 kg
== END 2022-07-23 04:40 | disposition home or self-care (01) ==
LOC: ER 23:47
DX: J45.901 Unspecified asthma with (acute) exacerbation (principal); J44.9 Chronic obstructive pulmonary disease, unspecified; I25.10 Atherosclerotic heart disease of native coronary artery without angina pectoris; Z79.899 Other long term (current) drug therapy
CPT/HCPCS: 36415; 93005; 93010; 94640; 94644; 94664; 96374; 96375; 99284-25; J1100; J3475

== ENCOUNTER 2022-08-16 22:48 | Emergency (ER) | payer MEDICARE, OTHER ==
[~2022-08-16] VITALS: Ht 160 cm; Wt 45.4 kg
[2022-08-17 00:50] LABS: Albumin/Globulin Ratio 0.8 (0.8-1.8); Bilirubin, Total 0.2 mg/dL (0.1-1.0); Bun/Creatinine Ratio 20.1 (12.0-20.0); Calcium, Blood 8.9 mg/dL (8.5-10.1); Creatinine, Blood 0.65 mg/dL (0.40-1.00); Globulin, Blood 3.8 g/dL (2.2-4.0); Potassium, Blood 3.3 mmol/L (3.5-5.5); Total Protein, Blood 6.8 g/dL (6.4-8.2)
[2022-08-17 00:52] LABS: BASOPHILS ABSOLUTE AUTO 0.05 K/mm3 (0.00-0.23); BASOPHILS PERCENT AUTO 1 % (0-2); EOSINOPHILS ABSOLUTE AUTO 1.02 K/mm3 (0.00-0.68); EOSINOPHILS PERCENT AUTO 10 % (0-6); Hematocrit 34.6 % (33.0-51.0); Hemoglobin 10.5 g/dL (11.5-16.0); IMMATURE GRAN ABSOLUTE AUTO 0.02 K/mm3 (0.00-0.10); IMMATURE GRAN PERCENT AUTO 0 % (0-1); LYMPHOCYTES ABSOLUTE AUTO 2.29 K/mm3 (0.84-5.20); LYMPHOCYTES PERCENT AUTO 23 % (21-46); MONOCYTES ABSOLUTE AUTO 0.93 K/mm3 (0.16-1.47); MONOCYTES PERCENT AUTO 9 % (4-13); Mean Corpuscular HGB 23.6 pg (26.0-34.0); Mean Corpuscular HGB Conc 30.3 g/dL (31.5-36.5); Mean Corpuscular Volume 78 fL (80-100); Mean Platelet Volume 13.1 fL (9.1-12.4); NEUTROPHILS ABSOLUTE AUTO 5.55 K/mm3 (1.96-9.15); NEUTROPHILS PERCENT AUTO 56 % (41-73); Platelet Count 213 K/mm3 (150-400); RDW Coefficient Variation 17.2 % (11.7-14.2); Red Blood Cell Count 4.45 M/mm3 (3.80-5.20); White Blood Cell Count 9.86 K/mm3 (4.00-11.30)
[2022-08-17] MEDS ORDERED: PRED20 PO (01:44)
[2022-08-17 05:30] VITALS: BP 122/73
== END 2022-08-17 05:30 | disposition home or self-care (01) ==
LOC: ER 22:48
PROVIDERS: Student in an Organized Health Care Education/Training Program
DX: R06.2 Wheezing (principal); Z79.899 Other long term (current) drug therapy; Z79.52 Long term (current) use of systemic steroids; I25.10 Atherosclerotic heart disease of native coronary artery without angina pectoris
CPT/HCPCS: 36415; 80053; 85025; 94640; 94664; 96374; 99285-25; J2930

== ENCOUNTER 2022-08-23 11:50 | Emergency (ER) | payer MEDICARE, OTHER ==
[~2022-08-23] VITALS: Ht 160 cm; Wt 45.4 kg
[2022-08-23] MEDS ORDERED: LOPE2C PO (12:13)
[2022-08-23] MEDS ORDERED: BISA10S PR (12:13)
[2022-08-23] MEDS ORDERED: DULCOLAX400 MG/5 M PO (12:14)
[2022-08-23] MEDS ORDERED: ONDA4 PO (12:15)
[2022-08-23] MEDS ORDERED: MORPHINE PO (12:15)
[2022-08-23 12:42] LABS: BASOPHILS ABSOLUTE AUTO 0.06 K/mm3 (0.00-0.23); BASOPHILS PERCENT AUTO 1 % (0-2); EOSINOPHILS ABSOLUTE AUTO 1.17 K/mm3 (0.00-0.68); EOSINOPHILS PERCENT AUTO 11 % (0-6); Hematocrit 36.3 % (33.0-51.0); Hemoglobin 10.7 g/dL (11.5-16.0); IMMATURE GRAN ABSOLUTE AUTO 0.03 K/mm3 (0.00-0.10); IMMATURE GRAN PERCENT AUTO 0 % (0-1); LYMPHOCYTES ABSOLUTE AUTO 2.23 K/mm3 (0.84-5.20); LYMPHOCYTES PERCENT AUTO 22 % (21-46); MONOCYTES ABSOLUTE AUTO 0.79 K/mm3 (0.16-1.47); MONOCYTES PERCENT AUTO 8 % (4-13); Mean Corpuscular HGB 23.1 pg (26.0-34.0); Mean Corpuscular HGB Conc 29.5 g/dL (31.5-36.5); Mean Corpuscular Volume 78 fL (80-100); NEUTROPHILS ABSOLUTE AUTO 5.97 K/mm3 (1.96-9.15); NEUTROPHILS PERCENT AUTO 58 % (41-73); Platelet Count 235 K/mm3 (150-400); RDW Coefficient Variation 17.6 % (11.7-14.2); Red Blood Cell Count 4.63 M/mm3 (3.80-5.20); White Blood Cell Count 10.25 K/mm3 (4.00-11.30)
[2022-08-23 12:47] LABS: Mean Platelet Volume 12.7 fL (9.1-12.4)
[2022-08-23 13:11] LABS: Albumin, Blood 3.2 g/dL (3.4-5.0); Albumin/Globulin Ratio 0.8 (0.8-1.8); Bilirubin, Total 0.4 mg/dL (0.1-1.0); Bun/Creatinine Ratio 17.1 (12.0-20.0); Creatinine, Blood 0.59 mg/dL (0.40-1.00); Potassium, Blood 3.5 mmol/L (3.5-5.5); Total Protein, Blood 7.2 g/dL (6.4-8.2)
[2022-08-23] MEDS ORDERED: DELTASONE20 MG PO (13:53)
[2022-08-23 14:00] VITALS: BP 125/85
== END 2022-08-23 15:19 | disposition home or self-care (01) ==
LOC: ER 11:50
PROVIDERS: Emergency Medicine
DX: J45.901 Unspecified asthma with (acute) exacerbation (principal); I25.10 Atherosclerotic heart disease of native coronary artery without angina pectoris; J44.9 Chronic obstructive pulmonary disease, unspecified; Z79.899 Other long term (current) drug therapy
CPT/HCPCS: 71046; 80053; 83880; 85025; 93005; 93010; 94644; 94664; 96374; 99285-25; J2930